=== PATIENT | female | born 1945 | race Asian ===

== ENCOUNTER 2016-10-24 18:07 | Inpatient (IN) | payer MEDICARE, MEDICAID ==
[2016-10-24] VITALS (10 sets, daily range): BP systolic 59–186; BP diastolic 41–106; PULSE 106–134; RESP 14–35; TEMP 97.6; O2SAT 95–100
[~2016-10-24] VITALS: Ht 167.6 cm; Wt 64.2 kg
[~2016-10-24 18:07] MED LIST: ASPI81TA82 PO; BACT800T5 PO; DOPamine INJ PREMIX 500 ML IV ONE; EPINEPHrine HCL (1:10,000) 1 MG/10 ML SYRINGE IV ONE; EPINEPHrine HCL (1:1000) 30 MG/30 ML VIAL IV ONE; IOHEXOL 350 MG/ML 50 ML BTL (for Cath Lab) OTHER ONE; IPRAAER IN; METHI10 PO; METO25 PO; RANI150T PO
[2016-10-24] MEDS ORDERED: PROPOFOL 1000 MG/100 ML INJ 100 ML ONE (18:17)
[2016-10-24] MEDS ORDERED: ASPIRIN 81 MG CHEW TAB PO STA (18:19)
[2016-10-24] MEDS ORDERED: HEPARIN SODIUM - IV 10,000 UNITS/10 ML VIAL IV STA (18:19)
[2016-10-24] MEDS ORDERED: NITROGLYCERIN 0.4 MG SL 25 TABS/BTL SL STA (18:19)
[2016-10-24] MEDS ORDERED: SODIUM CHLOR 0.9% 1000 ML INJ 1,000 ML IV ONE (18:19)
[2016-10-24] MEDS ORDERED: SODIUM CHLORIDE 0.9% FLUSH 10 ML FLUSH IVF PRN (18:30)
[2016-10-24] MEDS ORDERED: NITROGLYCERIN-DEXTROSE INJ 250 ML IV SCH (18:30)
[2016-10-24] MEDS ORDERED: HEPARIN-NS/PF INJ 500 ML ONE (18:42)
[2016-10-24] MEDS ORDERED: TIROFIBAN INFUSION INJ 250 ML IV ONE (18:43)
[2016-10-24] MEDS ORDERED: SODIUM NITROPRUSSIDE 50 MG/2 ML VIAL ONE (18:43)
[2016-10-24] MEDS ORDERED: HEPARIN SODIUM - IV 10,000 UNITS/10 ML VIAL ONE ×2 (18:43→18:58)
[2016-10-24] MEDS ORDERED: NITROGLYCERIN INJ 5 ML ONE (18:43)
--- NOTE | 2016-10-24 18:49 | RADRPT ---
EXAM DATE/TIME: 10/24/2016 18:27 [facility] COMPARISON: No previous studies available for comparison. INDICATIONS : STEMI Alert. MEDICAL HISTORY : None. SURGICAL HISTORY : None. ENCOUNTER: Initial ACUITY: 1 day PAIN SCORE: Non-responsive. LOCATION: Bilateral chest FINDINGS: Single AP view of the chest. Endotracheal tube tip is 2.4 cm above the valencia. Nasogastric tube is in place its tip below the [id number] of the radiograph. Volume loss and opacity is seen in the left upper lung zone. Comparison images are not immediately available for review a report of prior radiog raph describes chronic left apical opacity. Cardiac silhouette within normal limits. No evidence of p leural effusion or pneumothorax. CONCLUSION: 1. Left upper lung opacity and volume loss, likely chronic. 2. Endotracheal tube and nasogastric tube in place. Yovany Dawn MD on October 24, 2016 at 18:45 Board Certified Radiologist. This report was verified electronically.
[2016-10-24 18:52] LABS: AUTOMATED NEUTROPHIL # 6.6 TH/MM3 (1.8-7.7); BASOPHIL # 0.1 TH/MM3 (0-0.2); BASOPHIL % 0.7 % (0.0-2.0); EOSINOPHIL # 0.7 TH/MM3 (0-0.4); EOSINOPHIL % 6.3 % (0.0-4.0); HEMATOCRIT 43.4 % (35.0-46.0); HEMO FLAGS DIFF FINAL; LYMPH % 27.6 % (9.0-44.0); MEAN CELL VOLUME 87.5 FL (80.0-100.0); MEAN CORPUSCULAR HEMOGLOBIN 27.3 PG (27.0-34.0); MEAN CORPUSCULAR HGB CONC 31.2 % (32.0-36.0); MONO % 3.8 % (0.0-8.0); NEUT % 61.6 % (16.0-70.0); PLATELET COUNT 294 TH/MM3 (150-450); RED BLOOD COUNT 4.96 MIL/MM3 (4.00-5.30); WHITE BLOOD COUNT 10.7 TH/MM3 (4.0-11.0)
[2016-10-24 19:04] LABS: I-STAT POTASSIUM 4.8 MMOL/L (3.5-4.9)
[2016-10-24 19:06] LABS: APTT (PATIENT) 24.9 SEC (24.3-30.1); INTERNATIONAL NORMALIZED RATIO 0.9 RATIO; PROTHROMBIN TIME - PATIENT 10.2 SEC (9.8-11.6)
[2016-10-24] MEDS ORDERED: DOPamine INJ PREMIX 500 ML ONE (19:13)
[2016-10-24] MEDS ORDERED: IOHEXOL 350 MG/ML 10 ML VIAL (for RAD DIAG) IV ONE ×2 (19:47→19:52)
[2016-10-24] MEDS ORDERED: LORazepam 2 MG/ML VIAL IV PRN (20:00)
[2016-10-24] MEDS ORDERED: PROCHLORPERAZINE 25 MG SUPP RECTAL PRN (20:00)
[2016-10-24] MEDS ORDERED: PROPOFOL 1000 MG/100 ML INJ 100 ML IV SCH (20:00)
[2016-10-24] MEDS ORDERED: ONDANSETRON HCL 4 MG/2 ML VIAL IV PRN (20:00)
[2016-10-24] MEDS ORDERED: METOCLOPRAMIDE HCL 10 MG/2 ML VIAL IV PRN (20:00)
[2016-10-24] MEDS ORDERED: RESP: ALBUTEROL 2.5 MG/IPRATROPIUM 0.5 MG NEB (PRN) INH (20:00)
[2016-10-24] MEDS ORDERED: ACETAMINOPHEN 325 MG TAB PO PRN (20:00)
[2016-10-24] MEDS ORDERED: BISACODYL 10 MG SUPP RECTAL PRN (20:00)
[2016-10-24] MEDS ORDERED: CHLORHEXIDINE GLUCONATE 2 % 1 PACK (2 CLOTHS) TOP PRN (20:00)
[2016-10-24] MEDS ORDERED: SENNOSIDES 8.6 MG TAB PO PRN (20:00)
[2016-10-24] MEDS ORDERED: MISCELLANEOUS NURSING INFORMATION XX SCH (20:00)
[2016-10-24] MEDS ORDERED: MAGNESIUM HYDROXIDE SUSP 30 ML CUP PO PRN (20:00)
--- NOTE | 2016-10-24 20:07 | RADRPT ---
EXAM DATE/TIME: 10/24/2016 19:20 [facility] COMPARISON: CHEST SINGLE AP, October 24, 2016, 18:27. INDICATIONS : STEMI Alert. MEDICAL HISTORY : None. SURGICAL HISTORY : None. ENCOUNTER: Initial ACUITY: 1 day PAIN SCORE: Non-responsive. LOCATION: Bilateral chest FINDINGS: Single AP view of the chest. Endotracheal tube and nasogastric tube remain in place. Left subclavian central venous catheter is now seen with the tip in the region of the distal SVC. Increased bilateral pulmonary opacity, most prominent increase is seen in the right upper lung zone and right lower lung zone. Chronic opacity and volume loss again seen in the left upper lung. No evidence of pleural effu meghan or pneumothorax. Cardiomediastinal silhouette unchanged. CONCLUSION: Increased bilateral pulmonary parenchymal opacity. Differential diagnosis includes pulmonary edema an d infection. Yovany Dawn MD on October 24, 2016 at 20:03 Board Certified Radiologist. This report was verified electronically.
[2016-10-24] MEDS ORDERED: NOREPINEPHRINE 4 MG/4 ML AMP ONE (20:10)
--- NOTE | 2016-10-24 20:17 | PD ---
HPI Chief Complaint: Respiratory Distress Time Seen by Provider: 19:33 Travel History International Travel<30 days: No Contact w/Intl Traveler<30days: No Traveled to known affect area: No History of Present Illness HPI 70 years old female was brought in from home with h/o shortness of breath. Upon their arrival, patient was severely short of breath and her lungs sounded "wet" . She was given IV Lasix by EMS and was started on CPAP. Patient arrived in extremis, unable to speak due to the distress. There was no family member present to give additional history. EMS had done a 12 lead EKG en route which looked to them as STEMI. They called a STEMI alert. Patient however shook her head meaning "no" when I asked if she had any chest pain. Her BP was 135 systolic and heart rate of 125. Sats were 95% on the CPAP. PFSH Past Medical History Narrative Medical List of her past medical, surgical, social and family history was reviewed from the nursing note and medical chart. It was limited. Arthritis: Yes ("GOUT" SEE DR BUCKNER) Asthma: Yes Blood Disorders: No Cancer: No Cardiovascular Problems: Yes High Cholesterol: No Chemotherapy: No Chest Pain: Yes Congestive Heart Failure: No Cerebrovascular Accident: No Diabetes: No Diminished Hearing: No Diverticulitis: Yes Endocrine: No GERD: No Glaucoma: No Genitourinary: No Headaches: No Hepatitis: No Hiatal Hernia: No Hypertension: No Immune Disorder: Yes ("GOUT") Kidney Stones: No Musculoskeletal: Yes Neurologic: No Psychiatric: No Reproductive: No Respiratory: Yes Migraines: No Myocardial Infarction: No Pneumonia: Yes Radiation Therapy: No Renal Failure: No Seizures: No Sickle Cell Disease: No Sleep Apnea: No Thyroid Disease: Yes (STARTED ON TAPAZOLE) Ulcer: No Influenza Vaccination: No ?: Not Menopausal: Yes Past Surgical History Surgical History: Unable to Obtain Abdominal Surgery: No AICD: No Appendectomy: No Arteriovenous Shunt: No Cardiac Surgery: Yes (ANGIOPLASTY) Cholecystectomy: No Ear Surgery: No Endocrine Surgery: No Eye Surgery: No Genitourinary Surgery: No Gynecologic Surgery: No Insulin Pump: No Joint Replacement: No Oral Surgery: No Pacemaker: No Thoracic Surgery: No Other Surgery: Yes (ANGIOPLASTY NOVEMBER 2009) Social History Alcohol Use: No Tobacco Use: No Substance Use: No Allergies-Medications (Allergen,Severity, Reaction): Coded Allergies: Propofol (Verified Adverse Reaction, Severe, bradycardia, 10/25/16) Comments NKDA Reported Meds & Prescriptions Reported Meds & Active Scripts Active Reported Combivent Respimat (Albuterol/Ipratropium) Respimat Aer 1 Inhalation IN DIRECTED Aspir-81 (Aspirin) 81 Mg Tab 81 Mg PO DAILY Ranitidine 150 mg (Ranitidine HCl) 150 Mg Tab 1 Tab PO BID Bactrim DS (Sulfamethoxazole-Trimethoprim DS) 1 Tab Tab 1 Tab PO BID Tapazole 10 mg (Methimazole) 10 Mg Tab 0.5 Tab PO BID Metoprolol Tartrate 25 mg (Metoprolol Tartrate) 25 Mg Tab 25 Mg PO BID Narrative Medication List of her home medications were reviewed from the nursing note. Review of Systems Except as stated in HPI: all other systems reviewed are Neg Physical Exam Narrative GENERAL: Lethargic, significant distress, and extremities SKIN: Focused skin assessment warm/dry. HEAD: Atraumatic. Normocephalic. EYES: Pupils equal and round. No scleral icterus. No injection or drainage. ENT: No nasal bleeding or discharge. Mucous membranes pink and moist. NECK: Trachea midline. No JVD. CARDIOVASCULAR: Regular rate and rhythm. No murmur appreciated. RESPIRATORY: Respiratory distress with poor respiratory effort, diminished breath sounds GASTROINTESTINAL: Abdomen soft, non-tender, nondistended. Hepatic and splenic margins not palpable. MUSCULOSKELETAL: No obvious deformities. No clubbing. No cyanosis. No edema. NEUROLOGICAL: GCS of 12 PSYCHIATRIC: Anxious Data Data Last Documented VS Vital Signs Date Time Temp Pulse Resp B/P Pulse Ox O2 Delivery O2 Flow Rate FiO2 10/24/16 18:50 132 22 165/78 100 Room Air 10/24/16 18:15 100 Orders Propofol 1000 Mg/100 Ml Inj (Diprivan 10 (10/24/16 18:17) Troponin I (10/24/16 18:19) Ckmb (Isoenzyme) Profile (10/24/16 18:19) Complete Blood Count With Diff (10/24/16 18:19) I-Stat Profile (10/24/16 18:19) I-Stat Creatinine (10/24/16 18:19) Calcium (10/24/16 18:19) Magnesium (Mg) (10/24/16 18:19) Prothrombin Time / Inr (Pt) (10/24/16 18:19) Act Partial Throm Time (Ptt) (10/24/16 18:19) B-Type Natriuretic Peptide (10/24/16 18:19) Chest, Single Ap (10/24/16 18:19) Electrocardiogram (10/24/16 18:19) Oxygen Administration (10/24/16 18:19) Iv Access Insert/Monitor (10/24/16 18:19) Oximetry (10/24/16 18:19) Sodium Chlor 0.9% 1000 Ml Inj (Ns 1000 M (10/24/16 18:19) Sodium Chloride 0.9% Flush (Ns Flush) (10/24/16 18:30) Aspirin Chew (Aspirin Chew) (10/24/16 18:19) Nitroglycerin Sl (Nitrostat Sl) (10/24/16 18:19) Nitroglycerin-Dextrose Inj (Nitroglyceri (10/24/16 18:30) Heparin Inj (Heparin Inj) (10/24/16 18:19) Cardiac Catheterization (10/24/16 ) Heparin-Ns/Pf Inj (Heparin-Ns/Pf Inj) (10/24/16 18:42) Nitroprusside Inj (Nipride Inj) (10/24/16 18:43) Tirofiban Infusion Inj (Aggrastat Infusi (10/24/16 18:43) Heparin Inj (Heparin Inj) (10/24/16 18:43) Nitroglycerin Inj (Nitroglycerin Inj) (10/24/16 18:43) Admit Order (Ed Use Only) (10/24/16 ) Labs Laboratory Tests Test 10/24/16 18:26 White Blood Count 10.7 TH/MM3 Red Blood Count 4.96 MIL/MM3 Hemoglobin 13.5 GM/DL Bedside Hemoglobin 16.3 G/DL Hematocrit 43.4 % Bedside Hematocrit 48.0 % Mean Corpuscular Volume 87.5 FL Mean Corpuscular Hemoglobin 27.3 PG Mean Corpuscular Hemoglobin 31.2 % Concent Red Cell Distribution Width 14.0 % Platelet Count 294 TH/MM3 Mean Platelet Volume 9.5 FL Neutrophils (%) (Auto) 61.6 % Lymphocytes (%) (Auto) 27.6 % Monocytes (%) (Auto) 3.8 % Eosinophils (%) (Auto) 6.3 % Basophils (%) (Auto) 0.7 % Neutrophils # (Auto) 6.6 TH/MM3 Lymphocytes # (Auto) 3.0 TH/MM3 Monocytes # (Auto) 0.4 TH/MM3 Eosinophils # (Auto) 0.7 TH/MM3 Basophils # (Auto) 0.1 TH/MM3 CBC Comment DIFF FINAL Differential Comment Prothrombin Time 10.2 SEC Prothromb Time International 0.9 RATIO Ratio Activated Partial 24.9 SEC Thromboplast Time Bedside Sodium 140 MMOL/L Bedside Potassium 4.8 MMOL/L Bedside Chloride 105 MMOL/L Bedside Blood Urea Nitrogen 24 MG/DL Bedside Creatinine 1.0 MG/DL Bedside Glucose 265 MG/DL Calcium Level 8.0 MG/DL Magnesium Level 2.0 MG/DL Total Creatine Kinase 60 U/L Troponin I 0.47 NG/ML B-Type Natriuretic Peptide 43 PG/ML Thyroid Stimulating Hormone 0.080 uIU/ML 3rd Gen Theophylline Level LESS THAN 2.0 MCG/ML MDM Medical Decision Making Medical Screen Exam Complete: Yes Emergency Medical Condition: Yes Medical Record Reviewed: Yes Interpretation(s) 12 lead EKG was reviewed by me. NSR, LAD, diffuse ST elevations with no reciprocal changes. HR of 123 BPM Differential Diagnosis STEMI, Pericarditis, Aortic dissection, pulmonary edema Narrative Course 8PM Initially, soon after the patient arrived, I decided to intubate her since she appeared to be in impending respiratory failure. Patient tolerated the procedure well initially. A 12-lead EKG was obtained soon after the intubation which again showed a diffuse ST elevation with no depression. I however called a STEMI alert and discussed the case with Dr. Armstrong. He wanted to see the picture of the 12-lead EKG which was texted to his phone. He wanted to call the STEMI alert off and get a repeat 12-lead EKG in a few minutes and wait for the blood test result. Soon after that patient lost her pulse and CPR was begun. Patient was given 2-3 rounds of epinephrine. Please refer to the nurse' s code sheet. There was ROSC. A repeat 12-lead EKG was obtained which showed remarkable ST elevations. At this point I called Dr. Armstrong again and once again sent a second picture of the 12-lead EKG. STEMI alert was recalled. He wanted the patient to be taken up to the catheter lab. At this point her family showed up including her and I spoke briefly with the . He told me that patient has history of COPD but also has a coloring room man Dr. Alvares who follows her up. Based on this information I tried to cancel Dr. Armstrong's consult and tried to reach out to him. At the same time Dr. Romero who was on-call for Dr. Alvares's group was called. I discussed the case with her and she came to see the patient immediately. She spoke with the at length and during her discussion with the family patient coded one more time. Once again CPR was initiated by me. Please refer to the nurse' s code sheet regarding the meds in the time delivered during the second CPR. Once again ROSC was achieved and patient was started on dopamine at this point. I inserted a central line. Please refer to my procedure note. A portable chest x-ray was obtained for central line placement. The chest x-ray appeared to have questionable widened mediastinum. At this point I decided to take the patient to the CT to rule out any dissection and Dr. Romero agreed. I and Dr. Romero went with the patient to the CT scanner and wants a CT was obtained the etiologies immediately read the CT. There was no dissection. Patient was taken to the Liner Checker. Dr. Romero wanted me to be on standby in the medical lab specialist in case the patient coded again. Please refer to 's catheter report dictation. I was told that patient does not have any coronary artery occlusion. She did have significant hypokinesis however. She did not code anymore at this point. Patient was taken to the ICU from there. At this point she remained relatively hemodynamically stable. Patient was admitted by Dr. Hernandez in the ICU. Critical Care Narrative Aggregate critical care time was 120 minutes. Time to perform other separately billable procedures was not included in the critical care time. My time did not include minutes spent treating any other patients simultaneously or on activities that did not directly contribute to the patient's treatment. The services I provided to this patient were to treat and/or prevent clinically significant deterioration that could result in: Respiratory failure, CPR, cardiac arrest, hemodynamic instability, ventilator management I provided critical care services requiring my management, as noted below: Chart data review, documentation time, medication orders and management, vital sign assessments/reviewing monitor data, ordering and reviewing lab tests, ordering and interpreting/reviewing x-rays and diagnostic studies, care of the patient and discussion of the patient with the admitting physicians. Procedures Procedure Narrative After the risks and benefits were discussed the following procedure was performed: INTUBATION: The patient was put in optimal position for the procedure. Rapid sequence intubation was initiated by me using 20 milligrams of etomidate IV and 100 milligrams of succinylcholine IV. The patient was intubated with a 7.5 Cuffed endotracheal tube. Tube placement was confirmed by visualization of the tube and balloon passing through the cords, capnometry and subsequent chest x-ray. Breath sounds were equal and well aerated bilaterally postintubation. No breath sounds over stomach. Patient tolerated procedure well. CENTRAL VENOUS LINE: The site was prepped with Betadine and sterilely draped. It was infiltrated with 1% lidocaine plain. The deep vein was cannulated using normal Seldinger technique. A triple lumen central line was placed in the left subclavian site and secured with simple interrupted suture. The site was sterilely dressed. The patient tolerated the procedure well. EKG Prior to Arrival: Yes Physician Communication Physician Communication Dr. Armstrong, Dr. Romero, Dr. Hernandez Diagnosis Primary Impression: Respiratory failure Qualified Code: J96.00 - Acute respiratory failure, unspecified whether with hypoxia or hypercapnia Additional Impressions: Cardiac arrest Pulmonary edema Qualified Code: J81.0 - Acute pulmonary edema Elevated troponin I level Admitting Information Admitting Physician Requests: it David Womack MD Oct 24, 2016 20:17
[2016-10-24] MEDS ORDERED: MISC INFORMATION XX ONE (20:30)
[2016-10-24] MEDS ORDERED: LIDOCAINE HCL 1% 50 ML VIAL INFIL PRN (20:30)
--- NOTE | 2016-10-24 20:33 | CATHPROC ---
[employer] HIS Report Study Information Study Number Admission Scheduled Start Study Start [id number] Oct 24 2016 6:07PM 10/24/2016 Oct 24 2016 6:36PM [place] [facility] Cardiac Catheterization Admit Source Facility Department Emergency department [facility] - [facility] Physician and Clinical Staff Initial MD Armstrong, Kris Strap Making Machine OperatorMegha Gates RN Additional Cami Rojo Strap Making Machine OperatorSanna Nye RN Recorder Vani Márquez,RT(R) Jennifer Price RCIS TECH2 Procedures Performed Procedure Location (Site) Vessel Name Coronary Angiograms LCA Left Coronary Coronary Angiograms RCA Right Coronary L Heart Cath LV Gram-hand inj. LV LV Ventricle Wire insertion Fem Art (right) Femoral Art Equipment Time Ice Cream Van Vendor Description Size Mfg Part Number Used/Scra ped TRANSDUCER, TRUWAVE [id number] 19:33 RAY PATEL * Used W/STOCKCOCK *[id number] [id number] *[id number] [id number] *[id number] [id number] *[id number] [id number] *[id number] *[id number] 19:33 [employer] PACK, CCL CUSTOM * Used *[id number] 19:33 [employer] PACER PEN, SKIN DUAL W/ RULER * Used *[id number] 19:34 [employer] MEDICAL SHEATH, FR4.5 PRELUDE 11CM FR 4.5 Used [id number] 19:33 [employer] MEDICAL SHEATH, FR6.5 PRELUDE 11CM FR 6.5 038ACT Used *[id number] 19:33 [employer] MEDICAL WIRE, 3MMJ .035 180CM 180CM Used *[id number] 19:33 [employer] CONTRAST CONTROLLER, SPIKE * Used *[id number] 19:33 [employer] MANIFOLD, 4 PORT * Used *[id number] 19:33 [employer] OMNIPAQUE, 350 MG, 150ML 150ML [id number] Used [id number] 19:33 [employer] MEDICAL BLANKET,WARM AIR CCL * Used *[id number] Medication Medication Total Dose (Bolus/Oral) Medication Total Dosage/Unit 1% XYLOCAINE 20 mL Medications (Bolus/Oral) Medication Time Given Dosage/Unit Administered By Reason 1% XYLOCAINE 10/24/2016 8:07:00 PM 20 mL Nick, Cami 20 mL 1% XYLOCAINE given in lab by Cami Romero in Right Groin via Subcutaneous. Medication (Drip) Medication Time Given Dosage/Unit Concentration/Unit Diluent (ml) Solution DOPAMINE HCL 10/24/2016 8:02:28 PM 15 mcg Patient arrived on 15 mcg DOPAMINE HCL in Left Hand via Peripheral IV. IV Solutions 10/24/2016 8:02:27 PM 0 mL (IV) 1000 NaCl .9 Patient arrived on IV Solutions in Right Hand via Peripheral IV. Pump/Drip Flow = 20 ml/hr using NaCl .9. Initial Case Assessment Cardiovascular HR Rhythm NIBP 108 reg 67/40 Edema Present Skin color Skin None Pale Cool Clammy Circulatory - Right Pulses Dorsalis Pedis Femoral d d Scale (0,1,2,3,4,d) Circulatory - Left Pulses Dorsalis Pedis Femoral d d Scale (0,1,2,3,4,d) Neurological State Unresponsive Respiration - General Respiration Rate SpO2 (%) (B/min) 15 100 Comment: rate 16 Respiration - Ventilator Type Intubation Type ET(oral) Respiration - Ventilator Settings TV (ml) FIO2 (%) PEEP (cm/H2O) 500 100 8 Final Case Assessment Respiration - General Respiration Rate SpO2 (%) (B/min) 15 100 Respiration - Ventilator Type Intubation Type ET(oral) Respiration - Ventilator Settings TV (ml) FIO2 (%) PEEP (cm/H2O) 500 100 8 Chronological Log Time Study Chronological Log 18:46:59 Emergency Room notified that Leather Production Worker is ready. pt now on the way to cathlab 19:32:[address] now -coming to cathode washer 19:52:59 19:56:18 Patient arrived via Bed. 19:59:25 Patient Name, D.O.B, / Armband Verified By R.N. 19:59:41 Consent signed by the physician and the patient and verified by the [facility] Worker staff. 20:01:41 Bilateral groins prepped with 2% chlorhexidine, and with a 3 min. waiting time. Vitals capture started with the following parameters, Patient=Adult, Interval=5 min, Initial Pr fxbunv=236 mmHg, 20:02:10 Deflation Rate=5 mmHg 20:02:18 Immediate Presedation assesment performed by physician. 20:02:22 Disposable Defibrillator Pads Placed On Patient. 20:02:25 A # 20 IV was noted in the Hand (right). Grade = 0 20:02:26 A # 20 IV was noted in the Hand (left). Grade = 0 20:02:27 Patient arrived on IV Solutions in Right Hand via Peripheral IV. Pump/Drip Flow = 20 ml/hr using NaCl .9. 20:02:28 Patient arrived on 15 mcg DOPAMINE HCL in Left Hand via Peripheral IV. 20:02:50 ZP=461 bpm, NIBP=67/40 mmhg, IfN5=775.0 %, Resp=16 B/min, Ivana=2, Teresa=6 20:05:06 Reference ECG taken Assessment: Initial Case, EX=599 BPM, Rhythm=reg, NIBP=67/40 mmhg, Edema=None, Color=Pale, Skin = Cool, Clammy Right Pulses: Uv Ped=d, Femoral=d 20:05:10 Left Pulses: Vu Ped=d, Femoral=d Neurological: State=Unresponsive Respiration: Resp=15 B/min, HhZ9=131 %, Type=ET(Oral), WJ=319 mL, STE0=612 %, PEEP=8 cm/H2O, Comment=rate 16 20:06:30 NIBP STAT measurement started. 20:06:37 Pressure channel 1 zeroed. 20:06:47 Bilateral groins prepped with 2% chlorhexidine, and with a 3 min. waiting time. 20:06:54 CX=533 bpm, NIBP=78/49 mmhg, MxH2=507.0 %, Resp=15 B/min, Ivana=2 20:07:00 20 mL 1% XYLOCAINE given in lab by Cami Romero in Right Groin via Subcutaneous. 20:07:49 DY=537 bpm, NIBP=87/54 mmhg, FbN2=934.0 %, Resp=15 B/min, Ivana=3 20:08:24 Case Start 20:09:44 Access site was Right Femoral Artery. 20:09:53 A wire was inserted via Fem Art (right). 20:09:57 A SHEATH, FR4.5 PRELUDE 11CM FR 4.5 was advanced into the Fem Art (right) using the Percuta neous technique. 20:10:12 An injection in the Fem Art (right) was made through the SHEATH, FR4.5 PRELUDE 11CM FR 4.5. A JL 4.0 INFINITI CATHETER FR 4 was advanced over a wire. OMNIPAQUE, 350 MG, 150ML 150ML was us ed for 20:10:39 injections. 20:11:09 The LCA was injected and visualized at various angles. OMNIPAQUE, 350 MG, 150ML 150ML used . After removing the current catheter a 3DRC INFINITI CATHETER FR 4 was advanced over a WIRE, 3MM J .035 180CM 20:12:42 180CM. 20:13:13 YF=790 bpm, USCD=216/72 mmhg, CtT9=114.0 %, Resp=15 B/min, Ivana=4 Recorded Pressure: Ao, CU=699, Condition=Condition 1 20:13:29 (Aorta) Ao 107/73/88 20:13:52 Activated Clotting Time Drawn 20:14:38 The RCA was injected and visualized at various angles. OMNIPAQUE, 350 MG, 150ML 150ML use d. 20:14:49 Catheter was removed After removing the current catheter a PIGTAIL ANG. INFINITI CATHETER FR 4 was advanced over a WIRE, 3MMJ .035 20:14:55 180CM 180CM. Recorded Pressure: LV, AH=914, Condition=Condition 1 20:15:27 (Left Ventricle) LV 116/12/17 20:15:40 The LV was manually injected with 10 cc's and visualized. OMNIPAQUE, 350 MG, 150ML 150ML u sed. Recorded Pressure: LV, Ao, GY=465, Condition=Condition 1 20:16:12 (Left Ventricle) LV 117/14/19, (Aorta) Ao 115/71/91 20:16:34 Catheter was removed 20:17:06 Case End Assessment: Final Case 20:17:09 Respiration: Resp=15 B/min, UzA1=757 %, Type=ET(Oral), NE=663 mL, MON2=753 %, PEEP=8 cm/H2O 20:17:33 Catheter(s) removed without difficulty 20:17:43 XT=829 bpm, STQW=792/79 mmhg, EuC4=674.0 %, Resp=15 B/min, Ivana=4 20:17:45 No case complications noted. 20:17:56 Cine recording checked. 20:18:01 Bedside Report will be given. 20:18:04 Contrast Scanned 20:18:07 A Left Heart Cath was performed. 20:18:12 Clinical correlaton risk stratification. 20:19:03 ACT (Normal Range 90-180) = 204 20:19:50 pt received 5000 heparin in ER 20:20:13 In the Fem Art (right) the SHEATH, FR4.5 PRELUDE 11CM FR 4.[address] by Cami Allred. 20:22:44 QL=762 bpm, EJYT=126/73 mmhg, QxK8=930.0 %, Resp=14 B/min, Ivana=4 20:28:10 Vitals capture stopped. End Study - Contrast Media Used In Study Contrast Total Opened (mL) Total Used (mL) Total Wasted (mL) Omnipaque 40 40 0 End Study - Radiation Exposure Fluoro Time (minutes) 0.7 End Study - Patient Disposition Complications Transferred To No Critical Care Bed
--- NOTE | 2016-10-24 20:43 | RADRPT ---
EXAM DATE/TIME: 10/24/2016 19:44 [facility] COMPARISON: CT THORAX W CONTRAST, November 07, 2009, 15:30. INDICATIONS : Code stemi, possible dissection. IV CONTRAST: 50 cc Omnipaque 350 (iohexol) IV RADIATION DOSE: 4.51 CTDIvol (mGy) MEDICAL HISTORY : Cardiovascular disease. Diverticulitis. SURGICAL HISTORY : Angioplasty. ENCOUNTER: Initial ACUITY: 1 day PAIN SCALE: Non-responsive LOCATION: Bilateral chest TECHNIQUE: Volumetric scanning of the chest was performed. Using automated exposure control and adjustment of t he mA and/or kV according to patient size, radiation dose was kept as low as reasonably achievable to obtain optimal diagnostic quality images. FINDINGS: LUNGS: Severe cystic bronchiectasis of the left lung, most prominent in the upper lobe. Prominent volume los s and consolidation of the medial left lower lung. This appearance may be chronic. Severe mixed groun dglass opacity and consolidation of the right upper lung and midlung. Moderate severity groundglass o pacity the central to lateral right lower lung. Extensive varicose bronchiectasis is noted on the rig ht most prominent in the upper lobe. PLEURA: There is a small right sided pneumothorax. MEDIASTINUM: Small pneumomediastinum is seen adjacent to the right side of the esophagus. Massive enlargement and heterogeneity of the thyroid. The endotracheal tube is in place with the tip in the thoracic trachea. Nasogastric tube is in place with the tip below the [id number] of the study. Enlargement of the p ulmonary arteries suggesting pulmonary arterial hypertension. Aorta is normal diameter. No evidence o f dissection. AXILLAE: Within normal limits. No lymphadenopathy. SKELETAL: Within normal limits. MISCELLANEOUS: Multiple round hepatic lesions are again seen. Again likely worsening cysts. The largest is in the ce ntral right lobe measuring 3.1 cm. This has increased in size but clearly represented a cyst on the p rior study. CONCLUSION: 1. Small right pneumothorax. Pneumomediastinum adjacent to the right side of the esophagus. 2. Chronic severe bronchiectasis left greater than right. 3. New severe mixed groundglass and consolidative ulnar parenchymal opacity at the right lung. Differ ential diagnosis includes infection versus asymmetric pulmonary edema. 4. Multiple hepatic cysts. 5. Thyroid goiter. Yovany Dawn MD on October 24, 2016 at 20:31 Board Certified Radiologist. This report was verified electronically.
[2016-10-24] MEDS: DOCUSATE SODIUM 50 MG/SENNA 8.6 MG TAB PO SCH (21:00)
[2016-10-24] MEDS: RESP: ALBUTEROL 2.5 MG/IPRATROPIUM 0.5 MG NEB (SCH) INH (21:24)
[2016-10-24] MEDS ORDERED: MIDAZOLAM 100 MG/ML INJ 100 ML IV SCH (21:30)
[2016-10-24] MEDS: fentaNYL DRIP 250 ML IV SCH (22:04)
--- NOTE | 2016-10-24 22:13 | MB ---
cc: RHONA GARRETT MD DATE OF CONSULTATION 10/24/16 REASON FOR CONSULTATION Possible STEMI alert. HISTORY OF PRESENT ILLNESS The patient is a 70-year-old female who does have a history of previous [place] and mildly reduced EF by catheterization of 45-50%. The patient at the time of catheterization in November of 2009 was not found to have any significant disease. She had normal coronaries at that time. She presented to the emergency room today with an acute onset of shortness of breath. She subsequently coded twice in the emergency room and was intubated. The patient has diffuse ST elevation and cardiology was subsequently consulted. The patient is intubated and unable to give any history at this point. The history is per the records. PAST SURGICAL HISTORY 1. Diverticular disease 2. Bronchiectasis, 3. Asthma, 4. Multinodular goiter. SOCIAL HISTORY The patient is . REVIEW OF SYSTEMS/FAMILY HISTORY Unobtainable. PHYSICAL EXAMINATION VITAL SIGNS: 114, 16, 174/99 GENERAL: She is intubated. LUNGS: Lungs have bilateral rhonchi. CARDIOVASCULAR: Cardiac tones are difficult to appreciate, do sound to have regular rhythm. I am unable to appreciate any rubs or gallops. ABDOMEN: Soft. EXTREMITIES: Free from edema. CARDIOLOGY STUDIES EKG shows sinus tachycardia with diffuse ST elevation. IMAGING STUDIES Chest x-ray - Preliminary shows a mediastinal mass. IMPRESSION AND PLAN ST elevation [place] - The patient does have a diffuse ST elevation. I cannot completely exclude a STEMI, although it is of low likelihood based on her history of normal coronaries a few years ago. At this point, I do agree with the ER doctor of pursuing a CT scan and then reevaluating prior to proceeding to the kiln labourer. Rhona Garrett M.D. AMINAH/ /7:37 PM /10:07 PM
--- NOTE | 2016-10-24 22:13 | HHI.HP ---
HPI Service Critical Care Medicine Primary Care Physician Unknown Admission Diagnosis STEMI Diagnosis: Travel History International Travel<30 Days: No Contact w/Intl Traveler <30 Da: No Traveled to Known Affected Are: No History of Present Illness 70 years old female was brought in from home with h/o shortness of breath. Upon their arrival, patient was severely short of breath and her lungs sounded "wet" . She was given IV Lasix by EMS and was started on CPAP. Patient arrived in extremis, unable to speak due to the distress. There was no family member present to give additional history. EMS had done a 12 lead EKG en route which looked to them as STEMI. They called a STEMI alert. Patient however shook her head meaning "no" when I asked if she had any chest pain. Her BP was 135 systolic and heart rate of 125. Sats were 95% on the CPAP. Patient has suffered from cardiac arrest months in the emergency department and one or 2 times in the cardiac catheterization lab. Review of Systems ROS Unable to obtain patient is sedated and intubated Past Family Social History Allergies: Coded Allergies: No Known Allergies (Verified , 11/19/15) Past Medical History Coronary artery disease, status post [place] and angioplasty intervention Dyslipidemia Hypertension Diverticular disease Past Surgical History None Reported Medications Reported Meds & Active Scripts Active Reported Combivent Respimat (Albuterol/Ipratropium) Respimat Aer 1 Inhalation IN DIRECTED Aspir-81 (Aspirin) 81 Mg Tab 81 Mg PO DAILY Ranitidine 150 mg (Ranitidine HCl) 150 Mg Tab 1 Tab PO BID Bactrim DS (Sulfamethoxazole-Trimethoprim DS) 1 Tab Tab 1 Tab PO BID Tapazole 10 mg (Methimazole) 10 Mg Tab 0.5 Tab PO BID Metoprolol Tartrate 25 mg (Metoprolol Tartrate) 25 Mg Tab 25 Mg PO BID Active Ordered Medications Current Medications Medications (Trade) Dose Ordered Sig/Najma Route PRN Reason Start Time Stop Time Status Last Admin Dose Admin Nitroglycerin/ Dextrose (Nitroglycerin-Dextrose Inj) 250 ml @ 0 mls/hr TITRATE IV 10/24/16 18:30 Aspirin (Aspirin Chew) 81 mg DAILY PO 10/25/16 09:00 Methimazole 5 mg 5 mg BID PO 10/24/16 21:00 10/25/16 01:28 Sodium Chloride (NS 1000 ml Inj) 1,000 ml @ 84 mls/hr [id number] IV 10/24/16 19:48 10/24/16 22:18 Sodium Chloride (NS Flush) 2 ml UNSCH PRN .XX FLUSH AFTER USING IV ACCESS 10/24/16 20:00 Sodium Chloride (NS Flush) 2 ml BID .XX 10/24/16 21:00 10/25/16 01:28 Acetaminophen (Tylenol) 650 mg Q6H PRN PO PAIN 1-2 AND/OR FEVER >101F 10/24/16 20:00 Morphine Sulfate (Morphine Inj) 2 mg Q2H PRN IV PAIN SCALE 6 TO 10 10/24/16 20:00 Famotidine (Pepcid Inj) 20 mg Q12HR IV PUSH 10/24/16 21:00 10/25/16 01:27 Lorazepam (Ativan Inj) 1 mg Q1H PRN IV Agitation/Sedation 10/24/16 20:00 Artificial Tears (Tears Naturale Opth Soln) 1 drop TID EACH EYE 10/25/16 09:00 Ondansetron HCl (Zofran Inj) 4 mg Q6H PRN IV NAUSEA OR VOMITING 10/24/16 20:00 Metoclopramide HCl (Reglan Inj) 10 mg Q6H PRN IV NAUSEA OR VOMITING 10/24/16 20:00 Prochlorperazine (Compazine Supp) 25 mg Q12H PRN RECTAL NAUSEA OR VOMITING 10/24/16 20:00 Miscellaneous Information 1 [id number] XX 10/24/16 20:00 Chlorhexidine Gluconate (Chlorhexidine 2% Cloth) 3 pack Taper DAILY@04 TOP 10/25/16 04:00 10/21/17 03:59 10/25/16 03:06 Chlorhexidine Gluconate (Chlorhexidine 2% Cloth) 3 pack UNSCH PRN TOP HYGIENIC CARE 10/24/16 20:00 Senna/Docusate Sodium (Olivia-Colace) 1 tab BID PO 10/24/16 21:00 Magnesium Hydroxide (Milk Of Magnesia Liq) 30 ml Q12H PRN PO MILD - MODERATE CONSTIPATION 10/24/16 20:00 Sennosides (Senokot) 17.2 mg Q12H PRN PO MODERATE - SEVERE CONSTIPATION 10/24/16 20:00 Bisacodyl (Dulcolax Supp) 10 mg DAILY PRN RECTAL SEVERE CONSITIPATION 10/24/16 20:00 Lactulose 30 ml 30 ml DAILY PRN PO SEVERE CONSITIPATION 10/24/16 20:00 Propofol (Diprivan 1000 Mg/100ml Inj) 100 ml @ 0 mls/hr TITRATE IV 10/24/16 20:00 Lidocaine HCl 10 ml 10 ml UNSCH PRN INFIL SHEATH REMOVAL 10/24/16 20:30 10/25/16 20:29 Fentanyl Citrate 250 ml @ 0 mls/hr TITRATE IV 10/24/16 21:30 10/24/16 22:04 Midazolam HCl (Versed Inj) 100 ml @ 0 mls/hr TITRATE IV 10/24/16 21:30 10/24/16 22:05 Family History Noncontributory Social History Negative for alcohol or illicit drug or tobacco abuse Physical Exam Vital Signs Vital Signs Date Time Temp Pulse Resp B/P Pulse Ox O2 Delivery O2 Flow Rate FiO2 10/24/16 20:58 100 100 10/24/16 20:00 100 100 10/24/16 19:30 114 16 174/99 100 10/24/16 19:20 106 18 186/102 100 10/24/16 18:50 132 22 165/78 100 Room Air 10/24/16 18:15 100 10/24/16 18:15 123 18 141/73 100 100 10/24/16 18:11 123 35 136/84 95 Physical Exam GENERAL: Well-nourished, well-developed patient. SKIN: Warm and dry. HEAD: Normocephalic. EYES: No scleral icterus. No injection or drainage. NECK: Supple, trachea midline. No JVD or lymphadenopathy. CARDIOVASCULAR: Regular rate and rhythm without murmurs, gallops, or rubs. RESPIRATORY: Breath sounds equal bilaterally. No accessory muscle use. GASTROINTESTINAL: Abdomen soft, non-tender, nondistended. MUSCULOSKELETAL: No cyanosis, or edema. BACK: Nontender without obvious deformity. No CVA tenderness. EXTREMITIES: No clubbing cyanosis or edema Laboratory Laboratory Tests Test 10/24/16 18:26 White Blood Count 10.7 Red Blood Count 4.96 Hemoglobin 13.5 Bedside Hemoglobin 16.3 Hematocrit 43.4 Bedside Hematocrit 48.0 Mean Corpuscular Volume 87.5 Mean Corpuscular Hemoglobin 27.3 Mean Corpuscular Hemoglobin 31.2 Concent Red Cell Distribution Width 14.0 Platelet Count 294 Mean Platelet Volume 9.5 Neutrophils (%) (Auto) 61.6 Lymphocytes (%) (Auto) 27.6 Monocytes (%) (Auto) 3.8 Eosinophils (%) (Auto) 6.3 Basophils (%) (Auto) 0.7 Neutrophils # (Auto) 6.6 Lymphocytes # (Auto) 3.0 Monocytes # (Auto) 0.4 Eosinophils # (Auto) 0.7 Basophils # (Auto) 0.1 CBC Comment DIFF FINAL Differential Comment Prothrombin Time 10.2 Prothromb Time International 0.9 Ratio Activated Partial 24.9 Thromboplast Time Bedside Sodium 140 Bedside Potassium 4.8 Bedside Chloride 105 Bedside Blood Urea Nitrogen 24 Bedside Creatinine 1.0 Bedside Glucose 265 Calcium Level 8.0 Magnesium Level 2.0 Total Creatine Kinase 60 Troponin I 0.47 B-Type Natriuretic Peptide 43 Result Diagram: 10/24/16 182 Imaging Last 24 hours Impressions Chest X-Ray 10/24/169 Signed Impressions: Service Date/Time: Monday, October 24, 2016 18:27 - CONCLUSION: 1. Left upper lung opacity and volume loss, likely chronic. 2. Endotracheal tube and nasogastric tube in place. Yovany Dawn MD Assessment and Plan Assessment and Plan Respiratory failure - Intubated for an airway protection - Continue mechanical ventilation - DuoNeb scheduled and when necessary - No weaning until neurologically and hemodynamically stable Coronary artery disease - ST elevation [place] - Status post emergent cardiac catheterization - Management per cardiology Hyperlipidemia - Atorvastatin Cardiogenic shock - Dopamine, the affect - Echo a.m. - Keep map above 65 DVT GI prophylaxis - Heparin and Pepcid - Teds SCDs Critical Care: The total critical care time was 35 minutes. Time to perform other separately billable procedures was not included in the critical care time. Tommy Hernandez MD Oct 24, 2016 22:13
[2016-10-24] MEDS: SODIUM CHLOR 0.9% 1000 ML INJ 1,000 ML IV SCH (22:18)
[2016-10-25] VITALS (18 sets, daily range): BP systolic 75–138; BP diastolic 42–72; PULSE 90–138; RESP 14; TEMP 97.8–100.2; O2SAT 97–100
[2016-10-25] MEDS ORDERED: NOREPINEPHRINE-DEXTROSE DRIP 250 ML IV ONE (00:15)
[2016-10-25] MEDS: FAMOTIDINE 20 MG/2 ML VIAL IV PUSH SCH ×2 (01:27→08:45)
[2016-10-25] MEDS: METHIMAZOLE 10 MG TAB PO SCH ×3 (01:28→21:24)
[2016-10-25] MEDS: SODIUM CHLORIDE 0.9% FLUSH 10 ML FLUSH SCH ×3 (01:28→21:24)
[2016-10-25] MEDS: CHLORHEXIDINE GLUCONATE 2 % 1 PACK (2 CLOTHS) TOP SCH (03:06)
[2016-10-25 03:45] LABS: AUTOMATED NEUTROPHIL # 16.9 TH/MM3 (1.8-7.7); BASOPHIL # 0.1 TH/MM3 (0-0.2); BASOPHIL % 0.5 % (0.0-2.0); EOSINOPHIL % 0.2 % (0.0-4.0); HEMATOCRIT 34.3 % (35.0-46.0); HEMO FLAGS DIFF FINAL; LYMPH % 6.2 % (9.0-44.0); LYMPHOCYTE # 1.2 TH/MM3 (1.0-4.8); MEAN CELL VOLUME 84.5 FL (80.0-100.0); MEAN CORPUSCULAR HEMOGLOBIN 27.7 PG (27.0-34.0); MEAN CORPUSCULAR HGB CONC 32.7 % (32.0-36.0); MONO % 3.9 % (0.0-8.0); NEUT % 89.2 % (16.0-70.0); PLATELET COUNT 288 TH/MM3 (150-450); RED BLOOD COUNT 4.06 MIL/MM3 (4.00-5.30); RED CELL DISTRIBUTION WIDTH 13.6 % (11.6-17.2); WHITE BLOOD COUNT 18.9 TH/MM3 (4.0-11.0)
[2016-10-25] MEDS: RESP: ALBUTEROL 2.5 MG/IPRATROPIUM 0.5 MG NEB (SCH) INH ×4 (03:51→19:52)
[2016-10-25 04:21] LABS: BICARBONATE 26.3 MEQ/L (21.0-32.0); CALCIUM-PROTEIN CORRECTED 7.6 MG/DL (8.5-10.1); MAGNESIUM 1.4 MG/DL (1.5-2.5); POTASSIUM 3.3 MEQ/L (3.5-5.1); TOTAL BILIRUBIN ADULT 0.5 MG/DL (0.2-1.0)
[2016-10-25 04:36] LABS: BLOOD GAS HCO3 19 mmol/L (22-26); BLOOD GAS METHEMOGLOBIN 1.2 % (0-2); BLOOD GAS O2 HGB SATURATION 93 % (90-100); BLOOD GAS OXYGEN CONTENT 14.5 Vol % (12.0-20.0); BLOOD GAS PCO2 41 mmHg (38-42); BLOOD GAS PO2 85 mmHg (61-120); CRITICAL VALUE YES; OXYGEN DEVICE VENTILATOR; TEMP CORR TO 98.6
[2016-10-25 04:37] LABS: DRAW SITE ALINE; FIO2 50 %; STAT YES; ULNAR PULSE PRESENT; VENT SETTINGS PRVC14/500/1.0/+8
--- NOTE | 2016-10-25 05:29 | RADRPT ---
EXAM DATE/TIME: 10/25/2016 03:57 [facility] COMPARISON: CHEST SINGLE AP, October 24, 2016, 19:20. INDICATIONS : Shortness of breath, possible pulmonary disease. MEDICAL HISTORY : None. SURGICAL HISTORY : None. ENCOUNTER: Subsequent ACUITY: 2 days PAIN SCORE: Non-responsive. LOCATION: Bilateral chest FINDINGS: A single view of the chest demonstrates endotracheal tube in satisfactory position. NG enters stomach . Left central line in superior vena cava. Bilateral upper lobe airspace disease relatively stable fr om October 24. Increasing left basilar consolidation. CONCLUSION: 1. Increase in left basilar consolidation over the last day. Support apparatus unchanged. Stable uppe r lobe disease. Bronchiectasis. Catalino Torres MD on October 25, 2016 at 5:26 Board Certified Radiologist. This report was verified electronically.
--- NOTE | 2016-10-25 06:19 | MA ---
cc: RHONA GARRETT MD DATE: 10/24/2016 INDICATIONS FOR PROCEDURE: STEMI. PROCEDURE: Left heart catheterization, selective coronary angiography, left ventriculography. DETAILS OF PROCEDURE: The patients gave informed consent. She is prepped in usual sterile fashion. Subcutaneous injection lidocaine was made in the right inguinal area. Access was achieved in the right femoral artery and a 4-Palestinian sheath was inserted. A JL-4 and 3DRC were utilized to engage left and right coronary arteries, angiograms were obtained, multiple views, projections an angled 4-Palestinian pigtail catheter was utilized for left ventriculogram. The patient tolerated the procedure well. FINDINGS: LEFT VENTRICULOGRAM; This revealed ejection fraction of 20%. There is distal global hypokinesis and potentially consistent with a takotsubo cardiomyopathy. LEFT VENTRICULAR PRESSURE: 117/19 mmHg. CORONARY ANATOMY: Left main - this vessel is short and widely patent. It gives rise to a an left anterior descending and circumflex. Left anterior descending - this vessel does have mild luminal irregularities. It does give rise to a first diagonal that is also patent. Circumflex - this is a codominant vessel that is widely patent. Right coronary artery - this is a codominant vessel is widely patent. IMPRESSION Severe left ventricle impairment with an ejection fraction of 20% - possible takotsubo versus secondary to hypoxemia versus other. Essentially normal coronary arteries. Mallory Ba/carole /8:26 PM /6:05 AM
[2016-10-25] MEDS: DOCUSATE SODIUM 50 MG/SENNA 8.6 MG TAB PO SCH ×2 (08:43→21:24)
[2016-10-25] MEDS ORDERED: RESP: ALBUTEROL 2.5 MG/3 ML NEB (PRN) NEB (08:45)
[2016-10-25] MEDS: ASPIRIN 81 MG CHEW TAB PO SCH (08:46)
[2016-10-25] MEDS: ARTIFICIAL TEARS OPTH SOLN 15 ML BTL EACH EYE SCH ×2 (08:47→13:00)
[2016-10-25] MEDS: SODIUM CHLOR 0.9% 1000 ML INJ 1,000 ML IV SCH ×2 (08:47→21:31)
[2016-10-25] MEDS ORDERED: POTASSIUM CHLORIDE 25 MEQ EFFERVESCENT TAB PO PRN (09:00)
[2016-10-25] MEDS ORDERED: POTASSIUM PHOSPHATE MONOBASIC 500 MG TAB PO/TUBE PRN (09:00)
[2016-10-25] MEDS ORDERED: POTASSIUM PHOSPHATE MONOBASIC 500 MG TAB PO PRN (09:00)
[2016-10-25] MEDS ORDERED: POTASSIUM CHLOR 20 MEQ PREMIX 100 ML IV PRN (09:00)
[2016-10-25] MEDS ORDERED: MAGNESIUM SULFATE INJ 4 GM in SODIUM CHLORIDE 0.9% INJ 92 ML IV PRN (09:00)
[2016-10-25] MEDS ORDERED: MAGNESIUM OXIDE 400 MG TAB PO PRN (09:00)
[2016-10-25] MEDS ORDERED: MAGNESIUM SULFATE INJ 2 GM in SODIUM CHLORIDE 0.9% INJ 96 ML IV PRN (09:00)
[2016-10-25] MEDS ORDERED: POTASSIUM PHOSPHATE INJ 30 MMOL in SODIUM CHLOR 0.9% 250 ML INJ 250 ML IV PRN (09:00)
[2016-10-25] MEDS ORDERED: POTASSIUM CHLOR 40 MEQ PREMIX 100 ML IV PRN (09:00)
--- NOTE | 2016-10-25 09:23 | HHI.CCPN ---
Subjective Remarks/Hospital Course 70 years old female was brought in from home with h/o shortness of breath. Upon their arrival, patient was severely short of breath and her lungs sounded "wet" . She was given IV Lasix by EMS and was started on CPAP. Patient arrived in extremis, unable to speak due to the distress. There was no family member present to give additional history. EMS had done a 12 lead EKG en route which looked to them as STEMI. They called a STEMI alert. Patient however shook her head meaning "no" when I asked if she had any chest pain. Her BP was 135 systolic and heart rate of 125. Sats were 95% on the CPAP. Patient has suffered from cardiac arrest months in the emergency department and one or 2 times in the cardiac catheterization lab. Subjective 10/25: Currently on 13 mcg/m of norepinephrine and 5 mics management of dopamine. Arousable mentation vivar on the ventilator and follows commands. Afebrile. No pneumothorax on a.m. chest x-ray. PEEP 8. We will attempt to wean today Objective Vital Signs Date Time Temp Pulse Resp B/P Pulse Ox O2 Delivery O2 Flow Rate FiO2 10/25/16 07:28 100 50 10/25/16 06:00 109 10/25/16 04:00 99.5 14 90/59 10/24/16 18:50 Room Air Intake and Output 10/24/16 10/24/16 10/25/16 08:00 16:00 00:00 Intake Total 311 ml Output Total 1400 ml Balance -1089 ml Result Diagram: 10/25/16 0330 10/25/16 0330 Imaging Last Impressions Chest X-Ray 10/25/16 0000 Signed Impressions: Service Date/Time: Tuesday, October 25, 2016 03:57 - CONCLUSION: 1. Increase in left basilar consolidation over the last day. Support apparatus unchanged. Stable upper lobe disease. Bronchiectasis. Catalino Torres MD Chest CT 10/24/16 0000 Signed Impressions: Service Date/Time: Monday, October 24, 2016 19:44 - CONCLUSION: 1. Small right pneumothorax. Pneumomediastinum adjacent to the right side of the esophagus. 2. Chronic severe bronchiectasis left greater than right. 3. New severe mixed groundglass and consolidative ulnar parenchymal opacity at the right lung. Differential diagnosis includes infection versus asymmetric pulmonary edema. 4. Multiple hepatic cysts. 5. Thyroid goiter. Yovany Dawn MD Objective Remarks GENERAL: 70-year-old male, critically ill currently resting in bed orotracheally intubated SKIN: Warm and dry. No rash HEAD: Normocephalic. Atraumatic EYES: Pupils about 2 mm bilaterally reactive to 1 mm. No scleral icterus.. NECK: Supple, trachea midline. No JVD or lymphadenopathy. CARDIOVASCULAR: Regular rate and rhythm. S1, S2. Currently without murmurs, gallops, or rubs. Left subclavian clean dry and intact RESPIRATORY: Coarse line crackles appreciated throughout lung murphy. Positive end expiratory wheeze.. GASTROINTESTINAL: Abdomen soft, non-tender, nondistended. I Wallace bowel sounds are appreciated MUSCULOSKELETAL: No redness in peripheral edema. Patient has #4 Korean sheath in her right inguinal region is clean dry and intact BACK: Nontender without obvious deformity. No CVA tenderness. EXTREMITIES: No clubbing cyanosis or edema NEURO: Cranial nerves II through XII grossly intact. Moves all 4 extremities spontaneously to command. Normal sensation. Urinary Catheter: Yes Assessment to: Continue Meier insert reason: Prolonged Immobilization Vascular Central Line Catheter: Yes Assessment to: Continue Date of Insertion: Oct 24, 2016 Line: Central Venous Catheter Side: Left Location: Subclavian A/P Assessment and Plan Neuro/Psych: Currently on fentanyl drip at 50 mg/hour for analgesia while intubated As needed Versed Noted patient became bradycardic 2 on propofol drip in ED. This will be added as adverse reaction Neurologically intact. Acetaminophen for fever CV: History of myocardial infarction status post angioplasty in the remote past Hypertension Dyslipidemia Acute systolic heart failure ejection fraction 20% Currently on norepinephrine at 13 mcg/m and dopamine at 5 mics grams per kilo gram per minute to maintain a MAP greater than 65 Status post cardiac catheterization by Dr. Romero. Ejection fraction 20%. Left main is straight and patent. Left circumflex, LAD and RCA with minimal coronary artery disease. Currently on aspirin 81 mg daily/home medication Follow-up on lipid profile. Previously on Lipitor 40 mg daily. Holding home medication metoprolol 25 mg by mouth twice a day in light of hypotension/vasopressor usage Currently normal saline at 84 cc an hour. Resp: Acute hypoxemic respiratory failure Bronchiectasis Tiny right pneumothorax Right pneumomediastinum Chest x-ray 10/25 reveals no acute cardio pony findings to be no obvious pneumothoraces Currently on PRVC 14/500//50 Ventilator bundle Duo nebs every 4 hours with albuterol every 2 hours when necessary dyspnea on Combivent 4 times a day at home. Added Pulmicort 0.5/2 one inhalation twice a day and Solu-Medrol 40 mg's IV every 8 hours and bronchiectasis See below infectious disease for antibiotic coverage Did consult pulmonology. Unclear who in home nanny's. She has significant bronchiectasis will be difficult wean from the ventilator with underlying pulmonology pathology GI: Elevated transaminases - likely secondary to shock liver Hypoalbuminemia History of diverticulitis Gastroesophageal reflux disease Initiate tube feeding with Jevity 1.5 goal 55 cc an hour Pepcid for GI prophylaxis. On Zantac 150 twice a day at home Olivia-Colace for bowel regimen Liver ultrasound/hepatitis panel and CPK pending : Meier catheter has been placed for accurate I's and O's in a critically ill patient Endo: History of MNG Hyperthyroidism Currently at 5 mg by mouth twice a day/home medication Check TSH Sliding-scale insulin with Accu-Cheks to maintain euglycemia Renal: Monitor urine output Accurate I's and O's Heme: Leukocytosis Normocytic anemia Monitor CBC daily. Follow trends No indications for transfusion of blood products at this time ID: Day 1 vancomycin, cefepime and Zithromax Blood cultures 2, sputum, urine Legionella pneumococcal antigens and influenza ordered today 10/25 MSK: PT evaluate and treat FEN: Hypokalemia Hypophosphatemia Hypo-magnesium 40 mEq KCl, 30 mmol potassium phosphorus and 3 g mag sulfate IV 1. Recheck at 1700 hrs. ICU electrolyte protocol initiated Access - Left subclavian CVL day 2 placed in ED Prophylaxis - GI - Pepcid - DVT - SCD/Lovenox subcutaneous Critical Care time - 30 minutes August Rogers MD Oct 25, 2016 09:23
[2016-10-25] MEDS ORDERED: Vancomycin Consult Pharmacy 1 EA OTHER SCH (09:30)
--- NOTE | 2016-10-25 09:44 | PD.CARD.PN ---
Subjective Subjective Remarks intubated and sedated Objective Medications Current Medications Medications (Trade) Dose Ordered Sig/Najma Route Start Time Stop Time Status Last Admin (Nitroglycerin-Dextrose Inj) 250 ml @ 0 mls/hr TITRATE IV 10/24/16 18:30 (Aspirin Chew) 81 mg DAILY PO 10/25/16 09:00 10/25/16 08:46 Methimazole 5 mg 5 mg BID PO 10/24/16 21:00 10/25/16 08:43 (NS 1000 ml Inj) 1,000 ml @ 84 mls/hr [id number] IV 10/24/16 19:48 10/25/16 08:47 (NS Flush) 2 ml UNSCH PRN .XX 10/24/16 20:00 (NS Flush) 2 ml BID .XX 10/24/16 21:00 10/25/16 08:46 (Tylenol) 650 mg Q6H PRN PO 10/24/16 20:00 (Morphine Inj) 2 mg Q2H PRN IV 10/24/16 20:00 (Pepcid Inj) 20 mg Q12HR IV PUSH 10/24/16 21:00 10/25/16 08:45 (Ativan Inj) 1 mg Q1H PRN IV 10/24/16 20:00 (Tears Naturale Opth Soln) 1 drop TID EACH EYE 10/25/16 09:00 (Zofran Inj) 4 mg Q6H PRN IV 10/24/16 20:00 (Reglan Inj) 10 mg Q6H PRN IV 10/24/16 20:00 (Compazine Supp) 25 mg Q12H PRN RECTAL 10/24/16 20:00 Miscellaneous Information 1 [id number] XX 10/24/16 20:00 (Chlorhexidine 2% Cloth) 3 pack Taper DAILY@04 TOP 10/25/16 04:00 10/21/17 03:59 10/25/16 03:06 (Chlorhexidine 2% Cloth) 3 pack UNSCH PRN TOP 10/24/16 20:00 (Olivia-Colace) 1 tab BID PO 10/24/16 21:00 10/25/16 08:43 (Milk Of Magnesia Liq) 30 ml Q12H PRN PO 10/24/16 20:00 (Senokot) 17.2 mg Q12H PRN PO 10/24/16 20:00 (Dulcolax Supp) 10 mg DAILY PRN RECTAL 10/24/16 20:00 (Lactulose Liq) 30 ml DAILY PRN PO 10/24/16 20:00 Lidocaine HCl 10 ml 10 ml UNSCH PRN INFIL 10/24/16 20:30 10/25/16 20:29 Fentanyl Citrate 250 ml @ 0 mls/hr TITRATE IV 10/24/16 21:30 10/24/16 22:04 Midazolam HCl 100 ml @ 0 mls/hr TITRATE IV 10/24/16 21:30 10/24/16 22:05 Norepinephrine Bitartrate 250 ml @ 0 mls/hr TITRATE IV 10/25/16 04:45 Potassium Chloride 100 ml @ 25 mls/hr BOLUS ONCE IV 10/25/16 08:45 10/25/16 12:44 UNV Magnesium Sulfate/ Dextrose 100 ml @ 100 mls/hr Q1H IV 10/25/16 08:45 10/25/16 11:44 UNV Potassium Phosphate 30 mmol/ Sodium Chloride 260 ml @ 43.333 mls/ hr ONCE ONCE IV 10/25/16 08:45 10/25/16 14:44 UNV Potassium Chloride 100 ml @ 50 mls/hr Q2H PRN IV 10/25/16 09:00 UNV (KCl 20 Meq Premix Inj) 100 ml @ 50 mls/hr Q2H PRN IV 10/25/16 09:00 UNV Potassium Bicarb/ Potassium Chloride 50 meq 50 meq UNSCH PRN PO 10/25/16 09:00 UNV Potassium Chloride 100 ml @ 25 mls/hr UNSCH PRN IV 10/25/16 09:00 UNV Potassium Chloride 100 ml @ 50 mls/hr Q2H PRN IV 10/25/16 09:00 UNV (Magnesium Sulfate Inj/NS Inj) 100 ml @ 50 mls/hr UNSCH PRN IV 10/25/16 09:00 UNV Magnesium Oxide 800 mg 800 mg UNSCH PRN PO 10/25/16 09:00 UNV (Magnesium Sulfate Inj/NS Inj) 100 ml @ 50 mls/hr UNSCH PRN IV 10/25/16 09:00 UNV Potassium Phosphate 2000 mg 2,000 mg Q4H PRN PO 10/25/16 09:00 UNV (Sodium Phosphate Inj/NS 250 ml Inj) 250 ml @ 42 mls/hr UNSCH PRN IV 10/25/16 09:00 UNV Potassium Phosphate 2000 mg 2,000 mg UNSCH PRN PO/TUBE 10/25/16 09:00 UNV (Potassium Phosphate Inj/NS 250 ml Inj) 260 ml @ 42 mls/hr UNSCH PRN IV 10/25/16 09:00 UNV Methylprednisolone Sodium Succinate 40 mg 40 mg Q8HR IV PUSH 10/25/16 14:00 UNV Cefepime HCl 2000 mg/Sodium Chloride 100 ml @ 200 mls/hr Q8H IV 10/25/16 09:30 UNV Azithromycin 500 mg/Sodium Chloride 250 ml @ 250 mls/hr Q24H IV 10/25/16 09:30 UNV (Vancomycin Consult Pharmacy) 0 ml @ 0 mls/hr UNSCH XX 10/25/16 09:30 UNV (Lovenox Inj) 40 mg Q24H SQ 10/25/16 09:30 UNV Vital Signs / I&O Vital Signs Date Time Temp Pulse Resp B/P Pulse Ox O2 Delivery O2 Flow Rate FiO2 10/25/16 07:28 100 50 10/25/16 06:00 109 10/25/16 04:00 50 10/25/16 04:00 99.5 110 14 90/59 99 10/25/16 04:00 109 10/25/16 03:51 100 50 10/25/16 02:00 115 10/25/16 00:00 50 10/25/16 00:00 138 10/25/16 00:00 97.8 138 14 78/53 100 10/24/16 23:38 100 50 10/24/16 22:00 134 10/24/16 22:00 97.6 134 14 59/41 99 98/69 10/24/16 21:00 70 10/24/16 21:00 124 10/24/16 21:00 97.6 124 14 161/106 97 10/24/16 20:58 100 100 10/24/16 20:00 100 100 10/24/16 19:30 114 16 174/99 100 10/24/16 19:20 106 18 186/102 100 10/24/16 18:50 132 22 165/78 100 Room Air 10/24/16 18:15 100 10/24/16 18:15 123 18 141/73 100 100 10/24/16 18:11 123 35 136/84 95 I/O 10/24/16 10/24/16 10/24/16 10/25/16 10/25/16 10/25/16 06:59 14:59 22:59 06:59 14:59 22:59 Intake Total 311 ml 775 ml Output Total 1400 ml 300 ml Balance -1089 ml 475 ml Intake IV Total 311 ml 775 ml Output Urine Total 1400 ml 300 ml # Bowel Movements 0 0 Physical Exam GENERAL: Well developed, well nourished. No acute distress, on vent HEENT: NA CHEST: Lungs rhonchi to auscultation bilaterally. Unlabored respiratory effort. CARDIAC: Regular rate and rhythm without S3, S4, or murmur. ABDOMEN: Soft, nontender, no hepatosplenomegaly. Bowel sounds present. EXTREMITIES: No clubbing, cyanosis, or edema. right groin- 4 F sheath remains in - site looks great, no e/h, 2+ DP Laboratory Laboratory Tests Test 10/24/16 10/24/16 10/25/16 10/25/16 18:26 21:40 00:28 00:46 White Blood Count 10.7 TH/MM3 Red Blood Count 4.96 MIL/MM3 Hemoglobin 13.5 GM/DL Bedside Hemoglobin 16.3 G/DL Hematocrit 43.4 % Bedside Hematocrit 48.0 % Mean Corpuscular Volume 87.5 FL Mean Corpuscular Hemoglobin 27.3 PG Mean Corpuscular Hemoglobin 31.2 % Concent Red Cell Distribution Width 14.0 % Platelet Count 294 TH/MM3 Mean Platelet Volume 9.5 FL Neutrophils (%) (Auto) 61.6 % Lymphocytes (%) (Auto) 27.6 % Monocytes (%) (Auto) 3.8 % Eosinophils (%) (Auto) 6.3 % Basophils (%) (Auto) 0.7 % Neutrophils # (Auto) 6.6 TH/MM3 Lymphocytes # (Auto) 3.0 TH/MM3 Monocytes # (Auto) 0.4 TH/MM3 Eosinophils # (Auto) 0.7 TH/MM3 Basophils # (Auto) 0.1 TH/MM3 CBC Comment DIFF FINAL Differential Comment Prothrombin Time 10.2 SEC Prothromb Time International 0.9 RATIO Ratio Activated Partial 24.9 SEC Thromboplast Time Bedside Sodium 140 MMOL/L Bedside Potassium 4.8 MMOL/L Bedside Chloride 105 MMOL/L Bedside Blood Urea Nitrogen 24 MG/DL Bedside Creatinine 1.0 MG/DL Bedside Glucose 265 MG/DL Calcium Level 8.0 MG/DL Magnesium Level 2.0 MG/DL Total Creatine Kinase 60 U/L Troponin I 0.47 NG/ML 13.50 NG/ML B-Type Natriuretic Peptide 43 PG/ML Nasal Screen MRSA (PCR) MRSA NOT DETECTED Blood Gas Puncture Site [id number] Blood Gas Patient Temperature 98.6 Blood Gas HCO3 19 mmol/L Blood Gas Base Excess -6.0 mmol/L Blood Gas Oxygen Saturation 93 % Arterial Blood pH 7.29 Arterial Blood Partial 41 mmHg Pressure CO2 Arterial Blood Partial 85 mmHg Pressure O2 Arterial Blood Oxygen Content 14.5 Vol % Arterial Blood 1.0 % Carboxyhemoglobin Arterial Blood Methemoglobin 1.2 % Blood Gas Hemoglobin 11.0 G/DL Oxygen Delivery Device VENTILATOR Blood Gas Ventilator Setting PRVC14/500/1.0/+8 Blood Gas Inspired Oxygen 50 % Test 10/25/16 03:30 White Blood Count 18.9 TH/MM3 Red Blood Count 4.06 MIL/MM3 Hemoglobin 11.2 GM/DL Hematocrit 34.3 % Mean Corpuscular Volume 84.5 FL Mean Corpuscular Hemoglobin 27.7 PG Mean Corpuscular Hemoglobin 32.7 % Concent Red Cell Distribution Width 13.6 % Platelet Count 288 TH/MM3 Mean Platelet Volume 8.7 FL Neutrophils (%) (Auto) 89.2 % Lymphocytes (%) (Auto) 6.2 % Monocytes (%) (Auto) 3.9 % Eosinophils (%) (Auto) 0.2 % Basophils (%) (Auto) 0.5 % Neutrophils # (Auto) 16.9 TH/MM3 Lymphocytes # (Auto) 1.2 TH/MM3 Monocytes # (Auto) 0.7 TH/MM3 Eosinophils # (Auto) 0.0 TH/MM3 Basophils # (Auto) 0.1 TH/MM3 CBC Comment DIFF FINAL Differential Comment Sodium Level 143 MEQ/L Potassium Level 3.3 MEQ/L Chloride Level 110 MEQ/L Carbon Dioxide Level 26.3 MEQ/L Anion Gap 7 MEQ/L Blood Urea Nitrogen 20 MG/DL Creatinine 0.78 MG/DL Estimat Glomerular Filtration 73 ML/MIN Rate Random Glucose 120 MG/DL Calcium Level 7.0 MG/DL Protein Corrected Calcium 7.6 MG/DL Phosphorus Level 2.0 MG/DL Magnesium Level 1.4 MG/DL Total Bilirubin 0.5 MG/DL Aspartate Amino Transf 199 U/L (AST/SGOT) Alanine Aminotransferase 179 U/L (ALT/SGPT) Alkaline Phosphatase 82 U/L Troponin I 11.50 NG/ML Total Protein 6.0 GM/DL Albumin 2.5 GM/DL Imaging Last 72 hours Impressions Chest X-Ray 10/25/16 0000 Signed Impressions: Service Date/Time: Tuesday, October 25, 2016 03:57 - CONCLUSION: 1. Increase in left basilar consolidation over the last day. Support apparatus unchanged. Stable upper lobe disease. Bronchiectasis. Catalino Torres MD Chest X-Ray [id number]/24/[id number] Signed Impressions: Service Date/Time: Monday, October 24, 2016 18:27 - CONCLUSION: 1. Left upper lung opacity and volume loss, likely chronic. 2. Endotracheal tube and nasogastric tube in place. Yovany Dawn MD Chest X-Ray 10/24/16 0000 Signed Impressions: Service Date/Time: Monday, October 24, 2016 19:20 - CONCLUSION: Increased bilateral pulmonary parenchymal opacity. Differential diagnosis includes pulmonary edema and infection. Yovany Dawn MD Chest CT 10/24/16 0000 Signed Impressions: Service Date/Time: Monday, October 24, 2016 19:44 - CONCLUSION: 1. Small right pneumothorax. Pneumomediastinum adjacent to the right side of the esophagus. 2. Chronic severe bronchiectasis left greater than right. 3. New severe mixed groundglass and consolidative ulnar parenchymal opacity at the right lung. Differential diagnosis includes infection versus asymmetric pulmonary edema. 4. Multiple hepatic cysts. 5. Thyroid goiter. Yovany Dawn MD Assessment and Plan Assessment and Plan STEMI- diffuse ST elevation likely represented global ischemia from hypoxia -cath with normal coronaries, EF 20% Cardiomyopathy- likely secondary to hypoxia, though Stress induced vs viral vs other, can not be completely excluded -BP too low for BB or MARSHA Resp Failure- per CCM/pulmonary Hypotension- on multiple pressors -I spoke with nursing to get a radial A line and d/c femoral Cami Romero MD Oct 25, 2016 09:44
[2016-10-25] MEDS: NOREPINEPHRINE 4 MG/D5W 250 ML IV SCH ×3 (10:42→21:30)
[2016-10-25] MEDS: AZITHROMYCIN INJ 500 MG in SODIUM CHLOR 0.9% 250 ML INJ 250 ML IV SCH (10:42)
[2016-10-25] MEDS: CEFEPIME INJ 2,000 MG in SODIUM CHLORIDE 0.9% INJ 100 ML IV SCH ×2 (10:43→18:14)
[2016-10-25] MEDS: MAGNESIUM SULFATE 1 GM PREMIX 100 ML IV SCH ×3 (10:43→12:56)
[2016-10-25] MEDS ORDERED: POTASSIUM CHLOR 40 MEQ PREMIX 100 ML IV ONE (11:00)
[2016-10-25 11:21] LABS: THEOPHYLLINE LESS THAN 2.0 MCG/ML (10.0-20.0)
[2016-10-25 12:17] LABS: BACTERIA, URINE MOD /hpf; BLOOD, URINE MOD (NEG); COMMENT (UR) CATH-CULTURE IND; CULTURE IF INDICATED CATH CULTURE IND; GLUCOSE,URINE NEG (NEG); GRANULAR CAST, URINE 1 /lpf; HYALINE CAST, URINE 4 /lpf (RARE); KETONE, URINE NEG (NEG); MUCUS URINE FEW /lpf (OCC); NITRITE,URINE NEG (NEG); RENAL EPITHELIAL CELLS <1 /hpf; SQUAMOUS EPITHELIAL CELL URINE 2 /hpf (0-5); TRANSITIONAL EPI CELLS, URINE <1 /hpf; URINE COLOR YELLOW (YELLW/STRAW)
[2016-10-25] MEDS ORDERED: POTASSIUM PHOSPHATE INJ 30 MMOL in SODIUM CHLOR 0.9% 250 ML INJ 250 ML IV ONE (13:00)
--- NOTE | 2016-10-25 13:02 | EKG ---
Date Performed: 10/25/2016 Time Performed: 08:33:34 PTAGE: 70 years EKG: SINUS TACHYCARDIA WITH SHORT DE INTERVAL LOW QRS VOLTAGE IN EXTREMITY LEADS POSSIBLE RIGHT VENTRICULAR CONDUCTION DELAY INFERIOR MYOCARDIAL INFARCTION , OF INDETERMINATE AGE ANTEROLATERAL MYOC ARDIAL INFARCTION , PROBABLY RECENT ACUTE [place] PREVIOUS TRACING : 10/24/2016 18.35 compared to the previous EKG ST abnormalities are le ss prominent DOCTOR: Chon Salinas Interpretating Date/Time 10/25/2016 13:00:36
--- NOTE | 2016-10-25 13:24 | EKG ---
Date Performed: 10/24/2016 Time Performed: 18:43:54 PTAGE: 70 years EKG: SUPRAVENTRICULAR TACHYCARDIA POSSIBLE RIGHT VENTRICULAR CONDUCTION DELAY INFERIOR MYOCARDIA L INFARCTION ANTEROLATERAL MYOCARDIAL INFARCTION ACUTE [place] INTERPRETATION BASED ON A DEFAULT AGE OF 40 YEARS NO PREVIOUS TRACING DOCTOR: Chon Salinas Interpretating Date/Time 10/25/2016 13:23:25
--- NOTE | 2016-10-25 13:24 | EKG ---
Date Performed: 10/24/2016 Time Performed: 18:56:31 PTAGE: 70 years EKG: SINUS TACHYCARDIA POSSIBLE RIGHT VENTRICULAR CONDUCTION DELAY INFERIOR MYOCARDIAL INFARCTIO N ST ELEVATION, CONSIDER ANTERIOR INJURY ACUTE [place] INTERPRETATION BASED ON A DEFAULT AGE OF 38 Y EARS NO PREVIOUS TRACING DOCTOR: Chon Salinas Interpretating Date/Time 10/25/2016 13:23:08
--- NOTE | 2016-10-25 13:24 | EKG ---
Date Performed: 10/24/2016 Time Performed: 18:43:20 PTAGE: 70 years EKG: WHITE COMPLEX TACHYCARDIA MARKED RIGHT AXIS DEVIATION RIGHT BUNDLE BRANCH BLOCK ANTERIOR M YOCARDIAL INFARCTION INFERIOR MYOCARDIAL INFARCTION ACUTE [place] INTERPRETATION BASED ON A DEFAULT AGE OF 40 YEARS NO PREVIOUS TRACING DOCTOR: Chon Salinas Interpretating Date/Time 10/25/2016 13:24:06
--- NOTE | 2016-10-25 13:25 | EKG ---
Date Performed: 10/24/2016 Time Performed: 18:35:54 PTAGE: 70 years EKG: SINUS TACHYCARDIA INFERIOR MYOCARDIAL INFARCTION ST ELEVATION, CONSIDER ANTERIOR INJURY ACUTE [place] PREVIOUS TRACING : 01/14/2010 03.17 Compared to prior tracing no significant change DOCTOR: Chon Salinas Interpretating Date/Time 10/25/2016 13:25:01
--- NOTE | 2016-10-25 13:27 | EKG ---
Date Performed: 10/24/2016 Time Performed: 18:10:09 PTAGE: 70 years EKG: SINUS TACHYCARDIA WITH PREMATURE ATRIAL COMPLEXES INFERIOR MYOCARDIAL INFARCTION ANTEROLAT ERAL MYOCARDIAL INFARCTION ACUTE NE INTERPRETATION BASED ON A DEFAULT AGE OF 40 YEARS NO PREVIOUS TRACING DOCTOR: Chon Salinas Interpretating Date/Time 10/25/2016 13:25:54
--- NOTE | 2016-10-25 13:46 | RADRPT ---
EXAM DATE/TIME: 10/25/2016 11:32 [facility] COMPARISON: No previous studies available for comparison. INDICATIONS : Elevated liver function tests. MEDICAL HISTORY : Diverticulitis. Inflammatory bowel disease. Arthritis. Thyroid disease. Chest pain. COPD. Asthma. Pne umonia. Dyspnea. Gout. SURGICAL HISTORY : Angioplasty. ENCOUNTER: Initial ACUITY: 1 day PAIN SCORE: Nonresponsive. LOCATION: Bilateral upper quadrant MEASUREMENTS: LIVER: 17.7 cm length COMMON DUCT: 2 mm RIGHT KIDNEY: 10.4 x 4.3 x 3.8 cm SPLEEN: 7.0 cm length FINDINGS: LIVER: Liver is in the upper limits of normal for size but otherwise demonstrates normal echogenicity withou t evidence for volume loss. There is a 1.2 x 0.9 x 0.8 cm isoechoic mass in the left lobe of the live r without evidence for increased vascularity. The there are multiple anechoic cystic lesions in the r ight lower liver with increased through-transmission likely reflecting hepatic cysts. They measure 1. 6 x 1.2 x 1.9 cm, 3.3 x 1.7 x 3.2 cm, and 4.1 x 1.6 x 4.1 cm. COMMON DUCT: No intraluminal mass or stone visualized. GALLBLADDER: There is an 8 x 4 x 6 mm hyperechoic lesion seen dependently in the gallbladder. This likely reflects a small gallstone although this cannot be confirmed due to inability to evaluate for mobility in thi s intubated patient. Gallbladder wall is prominent measuring up to 5 mm with trace pericholecystic fl uid. Vela's sign cannot be assessed for. PANCREAS: The visualized portions are within normal limits. RIGHT KIDNEY: No hydronephrosis, stone or mass. SPLEEN: No focal lesion. CONCLUSION: 1. Probable single subcentimeter gallstone in the gallbladder. There is gallbladder wall thickening a nd trace pericholecystic fluid although the gallbladder is not significantly distended. Overall, the findings may reflect developing acute cholecystitis. Recommend HIDA scan to evaluate patency of the c ystic duct if there is continued concern regarding cholecystitis. 2. Small 1.2 x 0.9 x 0.8 cm isoechoic mass in the left lobe of liver. Overall, the findings are nonsp ecific and further characterization is difficult due to small size. Differential considerations inclu de both malignant and benign etiologies. This may be further evaluated with multiphase MRI exam on an outpatient basis. 3. Multiple bilateral right hepatic cysts measuring up to 4.1 cm, as above. Matthieu Apodaca MD on October 25, 2016 at 13:35 Board Certified Radiologist. This report was verified electronically.
[2016-10-25] MEDS ORDERED: methylPREDNISolone SOD SUCC 40 MG/1 ML VIAL IV PUSH SCH (14:00)
--- NOTE | 2016-10-25 14:11 | PD.PROCEDR ---
Procedure Note Procedure DATE: 10/25/2016 PROCEDURE: Left femoral arterial catheter placement INDICATION: Anicteric access DETAILS OF PROCEDURE The patient was placed in supine position. The skin was cleansed with Chloraprep. Additional barrier precautions included large sterile drape, sterile gloves, sterile gown, face mask, and hat. 1% lidocaine was used for local anesthesia. Under direct ultrasound guidance and on the initial attempt, the artery was accessed with an introducer needle. The guide wire was advanced. Using Seldinger technique 20-gauge gauge arterial catheter was placed. The guide wire was removed. The catheter was connected to a transducer line and flushed with saline. The video monitor displayed normal arterial wave forms. The catheter was secured with 2-0 silk. A sterile dressing with antibiotic disc was applied. ESTIMATED BLOOD LOSS: minimal COMPLICATIONS: None August Rogers MD Oct 25, 2016 14:11
[2016-10-25] MEDS: VANCOMYCIN INJ 1,250 MG in SODIUM CHLOR 0.9% 250 ML INJ 250 ML IV SCH (14:30)
[2016-10-25] MEDS ORDERED: DOPamine INJ 1,600 MG in DEXTROSE 5% IN WATER INJ 240 ML IV SCH ×2 (16:15)
[2016-10-25] MEDS ORDERED: TERBUTALINE INJ 1 MG/ML AMP SQ PRN (16:15)
[2016-10-25] MEDS: PANTOPRAZOLE SODIUM 40 MG VIAL IV PUSH SCH (16:57)
[2016-10-25] MEDS: ENOXAPARIN SODIUM 40 MG/0.4 ML SYRINGE SQ SCH (17:58)
[2016-10-25] MEDS: metroNIDAZOLE 500 MG INJ 100 ML IV SCH (18:14)
[2016-10-25] MEDS: RESP: BUDESONIDE 0.5 MG/2 ML NEB NEB SCH (19:51)
[2016-10-25 20:10] LABS: BICARBONATE 19.6 MEQ/L (21.0-32.0); FREE T3 1.46 PG/ML (2.18-3.98); FREE T4 1.52 NG/DL (0.76-1.46); MAGNESIUM 2.5 MG/DL (1.5-2.5); POTASSIUM 4.3 MEQ/L (3.5-5.1)
[2016-10-25 20:57] LABS: CALCIUM-PROTEIN CORRECTED 7.5 MG/DL (8.5-10.1)
[2016-10-25] MEDS: HYDROCORTISONE SOD SUCCINATE 100 MG VIAL IV PUSH SCH (21:24)
[2016-10-25] MEDS: CHLORHEXIDINE 0.12% (ORAL KIT) 15 ML CUP MT SCH (21:25)
[2016-10-25] MEDS: fentaNYL DRIP 250 ML IV SCH (21:30)
[2016-10-25] MEDS: CHOLESTYRAMINE 4 GM PACKET PO SCH (21:33)
[2016-10-26] VITALS (17 sets, daily range): BP systolic 80–138; BP diastolic 50–74; PULSE 76–128; RESP 6–47; TEMP 97.2–98.7; O2SAT 92–100
[2016-10-26] MEDS: CEFEPIME INJ 2,000 MG in SODIUM CHLORIDE 0.9% INJ 100 ML IV SCH ×3 (01:47→16:59)
[2016-10-26] MEDS: metroNIDAZOLE 500 MG INJ 100 ML IV SCH ×3 (01:47→16:59)
[2016-10-26] MEDS: CHLORHEXIDINE GLUCONATE 2 % 1 PACK (2 CLOTHS) TOP SCH (01:47)
[2016-10-26] MEDS: RESP: ALBUTEROL 2.5 MG/IPRATROPIUM 0.5 MG NEB (SCH) INH ×5 (03:13→21:29)
[2016-10-26] MEDS ORDERED: FUROSEMIDE 40 MG/4 ML VIAL ONE (03:25)
[2016-10-26] MEDS ORDERED: FUROSEMIDE 20 MG/2 ML VIAL IV PUSH ONE (03:25)
[2016-10-26] MEDS: HYDROCORTISONE SOD SUCCINATE 100 MG VIAL IV PUSH SCH ×3 (04:38→23:18)
[2016-10-26] MEDS: METHIMAZOLE 10 MG TAB PO SCH ×3 (04:38→23:18)
[2016-10-26 05:50] LABS: AUTOMATED NEUTROPHIL # 17.9 TH/MM3 (1.8-7.7); BASOPHIL % 0.1 % (0.0-2.0); HEMATOCRIT 34.5 % (35.0-46.0); HEMO FLAGS DIFF FINAL; LYMPH % 1.7 % (9.0-44.0); LYMPHOCYTE # 0.3 TH/MM3 (1.0-4.8); MEAN CELL VOLUME 86.3 FL (80.0-100.0); MEAN CORPUSCULAR HEMOGLOBIN 26.8 PG (27.0-34.0); MEAN CORPUSCULAR HGB CONC 31.1 % (32.0-36.0); MONO % 3.1 % (0.0-8.0); NEUT % 95.1 % (16.0-70.0); PLATELET COUNT 232 TH/MM3 (150-450); RED BLOOD COUNT 3.99 MIL/MM3 (4.00-5.30); WHITE BLOOD COUNT 18.8 TH/MM3 (4.0-11.0)
[2016-10-26] MEDS: ASPIRIN 81 MG CHEW TAB PO SCH (06:21)
[2016-10-26] MEDS ORDERED: METOPROLOL TARTRATE 5 MG/5 ML VIAL ONE (06:28)
[2016-10-26] MEDS ORDERED: METOPROLOL TARTRATE 5 MG/5 ML VIAL IV PUSH ONE (06:30)
[2016-10-26 06:34] LABS: ALKALINE PHOSPHATASE 139 U/L (45-117); ALT (GPT) 122 U/L (10-53); ANION GAP 9 MEQ/L (5-15); AST (GOT) 85 U/L (15-37); BLOOD UREA NITROGEN 12 MG/DL (7-18); CHLORIDE 106 MEQ/L (98-107); CREATINE KINASE 828 U/L (26-192); GLOMERULAR FILTRATION RATE 84 ML/MIN (>89); MAGNESIUM 2.2 MG/DL (1.5-2.5); POTASSIUM 3.6 MEQ/L (3.5-5.1); SODIUM (NA) 138 MEQ/L (136-145); TOTAL BILIRUBIN ADULT 0.7 MG/DL (0.2-1.0)
[2016-10-26 07:05] LABS: CKMB 13.9 NG/ML (0.5-3.6)
[2016-10-26 07:26] LABS: BLOOD GAS BASE EXCESS -6.8 mmol/L (-2-2); BLOOD GAS HCO3 19 mmol/L (22-26); BLOOD GAS METHEMOGLOBIN 1.2 % (0-2); BLOOD GAS O2 HGB SATURATION 97 % (90-100); BLOOD GAS OXYGEN CONTENT 14.3 Vol % (12.0-20.0); BLOOD GAS PCO2 46 mmHg (38-42); BLOOD GAS PO2 202 mmHg (61-120); BLOOD GAS TOTAL HGB 10.2 G/DL (12.0-16.0); CRITICAL VALUE YES; DRAW SITE ALINE; LITER FLOW 12 L/M; OXYGEN DEVICE PARTIAL; STAT NO; TEMP CORR TO 98.6
[2016-10-26] MEDS: CHLORHEXIDINE 0.12% (ORAL KIT) 15 ML CUP MT SCH ×3 (07:27→23:19)
[2016-10-26] MEDS: ARTIFICIAL TEARS OPTH SOLN 15 ML BTL EACH EYE SCH ×3 (07:27→16:48)
[2016-10-26] MEDS: DOCUSATE SODIUM 50 MG/SENNA 8.6 MG TAB PO SCH ×2 (07:27→23:18)
[2016-10-26] MEDS: CHOLESTYRAMINE 4 GM PACKET PO SCH ×2 (07:28→23:18)
[2016-10-26] MEDS: SODIUM CHLORIDE 0.9% FLUSH 10 ML FLUSH SCH ×2 (07:28→23:19)
[2016-10-26] MEDS ORDERED: POTASSIUM CHLOR 40 MEQ PREMIX 100 ML IV ONE (07:30)
[2016-10-26] MEDS: SODIUM CHLOR 0.9% 1000 ML INJ 1,000 ML IV SCH (07:33)
--- NOTE | 2016-10-26 07:33 | HHI.CCPN ---
Subjective Remarks/Hospital Course 70 years old female was brought in from home with h/o shortness of breath. Upon their arrival, patient was severely short of breath and her lungs sounded "wet" . She was given IV Lasix by EMS and was started on CPAP. Patient arrived in extremis, unable to speak due to the distress. There was no family member present to give additional history. EMS had done a 12 lead EKG en route which looked to them as STEMI. They called a STEMI alert. Patient however shook her head meaning "no" when I asked if she had any chest pain. Her BP was 135 systolic and heart rate of 125. Sats were 95% on the CPAP. Patient has suffered from cardiac arrest months in the emergency department and one or 2 times in the cardiac catheterization lab. 10/25: Currently on 13 mcg/m of norepinephrine and 5 mics management of dopamine. Arousable mentation vivar on the ventilator and follows commands. Afebrile. No pneumothorax on a.m. chest x-ray. PEEP 8. We will attempt to wean today Subjective 10/26: Self extubated last night at 3 AM. Currently on nonrebreather mask with saturations around 99%. ABG revealed uncompensated acute respiratory acidosis with metabolic acidosis/non-anion gap. Off all vasopressors. Objective Vital Signs Date Time Temp Pulse Resp B/P Pulse Ox O2 Delivery O2 Flow Rate FiO2 10/26/16 06:00 91 10/26/16 04:24 96 40 10/26/16 04:00 98.7 47 116/61 131/70 10/24/16 18:50 Room Air Intake and Output 10/25/16 10/25/16 10/26/16 08:00 16:00 00:00 Intake Total 775 ml 2082 ml Output Total 300 ml 500 ml Balance 475 ml 1582 ml Result Diagram: 10/26/16 0445 10/26/16 0445 Other Results Microbiology Date/Time Procedure Status Source Growth 10/25/16 12:25 Aerobic Blood Culture Received Blood Peripheral Pending 10/25/16 12:25 Anaerobic Blood Culture Received Blood Peripheral Pending 10/25/16 10:45 Gram Stain Received Sputum Endotracheal Pending 10/25/16 10:45 Sputum Culture Received Sputum Endotracheal Pending 10/25/16 10:40 Urine Culture Received Urine Catheterized Urine Pending 10/25/16 10:40 Legionella Antigen Received Urine Catheterized Urine Pending 10/25/16 10:40 Streptococcus pneumoniae Antigen (M Received Urine Catheterized Urine Pending 10/25/16 10:40 Influenza Types A,B Antigen (IRASEMA) - Final Complete Nasal Aspirate Imaging Last Impressions Liver Ultrasound 10/25/16 0000 Signed Impressions: Service Date/Time: Tuesday, October 25, 2016 11:32 - CONCLUSION: 1. Probable single subcentimeter gallstone in the gallbladder. There is gallbladder wall thickening and trace pericholecystic fluid although the gallbladder is not significantly distended. Overall, the findings may reflect developing acute cholecystitis. Recommend HIDA scan to evaluate patency of the cystic duct if there is continued concern regarding cholecystitis. 2. Small 1.2 x 0.9 x 0.8 cm isoechoic mass in the left lobe of liver. Overall, the findings are nonspecific and further characterization is difficult due to small size. Differential considerations include both malignant and benign etiologies. This may be further evaluated with multiphase MRI exam on an outpatient basis. 3. Multiple bilateral right hepatic cysts measuring up to 4.1 cm, as above. Matthieu Apodaca MD Chest X-Ray 10/25/16 0000 Signed Impressions: Service Date/Time: Tuesday, October 25, 2016 03:57 - CONCLUSION: 1. Increase in left basilar consolidation over the last day. Support apparatus unchanged. Stable upper lobe disease. Bronchiectasis. Catalino Torres MD Chest CT 10/24/16 0000 Signed Impressions: Service Date/Time: Monday, October 24, 2016 19:44 - CONCLUSION: 1. Small right pneumothorax. Pneumomediastinum adjacent to the right side of the esophagus. 2. Chronic severe bronchiectasis left greater than right. 3. New severe mixed groundglass and consolidative ulnar parenchymal opacity at the right lung. Differential diagnosis includes infection versus asymmetric pulmonary edema. 4. Multiple hepatic cysts. 5. Thyroid goiter. Yovany Dawn MD Objective Remarks GENERAL: 70-year-old male, critically ill currently resting in bed on nonrebreather mask SKIN: Warm and dry. No rash HEAD: Normocephalic. Atraumatic EYES: Pupils about 3 mm bilaterally reactive to 2 mm. No scleral icterus.. NECK: Supple, trachea midline. No JVD or lymphadenopathy. CARDIOVASCULAR: Regular rate and rhythm. S1, S2. Currently without murmurs, gallops, or rubs. Left subclavian central line clean dry and intact RESPIRATORY: Coarse fine crackles appreciated throughout lung murphy. Positive end expiratory wheeze.. GASTROINTESTINAL: Abdomen soft, non-tender, nondistended. Hypoactive bowel sounds are appreciated MUSCULOSKELETAL: No redness in peripheral edema. Patient left femoral arterial line clean dry and intact currently cured BACK: Nontender without obvious deformity. No CVA tenderness. EXTREMITIES: No clubbing cyanosis or edema NEURO: Cranial nerves II through XII grossly intact. Moves all 4 extremities spontaneously to command. Normal sensation. Answers questions appropriately. Urinary Catheter: Yes Assessment to: Continue Meier insert reason: Prolonged Immobilization Vascular Central Line Catheter: Yes Assessment to: Continue Date of Insertion: Oct 24, 2016 Line: Central Venous Catheter Side: Left Location: Subclavian A/P Assessment and Plan Neuro/Psych: Acetaminophen for fever Morphine for pain management CV: History of myocardial infarction status post angioplasty in the remote past Hypertension Dyslipidemia Acute systolic heart failure ejection fraction 20% Currently off all vasopressors in order to maintain a MAP greater than 65 Status post cardiac catheterization by Dr. Romero. Ejection fraction 20%. Left main is straight and patent. Left circumflex, LAD and RCA with minimal coronary artery disease. Currently on aspirin 81 mg daily/home medication Follow-up on lipid profile. Previously on Lipitor 40 mg daily. Holding home medication metoprolol 25 mg by mouth twice a day in light of hypotension/vasopressor usage Currently normal saline at 40 cc an hour. Resp: Acute hypoxemic respiratory failure Bronchiectasis Tiny right pneumothorax Right pneumomediastinum Chest x-ray 10/25 revealed no pneumothorax. A.m. pending Currently on nonrebreather mask Duo nebs every 4 hours with albuterol every 2 hours when necessary dyspnea on Combivent 4 times a day at home. And tinea Pulmicort 0.5/2 one inhalation twice a day and Solu-Cortef 100 mg IV every 8 hours bronchiectasis See below infectious disease for antibiotic coverage Consulted pulmonology. She has significant bronchiectasis will be difficult wean from the ventilator with underlying pulmonology pathology GI: Elevated transaminases - likely secondary to shock liver versus acute cholecystitis Hypoalbuminemia History of diverticulitis Gastroesophageal reflux disease Left lower lobe liver mass recommended outpatient MRI follow-up Right lower lobe liver cyst HIDA scan plan for today Liver ultrasound 10/25 revealed tiny subcentimeter gallstone. Thickening of the gallbladder wall with pericholecystic fluid. Recurrent HIDA scan. Lesion in left lower lobe liver 1.2 x 0.8 x 0 point centimeters recommend outpatient MRI. Multiple right hepatic cysts largest 4.1 cm. Pepcid for GI prophylaxis. On Zantac 150 twice a day at home Olivia-Colace for bowel regimen Hepatitis panel pending. : Meier catheter has been placed for accurate I's and O's in a critically ill patient Endo: History of MNG Hyperthyroidism Medication is Tapazole at 5 mg by mouth twice a day/home medication. Increased to 10 mg 3 times a day in light of low TSH. Does not meet criteria for thyroid storm. TSH 0.08. Free T4 1 0.52. Free T3 1 0.46. Sliding-scale insulin with Accu-Cheks to maintain euglycemia Renal: Monitor urine output Accurate I's and O's Heme: Leukocytosis Normocytic anemia Monitor CBC daily. Follow trends No indications for transfusion of blood products at this time ID: Day 2 vancomycin, cefepime , Flagyl and Zithromax Blood cultures 2, sputum, urine Legionella pneumococcal antigens and influenza ordered today 10/25. Results all pending MSK: PT evaluate and treat FEN: Electrolyte abnormalities corrected yesterday. We'll give extra potassium today in light of Lasix usage overnight. ICU electrolyte protocol initiated Access - Left subclavian CVL day 3 placed in ED Prophylaxis - GI - Pepcid - DVT - SCD/Lovenox subcutaneous Critical Care time - 30 minutes August Rogers MD Oct 26, 2016 07:33
[2016-10-26] MEDS: RESP: BUDESONIDE 0.5 MG/2 ML NEB NEB SCH ×2 (08:29→21:29)
[2016-10-26] MEDS ORDERED: ROCURONIUM INJ 50 MG/5 ML VIAL ONE (08:44)
[2016-10-26] MEDS ORDERED: ROCURONIUM INJ 100 MG/10 ML VIAL IV ONE (08:45)
[2016-10-26] MEDS ORDERED: fentaNYL DRIP 250 ML IV SCH (08:45)
[2016-10-26] MEDS ORDERED: ETOMIDATE 20 MG/10 ML VIAL IV PUSH ONE (08:45)
[2016-10-26] MEDS ORDERED: TERBUTALINE INJ 1 MG/ML AMP SQ PRN (08:45)
[2016-10-26] MEDS ORDERED: NOREPINEPHRINE INJ 4 MG in SODIUM CHLOR 0.9% 250 ML INJ 246 ML IV SCH (08:45)
--- NOTE | 2016-10-26 08:55 | PD.PROCEDR ---
Procedure Note Procedure DATE: 10/26/2016 PROCEDURE: Orotracheal intubation INDICATION: Acute hypoxemic respiratory failure DETAILS OF PROCEDURE The patient was placed in optimal position and preoxygenated with 100% FiO2 via bag valve mask. At the start oxygen saturation was 100 %. The patient was administered 20 milligrams etomidate IV and 50 mg rocuronium IV. I entered the oropharynx with a size 4 GVL glidescope blade and obtained a grade 2 view of the airway. On single attempt a size 8.0 cuffed endotracheal tube was passed through the vocal cords. Correct tube location was confirmed with end tidal CO2 detector and by auscultating over bilateral lung murphy. The endotracheal tube was secured with adhesive tape at a depth of 23 cm at the lips. The patient was connected to the ventilator. The patient tolerated the procedure well without any apparent complications. Oxygen saturations were maintained greater than 95% all times. STAT chest x-ray pending at time of dictation. August Rogers MD Oct 26, 2016 08:55
[2016-10-26] MEDS: AZITHROMYCIN INJ 500 MG in SODIUM CHLOR 0.9% 250 ML INJ 250 ML IV SCH (10:03)
--- NOTE | 2016-10-26 10:13 | RADRPT ---
EXAM DATE/TIME: 10/26/2016 09:33 [facility] COMPARISON: CHEST SINGLE AP, October 25, 2016, 3:57. INDICATIONS : Reintubation. MEDICAL HISTORY : None. SURGICAL HISTORY : None. ENCOUNTER: Initial ACUITY: 1 day PAIN SCORE: Non-responsive. LOCATION: Bilateral chest FINDINGS: A single view of the chest demonstrates endotracheal tube tip in proximal right mainstem bronchus. Th is should be withdrawn about 3 cm. Left central line in superior vena cava. Bilateral airspace diseas e stable since October 25. Small effusions. CONCLUSION: 1. Endotracheal tube tip just beyond valencia in proximal right mainstem bronchus. This should be withd rawn about 3 cm. Bilateral airspace disease is stable. Catalino Torres MD on October 26, 2016 at 10:05 Board Certified Radiologist. This report was verified electronically.
[2016-10-26] MEDS: VANCOMYCIN INJ 1,250 MG in SODIUM CHLOR 0.9% 250 ML INJ 250 ML IV SCH (10:48)
[2016-10-26] MEDS: ENOXAPARIN SODIUM 40 MG/0.4 ML SYRINGE SQ SCH (10:48)
--- NOTE | 2016-10-26 11:55 | PD.CARD.PN ---
Subjective Subjective Remarks Pt intubated Objective Medications Current Medications Medications (Trade) Dose Ordered Sig/Najma Route Start Time Stop Time Status Last Admin Aspirin 81 mg 81 mg DAILY PO 10/25/16 09:00 10/26/16 06:21 (NS 1000 ml Inj) 1,000 ml @ 40 mls/hr Q24H IV 10/24/16 19:48 10/26/16 07:33 (NS Flush) 2 ml UNSCH PRN .XX 10/24/16 20:00 (NS Flush) 2 ml BID .XX 10/24/16 21:00 10/26/16 07:28 (Tylenol) 650 mg Q6H PRN PO 10/24/16 20:00 (Morphine Inj) 2 mg Q2H PRN IV 10/24/16 20:00 (Tears Naturale Opth Soln) 1 drop TID EACH EYE 10/25/16 09:00 (Zofran Inj) 4 mg Q6H PRN IV 10/24/16 20:00 (Reglan Inj) 10 mg Q6H PRN IV 10/24/16 20:00 (Compazine Supp) 25 mg Q12H PRN RECTAL 10/24/16 20:00 Miscellaneous Information 1 Q361D XX 10/24/16 20:00 (Chlorhexidine 2% Cloth) 3 pack Taper DAILY@04 TOP 10/25/16 04:00 10/21/17 03:59 10/26/16 01:47 (Chlorhexidine 2% Cloth) 3 pack UNSCH PRN TOP 10/24/16 20:00 (Olivia-Colace) 1 tab BID PO 10/24/16 21:00 10/25/16 21:24 (Milk Of Magnesia Liq) 30 ml Q12H PRN PO 10/24/16 20:00 (Senokot) 17.2 mg Q12H PRN PO 10/24/16 20:00 (Dulcolax Supp) 10 mg DAILY PRN RECTAL 10/24/16 20:00 Lactulose 30 ml 30 ml DAILY PRN PO 10/24/16 20:00 Potassium Chloride 100 ml @ 50 mls/hr Q2H PRN IV 10/25/16 09:00 (KCl 20 Meq Premix Inj) 100 ml @ 50 mls/hr Q2H PRN IV 10/25/16 09:00 Potassium Bicarb/ Potassium Chloride 50 meq 50 meq UNSCH PRN PO 10/25/16 09:00 Potassium Chloride 100 ml @ 25 mls/hr UNSCH PRN IV 10/25/16 09:00 Potassium Chloride 100 ml @ 50 mls/hr Q2H PRN IV 10/25/16 09:00 (Magnesium Sulfate Inj/NS Inj) 100 ml @ 50 mls/hr UNSCH PRN IV 10/25/16 09:00 Magnesium Oxide 800 mg 800 mg UNSCH PRN PO 10/25/16 09:00 (Magnesium Sulfate Inj/NS Inj) 100 ml @ 50 mls/hr UNSCH PRN IV 10/25/16 09:00 Potassium Phosphate 2000 mg 2,000 mg Q4H PRN PO 10/25/16 09:00 (Sodium Phosphate Inj/NS 250 ml Inj) 250 ml @ 42 mls/hr UNSCH PRN IV 10/25/16 09:00 Potassium Phosphate 2000 mg 2,000 mg UNSCH PRN PO/TUBE 10/25/16 09:00 Potassium Phosphate 30 mmol/ Sodium Chloride 260 ml @ 42 mls/hr UNSCH PRN IV 10/25/16 09:00 Cefepime HCl 2000 mg/Sodium Chloride 100 ml @ 200 mls/hr Q8H IV 10/25/16 10:00 10/26/16 10:04 Azithromycin 500 mg/Sodium Chloride 250 ml @ 250 mls/hr Q24H IV 10/25/16 11:00 10/26/16 10:03 (Vancomycin Consult Pharmacy) 0 ml @ 0 mls/hr UNSCH OTHER 10/25/16 09:30 (Lovenox Inj) 40 mg Q24H SQ 10/25/16 11:00 10/26/16 10:48 Chlorhexidine Gluconate 15 ml 15 ml BID@08,20 MT 10/25/16 20:00 10/25/16 21:25 (Vancomycin Inj/ NS 250 ml Inj) 262.5 ml @ 250 mls/hr Q24H IV 10/25/16 13:00 10/26/16 10:48 Miscellaneous Information SPECIFIC LAB TO BE DRAWN:VANCO TROUGH DATE TO... ONCE ONCE .XX 10/28/16 12:45 10/28/16 12:46 (Tapazole) 10 mg Q8HR PO 10/25/16 22:00 10/25/16 21:24 (Questran 4 Gm Pkt) 4 gm Q12HR PO 10/25/16 21:00 10/25/16 21:33 (SoluCORTEF INJ) 100 mg Q8HR IV PUSH 10/25/16 22:00 10/26/16 04:38 Pantoprazole Sodium 40 mg 40 mg Q24H IV PUSH 10/25/16 16:00 10/25/16 16:57 (Flagyl 500 Mg Inj) 100 ml @ 100 mls/hr Q8H IV 10/25/16 18:00 10/26/16 10:06 Chlorhexidine Gluconate 15 ml 15 ml BID@08,20 MT 10/26/16 20:00 Fentanyl Citrate 250 ml @ 0 mls/hr TITRATE IV 10/26/16 08:45 Midazolam HCl 100 ml @ 0 mls/hr TITRATE IV 10/26/16 08:45 (Levophed Inj/NS 250 ml Inj) 250 ml @ 0 mls/hr TITRATE IV 10/26/16 08:45 (Brethine Inj) 1 mg UNSCH PRN SQ 10/26/16 08:45 Vital Signs / I&O Vital Signs Date Time Temp Pulse Resp B/P Pulse Ox O2 Delivery O2 Flow Rate FiO2 10/26/16 11:33 100 70 10/26/16 10:29 100 10/26/16 10:00 83 10/26/16 09:00 100 10/26/16 08:29 100 Partial Rebreather 12.00 10/26/16 08:00 90 10/26/16 08:00 97.2 90 28 108/66 100 116/63 10/26/16 06:00 91 10/26/16 04:24 96 40 10/26/16 04:00 128 10/26/16 04:00 98.7 128 47 116/61 92 131/70 10/26/16 02:00 93 10/26/16 00:05 100 40 10/26/16 00:00 50 10/26/16 00:00 92 10/26/16 00:00 98.5 92 6 131/74 99 138/66 10/25/16 22:00 90 10/25/16 21:47 98.3 92 14 138/72 99 137/66 10/25/16 20:00 50 10/25/16 20:00 91 10/25/16 19:52 99 40 10/25/16 18:00 91 10/25/16 16:00 50 10/25/16 16:00 104 10/25/16 16:00 99.5 104 14 75/50 97 76/42 10/25/16 15:04 97 40 10/25/16 14:00 102 10/25/16 12:41 100 40 10/25/16 12:00 99 10/25/16 12:00 100.2 99 14 82/53 100 92/56 10/25/16 12:00 50 I/O 10/25/16 10/25/16 10/25/16 10/26/16 10/26/16 10/26/16 07:00 15:00 23:00 07:00 15:00 23:00 Intake Total 775 ml 2082 ml 2345 ml Output Total 300 ml 500 ml 1300 ml Balance 475 ml 1582 ml 1045 ml Intake IV Total 775 ml 2082 ml 2345 ml Output Urine Total 300 ml 500 ml 1300 ml # Bowel Movements 0 0 Physical Exam GENERAL: Well developed, well nourished. No acute distress, on vent HEENT: NA CHEST: Lungs rhonchi to auscultation bilaterally. Unlabored respiratory effort. CARDIAC: Regular rate and rhythm without S3, S4, or murmur. ABDOMEN: Soft, nontender, no hepatosplenomegaly. Bowel sounds present. EXTREMITIES: No clubbing, cyanosis, or edema. right groin- 4 F sheath remains in - site looks great, no e/h, 2+ DP Laboratory Laboratory Tests Test 10/25/16 10/25/16 10/26/16 10/26/16 12:21 17:55 04:45 07:08 Random Cortisol 33.4 MCG/DL Sodium Level 139 MEQ/L 138 MEQ/L Potassium Level 4.3 MEQ/L 3.6 MEQ/L Chloride Level 109 MEQ/L 106 MEQ/L Carbon Dioxide Level 19.6 MEQ/L 23.0 MEQ/L Anion Gap 10 MEQ/L 9 MEQ/L Blood Urea Nitrogen 13 MG/DL 12 MG/DL Creatinine 0.65 MG/DL 0.69 MG/DL Estimat Glomerular Filtration 90 ML/MIN 84 ML/MIN Rate Random Glucose 182 MG/DL 205 MG/DL Calcium Level 7.1 MG/DL 7.7 MG/DL Protein Corrected Calcium 7.5 MG/DL Phosphorus Level 3.0 MG/DL 2.7 MG/DL Magnesium Level 2.5 MG/DL 2.2 MG/DL Total Protein 6.3 GM/DL 6.6 GM/DL Free Thyroxine 1.52 NG/DL Free Triiodothyronine (T3) 1.46 PG/ML pg/dL White Blood Count 18.8 TH/MM3 Red Blood Count 3.99 MIL/MM3 Hemoglobin 10.7 GM/DL Hematocrit 34.5 % Mean Corpuscular Volume 86.3 FL Mean Corpuscular Hemoglobin 26.8 PG Mean Corpuscular Hemoglobin 31.1 % Concent Red Cell Distribution Width 14.0 % Platelet Count 232 TH/MM3 Mean Platelet Volume 9.4 FL Neutrophils (%) (Auto) 95.1 % Lymphocytes (%) (Auto) 1.7 % Monocytes (%) (Auto) 3.1 % Eosinophils (%) (Auto) 0.0 % Basophils (%) (Auto) 0.1 % Neutrophils # (Auto) 17.9 TH/MM3 Lymphocytes # (Auto) 0.3 TH/MM3 Monocytes # (Auto) 0.6 TH/MM3 Eosinophils # (Auto) 0.0 TH/MM3 Basophils # (Auto) 0.0 TH/MM3 CBC Comment DIFF FINAL Differential Comment Total Bilirubin 0.7 MG/DL Aspartate Amino Transf 85 U/L (AST/SGOT) Alanine Aminotransferase 122 U/L (ALT/SGPT) Alkaline Phosphatase 139 U/L Total Creatine Kinase 828 U/L Creatine Kinase MB 13.9 NG/ML Creatine Kinase MB % 1.7 % Albumin 2.4 GM/DL Blood Gas Puncture Site TRUPTI Blood Gas Patient Temperature 98.6 Blood Gas HCO3 19 mmol/L Blood Gas Base Excess -6.8 mmol/L Blood Gas Oxygen Saturation 97 % Arterial Blood pH 7.24 Arterial Blood Partial 46 mmHg Pressure CO2 Arterial Blood Partial 202 mmHg Pressure O2 Arterial Blood Oxygen Content 14.3 Vol % Arterial Blood 1.0 % Carboxyhemoglobin Arterial Blood Methemoglobin 1.2 % Blood Gas Hemoglobin 10.2 G/DL Oxygen Delivery Device PARTIAL Blood Gas Liter Flow 12 L/M Assessment and Plan Assessment and Plan STEMI- diffuse ST elevation likely represented global ischemia from hypoxia -cath with normal coronaries, EF 20% Cardiomyopathy- likely secondary to hypoxia, -BP too low for BB or MARSHA Resp Failure- per CCM/pulmonary Hypotension- Cami Romero MD Oct 26, 2016 11:55 Cami Romero MD Oct 26, 2016 11:55
--- NOTE | 2016-10-26 12:19 | EKG ---
Date Performed: 10/25/2016 Time Performed: 20:00:44 PTAGE: 70 years EKG: Sinus rhythm WITH SINUS ARRHYTHMIA POSSIBLE LEFT ATRIAL ENLARGEMENT BORDERLINE ECG PREVIOUS TRACING : 10/25/2016 13.24 COMPARED TO THE PREVIOUS EKG ST-T ABNORMALITIES ARE NO R[place] DENYS PRESENT DOCTOR: Chon Salinas Interpretating Date/Time 10/26/2016 12:16:56
--- NOTE | 2016-10-26 12:29 | EKG ---
Date Performed: 10/25/2016 Time Performed: 13:24:56 PTAGE: 70 years EKG: SINUS TACHYCARDIA LOW QRS VOLTAGE POSSIBLE RIGHT VENTRICULAR CONDUCTION DELAY INFERIOR MYOC ARDIAL INFARCTION , OF INDETERMINATE AGE MODERATE T-WAVE ABNORMALITY, CONSIDER ANTEROLATERAL ISCHEMIA ABNORMAL ECG PREVIOUS TRACING : 10/25/2016 08.33 Compared to prior tracing no significant change DOCTOR: Chon Salinas Interpretating Date/Time 10/26/2016 12:26:05
--- NOTE | 2016-10-26 14:20 | HHI.PR ---
Subjective Remarks ass on the vent for hyda scan today Objective Vital Signs Date Time Temp Pulse Resp B/P Pulse Ox O2 Delivery O2 Flow Rate FiO2 10/26/16 12:00 70 10/26/16 11:33 100 70 10/26/16 10:29 100 10/26/16 10:00 83 10/26/16 09:00 100 10/26/16 08:29 100 Partial Rebreather 12.00 10/26/16 08:00 90 10/26/16 08:00 97.2 90 28 108/66 100 116/63 10/26/16 06:00 91 10/26/16 04:24 96 40 10/26/16 04:00 128 10/26/16 04:00 98.7 128 47 116/61 92 131/70 10/26/16 02:00 93 10/26/16 00:05 100 40 10/26/16 00:00 50 10/26/16 00:00 92 10/26/16 00:00 98.5 92 6 131/74 99 138/66 10/25/16 22:00 90 10/25/16 21:47 98.3 92 14 138/72 99 137/66 10/25/16 20:00 50 10/25/16 20:00 91 10/25/16 19:52 99 40 10/25/16 18:00 91 10/25/16 16:00 50 10/25/16 16:00 104 10/25/16 16:00 99.5 104 14 75/50 97 76/42 10/25/16 15:04 97 40 I/O 10/25/16 10/25/16 10/25/16 10/26/16 10/26/16 10/26/16 07:00 15:00 23:00 07:00 15:00 23:00 Intake Total 775 ml 2082 ml 2345 ml Output Total 300 ml 500 ml 1300 ml Balance 475 ml 1582 ml 1045 ml Intake IV Total 775 ml 2082 ml 2345 ml Output Urine Total 300 ml 500 ml 1300 ml # Bowel Movements 0 0 Result Diagram: 10/26/1644410/26/16444 Objective Remarks GENERAL: SKIN: Warm and dry. HEAD: Atraumatic. Normocephalic. EYES: Pupils equal and round. No scleral icterus. No injection or drainage. ENT: No nasal bleeding or discharge. Mucous membranes pink and moist. NECK: Trachea midline. No JVD. CARDIOVASCULAR: Regular rate and rhythm. RESPIRATORY: No accessory muscle use.scattered rhonchi bilaterally GASTROINTESTINAL: Abdomen soft, non-tender, nondistended. Hepatic and splenic margins not palpable. MUSCULOSKELETAL: Extremities without clubbing, cyanosis, or edema. No obvious deformities. NEUROLOGICAL: Awake and alert. No obvious cranial nerve deficits. Motor grossly within normal limits. Five out of 5 muscle strength in the arms and legs. Normal speech. PSYCHIATRIC: Appropriate mood and affect; insight and judgment normal. 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
--- NOTE | 2016-10-26 14:29 | RADRPT ---
EXAM DATE/TIME: 10/26/2016 11:51 [facility] COMPARISON: No previous studies available for comparison. INDICATIONS : Abnormal ultrasound. DOSE: 4.2 mCi Tc99m Mebrofenin IV MEDICAL HISTORY : Chronic obstructive pulmonary disease. Diverticulitis. SURGICAL HISTORY : None. ENCOUNTER: Initial ACUITY: 2 days PAIN SCALE: 0/10 LOCATION: Bilateral lower quadrant TECHNIQUE: Following the intravenous administration of radiotracer, dynamic sequential images were performed wit h continuous acquisition. FINDINGS: HEPATIC KINETICS: There is prompt uptake of radiotracer in the liver. No focal defects are seen. There is normal rate of washout from the hepatic parenchyma. BILIARY CLEARANCE: Activity is first seen in the extrahepatic biliary system at 5 minutes. There is normal excretion in to the small bowel. GALLBLADDER: Activity is first seen in the gallbladder at 30 minutes. Common bile duct kinetics are normal and th ere is no evidence of biliary obstruction. BILIARY ENTRIC REFLUX: None observed. CONCLUSION: 1. Activity is demonstrated in the gallbladder confirming patency of the cystic duct and making possi bility of acute cholecystitis highly unlikely. 2. Patent common bile duct. Matthieu Apodaca MD on October 26, 2016 at 14:24 Board Certified Radiologist. This report was verified electronically.
[2016-10-26] MEDS: PANTOPRAZOLE SODIUM 40 MG VIAL IV PUSH SCH (15:14)
[2016-10-26 16:07] LABS: BICARBONATE 22.4 MEQ/L (21.0-32.0); POTASSIUM 4.4 MEQ/L (3.5-5.1)
[2016-10-26 16:36] LABS: CALCIUM-PROTEIN CORRECTED 7.9 MG/DL (8.5-10.1)
[2016-10-26 17:29] LABS: BLOOD GAS BASE EXCESS -7.3 mmol/L (-2-2); BLOOD GAS CARBOXYHEMOGLOBIN 1.2 % (0-4); BLOOD GAS HCO3 17 mmol/L (22-26); BLOOD GAS METHEMOGLOBIN 1.7 % (0-2); BLOOD GAS O2 HGB SATURATION 96 % (90-100); BLOOD GAS OXYGEN CONTENT 11.6 Vol % (12.0-20.0); BLOOD GAS PCO2 29 mmHg (38-42); BLOOD GAS PO2 117 mmHg (61-120); BLOOD GAS TOTAL HGB 8.5 G/DL (12.0-16.0); CRITICAL VALUE NO; TEMP CORR TO 98.6
[2016-10-26 17:30] LABS: OXYGEN DEVICE VENT
[2016-10-26 17:31] LABS: DRAW SITE ALINE; FIO2 100 %; STAT NO; VENT SETTINGS PRVC/14/500/5PEEP
[2016-10-26] MEDS ORDERED: LACTATED RINGER'S 1000 ML INJ 1,000 ML IV ONE (18:00)
[2016-10-26] MEDS ORDERED: CALCIUM GLUCONATE INJ 1 GM in SODIUM CHLORIDE 0.9% INJ 100 ML IV ONE (18:00)
[2016-10-26] MEDS: MIDAZOLAM 100 MG/ML INJ 100 ML IV SCH (23:18)
[2016-10-27] VITALS (23 sets, daily range): BP systolic 86–141; BP diastolic 48–72; PULSE 77–117; RESP 14–21; TEMP 97.9–99.3; O2SAT 96–100
[2016-10-27] MEDS: CEFEPIME INJ 2,000 MG in SODIUM CHLORIDE 0.9% INJ 100 ML IV SCH ×3 (02:00→16:25)
[2016-10-27] MEDS: metroNIDAZOLE 500 MG INJ 100 ML IV SCH ×3 (02:00→16:25)
[2016-10-27] MEDS: RESP: ALBUTEROL 2.5 MG/IPRATROPIUM 0.5 MG NEB (SCH) INH ×6 (02:10→20:20)
[2016-10-27] MEDS: CHLORHEXIDINE GLUCONATE 2 % 1 PACK (2 CLOTHS) TOP SCH (04:00)
[2016-10-27] MEDS: METHIMAZOLE 10 MG TAB PO SCH ×3 (05:44→20:54)
[2016-10-27] MEDS: HYDROCORTISONE SOD SUCCINATE 100 MG VIAL IV PUSH SCH ×3 (05:44→20:53)
[2016-10-27 06:23] LABS: AUTOMATED NEUTROPHIL # 17.7 TH/MM3 (1.8-7.7); BASOPHIL % 0.2 % (0.0-2.0); EOSINOPHIL # 0.1 TH/MM3 (0-0.4); EOSINOPHIL % 0.3 % (0.0-4.0); HEMATOCRIT 30.6 % (35.0-46.0); HEMO FLAGS DIFF FINAL; LYMPHOCYTE # 0.2 TH/MM3 (1.0-4.8); MEAN CELL VOLUME 85.9 FL (80.0-100.0); MEAN CORPUSCULAR HEMOGLOBIN 26.6 PG (27.0-34.0); MONO % 3.9 % (0.0-8.0); NEUT % 94.6 % (16.0-70.0); PLATELET COUNT 228 TH/MM3 (150-450); RED BLOOD COUNT 3.57 MIL/MM3 (4.00-5.30); RED CELL DISTRIBUTION WIDTH 14.2 % (11.6-17.2); WHITE BLOOD COUNT 18.7 TH/MM3 (4.0-11.0)
--- NOTE | 2016-10-27 06:28 | RADRPT ---
EXAM DATE/TIME: 10/27/2016 03:49 [facility] COMPARISON: No previous studies available for comparison. INDICATIONS : Shortness of breath, possible pulmonary disease. MEDICAL HISTORY : None. SURGICAL HISTORY : None. ENCOUNTER: Subsequent ACUITY: 4 - 6 days PAIN SCORE: Non-responsive. LOCATION: Bilateral chest FINDINGS: Left greater than right parenchymal consolidation again noted, not significantly changed. There is le ss volume loss again noted. A small left pleural effusion is likely. Heart size stable, within normal limits. Endotracheal tube tip is about 3 cm above the valencia. Nasogastric tube courses into the stomach. Ther e is a left subclavian central venous catheter with tip in the superior vena cava. CONCLUSION: No significant change. Joao Hawkins MD on October 27, 2016 at 6:26 Board Certified Radiologist. This report was verified electronically.
[2016-10-27 06:57] LABS: ALKALINE PHOSPHATASE 70 U/L (45-117); ALT (GPT) 76 U/L (10-53); ANION GAP 9 MEQ/L (5-15); AST (GOT) 33 U/L (15-37); BICARBONATE 20.8 MEQ/L (21.0-32.0); BLOOD UREA NITROGEN 17 MG/DL (7-18); CHLORIDE 109 MEQ/L (98-107); GLOMERULAR FILTRATION RATE 96 ML/MIN (>89); MAGNESIUM 2.3 MG/DL (1.5-2.5); POTASSIUM 3.9 MEQ/L (3.5-5.1); SODIUM (NA) 139 MEQ/L (136-145); TOTAL BILIRUBIN ADULT 0.4 MG/DL (0.2-1.0)
[2016-10-27] MEDS: CHLORHEXIDINE 0.12% (ORAL KIT) 15 ML CUP MT SCH ×4 (07:26→19:50)
[2016-10-27] MEDS: SODIUM CHLOR 0.9% 1000 ML INJ 1,000 ML IV SCH (07:33)
--- NOTE | 2016-10-27 07:36 | HHI.CCPN ---
Subjective Remarks/Hospital Course 70 years old female was brought in from home with h/o shortness of breath. Upon their arrival, patient was severely short of breath and her lungs sounded "wet" . She was given IV Lasix by EMS and was started on CPAP. Patient arrived in extremis, unable to speak due to the distress. There was no family member present to give additional history. EMS had done a 12 lead EKG en route which looked to them as STEMI. They called a STEMI alert. Patient however shook her head meaning "no" when I asked if she had any chest pain. Her BP was 135 systolic and heart rate of 125. Sats were 95% on the CPAP. Patient has suffered from cardiac arrest months in the emergency department and one or 2 times in the cardiac catheterization lab. 10/25: Currently on 13 mcg/m of norepinephrine and 5 mics management of dopamine. Arousable mentation vivar on the ventilator and follows commands. Afebrile. No pneumothorax on a.m. chest x-ray. PEEP 8. We will attempt to wean today Subjective 10/26: Self extubated last night at 3 AM. Currently on nonrebreather mask with saturations around 99%. ABG revealed uncompensated acute respiratory acidosis with metabolic acidosis/non-anion gap. Off all vasopressors. 10/27 Patient was reintubated yesterday for resp failure. Sedated with Versed and is on Levophed 2 mics. Afebrile. Objective Vital Signs Date Time Temp Pulse Resp B/P Pulse Ox O2 Delivery O2 Flow Rate FiO2 10/27/16 04:43 100 40 10/27/16 04:00 92 10/27/16 04:00 98.2 21 137/66 141/72 10/26/16 08:29 Partial Rebreather 12.00 Intake and Output 10/26/16 10/26/16 10/27/16 08:00 16:00 00:00 Intake Total 2345 ml 1327 ml Output Total 1300 ml 725 ml Balance 1045 ml 602 ml Result Diagram: 10/27/16 0515 10/27/16 0515 Other Results Laboratory Tests Test 10/26/16 10/26/16 10/27/16 15:29 17:15 05:15 Sodium Level 142 MEQ/L 139 MEQ/L Potassium Level 4.4 MEQ/L 3.9 MEQ/L Chloride Level 113 MEQ/L 109 MEQ/L Carbon Dioxide Level 22.4 MEQ/L 20.8 MEQ/L Anion Gap 7 MEQ/L 9 MEQ/L Blood Urea Nitrogen 13 MG/DL 17 MG/DL Creatinine 0.55 MG/DL 0.61 MG/DL Estimat Glomerular Filtration 109 ML/MIN 96 ML/MIN Rate Random Glucose 130 MG/DL 218 MG/DL Calcium Level 7.2 MG/DL 7.7 MG/DL Protein Corrected Calcium 7.9 MG/DL Total Protein 5.7 GM/DL 5.8 GM/DL Blood Gas Puncture Site TRUPTI Blood Gas Patient Temperature 98.6 Blood Gas HCO3 17 mmol/L Blood Gas Base Excess -7.3 mmol/L Blood Gas Oxygen Saturation 96 % Arterial Blood pH 7.38 Arterial Blood Partial 29 mmHg Pressure CO2 Arterial Blood Partial 117 mmHg Pressure O2 Arterial Blood Oxygen Content 11.6 Vol % Arterial Blood 1.2 % Carboxyhemoglobin Arterial Blood Methemoglobin 1.7 % Blood Gas Hemoglobin 8.5 G/DL Oxygen Delivery Device VENT Blood Gas Ventilator Setting PRVC/14/500/5PEEP Blood Gas Inspired Oxygen 100 % White Blood Count 18.7 TH/MM3 Red Blood Count 3.57 MIL/MM3 Hemoglobin 9.5 GM/DL Hematocrit 30.6 % Mean Corpuscular Volume 85.9 FL Mean Corpuscular Hemoglobin 26.6 PG Mean Corpuscular Hemoglobin 31.0 % Concent Red Cell Distribution Width 14.2 % Platelet Count 228 TH/MM3 Mean Platelet Volume 9.7 FL Neutrophils (%) (Auto) 94.6 % Lymphocytes (%) (Auto) 1.0 % Monocytes (%) (Auto) 3.9 % Eosinophils (%) (Auto) 0.3 % Basophils (%) (Auto) 0.2 % Neutrophils # (Auto) 17.7 TH/MM3 Lymphocytes # (Auto) 0.2 TH/MM3 Monocytes # (Auto) 0.7 TH/MM3 Eosinophils # (Auto) 0.1 TH/MM3 Basophils # (Auto) 0.0 TH/MM3 CBC Comment DIFF FINAL Differential Comment Phosphorus Level 1.0 MG/DL Magnesium Level 2.3 MG/DL Total Bilirubin 0.4 MG/DL Aspartate Amino Transf 33 U/L (AST/SGOT) Alanine Aminotransferase 76 U/L (ALT/SGPT) Alkaline Phosphatase 70 U/L Albumin 2.1 GM/DL Imaging Last Impressions Chest X-Ray 10/27/16 0600 Signed Impressions: Service Date/Time: Thursday, October 27, 2016 03:49 - CONCLUSION: No significant change. Joao Hawkins MD Hepatobiliary Scan Nuclear Medicine 10/26/16 0000 Signed Impressions: Service Date/Time: Wednesday, October 26, 2016 11:51 - CONCLUSION: 1. Activity is demonstrated in the gallbladder confirming patency of the cystic duct and making possibility of acute cholecystitis highly unlikely. 2. Patent common bile duct. Matthieu Apodaca MD Liver Ultrasound 10/25/16 0000 Signed Impressions: Service Date/Time: Tuesday, October 25, 2016 11:32 - CONCLUSION: 1. Probable single subcentimeter gallstone in the gallbladder. There is gallbladder wall thickening and trace pericholecystic fluid although the gallbladder is not significantly distended. Overall, the findings may reflect developing acute cholecystitis. Recommend HIDA scan to evaluate patency of the cystic duct if there is continued concern regarding cholecystitis. 2. Small 1.2 x 0.9 x 0.8 cm isoechoic mass in the left lobe of liver. Overall, the findings are nonspecific and further characterization is difficult due to small size. Differential considerations include both malignant and benign etiologies. This may be further evaluated with multiphase MRI exam on an outpatient basis. 3. Multiple bilateral right hepatic cysts measuring up to 4.1 cm, as above. Matthieu Apodaca MD Chest CT 10/24/16 0000 Signed Impressions: Service Date/Time: Monday, October 24, 2016 19:44 - CONCLUSION: 1. Small right pneumothorax. Pneumomediastinum adjacent to the right side of the esophagus. 2. Chronic severe bronchiectasis left greater than right. 3. New severe mixed groundglass and consolidative ulnar parenchymal opacity at the right lung. Differential diagnosis includes infection versus asymmetric pulmonary edema. 4. Multiple hepatic cysts. 5. Thyroid goiter. Yovany Dawn MD Objective Remarks GENERAL: Patient is 70yo intubated and sedated SKIN: Warm and dry. HEAD: Normocephalic. EYES: No scleral icterus. No injection or drainage. NECK: Supple, trachea midline. No JVD or lymphadenopathy. CARDIOVASCULAR: Regular rate and rhythm without murmurs, gallops, or rubs. RESPIRATORY: Breath sounds equal bilaterally.Coarse BS GASTROINTESTINAL: Abdomen soft, non-tender, nondistended. MUSCULOSKELETAL: No cyanosis, or edema. Neuro: Sedated Date of Insertion: Oct 24, 2016 Line: Central Venous Catheter Side: Left Location: Subclavian A/P Assessment and Plan Neuro/Psych: Monitor neuro status. On Versed infusion for sedation. Daily sedation vacation. Patient is allergic to Propofol. Acetaminophen for fever Morphine for pain management CV: History of myocardial infarction status post angioplasty in the remote past Hypertension Dyslipidemia Acute systolic heart failure ejection fraction 20% On Levophed 2 mics monitor HR and BP keep MAP>65mmHg Status post cardiac catheterization by Dr. Romero. Ejection fraction 20%. Left main is straight and patent. Left circumflex, LAD and RCA with minimal coronary artery disease. Currently on aspirin 81 mg daily/home medication Previously on Lipitor 40 mg daily. On Hold for elevated LFT Holding home medication metoprolol 25 mg by mouth twice a day in light of hypotension/vasopressor usage Resp: Acute hypoxemic respiratory failure Bronchiectasis Tiny right pneumothorax per CT chest Right pneumomediastinum Continue with vent support keep sat >92% Duo nebs every 4 hours with albuterol every 2 hours when necessary dyspnea on Combivent 4 times a day at home. And tinea Pulmicort 0.5/2 one inhalation twice a day and Solu-Cortef 100 mg IV every 8 hours bronchiectasis She has significant bronchiectasis will be difficult to wean off the ventilator given underlying pulmonology pathology GI: Elevated transaminases - likely secondary to shock liver versus acute cholecystitis Hypoalbuminemia History of diverticulitis Gastroesophageal reflux disease Left lower lobe liver mass recommended outpatient MRI follow-up Right lower lobe liver cyst HIDA scan: Activity is demonstrated in the gallbladder confirming patency of the cystic duct and making possibility of acute cholecystitis highly unlikely. Patent common bile duct. Liver ultrasound 10/25 revealed tiny subcentimeter gallstone. Thickening of the gallbladder wall with pericholecystic fluid. Lesion in left lower lobe liver 1.2 x 0.8 x 0 point centimeters recommend outpatient MRI. Multiple right hepatic cysts largest 4.1 cm. Pepcid for GI prophylaxis. On Zantac 150 twice a day at home Olivia-Colace for bowel regimen Hepatitis panel pending. On Jevity 1.5@40ml/hr : Monitor renal function, I/O's, electrolytes replacement per protocol. Diurese with Bumex 1mg x1 Endo: History of MNG Hyperthyroidism On Tapazole 10 mg 3 times a day in light of low TSH. TSH 0.08. Free T4 1 0.52. Free T3 1 0.46. Sliding-scale insulin (medium scale) with Accu-Cheks to maintain euglycemia Heme: Leukocytosis Normocytic anemia Monitor CBC daily. Follow trends ID: Continue abx( vancomycin, cefepime , Flagyl and Zithromax) 10/25 Sputum cx: GNR urine Legionella, pneumococcal antigens and influenza ordered negative on . MSK: PT evaluate and treat Access - Left subclavian CVL day 3 placed in ED Prophylaxis - GI - Pepcid - DVT - SCD/Lovenox subcutaneous Critical Care time - 30 minutes Eber Early MD Oct 27, 2016 07:36
[2016-10-27] MEDS ORDERED: GLUCAGON 1 MG/ML VIAL OTHER PRN (07:45)
[2016-10-27] MEDS ORDERED: BUMETANIDE INJ 1 MG/4 ML VIAL IV PUSH ONE (07:45)
[2016-10-27] MEDS ORDERED: DEXTROSE 50% IN WATER 50 ML VIAL(D50) IV PRN (07:45)
[2016-10-27] MEDS: INSULIN NovoLIN REGULAR SUPPLEMENTAL SCALE SQ SCH ×5 (08:00→23:28)
[2016-10-27] MEDS: DOCUSATE SODIUM 50 MG/SENNA 8.6 MG TAB PO SCH ×2 (08:18→20:54)
[2016-10-27] MEDS: CHOLESTYRAMINE 4 GM PACKET PO SCH ×2 (08:19→20:54)
[2016-10-27] MEDS: ASPIRIN 81 MG CHEW TAB PO SCH (08:19)
[2016-10-27] MEDS: SODIUM CHLORIDE 0.9% FLUSH 10 ML FLUSH PRN (08:20)
[2016-10-27] MEDS: MIDAZOLAM 100 MG/ML INJ 100 ML IV SCH ×2 (08:20→23:27)
[2016-10-27] MEDS: SODIUM CHLORIDE 0.9% FLUSH 10 ML FLUSH SCH ×2 (08:20→20:54)
[2016-10-27] MEDS: ARTIFICIAL TEARS OPTH SOLN 15 ML BTL EACH EYE SCH ×3 (08:26→16:26)
--- NOTE | 2016-10-27 08:38 | PD.CARD.PN ---
Subjective Subjective Remarks sedated on vent Objective Medications Current Medications Medications (Trade) Dose Ordered Sig/Najma Route Start Time Stop Time Status Last Admin Aspirin 81 mg 81 mg DAILY PO 10/25/16 09:00 10/27/16 08:19 (NS 1000 ml Inj) 1,000 ml @ 40 mls/hr Q24H IV 10/24/16 19:48 10/27/16 07:33 (NS Flush) 2 ml UNSCH PRN .XX 10/24/16 20:00 10/27/16 08:20 (NS Flush) 2 ml BID .XX 10/24/16 21:00 10/27/16 08:20 (Tylenol) 650 mg Q6H PRN PO 10/24/16 20:00 (Morphine Inj) 2 mg Q2H PRN IV 10/24/16 20:00 (Tears Naturale Opth Soln) 1 drop TID EACH EYE 10/25/16 09:00 (Zofran Inj) 4 mg Q6H PRN IV 10/24/16 20:00 (Reglan Inj) 10 mg Q6H PRN IV 10/24/16 20:00 (Compazine Supp) 25 mg Q12H PRN RECTAL 10/24/16 20:00 Miscellaneous Information 1 Q361D XX 10/24/16 20:00 (Chlorhexidine 2% Cloth) 3 pack Taper DAILY@04 TOP 10/25/16 04:00 10/21/17 03:59 10/26/16 01:47 (Chlorhexidine 2% Cloth) 3 pack UNSCH PRN TOP 10/24/16 20:00 (Olivia-Colace) 1 tab BID PO 10/24/16 21:00 10/27/16 08:18 (Milk Of Magnesia Liq) 30 ml Q12H PRN PO 10/24/16 20:00 (Senokot) 17.2 mg Q12H PRN PO 10/24/16 20:00 (Dulcolax Supp) 10 mg DAILY PRN RECTAL 10/24/16 20:00 Lactulose 30 ml 30 ml DAILY PRN PO 10/24/16 20:00 Potassium Chloride 100 ml @ 50 mls/hr Q2H PRN IV 10/25/16 09:00 (KCl 20 Meq Premix Inj) 100 ml @ 50 mls/hr Q2H PRN IV 10/25/16 09:00 Potassium Bicarb/ Potassium Chloride 50 meq 50 meq UNSCH PRN PO 10/25/16 09:00 Potassium Chloride 100 ml @ 25 mls/hr UNSCH PRN IV 10/25/16 09:00 Potassium Chloride 100 ml @ 50 mls/hr Q2H PRN IV 10/25/16 09:00 (Magnesium Sulfate Inj/NS Inj) 100 ml @ 50 mls/hr UNSCH PRN IV 10/25/16 09:00 Magnesium Oxide 800 mg 800 mg UNSCH PRN PO 10/25/16 09:00 (Magnesium Sulfate Inj/NS Inj) 100 ml @ 50 mls/hr UNSCH PRN IV 10/25/16 09:00 Potassium Phosphate 2000 mg 2,000 mg Q4H PRN PO 10/25/16 09:00 (Sodium Phosphate Inj/NS 250 ml Inj) 250 ml @ 42 mls/hr UNSCH PRN IV 10/25/16 09:00 Potassium Phosphate 2000 mg 2,000 mg UNSCH PRN PO/TUBE 10/25/16 09:00 Potassium Phosphate 30 mmol/ Sodium Chloride 260 ml @ 42 mls/hr UNSCH PRN IV 10/25/16 09:00 Cefepime HCl 2000 mg/Sodium Chloride 100 ml @ 200 mls/hr Q8H IV 10/25/16 10:00 10/27/16 02:00 Azithromycin 500 mg/Sodium Chloride 250 ml @ 250 mls/hr Q24H IV 10/25/16 11:00 10/26/16 10:03 (Vancomycin Consult Pharmacy) 0 ml @ 0 mls/hr UNSCH OTHER 10/25/16 09:30 (Lovenox Inj) 40 mg Q24H SQ 10/25/16 11:00 10/26/16 10:48 Chlorhexidine Gluconate 15 ml 15 ml BID@08,20 MT 10/25/16 20:00 10/27/16 08:26 (Vancomycin Inj/ NS 250 ml Inj) 262.5 ml @ 250 mls/hr Q24H IV 10/25/16 13:00 10/26/16 10:48 Miscellaneous Information SPECIFIC LAB TO BE DRAWN:VANCO TROUGH DATE TO... ONCE ONCE .XX 10/28/16 12:45 10/28/16 12:46 (Tapazole) 10 mg Q8HR PO 10/25/16 22:00 10/27/16 05:44 (Questran 4 Gm Pkt) 4 gm Q12HR PO 10/25/16 21:00 10/27/16 08:19 (SoluCORTEF INJ) 100 mg Q8HR IV PUSH 10/25/16 22:00 10/27/16 05:44 Pantoprazole Sodium 40 mg 40 mg Q24H IV PUSH 10/25/16 16:00 10/26/16 15:14 (Flagyl 500 Mg Inj) 100 ml @ 100 mls/hr Q8H IV 10/25/16 18:00 10/27/16 02:00 Chlorhexidine Gluconate 15 ml 15 ml BID@08,20 MT 10/26/16 20:00 Fentanyl Citrate 250 ml @ 0 mls/hr TITRATE IV 10/26/16 08:45 Midazolam HCl 100 ml @ 0 mls/hr TITRATE IV 10/26/16 08:45 10/27/16 08:20 (Levophed Inj/NS 250 ml Inj) 250 ml @ 0 mls/hr TITRATE IV 10/26/16 08:45 (Brethine Inj) 1 mg UNSCH PRN SQ 10/26/16 08:45 (D50w (Vial) Inj) 50 ml UNSCH PRN IV 10/27/16 07:45 (Glucagon Inj) 1 mg UNSCH PRN OTHER 10/27/16 07:45 (NovoLIN R SUPPLEMENTAL SCALE) 1 Q4H SQ 10/27/16 08:00 10/27/16 08:00 Vital Signs / I&O Vital Signs Date Time Temp Pulse Resp B/P Pulse Ox O2 Delivery O2 Flow Rate FiO2 10/27/16 06:00 94 10/27/16 04:43 100 40 10/27/16 04:00 92 10/27/16 04:00 98.2 92 21 137/66 100 141/72 10/27/16 04:00 70 10/27/16 02:00 77 10/27/16 01:20 100 35 10/27/16 00:00 70 10/27/16 00:00 97.9 79 18 119/65 100 139/71 10/27/16 00:00 79 10/26/16 22:00 81 10/26/16 21:29 100 50 6/18/17 20:00 70 10/26/16 20:00 97.8 76 15 107/61 100 125/65 10/26/16 20:00 76 10/26/16 18:00 84 10/26/16 16:00 98.7 79 14 80/51 100 99/55 10/26/16 16:00 79 10/26/16 16:00 70 10/26/16 14:00 78 10/26/16 12:00 82 10/26/16 12:00 70 10/26/16 12:00 98.0 82 22 81/50 100 100/58 10/26/16 11:33 100 70 10/26/16 10:29 100 10/26/16 10:00 83 10/26/16 09:00 100 I/O 10/26/16 10/26/16 10/26/16 10/27/16 10/27/16 10/27/16 07:00 15:00 23:00 07:00 15:00 23:00 Intake Total 2345 ml 1327 ml 1308 ml Output Total 1300 ml 725 ml 500 ml Balance 1045 ml 602 ml 808 ml Intake IV Total 2345 ml 1207 ml 781 ml Tube Feeding 407 ml Tube Irrigant 120 ml Other 120 ml Output Urine Total 1300 ml 725 ml 500 ml # Bowel Movements 0 Physical Exam GENERAL: Well developed, well nourished. No acute distress, on vent HEENT: NA CHEST: Lungs rhonchi to auscultation bilaterally. Unlabored respiratory effort. CARDIAC: Regular rate and rhythm without S3, S4, or murmur. ABDOMEN: Soft, nontender, no hepatosplenomegaly. Bowel sounds present. EXTREMITIES: No clubbing, cyanosis, or edema. right groin- 4 F sheath remains in - site looks great, no e/h, 2+ DP Laboratory Laboratory Tests Test 10/26/16 10/26/16 10/27/16 15:29 17:15 05:15 Sodium Level 142 MEQ/L 139 MEQ/L Potassium Level 4.4 MEQ/L 3.9 MEQ/L Chloride Level 113 MEQ/L 109 MEQ/L Carbon Dioxide Level 22.4 MEQ/L 20.8 MEQ/L Anion Gap 7 MEQ/L 9 MEQ/L Blood Urea Nitrogen 13 MG/DL 17 MG/DL Creatinine 0.55 MG/DL 0.61 MG/DL Estimat Glomerular Filtration 109 ML/MIN 96 ML/MIN Rate Random Glucose 130 MG/DL 218 MG/DL Calcium Level 7.2 MG/DL 7.7 MG/DL Protein Corrected Calcium 7.9 MG/DL Total Protein 5.7 GM/DL 5.8 GM/DL Blood Gas Puncture Site [id number] Blood Gas Patient Temperature 98.6 Blood Gas HCO3 17 mmol/L Blood Gas Base Excess -7.3 mmol/L Blood Gas Oxygen Saturation 96 % Arterial Blood pH 7.38 Arterial Blood Partial 29 mmHg Pressure CO2 Arterial Blood Partial 117 mmHg Pressure O2 Arterial Blood Oxygen Content 11.6 Vol % Arterial Blood 1.2 % Carboxyhemoglobin Arterial Blood Methemoglobin 1.7 % Blood Gas Hemoglobin 8.5 G/DL Oxygen Delivery Device VENT Blood Gas Ventilator Setting PRVC/14/500/5PEEP Blood Gas Inspired Oxygen 100 % White Blood Count 18.7 TH/MM3 Red Blood Count 3.57 MIL/MM3 Hemoglobin 9.5 GM/DL Hematocrit 30.6 % Mean Corpuscular Volume 85.9 FL Mean Corpuscular Hemoglobin 26.6 PG Mean Corpuscular Hemoglobin 31.0 % Concent Red Cell Distribution Width 14.2 % Platelet Count 228 TH/MM3 Mean Platelet Volume 9.7 FL Neutrophils (%) (Auto) 94.6 % Lymphocytes (%) (Auto) 1.0 % Monocytes (%) (Auto) 3.9 % Eosinophils (%) (Auto) 0.3 % Basophils (%) (Auto) 0.2 % Neutrophils # (Auto) 17.7 TH/MM3 Lymphocytes # (Auto) 0.2 TH/MM3 Monocytes # (Auto) 0.7 TH/MM3 Eosinophils # (Auto) 0.1 TH/MM3 Basophils # (Auto) 0.0 TH/MM3 CBC Comment DIFF FINAL Differential Comment Phosphorus Level 1.0 MG/DL Magnesium Level 2.3 MG/DL Total Bilirubin 0.4 MG/DL Aspartate Amino Transf 33 U/L (AST/SGOT) Alanine Aminotransferase 76 U/L (ALT/SGPT) Alkaline Phosphatase 70 U/L Albumin 2.1 GM/DL Imaging Last 72 hours Impressions Chest X-Ray 10/27/16 0600 Signed Impressions: Service Date/Time: Thursday, October 27, 2016 03:49 - CONCLUSION: No significant change. Joao Hawkins MD Chest X-Ray 10/26/16 0932 Signed Impressions: Service Date/Time: Wednesday, October 26, 2016 09:33 - CONCLUSION: 1. Endotracheal tube tip just beyond valencia in proximal right mainstem bronchus. This should be withdrawn about 3 cm. Bilateral airspace disease is stable. Catalino Torres MD Hepatobiliary Scan Nuclear Medicine 10/26/16 0000 Signed Impressions: Service Date/Time: Wednesday, October 26, 2016 11:51 - CONCLUSION: 1. Activity is demonstrated in the gallbladder confirming patency of the cystic duct and making possibility of acute cholecystitis highly unlikely. 2. Patent common bile duct. Matthieu Apodaca MD Liver Ultrasound 10/25/16 0000 Signed Impressions: Service Date/Time: Tuesday, October 25, 2016 11:32 - CONCLUSION: 1. Probable single subcentimeter gallstone in the gallbladder. There is gallbladder wall thickening and trace pericholecystic fluid although the gallbladder is not significantly distended. Overall, the findings may reflect developing acute cholecystitis. Recommend HIDA scan to evaluate patency of the cystic duct if there is continued concern regarding cholecystitis. 2. Small 1.2 x 0.9 x 0.8 cm isoechoic mass in the left lobe of liver. Overall, the findings are nonspecific and further characterization is difficult due to small size. Differential considerations include both malignant and benign etiologies. This may be further evaluated with multiphase MRI exam on an outpatient basis. 3. Multiple bilateral right hepatic cysts measuring up to 4.1 cm, as above. Matthieu Apodaca MD Chest X-Ray 10/25/16 0000 Signed Impressions: Service Date/Time: Tuesday, October 25, 2016 03:57 - CONCLUSION: 1. Increase in left basilar consolidation over the last day. Support apparatus unchanged. Stable upper lobe disease. Bronchiectasis. Catalino Torres MD Chest X-Ray 10/24/16 1819 Signed Impressions: Service Date/Time: Monday, October 24, 2016 18:27 - CONCLUSION: 1. Left upper lung opacity and volume loss, likely chronic. 2. Endotracheal tube and nasogastric tube in place. Yovany Dawn MD Assessment and Plan Assessment and Plan STEMI- diffuse ST elevation likely represented global ischemia from hypoxia -cath with normal coronaries, EF 20% - BP remains too low for BB or MARSHA, on pressors Cardiomyopathy- likely secondary to hypoxia, Resp Failure- per CCM/pulmonary Hypotension- Cami Romero MD Oct 27, 2016 08:38
[2016-10-27] MEDS: RESP: BUDESONIDE 0.5 MG/2 ML NEB NEB SCH ×2 (08:39→20:20)
[2016-10-27] MEDS: SODIUM PHOSPHATE INJ 30 MMOL in SODIUM CHLOR 0.9% 250 ML INJ 240 ML IV PRN (09:50)
[2016-10-27] MEDS: AZITHROMYCIN INJ 500 MG in SODIUM CHLOR 0.9% 250 ML INJ 250 ML IV SCH (10:01)
[2016-10-27] MEDS: ENOXAPARIN SODIUM 40 MG/0.4 ML SYRINGE SQ SCH (10:01)
[2016-10-27] MEDS: VANCOMYCIN INJ 1,250 MG in SODIUM CHLOR 0.9% 250 ML INJ 250 ML IV SCH (12:20)
[2016-10-27] MEDS: PANTOPRAZOLE SODIUM 40 MG VIAL IV PUSH SCH (16:25)
[2016-10-27] MEDS: LACTULOSE SYRUP 20 GM/30 ML CUP PO PRN (16:25)
--- NOTE | 2016-10-27 16:28 | HHI.PR ---
Subjective Remarks ass on the vent REITUBATED LAST NIGHT(self extubated) PLAN vent support wean when possible bronchodilator therapy outloog poor Objective Vital Signs Date Time Temp Pulse Resp B/P Pulse Ox O2 Delivery O2 Flow Rate FiO2 10/27/16 16:00 98.4 104 107/54 100 117/56 10/27/16 16:00 40 10/27/16 16:00 104 10/27/16 15:34 100 40 10/27/16 15:00 104 16 105/51 100 111/52 10/27/16 14:00 115 10/27/16 14:00 104 14 114/58 100 119/59 10/27/16 13:00 109 15 122/58 100 126/62 10/27/16 12:00 117 10/27/16 12:00 40 10/27/16 12:00 98.1 117 19 86/53 100 89/48 10/27/16 11:02 100 40 10/27/16 11:00 114 16 95/51 100 101/52 10/27/16 11:00 114 16 95/51 100 101/52 10/27/16 10:00 110 16 113/57 100 117/58 10/27/16 10:00 110 10/27/16 09:00 104 18 122/55 100 118/58 10/27/16 08:39 96 40 10/27/16 08:00 97.9 95 21 93/53 100 109/61 10/27/16 08:00 40 10/27/16 08:00 95 10/27/16 07:00 95 16 98/56 100 112/61 10/27/16 06:00 94 10/27/16 04:43 100 40 10/27/16 04:00 92 10/27/16 04:00 98.2 92 21 137/66 100 141/72 10/27/16 04:00 70 10/27/16 02:00 77 10/27/16 01:20 100 35 10/27/16 00:00 70 10/27/16 00:00 97.9 79 18 119/65 100 139/71 10/27/16 00:00 79 10/26/16 22:00 81 10/26/16 21:29 100 50 10/26/16 20:00 70 10/26/16 20:00 97.8 76 15 107/61 100 125/65 10/26/16 20:00 76 10/26/16 18:00 84 I/O 10/26/16 10/26/16 10/26/16 10/27/16 10/27/16 10/27/16 07:00 15:00 23:00 07:00 15:00 23:00 Intake Total 2345 ml 1327 ml 1308 ml 1444 ml Output Total 1300 ml 725 ml 500 ml 1450 ml Balance 1045 ml 602 ml 808 ml -6 ml Intake IV Total 2345 ml 1207 ml 781 ml 1007 ml Tube Feeding 407 ml 317 ml Tube Irrigant 120 ml Other 120 ml 120 ml Output Urine Total 1300 ml 725 ml 500 ml 1450 ml Tube Feeding Residual Discard 0 ml # Bowel Movements 0 0 Result Diagram: 10/27/1651410/27/16514 Objective Remarks GENERAL: SKIN: Warm and dry. HEAD: Atraumatic. Normocephalic. EYES: Pupils equal and round. No scleral icterus. No injection or drainage. ENT: No nasal bleeding or discharge. Mucous membranes pink and moist. NECK: Trachea midline. No JVD. CARDIOVASCULAR: Regular rate and rhythm. RESPIRATORY: No accessory muscle use.scattered rhonchi bilaterally GASTROINTESTINAL: Abdomen soft, non-tender, nondistended. Hepatic and splenic margins not palpable. MUSCULOSKELETAL: Extremities without clubbing, cyanosis, or edema. No obvious deformities. NEUROLOGICAL: Awake and alert. No obvious cranial nerve deficits. Motor grossly within normal limits. Five out of 5 muscle strength in the arms and legs. Normal speech. PSYCHIATRIC: Appropriate mood and affect; insight and judgment normal. 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
[2016-10-28] VITALS (28 sets, daily range): BP systolic 81–155; BP diastolic 43–92; PULSE 86–104; RESP 14–29; TEMP 97.9–98.8; O2SAT 96–100
[2016-10-28] MEDS: SODIUM PHOSPHATE INJ 30 MMOL in SODIUM CHLOR 0.9% 250 ML INJ 240 ML IV PRN (00:20)
[2016-10-28] MEDS: RESP: ALBUTEROL 2.5 MG/IPRATROPIUM 0.5 MG NEB (SCH) INH ×7 (00:49→23:23)
[2016-10-28] MEDS: metroNIDAZOLE 500 MG INJ 100 ML IV SCH ×3 (01:00→17:25)
[2016-10-28] MEDS: CEFEPIME INJ 2,000 MG in SODIUM CHLORIDE 0.9% INJ 100 ML IV SCH ×3 (02:09→17:25)
[2016-10-28] MEDS: INSULIN NovoLIN REGULAR SUPPLEMENTAL SCALE SQ SCH ×5 (03:26→20:00)
[2016-10-28] MEDS: CHLORHEXIDINE GLUCONATE 2 % 1 PACK (2 CLOTHS) TOP SCH (03:27)
[2016-10-28] MEDS: HYDROCORTISONE SOD SUCCINATE 100 MG VIAL IV PUSH SCH ×3 (05:47→20:14)
[2016-10-28] MEDS: METHIMAZOLE 10 MG TAB PO SCH ×3 (05:47→20:14)
[2016-10-28] MEDS: CHLORHEXIDINE 0.12% (ORAL KIT) 15 ML CUP MT SCH ×4 (07:03→20:00)
[2016-10-28 07:04] LABS: AUTOMATED NEUTROPHIL # 14.4 TH/MM3 (1.8-7.7); HEMO FLAGS DIFF FINAL; LYMPH % 2.2 % (9.0-44.0); LYMPHOCYTE # 0.3 TH/MM3 (1.0-4.8); MEAN CELL VOLUME 84.5 FL (80.0-100.0); MEAN CORPUSCULAR HEMOGLOBIN 27.5 PG (27.0-34.0); MEAN CORPUSCULAR HGB CONC 32.5 % (32.0-36.0); MONO % 4.7 % (0.0-8.0); NEUT % 93.1 % (16.0-70.0); PLATELET COUNT 241 TH/MM3 (150-450); RED BLOOD COUNT 3.08 MIL/MM3 (4.00-5.30); WHITE BLOOD COUNT 15.5 TH/MM3 (4.0-11.0)
[2016-10-28 07:13] LABS: BICARBONATE 23.7 MEQ/L (21.0-32.0); CALCIUM-PROTEIN CORRECTED 8.4 MG/DL (8.5-10.1); MAGNESIUM 2.2 MG/DL (1.5-2.5); POTASSIUM 3.2 MEQ/L (3.5-5.1); TOTAL BILIRUBIN ADULT 0.3 MG/DL (0.2-1.0)
[2016-10-28] MEDS: SODIUM CHLOR 0.9% 1000 ML INJ 1,000 ML IV SCH (07:33)
--- NOTE | 2016-10-28 07:43 | PD.CARD.PN ---
Subjective Subjective Remarks sedated on vent Objective Medications Current Medications Medications (Trade) Dose Ordered Sig/Najma Route Start Time Stop Time Status Last Admin Aspirin 81 mg 81 mg DAILY PO 10/25/16 09:00 10/27/16 08:19 (NS 1000 ml Inj) 1,000 ml @ 40 mls/hr Q24H IV 10/24/16 19:48 10/27/16 07:33 (NS Flush) 2 ml UNSCH PRN .XX 10/24/16 20:00 10/27/16 08:20 (NS Flush) 2 ml BID .XX 10/24/16 21:00 10/27/16 20:54 (Tylenol) 650 mg Q6H PRN PO 10/24/16 20:00 (Morphine Inj) 2 mg Q2H PRN IV 10/24/16 20:00 (Tears Naturale Opth Soln) 1 drop TID EACH EYE 10/25/16 09:00 10/27/16 12:21 (Zofran Inj) 4 mg Q6H PRN IV 10/24/16 20:00 (Reglan Inj) 10 mg Q6H PRN IV 10/24/16 20:00 (Compazine Supp) 25 mg Q12H PRN RECTAL 10/24/16 20:00 Miscellaneous Information 1 Q361D XX 10/24/16 20:00 (Chlorhexidine 2% Cloth) 3 pack Taper DAILY@04 TOP 10/25/16 04:00 10/21/17 03:59 10/28/16 03:27 (Chlorhexidine 2% Cloth) 3 pack UNSCH PRN TOP 10/24/16 20:00 (Olivia-Colace) 1 tab BID PO 10/24/16 21:00 10/27/16 20:54 (Milk Of Magnesia Liq) 30 ml Q12H PRN PO 10/24/16 20:00 (Senokot) 17.2 mg Q12H PRN PO 10/24/16 20:00 (Dulcolax Supp) 10 mg DAILY PRN RECTAL 10/24/16 20:00 Lactulose 30 ml 30 ml DAILY PRN PO 10/24/16 20:00 10/27/16 16:25 Potassium Chloride 100 ml @ 50 mls/hr Q2H PRN IV 10/25/16 09:00 (KCl 20 Meq Premix Inj) 100 ml @ 50 mls/hr Q2H PRN IV 10/25/16 09:00 Potassium Bicarb/ Potassium Chloride 50 meq 50 meq UNSCH PRN PO 10/25/16 09:00 Potassium Chloride 100 ml @ 25 mls/hr UNSCH PRN IV 10/25/16 09:00 Potassium Chloride 100 ml @ 50 mls/hr Q2H PRN IV 10/25/16 09:00 (Magnesium Sulfate Inj/NS Inj) 100 ml @ 50 mls/hr UNSCH PRN IV 10/25/16 09:00 Magnesium Oxide 800 mg 800 mg UNSCH PRN PO 10/25/16 09:00 (Magnesium Sulfate Inj/NS Inj) 100 ml @ 50 mls/hr UNSCH PRN IV 10/25/16 09:00 Potassium Phosphate 2000 mg 2,000 mg Q4H PRN PO 10/25/16 09:00 (Sodium Phosphate Inj/NS 250 ml Inj) 250 ml @ 42 mls/hr UNSCH PRN IV 10/25/16 09:00 10/28/16 00:20 Potassium Phosphate 2000 mg 2,000 mg UNSCH PRN PO/TUBE 10/25/16 09:00 Potassium Phosphate 30 mmol/ Sodium Chloride 260 ml @ 42 mls/hr UNSCH PRN IV 10/25/16 09:00 Cefepime HCl 2000 mg/Sodium Chloride 100 ml @ 200 mls/hr Q8H IV 10/25/16 10:00 10/28/16 02:09 Azithromycin 500 mg/Sodium Chloride 250 ml @ 250 mls/hr Q24H IV 10/25/16 11:00 10/27/16 10:01 (Vancomycin Consult Pharmacy) 0 ml @ 0 mls/hr UNSCH OTHER 10/25/16 09:30 (Lovenox Inj) 40 mg Q24H SQ 10/25/16 11:00 10/27/16 10:01 Chlorhexidine Gluconate 15 ml 15 ml BID@08,20 MT 10/25/16 20:00 10/27/16 19:50 (Vancomycin Inj/ NS 250 ml Inj) 262.5 ml @ 250 mls/hr Q24H IV 10/25/16 13:00 10/27/16 12:20 Miscellaneous Information SPECIFIC LAB TO BE DRAWN:VANCO TROUGH DATE TO... ONCE ONCE .XX 10/28/16 12:45 10/28/16 12:46 (Tapazole) 10 mg Q8HR PO 10/25/16 22:00 10/28/16 05:47 (Questran 4 Gm Pkt) 4 gm Q12HR PO 10/25/16 21:00 10/27/16 20:54 (SoluCORTEF INJ) 100 mg Q8HR IV PUSH 10/25/16 22:00 10/28/16 05:47 Pantoprazole Sodium 40 mg 40 mg Q24H IV PUSH 10/25/16 16:00 10/27/16 16:25 (Flagyl 500 Mg Inj) 100 ml @ 100 mls/hr Q8H IV 10/25/16 18:00 10/28/16 01:00 Chlorhexidine Gluconate 15 ml 15 ml BID@08,20 MT 10/26/16 20:00 Fentanyl Citrate 250 ml @ 0 mls/hr TITRATE IV 10/26/16 08:45 Midazolam HCl 100 ml @ 0 mls/hr TITRATE IV 10/26/16 08:45 10/27/16 23:27 (Levophed Inj/NS 250 ml Inj) 250 ml @ 0 mls/hr TITRATE IV 10/26/16 08:45 10/28/16 04:52 (Brethine Inj) 1 mg UNSCH PRN SQ 10/26/16 08:45 (D50w (Vial) Inj) 50 ml UNSCH PRN IV 10/27/16 07:45 (Glucagon Inj) 1 mg UNSCH PRN OTHER 10/27/16 07:45 (NovoLIN R SUPPLEMENTAL SCALE) 1 Q4H SQ 10/27/16 08:00 10/27/16 08:00 Vital Signs / I&O Vital Signs Date Time Temp Pulse Resp B/P Pulse Ox O2 Delivery O2 Flow Rate FiO2 10/28/16 06:00 90 10/28/16 04:00 98.8 94 24 136/80 100 147/66 10/28/16 04:00 95 10/28/16 04:00 40 10/28/16 03:53 100 40 10/28/16 02:00 86 10/28/16 00:50 100 40 10/28/16 00:00 40 10/28/16 00:00 98.6 93 14 127/62 100 138/66 10/28/16 00:00 93 6/19/17 22:00 93 10/27/16 20:20 100 40 10/27/16 20:00 99.3 97 14 110/53 100 123/57 10/27/16 20:00 40 10/27/16 20:00 97 10/27/16 18:00 100 10/27/16 16:00 98.4 104 107/54 100 117/56 10/27/16 16:00 40 10/27/16 16:00 104 10/27/16 15:34 100 40 10/27/16 15:00 104 16 105/51 100 111/52 10/27/16 14:00 115 10/27/16 14:00 104 14 114/58 100 119/59 10/27/16 13:00 109 15 122/58 100 126/62 10/27/16 12:00 117 10/27/16 12:00 40 10/27/16 12:00 98.1 117 19 86/53 100 89/48 10/27/16 11:02 100 40 10/27/16 11:00 114 16 95/51 100 101/52 10/27/16 11:00 114 16 95/51 100 101/52 10/27/16 10:00 110 16 113/57 100 117/58 10/27/16 10:00 110 10/27/16 09:00 104 18 122/55 100 118/58 10/27/16 08:39 96 40 10/27/16 08:00 97.9 95 21 93/53 100 109/61 10/27/16 08:00 40 10/27/16 08:00 95 I/O 10/27/16 10/27/16 10/27/16 10/28/16 10/28/16 10/28/16 07:00 15:00 23:00 07:00 15:00 23:00 Intake Total 1308 ml 1444 ml 1571 ml 1095 ml Output Total 500 ml 1450 ml 450 ml 250 ml Balance 808 ml -6 ml 1121 ml 845 ml Intake IV Total 781 ml 1007 ml 1051 ml 773 ml Tube Feeding 407 ml 317 ml 520 ml 322 ml Other 120 ml 120 ml Output Urine Total 500 ml 1450 ml 450 ml 250 ml Tube Feeding Residual Discard 0 ml # Bowel Movements 0 0 0 Physical Exam GENERAL: Well developed, well nourished. No acute distress, on vent HEENT: NA CHEST: Lungs rhonchi to auscultation bilaterally. Unlabored respiratory effort. CARDIAC: Regular rate and rhythm without S3, S4, or murmur. ABDOMEN: Soft, nontender, no hepatosplenomegaly. Bowel sounds present. EXTREMITIES: No clubbing, cyanosis, or edema. Laboratory Laboratory Tests Test 10/27/16 10/28/16 20:00 06:00 Phosphorus Level 1.4 MG/DL 3.1 MG/DL White Blood Count 15.5 TH/MM3 Red Blood Count 3.08 MIL/MM3 Hemoglobin 8.5 GM/DL Hematocrit 26.0 % Mean Corpuscular Volume 84.5 FL Mean Corpuscular Hemoglobin 27.5 PG Mean Corpuscular Hemoglobin 32.5 % Concent Red Cell Distribution Width 14.0 % Platelet Count 241 TH/MM3 Mean Platelet Volume 9.6 FL Neutrophils (%) (Auto) 93.1 % Lymphocytes (%) (Auto) 2.2 % Monocytes (%) (Auto) 4.7 % Eosinophils (%) (Auto) 0.0 % Basophils (%) (Auto) 0.0 % Neutrophils # (Auto) 14.4 TH/MM3 Lymphocytes # (Auto) 0.3 TH/MM3 Monocytes # (Auto) 0.7 TH/MM3 Eosinophils # (Auto) 0.0 TH/MM3 Basophils # (Auto) 0.0 TH/MM3 CBC Comment DIFF FINAL Differential Comment Sodium Level 147 MEQ/L Potassium Level 3.2 MEQ/L Chloride Level 114 MEQ/L Carbon Dioxide Level 23.7 MEQ/L Anion Gap 9 MEQ/L Blood Urea Nitrogen 16 MG/DL Creatinine 0.54 MG/DL Estimat Glomerular Filtration 111 ML/MIN Rate Random Glucose 174 MG/DL Calcium Level 7.4 MG/DL Protein Corrected Calcium 8.4 MG/DL Magnesium Level 2.2 MG/DL Total Bilirubin 0.3 MG/DL Aspartate Amino Transf 15 U/L (AST/SGOT) Alanine Aminotransferase 51 U/L (ALT/SGPT) Alkaline Phosphatase 52 U/L Total Protein 5.3 GM/DL Albumin 1.8 GM/DL Assessment and Plan Assessment and Plan STEMI- diffuse ST elevation likely represented global ischemia from hypoxia -cath with normal coronaries, EF 20% - BP remains too low for BB or MARSHA, on pressors- no change Cardiomyopathy- likely secondary to hypoxia, Resp Failure- per CCM/pulmonary Hypotension- Cami Romero MD Oct 28, 2016 07:43
--- NOTE | 2016-10-28 07:57 | HHI.CCPN ---
Subjective Remarks/Hospital Course 70 years old female was brought in from home with h/o shortness of breath. Upon their arrival, patient was severely short of breath and her lungs sounded "wet" . She was given IV Lasix by EMS and was started on CPAP. Patient arrived in extremis, unable to speak due to the distress. There was no family member present to give additional history. EMS had done a 12 lead EKG en route which looked to them as STEMI. They called a STEMI alert. Patient however shook her head meaning "no" when I asked if she had any chest pain. Her BP was 135 systolic and heart rate of 125. Sats were 95% on the CPAP. Patient has suffered from cardiac arrest months in the emergency department and one or 2 times in the cardiac catheterization lab. 10/25: Currently on 13 mcg/m of norepinephrine and 5 mics management of dopamine. Arousable mentation vivar on the ventilator and follows commands. Afebrile. No pneumothorax on a.m. chest x-ray. PEEP 8. We will attempt to wean today Subjective 10/26: Self extubated last night at 3 AM. Currently on nonrebreather mask with saturations around 99%. ABG revealed uncompensated acute respiratory acidosis with metabolic acidosis/non-anion gap. Off all vasopressors. 10/27 Patient was reintubated yesterday for resp failure. Sedated with Versed and is on Levophed 2 mics. Afebrile. 10/28 Patient remaisn sedated with Versed and intubated. On Levophed 2 mics. Afebrile. WBC trending down. Tolerating tube feeds. Objective Vital Signs Date Time Temp Pulse Resp B/P Pulse Ox O2 Delivery O2 Flow Rate FiO2 10/28/16 06:00 90 10/28/16 04:00 98.8 24 136/80 100 147/66 10/28/16 04:00 40 10/26/16 08:29 Partial Rebreather 12.00 Intake and Output 10/27/16 10/27/16 10/28/16 08:00 16:00 00:00 Intake Total 1308 ml 1444 ml 1571 ml Output Total 500.0 ml 1450 ml 450 ml Balance 808.0 ml -6 ml 1121 ml Result Diagram: 10/28/16 0600 10/28/16 0600 Other Results Laboratory Tests Test 10/27/16 10/28/16 20:00 06:00 Phosphorus Level 1.4 MG/DL 3.1 MG/DL White Blood Count 15.5 TH/MM3 Red Blood Count 3.08 MIL/MM3 Hemoglobin 8.5 GM/DL Hematocrit 26.0 % Mean Corpuscular Volume 84.5 FL Mean Corpuscular Hemoglobin 27.5 PG Mean Corpuscular Hemoglobin 32.5 % Concent Red Cell Distribution Width 14.0 % Platelet Count 241 TH/MM3 Mean Platelet Volume 9.6 FL Neutrophils (%) (Auto) 93.1 % Lymphocytes (%) (Auto) 2.2 % Monocytes (%) (Auto) 4.7 % Eosinophils (%) (Auto) 0.0 % Basophils (%) (Auto) 0.0 % Neutrophils # (Auto) 14.4 TH/MM3 Lymphocytes # (Auto) 0.3 TH/MM3 Monocytes # (Auto) 0.7 TH/MM3 Eosinophils # (Auto) 0.0 TH/MM3 Basophils # (Auto) 0.0 TH/MM3 CBC Comment DIFF FINAL Differential Comment Sodium Level 147 MEQ/L Potassium Level 3.2 MEQ/L Chloride Level 114 MEQ/L Carbon Dioxide Level 23.7 MEQ/L Anion Gap 9 MEQ/L Blood Urea Nitrogen 16 MG/DL Creatinine 0.54 MG/DL Estimat Glomerular Filtration 111 ML/MIN Rate Random Glucose 174 MG/DL Calcium Level 7.4 MG/DL Protein Corrected Calcium 8.4 MG/DL Magnesium Level 2.2 MG/DL Total Bilirubin 0.3 MG/DL Aspartate Amino Transf 15 U/L (AST/SGOT) Alanine Aminotransferase 51 U/L (ALT/SGPT) Alkaline Phosphatase 52 U/L Total Protein 5.3 GM/DL Albumin 1.8 GM/DL Imaging Last Impressions Chest X-Ray 10/27/16 0600 Signed Impressions: Service Date/Time: Thursday, October 27, 2016 03:49 - CONCLUSION: No significant change. Joao Hawkins MD Hepatobiliary Scan Nuclear Medicine 10/26/16 0000 Signed Impressions: Service Date/Time: Wednesday, October 26, 2016 11:51 - CONCLUSION: 1. Activity is demonstrated in the gallbladder confirming patency of the cystic duct and making possibility of acute cholecystitis highly unlikely. 2. Patent common bile duct. Matthieu Apodaca MD Liver Ultrasound 10/25/16 0000 Signed Impressions: Service Date/Time: Tuesday, October 25, 2016 11:32 - CONCLUSION: 1. Probable single subcentimeter gallstone in the gallbladder. There is gallbladder wall thickening and trace pericholecystic fluid although the gallbladder is not significantly distended. Overall, the findings may reflect developing acute cholecystitis. Recommend HIDA scan to evaluate patency of the cystic duct if there is continued concern regarding cholecystitis. 2. Small 1.2 x 0.9 x 0.8 cm isoechoic mass in the left lobe of liver. Overall, the findings are nonspecific and further characterization is difficult due to small size. Differential considerations include both malignant and benign etiologies. This may be further evaluated with multiphase MRI exam on an outpatient basis. 3. Multiple bilateral right hepatic cysts measuring up to 4.1 cm, as above. Matthieu Apodaca MD Chest CT 10/24/16 0000 Signed Impressions: Service Date/Time: Monday, October 24, 2016 19:44 - CONCLUSION: 1. Small right pneumothorax. Pneumomediastinum adjacent to the right side of the esophagus. 2. Chronic severe bronchiectasis left greater than right. 3. New severe mixed groundglass and consolidative ulnar parenchymal opacity at the right lung. Differential diagnosis includes infection versus asymmetric pulmonary edema. 4. Multiple hepatic cysts. 5. Thyroid goiter. Yovany Dawn MD Objective Remarks GENERAL: Patient is 70yo intubated and sedated SKIN: Warm and dry. HEAD: Normocephalic. EYES: No scleral icterus. No injection or drainage. NECK: Supple, trachea midline. No JVD or lymphadenopathy. CARDIOVASCULAR: Regular rate and rhythm without murmurs, gallops, or rubs. RESPIRATORY: Breath sounds equal bilaterally.Coarse BS GASTROINTESTINAL: Abdomen soft, non-tender, nondistended. MUSCULOSKELETAL: No cyanosis, or edema. Neuro: Sedated Date of Insertion: Oct 24, 2016 Line: Central Venous Catheter Side: Left Location: Subclavian A/P Assessment and Plan Neuro/Psych: Monitor neuro status. On Versed infusion for sedation. Daily sedation vacation. Patient is allergic to Propofol. Acetaminophen for fever Morphine for pain management CV: History of myocardial infarction status post angioplasty in the remote past Hypertension Dyslipidemia Acute systolic heart failure ejection fraction 20% On Levophed 2 mics monitor HR and BP keep MAP>65mmHg Status post cardiac catheterization by Dr. Romero. Ejection fraction 20%. Left main is straight and patent. Left circumflex, LAD and RCA with minimal coronary artery disease. Currently on aspirin 81 mg daily/home medication Previously on Lipitor 40 mg daily. On Hold for elevated LFT Holding home medication metoprolol 25 mg by mouth twice a day in light of hypotension/vasopressor usage Resp: Acute hypoxemic respiratory failure Bronchiectasis Tiny right pneumothorax per CT chest Right pneumomediastinum Continue with vent support keep sat >92% Duo nebs every 4 hours with albuterol every 2 hours when necessary dyspnea on Combivent 4 times a day at home. Pulmicort 0.5/2 one inhalation twice a day and Solu-Cortef 100 mg IV every 8 hours bronchiectasis She has significant bronchiectasis will be difficult to wean off the ventilator given underlying pulmonology pathology GI: Elevated transaminases - likely secondary to shock liver versus acute cholecystitis Hypoalbuminemia History of diverticulitis Gastroesophageal reflux disease Left lower lobe liver mass recommended outpatient MRI follow-up Right lower lobe liver cyst HIDA scan: Activity is demonstrated in the gallbladder confirming patency of the cystic duct and making possibility of acute cholecystitis highly unlikely. Patent common bile duct. Liver ultrasound 10/25 revealed tiny subcentimeter gallstone. Thickening of the gallbladder wall with pericholecystic fluid. Lesion in left lower lobe liver 1.2 x 0.8 x 0 point centimeters recommend outpatient MRI. Multiple right hepatic cysts largest 4.1 cm. Pepcid for GI prophylaxis. On Zantac 150 twice a day at home Olivia-Colace for bowel regimen Hepatitis panel pending. On Jevity 1.5@45ml/hr : Monitor renal function, I/O's, electrolytes replacement per protocol. Will need K replacement today Place on Free water 250ml Q12 monitor Sodium level. Diurese with Bumex 1mg x1 Endo: History of MNG Hyperthyroidism On Tapazole 10 mg 3 times a day in light of low TSH. TSH 0.08. Free T4 1 0.52. Free T3 1 0.46. Sliding-scale insulin (medium scale) with Accu-Cheks to maintain euglycemia Heme: Leukocytosis..trending down Normocytic anemia Monitor CBC daily. Follow trends ID: Continue abx( vancomycin, cefepime , Flagyl and Zithromax) 10/25 Sputum cx: GNR 10/26 Sputum: Beta strep not Group A urine Legionella, pneumococcal antigens and influenza ordered negative on . MSK: PT evaluate and treat Access - Left subclavian CVL placed in ED 10/24 Prophylaxis - GI - Pepcid - DVT - SCD/Lovenox subcutaneous Critical Care time - 30 minutes Eber Early MD Oct 28, 2016 07:57
[2016-10-28] MEDS ORDERED: CALCIUM GLUCONATE INJ 1 GM in SODIUM CHLORIDE 0.9% INJ 100 ML IV ONE (08:00)
[2016-10-28] MEDS: DOCUSATE SODIUM 50 MG/SENNA 8.6 MG TAB PO SCH ×2 (08:07→20:14)
[2016-10-28] MEDS: POTASSIUM CHLOR 40 MEQ PREMIX 100 ML IV PRN ×2 (08:07→11:22)
[2016-10-28] MEDS: LACTULOSE SYRUP 20 GM/30 ML CUP PO PRN (08:07)
[2016-10-28] MEDS: MIDAZOLAM 100 MG/ML INJ 100 ML IV SCH (08:07)
[2016-10-28] MEDS: CHOLESTYRAMINE 4 GM PACKET PO SCH ×2 (08:07→20:14)
[2016-10-28] MEDS: SODIUM CHLORIDE 0.9% FLUSH 10 ML FLUSH PRN (08:09)
[2016-10-28] MEDS: FREE WATER G-TUBE SCH ×2 (08:10→20:20)
[2016-10-28] MEDS: ARTIFICIAL TEARS OPTH SOLN 15 ML BTL EACH EYE SCH ×3 (08:10→15:29)
[2016-10-28] MEDS: SODIUM CHLORIDE 0.9% FLUSH 10 ML FLUSH SCH ×2 (08:10→20:20)
[2016-10-28] MEDS: ASPIRIN 81 MG CHEW TAB PO SCH (08:10)
[2016-10-28] MEDS: RESP: BUDESONIDE 0.5 MG/2 ML NEB NEB SCH ×2 (08:27→19:34)
[2016-10-28] MEDS ORDERED: BUMETANIDE INJ 1 MG/4 ML VIAL IV PUSH ONE (08:45)
[2016-10-28] MEDS: ENOXAPARIN SODIUM 40 MG/0.4 ML SYRINGE SQ SCH (09:24)
[2016-10-28] MEDS: AZITHROMYCIN INJ 500 MG in SODIUM CHLOR 0.9% 250 ML INJ 250 ML IV SCH (09:24)
--- NOTE | 2016-10-28 10:27 | RADRPT ---
EXAM DATE/TIME: 10/28/2016 08:37 [facility] COMPARISON: CHEST SINGLE AP, October 27, 2016, 3:49. INDICATIONS : Evaluate lung status. Ventilator dependant. MEDICAL HISTORY : Chronic obstructive pulmonary disease. Diverticulitis. SURGICAL HISTORY : None. ENCOUNTER: Subsequent ACUITY: 1 week PAIN SCORE: Non-responsive. LOCATION: Bilateral chest FINDINGS: The patient is intubated with tip of the ET tube 5 cm from the valencia. NG tube is in place with the tip directed into the stomach. There is a left subclavian line in place with tip overlying the SVC. The heart size is normal. There is increased density seen throughout much of the left lung being mo st prominent in the left perihilar region and left base. There is mild increased density at the righ t upper lung and right lower lung. There is some suspected left pleural fluid. There is increased d ensity seen over the left apex likely related to pleural fluid or thickening. These findings are sta ble. CONCLUSION: 1. Bilateral areas of consolidation being worse on the left. 2. Tubes and lines in good position. Joao Dunn MD on October 28, 2016 at 9:49 Board Certified Radiologist. This report was verified electronically.
[2016-10-28] MEDS ORDERED: PHARMACY ORDERED LAB ONE (12:45)
[2016-10-28 13:25] LABS: BLOOD GAS BASE EXCESS -2.9 mmol/L (-2-2); BLOOD GAS CARBOXYHEMOGLOBIN 1.2 % (0-4); BLOOD GAS HCO3 21 mmol/L (22-26); BLOOD GAS METHEMOGLOBIN 1.3 % (0-2); BLOOD GAS O2 HGB SATURATION 96 % (90-100); BLOOD GAS OXYGEN CONTENT 17.8 Vol % (12.0-20.0); BLOOD GAS PCO2 36 mmHg (38-42); BLOOD GAS PO2 106 mmHg (61-120); BLOOD GAS TOTAL HGB 13.2 G/DL (12.0-16.0); TEMP CORR TO 98.6
[2016-10-28 13:26] LABS: CRITICAL VALUE NO; DRAW SITE ART LINE; FIO2 40 %; OXYGEN DEVICE VENTILATOR; STAT NO; VENT SETTINGS 500/14/PEEP5
[2016-10-28] MEDS: VANCOMYCIN INJ 1,250 MG in SODIUM CHLOR 0.9% 250 ML INJ 250 ML IV SCH (14:04)
[2016-10-28] MEDS: PANTOPRAZOLE SODIUM 40 MG VIAL IV PUSH SCH (15:29)
--- NOTE | 2016-10-28 16:39 | HHI.PR ---
Subjective Remarks ass on the vent , SEDATED REITUBATED LAST NIGHT(self extubated) Objective Vital Signs Date Time Temp Pulse Resp B/P Pulse Ox O2 Delivery O2 Flow Rate FiO2 10/28/16 15:36 99 40 10/28/16 15:36 40 10/28/16 14:00 104 10/28/16 14:00 104 20 99/56 100 103/50 10/28/16 13:22 100 40 10/28/16 13:00 96 17 99/54 100 108/54 10/28/16 12:00 100 10/28/16 12:00 40 10/28/16 12:00 98.3 100 15 95/52 100 138/89 10/28/16 11:00 92 17 106/57 100 155/92 10/28/16 10:43 100 40 10/28/16 10:00 95 16 106/56 100 123/59 10/28/16 10:00 95 10/28/16 09:40 100 40 10/28/16 09:00 95 25 120/70 100 137/64 10/28/16 08:15 100 40 10/28/16 08:00 97.9 91 14 116/62 100 139/66 10/28/16 08:00 40 10/28/16 08:00 91 10/28/16 07:52 100 40 10/28/16 07:52 40 10/28/16 07:00 90 14 119/63 100 129/59 10/28/16 06:00 90 10/28/16 04:00 98.8 94 24 136/80 100 147/66 10/28/16 04:00 95 10/28/16 04:00 40 10/28/16 03:53 100 40 10/28/16 02:00 86 10/28/16 00:50 100 40 10/28/16 00:00 40 10/28/16 00:00 98.6 93 14 127/62 100 138/66 10/28/16 00:00 93 10/27/16 22:00 93 10/27/16 20:20 100 40 10/27/16 20:00 99.3 97 14 110/53 100 123/57 10/27/16 20:00 40 10/27/16 20:00 97 10/27/16 18:00 100 I/O 6/10/27/16 10/27/16 10/28/16 10/28/16 10/28/16 07:00 15:00 23:00 07:00 15:00 23:00 Intake Total 1308 ml 1444 ml 1571 ml 1095 ml 1796 ml Output Total 500 ml 1450 ml 450 ml 250 ml 1475 ml Balance 808 ml -6 ml 1121 ml 845 ml 321 ml Intake IV Total 781 ml 1007 ml 1051 ml 773 ml 986 ml Tube Feeding 407 ml 317 ml 520 ml 322 ml 310 ml Other 120 ml 120 ml 500 ml Output Urine Total 500 ml 1450 ml 450 ml 250 ml 1475 ml Tube Feeding Residual Discard 0 ml 0 ml # Bowel Movements 0 0 0 0 Result Diagram: 10/28/1659910/28/16599 Objective Remarks GENERAL: SKIN: Warm and dry. HEAD: Atraumatic. Normocephalic. EYES: Pupils equal and round. No scleral icterus. No injection or drainage. ENT: No nasal bleeding or discharge. Mucous membranes pink and moist. NECK: Trachea midline. No JVD. CARDIOVASCULAR: Regular rate and rhythm. RESPIRATORY: No accessory muscle use.scattered rhonchi bilaterally GASTROINTESTINAL: Abdomen soft, non-tender, nondistended. Hepatic and splenic margins not palpable. MUSCULOSKELETAL: Extremities without clubbing, cyanosis, or edema. No obvious deformities. NEUROLOGICAL: Awake and alert. No obvious cranial nerve deficits. Motor grossly within normal limits. Five out of 5 muscle strength in the arms and legs. Normal speech. PSYCHIATRIC: Appropriate mood and affect; insight and judgment normal. 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
[2016-10-29] VITALS (21 sets, daily range): BP systolic 121–162; BP diastolic 59–133; PULSE 63–124; RESP 12–31; TEMP 97.1–98.7; O2SAT 92–100
[2016-10-29] MEDS: metroNIDAZOLE 500 MG INJ 100 ML IV SCH (00:22)
[2016-10-29] MEDS: CEFEPIME INJ 2,000 MG in SODIUM CHLORIDE 0.9% INJ 100 ML IV SCH ×3 (00:22→17:51)
[2016-10-29] MEDS: RESP: ALBUTEROL 2.5 MG/IPRATROPIUM 0.5 MG NEB (SCH) INH ×3 (03:40→11:37)
[2016-10-29] MEDS: INSULIN NovoLIN REGULAR SUPPLEMENTAL SCALE SQ SCH ×6 (04:00→20:00)
[2016-10-29] MEDS: CHLORHEXIDINE GLUCONATE 2 % 1 PACK (2 CLOTHS) TOP SCH (04:00)
[2016-10-29] MEDS: METHIMAZOLE 10 MG TAB PO SCH ×3 (04:30→20:54)
[2016-10-29] MEDS: HYDROCORTISONE SOD SUCCINATE 100 MG VIAL IV PUSH SCH ×3 (04:30→17:50)
[2016-10-29] MEDS: VANCOMYCIN INJ 1,250 MG in SODIUM CHLOR 0.9% 250 ML INJ 250 ML IV SCH (04:31)
--- NOTE | 2016-10-29 06:56 | HHI.CCPN ---
Subjective Remarks/Hospital Course 70 years old female was brought in from home with h/o shortness of breath. Upon their arrival, patient was severely short of breath and her lungs sounded "wet" . She was given IV Lasix by EMS and was started on CPAP. Patient arrived in extremis, unable to speak due to the distress. There was no family member present to give additional history. EMS had done a 12 lead EKG en route which looked to them as STEMI. They called a STEMI alert. Patient however shook her head meaning "no" when I asked if she had any chest pain. Her BP was 135 systolic and heart rate of 125. Sats were 95% on the CPAP. Patient has suffered from cardiac arrest months in the emergency department and one or 2 times in the cardiac catheterization lab. 10/25: Currently on 13 mcg/m of norepinephrine and 5 mics management of dopamine. Arousable mentation vivar on the ventilator and follows commands. Afebrile. No pneumothorax on a.m. chest x-ray. PEEP 8. We will attempt to wean today Subjective 10/26: Self extubated last night at 3 AM. Currently on nonrebreather mask with saturations around 99%. ABG revealed uncompensated acute respiratory acidosis with metabolic acidosis/non-anion gap. Off all vasopressors. 10/27 Patient was reintubated yesterday for resp failure. Sedated with Versed and is on Levophed 2 mics. Afebrile. 10/28 Patient remains sedated with Versed and intubated. On Levophed 2 mics. Afebrile. WBC trending down. Tolerating tube feeds. 10/29 Patient remains intubated and sedated with Fentanyl. Off Versed and off Levophed. Afebrile. Did not tolerate CPAP trials yesterday as she became tachypneic. Objective Vital Signs Date Time Temp Pulse Resp B/P Pulse Ox O2 Delivery O2 Flow Rate FiO2 10/29/16 06:00 118 10/29/16 04:04 100 40 10/29/16 04:00 97.8 26 150/75 162/77 10/26/16 08:29 Partial Rebreather 12.00 Intake and Output 10/28/16 10/28/16 10/29/16 08:00 16:00 00:00 Intake Total 1095 ml 1796 ml 710 ml Output Total 250.0 ml 1475 ml 650 ml Balance 845.0 ml 321 ml 60 ml Result Diagram: 10/28/16 0600 10/28/16 1740 Other Results Laboratory Tests Test 10/28/16 10/28/16 10/28/16 10/28/16 09:15 13:15 14:00 17:40 Phosphorus Level 2.7 MG/DL Blood Gas Puncture Site ART LINE Blood Gas Patient Temperature 98.6 Blood Gas HCO3 21 mmol/L Blood Gas Base Excess -2.9 mmol/L Blood Gas Oxygen Saturation 96 % Arterial Blood pH 7.39 Arterial Blood Partial 36 mmHg Pressure CO2 Arterial Blood Partial 106 mmHg Pressure O2 Arterial Blood Oxygen Content 17.8 Vol % Arterial Blood 1.2 % Carboxyhemoglobin Arterial Blood Methemoglobin 1.3 % Blood Gas Hemoglobin 13.2 G/DL Oxygen Delivery Device VENTILATOR Blood Gas Ventilator Setting 500/14/PEEP5 Blood Gas Inspired Oxygen 40 % Vancomycin Level Trough 8.5 MCG/ML Potassium Level 4.0 MEQ/L Imaging Last Impressions Chest X-Ray 10/28/16 0000 Signed Impressions: Service Date/Time: Friday, October 28, 2016 08:37 - CONCLUSION: 1. Bilateral areas of consolidation being worse on the left. 2. Tubes and lines in good position. Joao Dunn MD Hepatobiliary Scan Nuclear Medicine 10/26/16 0000 Signed Impressions: Service Date/Time: Wednesday, October 26, 2016 11:51 - CONCLUSION: 1. Activity is demonstrated in the gallbladder confirming patency of the cystic duct and making possibility of acute cholecystitis highly unlikely. 2. Patent common bile duct. Matthieu Apodaca MD Liver Ultrasound 10/25/16 0000 Signed Impressions: Service Date/Time: Tuesday, October 25, 2016 11:32 - CONCLUSION: 1. Probable single subcentimeter gallstone in the gallbladder. There is gallbladder wall thickening and trace pericholecystic fluid although the gallbladder is not significantly distended. Overall, the findings may reflect developing acute cholecystitis. Recommend HIDA scan to evaluate patency of the cystic duct if there is continued concern regarding cholecystitis. 2. Small 1.2 x 0.9 x 0.8 cm isoechoic mass in the left lobe of liver. Overall, the findings are nonspecific and further characterization is difficult due to small size. Differential considerations include both malignant and benign etiologies. This may be further evaluated with multiphase MRI exam on an outpatient basis. 3. Multiple bilateral right hepatic cysts measuring up to 4.1 cm, as above. Matthieu Apodaca MD Chest CT 10/24/16 0000 Signed Impressions: Service Date/Time: Thursday, October 24, 2016 19:44 - CONCLUSION: 1. Small right pneumothorax. Pneumomediastinum adjacent to the right side of the esophagus. 2. Chronic severe bronchiectasis left greater than right. 3. New severe mixed groundglass and consolidative ulnar parenchymal opacity at the right lung. Differential diagnosis includes infection versus asymmetric pulmonary edema. 4. Multiple hepatic cysts. 5. Thyroid goiter. Yovany Dawn MD Objective Remarks GENERAL: Patient is 70yo intubated and sedated SKIN: Warm and dry. HEAD: Normocephalic. EYES: No scleral icterus. No injection or drainage. NECK: Supple, trachea midline. No JVD or lymphadenopathy. CARDIOVASCULAR: Regular rate and rhythm without murmurs, gallops, or rubs. RESPIRATORY: Breath sounds equal bilaterally.Coarse BS GASTROINTESTINAL: Abdomen soft, non-tender, nondistended. MUSCULOSKELETAL: No cyanosis, or edema. Neuro: Sedated Date of Insertion: Oct 24, 2016 Line: Central Venous Catheter Side: Left Location: Subclavian A/P Assessment and Plan Neuro/Psych: Monitor neuro status. On Fentanyl infusion for sedation. Daily sedation vacation. Patient is allergic to Propofol. Acetaminophen for fever Morphine for pain management CV: History of myocardial infarction status post angioplasty in the remote past Hypertension Dyslipidemia Acute systolic heart failure ejection fraction 20% Place on Lopressor 25mg [id number] HR and BP keep MAP>65mmHg Status post cardiac catheterization by Dr. Romero. Ejection fraction 20%. Left main is straight and patent. Left circumflex, LAD and RCA with minimal coronary artery disease. Currently on aspirin 81 mg daily/home medication Resume Lipitor 20 mg daily. LFT's now within normal. Resp: Acute hypoxemic respiratory failure Bronchiectasis Tiny right pneumothorax per CT chest Right pneumomediastinum Continue with vent support keep sat >92% Duo nebs every 4 hours with albuterol every 2 hours when necessary dyspnea on Combivent 4 times a day at home. Pulmicort 0.5/2 one inhalation twice a day Decrease Solu-Cortef 50mg IV Q6 She has significant bronchiectasis will be difficult to wean off the ventilator given underlying pulmonology pathology SBT daily as robert. GI: Elevated transaminases - likely secondary to shock liver versus acute cholecystitis Hypoalbuminemia History of diverticulitis Gastroesophageal reflux disease Left lower lobe liver mass recommended outpatient MRI follow-up Right lower lobe liver cyst HIDA scan: Activity is demonstrated in the gallbladder confirming patency of the cystic duct and making possibility of acute cholecystitis highly unlikely. Patent common bile duct. Liver ultrasound 10/25 revealed tiny subcentimeter gallstone. Thickening of the gallbladder wall with pericholecystic fluid. Lesion in left lower lobe liver 1.2 x 0.8 x 0 point centimeters recommend outpatient MRI. Multiple right hepatic cysts largest 4.1 cm. Pepcid for GI prophylaxis. On Zantac 150 twice a day at home Olivia-Colace for bowel regimen Hepatitis panel pending. On Jevity 1.5@45ml/hr : Monitor renal function, I/O's, electrolytes replacement per protocol. On Free water 250ml Q12 monitor Sodium level. Follow up on CMP, place on Bumex 1mg daily Endo: History of MNG Hyperthyroidism On Tapazole 10 mg 3 times a day in light of low TSH. TSH 0.08. Free T4 1 0.52. Free T3 1 0.46. Sliding-scale insulin (medium scale) with Accu-Cheks to maintain euglycemia Heme: Leukocytosis..trending down Normocytic anemia Monitor CBC daily. Follow trends ID: Continue abx( vancomycin, cefepime , Flagyl and Zithromax) d/c Zithromax and flagyl 10/26 Sputum cx: Pseudomonas species, Stap aureus, beta strep. 10/25 Sputum: Beta strep not Group A, pseudomonas species urine Legionella, pneumococcal antigens and influenza ordered negative on . MSK: PT evaluate and treat Access - Left subclavian CVL placed in ED 10/24 Prophylaxis - GI - Pepcid - DVT - SCD/Lovenox subcutaneous Level 3 Eber Early MD Oct 29, 2016 06:56
[2016-10-29 07:18] LABS: AUTOMATED NEUTROPHIL # 12.6 TH/MM3 (1.8-7.7); BASOPHIL % 0.1 % (0.0-2.0); HEMATOCRIT 27.3 % (35.0-46.0); HEMO FLAGS DIFF FINAL; LYMPH % 2.1 % (9.0-44.0); LYMPHOCYTE # 0.3 TH/MM3 (1.0-4.8); MEAN CELL VOLUME 85.3 FL (80.0-100.0); MEAN CORPUSCULAR HEMOGLOBIN 27.5 PG (27.0-34.0); MEAN CORPUSCULAR HGB CONC 32.3 % (32.0-36.0); MONO % 7.1 % (0.0-8.0); NEUT % 90.7 % (16.0-70.0); PLATELET COUNT 263 TH/MM3 (150-450); RED BLOOD COUNT 3.21 MIL/MM3 (4.00-5.30); RED CELL DISTRIBUTION WIDTH 13.9 % (11.6-17.2); WHITE BLOOD COUNT 13.9 TH/MM3 (4.0-11.0)
[2016-10-29] MEDS: RESP: BUDESONIDE 0.5 MG/2 ML NEB NEB SCH ×2 (07:22→19:37)
[2016-10-29 07:25] LABS: BICARBONATE 26.8 MEQ/L (21.0-32.0); POTASSIUM 4.1 MEQ/L (3.5-5.1)
[2016-10-29 07:40] LABS: CALCIUM-PROTEIN CORRECTED 8.1 MG/DL (8.5-10.1)
[2016-10-29] MEDS: DOCUSATE SODIUM 50 MG/SENNA 8.6 MG TAB PO SCH ×2 (08:00→20:55)
[2016-10-29] MEDS: METOPROLOL TARTRATE 25 MG TAB PO SCH ×2 (08:00→20:54)
[2016-10-29] MEDS: CHLORHEXIDINE 0.12% (ORAL KIT) 15 ML CUP MT SCH ×4 (08:00→20:00)
[2016-10-29] MEDS: FREE WATER G-TUBE SCH ×2 (08:00→21:00)
[2016-10-29] MEDS: ASPIRIN 81 MG CHEW TAB PO SCH (08:00)
[2016-10-29] MEDS: CHOLESTYRAMINE 4 GM PACKET PO SCH ×2 (08:00→21:00)
[2016-10-29] MEDS: ARTIFICIAL TEARS OPTH SOLN 15 ML BTL EACH EYE SCH ×3 (08:01→17:51)
[2016-10-29] MEDS: SODIUM CHLORIDE 0.9% FLUSH 10 ML FLUSH SCH ×2 (08:01→20:55)
[2016-10-29 08:07] LABS: INDIRECT BILIRUBIN 0.2 MG/DL (0.0-0.8); TOTAL BILIRUBIN ADULT 0.3 MG/DL (0.2-1.0)
--- NOTE | 2016-10-29 08:42 | MB ---
cc: DEQUAN BAIRES DATE OF CONSULTATION 10/25/16 REASON FOR CONSULTATION Respiratory failure. HISTORY OF PRESENT ILLNESS Mrs. Mota is a 70-year-old female brought to the emergency room with respiratory distress and subsequent cardiac arrest. The patient intubated and mechanically ventilated and does not relate any history at this time. The patient's history is obtained from her record. PAST MEDICAL HISTORY 1. Coronary artery disease post myocardial infarction. She did have an angioplasty in the past 2. History of hypertension, 3. Hyperlipidemia, 4. Questionable history of asthma in the past as well as bronchiectasis MEDICATIONS At home 1. Combivent 2. Aspirin 3. Ranitidine 4. Bactrim. 5. Tapazole. 6. Metoprolol. ALLERGIES None known to medication FAMILY HISTORY Noncontributory. REVIEW OF SYSTEMS 12-point review of systems as per HPI and past history otherwise negative. PHYSICAL EXAMINATION GENERAL: On exam, the patient alert on ventilatory support responds yes and no. VITAL SIGNS: Temperature 98, pulse 80, respirations 18, blood pressure 140/70, oxygen saturation 100%. HEENT: Exam unremarkable. Eyes without icterus. NECK: Without adenopathy, Thyroid enlargement. Central trachea. CHEST: Without dullness to percussion, clear to auscultation. CARDIAC: PMI not appreciated. __/6 ejection systolic murmur left sternal border. ABDOMEN: Lax, bowel sounds audible. EXTREMITIES: No clubbing, cyanosis or edema. SKIN: Normal. No lymphadenopathy. LABORATORY DATA White count 10,000, hemoglobin 13, hematocrit 16, platelets 294,000. Sodium 143, potassium 3.3, BUN 20, creatinine 0.7, INR 0.9. IMAGING STUDIES Chest x-ray left upper lung opacity significance unclear endotracheal tube in place. CT scan of the chest upon presentation - Changes left upper lung appear chronic. CT scan of the chest with a small apical right pneumothorax increased opacity right lung, underlying infection or ___ pulmonary edema suspect. Thyroid goiter is noted as well. IMPRESSION 1. Respiratory failure status post cardiac arrest 2. Coronary artery disease post angioplasty 3. Question bronchial asthma by history PLAN The patient is intubated, mechanically ventilated at present. She is receiving bronchodilator therapy, antibiotic therapy and appropriately so. We will wean off ventilatory support as tolerated. The patient's clinical presentation is quite complex. Coronary artery disease is suspect and she is followed by cardiology. Underlying lung disease should be further evaluated once extubated and degree of permanent obstruction is present. We will follow up her care along with you and depending on progress proceed further. I do thank you for asking me to partake in Mrs. Nakul brown. Dequan Baires MD WWW/ /8:20 PM /8:43 AM
[2016-10-29] MEDS: ENOXAPARIN SODIUM 40 MG/0.4 ML SYRINGE SQ SCH (09:31)
[2016-10-29] MEDS: BUMETANIDE INJ 1 MG/4 ML VIAL IV PUSH SCH (09:32)
[2016-10-29] MEDS ORDERED: CALCIUM GLUCONATE INJ 1 GM in SODIUM CHLORIDE 0.9% INJ 100 ML IV ONE (10:00)
--- NOTE | 2016-10-29 14:33 | PD.CARD.PN ---
Subjective Subjective Remarks on vent Objective Medications Current Medications Medications (Trade) Dose Ordered Sig/Najma Route Start Time Stop Time Status Last Admin (Aspirin Chew) 81 mg DAILY PO 10/25/16 09:00 10/29/16 08:00 (NS Flush) 2 ml UNSCH PRN .XX 10/24/16 20:00 10/28/16 08:09 (NS Flush) 2 ml BID .XX 10/24/16 21:00 10/29/16 08:01 (Tylenol) 650 mg Q6H PRN PO 10/24/16 20:00 (Morphine Inj) 2 mg Q2H PRN IV 10/24/16 20:00 (Tears Naturale Opth Soln) 1 drop TID EACH EYE 10/25/16 09:00 10/29/16 12:52 (Zofran Inj) 4 mg Q6H PRN IV 10/24/16 20:00 (Reglan Inj) 10 mg Q6H PRN IV 10/24/16 20:00 (Compazine Supp) 25 mg Q12H PRN RECTAL 10/24/16 20:00 Miscellaneous Information 1 Q361D XX 10/24/16 20:00 (Chlorhexidine 2% Cloth) 3 pack Taper DAILY@04 TOP 10/25/16 04:00 10/21/17 03:59 10/29/16 04:00 (Chlorhexidine 2% Cloth) 3 pack UNSCH PRN TOP 10/24/16 20:00 (Olivia-Colace) 1 tab BID PO 10/24/16 21:00 10/29/16 08:00 (Milk Of Magnesia Liq) 30 ml Q12H PRN PO 10/24/16 20:00 10/28/16 08:07 (Senokot) 17.2 mg Q12H PRN PO 10/24/16 20:00 (Dulcolax Supp) 10 mg DAILY PRN RECTAL 10/24/16 20:00 Lactulose 30 ml 30 ml DAILY PRN PO 10/24/16 20:00 10/28/16 08:07 Potassium Chloride 100 ml @ 50 mls/hr Q2H PRN IV 10/25/16 09:00 10/28/16 11:22 (KCl 20 Meq Premix Inj) 100 ml @ 50 mls/hr Q2H PRN IV 10/25/16 09:00 Potassium Bicarb/ Potassium Chloride 50 meq 50 meq UNSCH PRN PO 10/25/16 09:00 Potassium Chloride 100 ml @ 25 mls/hr UNSCH PRN IV 10/25/16 09:00 Potassium Chloride 100 ml @ 50 mls/hr Q2H PRN IV 10/25/16 09:00 (Magnesium Sulfate Inj/NS Inj) 100 ml @ 50 mls/hr UNSCH PRN IV 10/25/16 09:00 Magnesium Oxide 800 mg 800 mg UNSCH PRN PO 10/25/16 09:00 (Magnesium Sulfate Inj/NS Inj) 100 ml @ 50 mls/hr UNSCH PRN IV 10/25/16 09:00 Potassium Phosphate 2000 mg 2,000 mg Q4H PRN PO 10/25/16 09:00 (Sodium Phosphate Inj/NS 250 ml Inj) 250 ml @ 42 mls/hr UNSCH PRN IV 10/25/16 09:00 10/28/16 00:20 Potassium Phosphate 2000 mg 2,000 mg UNSCH PRN PO/TUBE 10/25/16 09:00 Potassium Phosphate 30 mmol/ Sodium Chloride 260 ml @ 42 mls/hr UNSCH PRN IV 10/25/16 09:00 Cefepime HCl 2000 mg/Sodium Chloride 100 ml @ 200 mls/hr Q8H IV 10/25/16 10:00 10/29/16 09:32 (Vancomycin Consult Pharmacy) 0 ml @ 0 mls/hr UNSCH OTHER 10/25/16 09:30 (Lovenox Inj) 40 mg Q24H SQ 10/25/16 11:00 10/29/16 09:31 (Peridex 0.12% Liq) 15 ml BID@08,20 MT 10/25/16 20:00 10/29/16 08:02 (Tapazole) 10 mg Q8HR PO 10/25/16 22:00 10/29/16 12:51 (Questran 4 Gm Pkt) 4 gm Q12HR PO 10/25/16 21:00 10/29/16 08:00 (Protonix Inj) 40 mg Q24H IV PUSH 10/25/16 16:00 10/28/16 15:29 Chlorhexidine Gluconate 15 ml 15 ml BID@08,20 MT 10/26/16 20:00 (fentaNYL DRIP) 250 ml @ 0 mls/hr TITRATE IV 10/26/16 08:45 10/28/16 13:47 (Brethine Inj) 1 mg UNSCH PRN SQ 10/26/16 08:45 (D50w (Vial) Inj) 50 ml UNSCH PRN IV 10/27/16 07:45 (Glucagon Inj) 1 mg UNSCH PRN OTHER 10/27/16 07:45 (NovoLIN R SUPPLEMENTAL SCALE) 1 Q4H SQ 10/27/16 08:00 10/29/16 12:51 Water 250 ml 250 ml Q12HR G-TUBE 10/28/16 09:00 10/29/16 08:00 (Vancomycin Inj/ NS 250 ml Inj) 262.5 ml @ 250 mls/hr Q18H IV 10/29/16 06:00 10/29/16 04:31 Miscellaneous Information SPECIFIC LAB TO BE DRAWN:VANCOMYCIN TROUGH DATE TO... ONCE ONCE .XX 10/31/16 11:45 10/31/16 11:46 (Lopressor) 25 mg Q12HR PO 10/29/16 09:00 10/29/16 08:00 (Lipitor) 20 mg HS PO 10/29/16 21:00 (SoluCORTEF INJ) 50 mg Q6HR IV PUSH 10/29/16 12:00 10/29/16 12:48 (Bumex Inj) 1 mg DAILY IV PUSH 10/29/16 09:30 10/29/16 09:32 Vital Signs / I&O Vital Signs Date Time Temp Pulse Resp B/P Pulse Ox O2 Delivery O2 Flow Rate FiO2 10/29/16 11:28 35 10/29/16 11:28 97 35 10/29/16 10:00 80 10/29/16 08:00 110 10/29/16 08:00 98.1 110 13 155/72 99 161/74 10/29/16 08:00 40 10/29/16 07:26 100 35 10/29/16 06:00 118 10/29/16 04:04 100 40 10/29/16 04:00 40 10/29/16 04:00 88 10/29/16 04:00 97.8 124 26 150/75 98 162/77 10/29/16 02:00 63 10/29/16 00:00 98.4 10/29/16 00:00 90 10/29/16 00:00 98.4 90 17 121/59 96 132/61 10/29/16 00:00 40 10/28/16 23:22 96 40 10/28/16 22:00 89 10/28/16 20:00 97 10/28/16 20:00 40 10/28/16 20:00 98.7 97 21 84/45 96 81/43 10/28/16 19:34 97 40 10/28/16 18:00 102 10/28/16 17:00 96 24 101/51 100 99/46 10/28/16 16:00 98.1 98 29 103/53 100 107/51 10/28/16 16:00 98 10/28/16 16:00 40 10/28/16 15:36 99 40 10/28/16 15:36 40 10/28/16 15:00 101 19 106/51 100 109/52 I/O 10/28/16 10/28/16 10/28/16 10/29/16 10/29/16 10/29/16 07:00 15:00 23:00 07:00 15:00 23:00 Intake Total 1095 ml 1796 ml 710 ml 1246 ml Output Total 250 ml 1475 ml 650 ml 250 ml 0 ml Balance 845 ml 321 ml 60 ml 996 ml 0 ml Intake IV Total 773 ml 986 ml 94 ml 815 ml Tube Feeding 322 ml 310 ml 496 ml 311 ml Other 500 ml 120 ml 120 ml Output Urine Total 250 ml 1475 ml 650 ml 250 ml Tube Feeding Residual Discard 0 ml 0 ml 0 ml # Bowel Movements 0 0 0 1 Physical Exam GENERAL: Well developed, well nourished. No acute distress, on vent HEENT: NA CHEST: Lungs rhonchi to auscultation bilaterally. Unlabored respiratory effort. CARDIAC: Regular rate and rhythm without S3, S4, or murmur. ABDOMEN: Soft, nontender, no hepatosplenomegaly. Bowel sounds present. EXTREMITIES: No clubbing, cyanosis, or edema. Laboratory Laboratory Tests Test 10/28/16 10/29/16 17:40 05:40 Potassium Level 4.0 MEQ/L 4.1 MEQ/L White Blood Count 13.9 TH/MM3 Red Blood Count 3.21 MIL/MM3 Hemoglobin 8.8 GM/DL Hematocrit 27.3 % Mean Corpuscular Volume 85.3 FL Mean Corpuscular Hemoglobin 27.5 PG Mean Corpuscular Hemoglobin 32.3 % Concent Red Cell Distribution Width 13.9 % Platelet Count 263 TH/MM3 Mean Platelet Volume 9.6 FL Neutrophils (%) (Auto) 90.7 % Lymphocytes (%) (Auto) 2.1 % Monocytes (%) (Auto) 7.1 % Eosinophils (%) (Auto) 0.0 % Basophils (%) (Auto) 0.1 % Neutrophils # (Auto) 12.6 TH/MM3 Lymphocytes # (Auto) 0.3 TH/MM3 Monocytes # (Auto) 1.0 TH/MM3 Eosinophils # (Auto) 0.0 TH/MM3 Basophils # (Auto) 0.0 TH/MM3 CBC Comment DIFF FINAL Differential Comment Sodium Level 147 MEQ/L Chloride Level 114 MEQ/L Carbon Dioxide Level 26.8 MEQ/L Anion Gap 6 MEQ/L Blood Urea Nitrogen 26 MG/DL Creatinine 0.63 MG/DL Estimat Glomerular Filtration 93 ML/MIN Rate Random Glucose 146 MG/DL Calcium Level 7.2 MG/DL Protein Corrected Calcium 8.1 MG/DL Total Bilirubin 0.3 MG/DL Direct Bilirubin 0.1 MG/DL Indirect Bilirubin 0.2 MG/DL Aspartate Amino Transf 18 U/L (AST/SGOT) Alanine Aminotransferase 45 U/L (ALT/SGPT) Alkaline Phosphatase 49 U/L Total Protein 5.6 GM/DL Albumin 1.9 GM/DL Assessment and Plan Assessment and Plan STEMI- diffuse ST elevation likely represented global ischemia from hypoxia -cath with normal coronaries, EF 20% - BP high, off pressors, add marcia now and BB added earlier Cardiomyopathy- likely secondary to hypoxia, Resp Failure- per CCM/pulmonary Hypotension- Cami Romero MD Oct 29, 2016 14:33 Cami Romero MD Oct 29, 2016 14:33
[2016-10-29 15:36] LABS: BLOOD GAS BASE EXCESS -0.3 mmol/L (-2-2); BLOOD GAS CARBOXYHEMOGLOBIN 1.6 % (0-4); BLOOD GAS HCO3 24 mmol/L (22-26); BLOOD GAS METHEMOGLOBIN 1.1 % (0-2); BLOOD GAS O2 HGB SATURATION 91 % (90-100); BLOOD GAS OXYGEN CONTENT 12.4 Vol % (12.0-20.0); BLOOD GAS PCO2 42 mmHg (38-42); BLOOD GAS PO2 66 mmHg (61-120); BLOOD GAS TOTAL HGB 9.6 G/DL (12.0-16.0); CRITICAL VALUE NO; DRAW SITE ART LINE; FIO2 35 %; NUMBER OF ARTERIAL PUNCTURES 0; OXYGEN DEVICE VENTILATOR; STAT NO; TEMP CORR TO 98.6; ULNAR PULSE PRESENT; VENT SETTINGS CPAP PEEP5/PS10
--- NOTE | 2016-10-29 15:36 | HHI.PR ---
Subjective Remarks ass on the vent , ALERT NO DISTRESS Objective Vital Signs Date Time Temp Pulse Resp B/P Pulse Ox O2 Delivery O2 Flow Rate FiO2 10/29/16 14:00 93 10/29/16 13:00 94 10/29/16 12:00 40 10/29/16 12:00 97.9 85 12 140/63 95 150/66 10/29/16 12:00 85 10/29/16 11:28 35 10/29/16 11:28 97 35 10/29/16 10:00 80 10/29/16 08:00 110 10/29/16 08:00 98.1 110 13 155/72 99 161/74 10/29/16 08:00 40 10/29/16 07:26 100 35 10/29/16 06:00 118 10/29/16 04:04 100 40 10/29/16 04:00 40 10/29/16 04:00 88 10/29/16 04:00 97.8 124 26 150/75 98 162/77 10/29/16 02:00 63 10/29/16 00:00 98.4 10/29/16 00:00 90 10/29/16 00:00 98.4 90 17 121/59 96 132/61 10/29/16 00:00 40 10/28/16 23:22 96 40 10/28/16 22:00 89 10/28/16 20:00 97 10/28/16 20:00 40 10/28/16 20:00 98.7 97 21 84/45 96 81/43 10/28/16 19:34 97 40 10/28/16 18:00 102 10/28/16 17:00 96 24 101/51 100 99/46 10/28/16 16:00 98.1 98 29 103/53 100 107/51 10/28/16 16:00 98 10/28/16 16:00 40 10/28/16 15:36 99 40 10/28/16 15:36 40 I/O 10/28/16 10/28/16 10/28/16 10/29/16 10/29/16 10/29/16 07:00 15:00 23:00 07:00 15:00 23:00 Intake Total 1095 ml 1796 ml 710 ml 1246 ml 1180 ml Output Total 250 ml 1475 ml 650 ml 250 ml 1600 ml Balance 845 ml 321 ml 60 ml 996 ml -420 ml Intake IV Total 773 ml 986 ml 94 ml 815 ml 520 ml Tube Feeding 322 ml 310 ml 496 ml 311 ml 410 ml Other 500 ml 120 ml 120 ml 250 ml Output Urine Total 250 ml 1475 ml 650 ml 250 ml 1600 ml Tube Feeding Residual Discard 0 ml 0 ml 0 ml # Bowel Movements 0 0 0 1 0 Result Diagram: 10/29/1653910/29/16539 Objective Remarks GENERAL: SKIN: Warm and dry. HEAD: Atraumatic. Normocephalic. EYES: Pupils equal and round. No scleral icterus. No injection or drainage. ENT: No nasal bleeding or discharge. Mucous membranes pink and moist. NECK: Trachea midline. No JVD. CARDIOVASCULAR: Regular rate and rhythm. RESPIRATORY: No accessory muscle use.scattered rhonchi bilaterally GASTROINTESTINAL: Abdomen soft, non-tender, nondistended. Hepatic and splenic margins not palpable. MUSCULOSKELETAL: Extremities without clubbing, cyanosis, or edema. No obvious deformities. NEUROLOGICAL: Awake and alert. No obvious cranial nerve deficits. Motor grossly within normal limits. Five out of 5 muscle strength in the arms and legs. Normal speech. PSYCHIATRIC: Appropriate mood and affect; insight and judgment normal. Medications and IVs Laboratory Tests Test 10/26/16 10/27/16 10/27/16 10/28/16 17:15 05:15 20:00 06:00 Blood Gas HCO3 17 mmol/L (22-26) Blood Gas Base Excess -7.3 mmol/L (-2-2) Arterial Blood Partial 29 mmHg (38-42) Pressure CO2 Arterial Blood Oxygen Content 11.6 Vol % (12.0-20.0) Blood Gas Hemoglobin 8.5 G/DL (12.0-16.0) White Blood Count 18.7 TH/MM3 15.5 TH/MM3 (4.0-11.0) (4.0-11.0) Red Blood Count 3.57 MIL/MM3 3.08 MIL/MM3 (4.00-5.30) (4.00-5.30) Hemoglobin 9.5 GM/DL 8.5 GM/DL (11.6-15.3) (11.6-15.3) Hematocrit 30.6 % 26.0 % (35.0-46.0) (35.0-46.0) Mean Corpuscular Hemoglobin 26.6 PG (27.0-34.0) Mean Corpuscular Hemoglobin 31.0 % Concent (32.0-36.0) Neutrophils (%) (Auto) 94.6 % 93.1 % (16.0-70.0) (16.0-70.0) Lymphocytes (%) (Auto) 1.0 % 2.2 % (9.0-44.0) (9.0-44.0) Neutrophils # (Auto) 17.7 TH/MM3 14.4 TH/MM3 (1.8-7.7) (1.8-7.7) Lymphocytes # (Auto) 0.2 TH/MM3 0.3 TH/MM3 (1.0-4.8) (1.0-4.8) Chloride Level 109 MEQ/L 114 MEQ/L (98-107) (98-107) Carbon Dioxide Level 20.8 MEQ/L (21.0-32.0) Random Glucose 218 MG/DL 174 MG/DL (74-106) (74-106) Calcium Level 7.7 MG/DL 7.4 MG/DL (8.5-10.1) (8.5-10.1) Phosphorus Level 1.0 MG/DL 1.4 MG/DL (2.5-4.9) (2.5-4.9) Alanine Aminotransferase 76 U/L (10-53) (ALT/SGPT) Total Protein 5.8 GM/DL 5.3 GM/DL (6.4-8.2) (6.4-8.2) Albumin 2.1 GM/DL 1.8 GM/DL (3.4-5.0) (3.4-5.0) Sodium Level 147 MEQ/L (136-145) Potassium Level 3.2 MEQ/L (3.5-5.1) Protein Corrected Calcium 8.4 MG/DL (8.5-10.1) Test 10/28/16 10/29/16 13:15 05:40 Blood Gas HCO3 21 mmol/L (22-26) Blood Gas Base Excess -2.9 mmol/L (-2-2) Arterial Blood Partial 36 mmHg (38-42) Pressure CO2 White Blood Count 13.9 TH/MM3 (4.0-11.0) Red Blood Count 3.21 MIL/MM3 (4.00-5.30) Hemoglobin 8.8 GM/DL (11.6-15.3) Hematocrit 27.3 % (35.0-46.0) Neutrophils (%) (Auto) 90.7 % (16.0-70.0) Lymphocytes (%) (Auto) 2.1 % (9.0-44.0) Neutrophils # (Auto) 12.6 TH/MM3 (1.8-7.7) Lymphocytes # (Auto) 0.3 TH/MM3 (1.0-4.8) Monocytes # (Auto) 1.0 TH/MM3 (0-0.9) Sodium Level 147 MEQ/L (136-145) Chloride Level 114 MEQ/L (98-107) Blood Urea Nitrogen 26 MG/DL (7-18) Random Glucose 146 MG/DL (74-106) Calcium Level 7.2 MG/DL (8.5-10.1) Protein Corrected Calcium 8.1 MG/DL (8.5-10.1) Total Protein 5.6 GM/DL (6.4-8.2) Albumin 1.9 GM/DL (3.4-5.0) Assessment and Plan Assessment and Plan ass respiraory failue pna 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
[2016-10-29] MEDS: LISINOPRIL 10 MG TAB PO SCH ×2 (15:57→20:54)
[2016-10-29] MEDS: PANTOPRAZOLE SODIUM 40 MG VIAL IV PUSH SCH (15:57)
[2016-10-29] MEDS: RESP: ALBUTEROL 2.5 MG/IPRATROPIUM 0.5 MG NEB (SCH) NEB ×3 (16:04→23:26)
[2016-10-29] MEDS: ATORVASTATIN 20 MG TAB PO SCH (20:54)
[2016-10-30] VITALS (18 sets, daily range): BP systolic 118–141; BP diastolic 60–69; PULSE 79–98; RESP 17–22; TEMP 96.8–99; O2SAT 66–98
[2016-10-30] MEDS: CEFEPIME INJ 2,000 MG in SODIUM CHLORIDE 0.9% INJ 100 ML IV SCH ×3 (00:40→16:53)
[2016-10-30] MEDS: SODIUM CHLORIDE 0.9% FLUSH 10 ML FLUSH SCH ×2 (00:41→21:00)
[2016-10-30] MEDS: HYDROCORTISONE SOD SUCCINATE 100 MG VIAL IV PUSH SCH ×4 (00:41→16:52)
[2016-10-30] MEDS: VANCOMYCIN INJ 1,250 MG in SODIUM CHLOR 0.9% 250 ML INJ 250 ML IV SCH ×2 (00:41→16:53)
[2016-10-30] MEDS: MORPHINE SULFATE 4 MG/ML INJ IV PRN ×2 (01:37→21:26)
[2016-10-30] MEDS: RESP: ALBUTEROL 2.5 MG/IPRATROPIUM 0.5 MG NEB (SCH) NEB ×6 (03:53→23:41)
[2016-10-30] MEDS: INSULIN NovoLIN REGULAR SUPPLEMENTAL SCALE SQ SCH ×6 (04:00→20:00)
[2016-10-30] MEDS: CHLORHEXIDINE GLUCONATE 2 % 1 PACK (2 CLOTHS) TOP SCH (04:00)
[2016-10-30] MEDS: METHIMAZOLE 10 MG TAB PO SCH ×3 (05:08→21:04)
[2016-10-30 07:06] LABS: AUTOMATED NEUTROPHIL # 14.6 TH/MM3 (1.8-7.7); BASOPHIL % 0.2 % (0.0-2.0); EOSINOPHIL % 0.1 % (0.0-4.0); HEMO FLAGS DIFF FINAL; LYMPH % 3.3 % (9.0-44.0); LYMPHOCYTE # 0.5 TH/MM3 (1.0-4.8); MEAN CELL VOLUME 85.6 FL (80.0-100.0); MEAN CORPUSCULAR HEMOGLOBIN 27.6 PG (27.0-34.0); MEAN CORPUSCULAR HGB CONC 32.3 % (32.0-36.0); MONO % 5.5 % (0.0-8.0); NEUT % 90.9 % (16.0-70.0); PLATELET COUNT 302 TH/MM3 (150-450); RED BLOOD COUNT 3.04 MIL/MM3 (4.00-5.30); RED CELL DISTRIBUTION WIDTH 14.2 % (11.6-17.2)
--- NOTE | 2016-10-30 07:21 | PD.CARD.PN ---
Objective Vital Signs / I&O Vital Signs Date Time Temp Pulse Resp B/P Pulse Ox O2 Delivery O2 Flow Rate FiO2 10/30/16 06:00 91 10/30/16 04:14 95 45 10/30/16 04:00 86 10/30/16 04:00 96.8 86 17 141/67 92 10/30/16 02:33 95 Nasal Cannula 6.00 10/30/16 02:00 81 10/30/16 01:42 20 10/30/16 01:39 66 45 10/30/16 00:00 97.8 79 20 118/61 96 10/30/16 00:00 79 10/29/16 23:27 97 45 10/29/16 22:00 79 10/29/16 21:55 96 50 10/29/16 20:00 105 10/29/16 20:00 97.1 105 31 143/71 92 Arterial Line 10/29/16 19:39 95 Nasal Cannula 6.00 10/29/16 18:00 96 10/29/16 17:00 99 10/29/16 16:14 96 Nasal Cannula 4 10/29/16 16:00 40 10/29/16 16:00 98.7 85 16 137/60 95 135/133 10/29/16 16:00 85 10/29/16 14:00 93 10/29/16 13:00 94 10/29/16 12:00 40 10/29/16 12:00 97.9 85 12 140/63 95 150/66 10/29/16 12:00 85 10/29/16 11:28 35 10/29/16 11:28 97 35 10/29/16 10:00 80 10/29/16 08:00 110 10/29/16 08:00 98.1 110 13 155/72 99 161/74 10/29/16 08:00 40 10/29/16 07:26 100 35 I/O 10/29/16 10/29/16 10/29/16 10/30/16 10/30/16 10/30/16 07:00 15:00 23:00 07:00 15:00 23:00 Intake Total 1246 ml 1180 ml 104 ml 78 ml Output Total 250 ml 1600 ml 900 ml 650 ml Balance 996 ml -420 ml -796 ml -572 ml Intake IV Total 815 ml 520 ml 104 ml 78 ml Tube Feeding 311 ml 410 ml 0 ml 0 ml Other 120 ml 250 ml 0 ml Output Urine Total 250 ml 1600 ml 900 ml 650 ml Tube Feeding Residual Discard 0 ml # Bowel Movements 1 0 1 2 Physical Exam GENERAL: Well developed, well nourished. No acute distress, on vent HEENT: NA CHEST: Lungs rhonchi to auscultation bilaterally. Unlabored respiratory effort. CARDIAC: Regular rate and rhythm without S3, S4, or murmur. ABDOMEN: Soft, nontender, no hepatosplenomegaly. Bowel sounds present. EXTREMITIES: No clubbing, cyanosis, or edema. Laboratory Laboratory Tests Test 10/29/16 10/30/16 15:10 06:00 Blood Gas Puncture Site ART LINE Blood Gas Patient Temperature 98.6 Blood Gas HCO3 24 mmol/L Blood Gas Base Excess -0.3 mmol/L Blood Gas Oxygen Saturation 91 % Arterial Blood pH 7.38 Arterial Blood Partial 42 mmHg Pressure CO2 Arterial Blood Partial 66 mmHg Pressure O2 Arterial Blood Oxygen Content 12.4 Vol % Arterial Blood 1.6 % Carboxyhemoglobin Arterial Blood Methemoglobin 1.1 % Blood Gas Hemoglobin 9.6 G/DL Oxygen Delivery Device VENTILATOR Blood Gas Ventilator Setting CPAP PEEP5/PS10 Blood Gas Inspired Oxygen 35 % White Blood Count 16.0 TH/MM3 Red Blood Count 3.04 MIL/MM3 Hemoglobin 8.4 GM/DL Hematocrit 26.0 % Mean Corpuscular Volume 85.6 FL Mean Corpuscular Hemoglobin 27.6 PG Mean Corpuscular Hemoglobin 32.3 % Concent Red Cell Distribution Width 14.2 % Platelet Count 302 TH/MM3 Mean Platelet Volume 9.3 FL Neutrophils (%) (Auto) 90.9 % Lymphocytes (%) (Auto) 3.3 % Monocytes (%) (Auto) 5.5 % Eosinophils (%) (Auto) 0.1 % Basophils (%) (Auto) 0.2 % Neutrophils # (Auto) 14.6 TH/MM3 Lymphocytes # (Auto) 0.5 TH/MM3 Monocytes # (Auto) 0.9 TH/MM3 Eosinophils # (Auto) 0.0 TH/MM3 Basophils # (Auto) 0.0 TH/MM3 CBC Comment DIFF FINAL Differential Comment Assessment and Plan Assessment and Plan STEMI- diffuse ST elevation likely represented global ischemia from hypoxia -cath with normal coronaries, EF 20% - BP high, off pressors, add marcia now and BB added earlier Cardiomyopathy- likely secondary to hypoxia, Resp Failure- per CCM/pulmonary Hypotension- Cami Romero MD Oct 30, 2016 07:21
[2016-10-30 07:34] LABS: BICARBONATE 29.4 MEQ/L (21.0-32.0)
--- NOTE | 2016-10-30 07:40 | HHI.CCPN ---
Subjective Remarks/Hospital Course 70 years old female was brought in from home with h/o shortness of breath. Upon their arrival, patient was severely short of breath and her lungs sounded "wet" . She was given IV Lasix by EMS and was started on CPAP. Patient arrived in extremis, unable to speak due to the distress. There was no family member present to give additional history. EMS had done a 12 lead EKG en route which looked to them as STEMI. They called a STEMI alert. Patient however shook her head meaning "no" when I asked if she had any chest pain. Her BP was 135 systolic and heart rate of 125. Sats were 95% on the CPAP. Patient has suffered from cardiac arrest months in the emergency department and one or 2 times in the cardiac catheterization lab. 10/25: Currently on 13 mcg/m of norepinephrine and 5 mics management of dopamine. Arousable mentation vivar on the ventilator and follows commands. Afebrile. No pneumothorax on a.m. chest x-ray. PEEP 8. We will attempt to wean today Subjective 10/26: Self extubated last night at 3 AM. Currently on nonrebreather mask with saturations around 99%. ABG revealed uncompensated acute respiratory acidosis with metabolic acidosis/non-anion gap. Off all vasopressors. 10/27 Patient was reintubated yesterday for resp failure. Sedated with Versed and is on Levophed 2 mics. Afebrile. 10/28 Patient remains sedated with Versed and intubated. On Levophed 2 mics. Afebrile. WBC trending down. Tolerating tube feeds. 10/29 Patient remains intubated and sedated with Fentanyl. Off Versed and off Levophed. Afebrile. Did not tolerate CPAP trials yesterday as she became tachypneic. 10/30 Patient was extubated yesterday placed on BIPAP overnight 02/12 with 45% FIO2. Awake and alert. Objective Vital Signs Date Time Temp Pulse Resp B/P Pulse Ox O2 Delivery O2 Flow Rate FiO2 10/30/16 06:00 91 10/30/16 04:14 95 45 10/30/16 04:00 96.8 17 141/67 10/30/16 02:33 Nasal Cannula 6.00 Intake and Output 10/29/16 10/29/16 10/30/16 08:00 16:00 00:00 Intake Total 1246 ml 1180 ml 104 ml Output Total 250.0 ml 1600 ml 900 ml Balance 996.0 ml -420 ml -796 ml Result Diagram: 10/30/16 0600 10/29/16 0540 Other Results Laboratory Tests Test 10/29/16 10/30/16 15:10 06:00 Blood Gas Puncture Site ART LINE Blood Gas Patient Temperature 98.6 Blood Gas HCO3 24 mmol/L Blood Gas Base Excess -0.3 mmol/L Blood Gas Oxygen Saturation 91 % Arterial Blood pH 7.38 Arterial Blood Partial 42 mmHg Pressure CO2 Arterial Blood Partial 66 mmHg Pressure O2 Arterial Blood Oxygen Content 12.4 Vol % Arterial Blood 1.6 % Carboxyhemoglobin Arterial Blood Methemoglobin 1.1 % Blood Gas Hemoglobin 9.6 G/DL Oxygen Delivery Device VENTILATOR Blood Gas Ventilator Setting CPAP PEEP5/PS10 Blood Gas Inspired Oxygen 35 % White Blood Count 16.0 TH/MM3 Red Blood Count 3.04 MIL/MM3 Hemoglobin 8.4 GM/DL Hematocrit 26.0 % Mean Corpuscular Volume 85.6 FL Mean Corpuscular Hemoglobin 27.6 PG Mean Corpuscular Hemoglobin 32.3 % Concent Red Cell Distribution Width 14.2 % Platelet Count 302 TH/MM3 Mean Platelet Volume 9.3 FL Neutrophils (%) (Auto) 90.9 % Lymphocytes (%) (Auto) 3.3 % Monocytes (%) (Auto) 5.5 % Eosinophils (%) (Auto) 0.1 % Basophils (%) (Auto) 0.2 % Neutrophils # (Auto) 14.6 TH/MM3 Lymphocytes # (Auto) 0.5 TH/MM3 Monocytes # (Auto) 0.9 TH/MM3 Eosinophils # (Auto) 0.0 TH/MM3 Basophils # (Auto) 0.0 TH/MM3 CBC Comment DIFF FINAL Differential Comment Imaging Last Impressions Chest X-Ray 10/28/16 0000 Signed Impressions: Service Date/Time: Friday, October 28, 2016 08:37 - CONCLUSION: 1. Bilateral areas of consolidation being worse on the left. 2. Tubes and lines in good position. Joao Dunn MD Hepatobiliary Scan Nuclear Medicine 10/26/16 0000 Signed Impressions: Service Date/Time: Wednesday, October 26, 2016 11:51 - CONCLUSION: 1. Activity is demonstrated in the gallbladder confirming patency of the cystic duct and making possibility of acute cholecystitis highly unlikely. 2. Patent common bile duct. Matthieu Apodaca MD Liver Ultrasound 10/25/16 0000 Signed Impressions: Service Date/Time: Tuesday, October 25, 2016 11:32 - CONCLUSION: 1. Probable single subcentimeter gallstone in the gallbladder. There is gallbladder wall thickening and trace pericholecystic fluid although the gallbladder is not significantly distended. Overall, the findings may reflect developing acute cholecystitis. Recommend HIDA scan to evaluate patency of the cystic duct if there is continued concern regarding cholecystitis. 2. Small 1.2 x 0.9 x 0.8 cm isoechoic mass in the left lobe of liver. Overall, the findings are nonspecific and further characterization is difficult due to small size. Differential considerations include both malignant and benign etiologies. This may be further evaluated with multiphase MRI exam on an outpatient basis. 3. Multiple bilateral right hepatic cysts measuring up to 4.1 cm, as above. Matthieu Apodaca MD Chest CT 10/24/16 0000 Signed Impressions: Service Date/Time: Monday, October 24, 2016 19:44 - CONCLUSION: 1. Small right pneumothorax. Pneumomediastinum adjacent to the right side of the esophagus. 2. Chronic severe bronchiectasis left greater than right. 3. New severe mixed groundglass and consolidative ulnar parenchymal opacity at the right lung. Differential diagnosis includes infection versus asymmetric pulmonary edema. 4. Multiple hepatic cysts. 5. Thyroid goiter. Yovany Dawn MD Objective Remarks GENERAL: Patient is 70 yo lying in bed in no acute resp distress on BIPAP SKIN: Warm and dry. HEAD: Normocephalic. EYES: No scleral icterus. No injection or drainage. NECK: Supple, trachea midline. No JVD or lymphadenopathy. CARDIOVASCULAR: Regular rate and rhythm without murmurs, gallops, or rubs. RESPIRATORY: Breath sounds equal bilaterally. Few coarse BS GASTROINTESTINAL: Abdomen soft, non-tender, nondistended. MUSCULOSKELETAL: No cyanosis, or edema. Neuro: Awake and alert Date of Insertion: Oct 24, 2016 Line: Central Venous Catheter Side: Left Location: Subclavian A/P Assessment and Plan Neuro/Psych: Awake and alert, avoid sedatives Acetaminophen for fever Morphine for pain management CV: History of myocardial infarction status post angioplasty in the remote past Hypertension Dyslipidemia Acute systolic heart failure ejection fraction 20% On Lopressor 25mg Q12, Lisinopril 10mg [id number] HR and BP keep MAP>65mmHg Status post cardiac catheterization by Dr. Romero. Ejection fraction 20%. Left main is straight and patent. Left circumflex, LAD and RCA with minimal coronary artery disease. Currently on aspirin 81 mg daily/home medication On Lipitor 20 mg daily. LFT's now within normal. Resp: Acute hypoxemic respiratory failure Bronchiectasis Tiny right pneumothorax per CT chest Right pneumomediastinum Continue with oxygen keep sat >92% Duo nebs every 4 hours with albuterol every 2 hours when necessary dyspnea on Combivent 4 times a day at home. Pulmicort 0.5/2 one inhalation twice a day Solu-Cortef 50mg IV Q6 GI: Elevated transaminases - likely secondary to shock liver versus acute cholecystitis Hypoalbuminemia History of diverticulitis Gastroesophageal reflux disease Left lower lobe liver mass recommended outpatient MRI follow-up Right lower lobe liver cyst HIDA scan: Activity is demonstrated in the gallbladder confirming patency of the cystic duct and making possibility of acute cholecystitis highly unlikely. Patent common bile duct. Liver ultrasound 10/25 revealed tiny subcentimeter gallstone. Thickening of the gallbladder wall with pericholecystic fluid. Lesion in left lower lobe liver 1.2 x 0.8 x 0 point centimeters recommend outpatient MRI. Multiple right hepatic cysts largest 4.1 cm. Pepcid for GI prophylaxis. Olivia-Colace for bowel regimen Hepatitis panel is negative Speech eval, diet per speech : Monitor renal function, I/O's, electrolytes replacement per protocol. On Bumex 1mg daily Endo: History of MNG Hyperthyroidism On Tapazole 10 mg 3 times a day in light of low TSH. TSH 0.08. Free T4 1 0.52. Free T3 1 0.46. Sliding-scale insulin (medium scale) with Accu-Cheks to maintain euglycemia Heme: Leukocytosis. Normocytic anemia Monitor CBC daily. Follow trends ID: Continue abx( vancomycin, cefepime) 10/29: Sputum cx: pending 10/26 Sputum cx: Pseudomonas species, Stap aureus, beta strep. 10/25 Sputum: Beta strep not Group A, pseudomonas species urine Legionella, pneumococcal antigens and influenza ordered negative on 6/17. MSK: PT evaluate and treat Access - Left subclavian CVL placed in ED 10/24 Prophylaxis - GI - Pepcid - DVT - SCD/Lovenox subcutaneous Will sign off and transfer care to [facility] Level 3 Eber Early MD Oct 30, 2016 07:40
[2016-10-30] MEDS: RESP: BUDESONIDE 0.5 MG/2 ML NEB NEB SCH ×2 (07:47→20:07)
[2016-10-30] MEDS: CHLORHEXIDINE 0.12% (ORAL KIT) 15 ML CUP MT SCH ×4 (08:00→20:00)
[2016-10-30] MEDS: BUMETANIDE INJ 1 MG/4 ML VIAL IV PUSH SCH (08:17)
[2016-10-30] MEDS: DOCUSATE SODIUM 50 MG/SENNA 8.6 MG TAB PO SCH ×2 (08:17→21:04)
[2016-10-30] MEDS: FREE WATER G-TUBE SCH ×2 (08:17→21:00)
[2016-10-30] MEDS: ARTIFICIAL TEARS OPTH SOLN 15 ML BTL EACH EYE SCH ×3 (08:17→16:51)
[2016-10-30] MEDS: LISINOPRIL 10 MG TAB PO SCH ×2 (08:18→21:09)
[2016-10-30] MEDS: ASPIRIN 81 MG CHEW TAB PO SCH (08:18)
[2016-10-30] MEDS: METOPROLOL TARTRATE 25 MG TAB PO SCH ×2 (08:18→21:05)
[2016-10-30] MEDS: CHOLESTYRAMINE 4 GM PACKET PO SCH ×2 (08:18→21:08)
[2016-10-30] MEDS: ENOXAPARIN SODIUM 40 MG/0.4 ML SYRINGE SQ SCH (10:08)
[2016-10-30] MEDS: PANTOPRAZOLE SODIUM 40 MG VIAL IV PUSH SCH (15:28)
[2016-10-30] MEDS: ATORVASTATIN 20 MG TAB PO SCH (21:05)
[2016-10-31] VITALS (39 sets, daily range): BP systolic 100–209; BP diastolic 51–91; PULSE 77–109; RESP 17–36; TEMP 98.1–98.8; O2SAT 90–98
[2016-10-31] MEDS: MORPHINE SULFATE 4 MG/ML INJ IV PRN (00:28)
[2016-10-31] MEDS: HYDROCORTISONE SOD SUCCINATE 100 MG VIAL IV PUSH SCH ×4 (00:31→21:53)
[2016-10-31] MEDS: CEFEPIME INJ 2,000 MG in SODIUM CHLORIDE 0.9% INJ 100 ML IV SCH ×3 (03:23→18:00)
[2016-10-31] MEDS: INSULIN NovoLIN REGULAR SUPPLEMENTAL SCALE SQ SCH ×6 (04:00→20:00)
[2016-10-31] MEDS: CHLORHEXIDINE GLUCONATE 2 % 1 PACK (2 CLOTHS) TOP SCH (04:00)
[2016-10-31] MEDS: RESP: ALBUTEROL 2.5 MG/IPRATROPIUM 0.5 MG NEB (SCH) NEB ×5 (04:09→20:43)
[2016-10-31 05:29] LABS: AUTOMATED NEUTROPHIL # 14.3 TH/MM3 (1.8-7.7); BASOPHIL % 0.2 % (0.0-2.0); EOSINOPHIL % 0.3 % (0.0-4.0); HEMATOCRIT 22.4 % (35.0-46.0); LYMPHOCYTE # 0.8 TH/MM3 (1.0-4.8); MEAN CELL VOLUME 85.4 FL (80.0-100.0); MEAN CORPUSCULAR HEMOGLOBIN 27.8 PG (27.0-34.0); MEAN CORPUSCULAR HGB CONC 32.5 % (32.0-36.0); MONO % 6.6 % (0.0-8.0); NEUT % 87.9 % (16.0-70.0); PLATELET COUNT 229 TH/MM3 (150-450); RED BLOOD COUNT 2.62 MIL/MM3 (4.00-5.30); RED CELL DISTRIBUTION WIDTH 13.9 % (11.6-17.2); WHITE BLOOD COUNT 16.2 TH/MM3 (4.0-11.0)
[2016-10-31 05:34] LABS: HEMO FLAGS AUTO DIFF
[2016-10-31] MEDS: METHIMAZOLE 10 MG TAB PO SCH ×3 (05:35→21:58)
[2016-10-31 05:46] LABS: BICARBONATE 34.3 MEQ/L (21.0-32.0); POTASSIUM 3.2 MEQ/L (3.5-5.1)
[2016-10-31 06:46] LABS: BANDS 1 % (0-6); MYELOCYTES 1 % (0-0); NEUTROPHIL # MANUAL DIFF 14.6 TH/MM3 (1.8-7.7); POLYS (SEG NEUTROPHILS) 88 % (16-70); WBC DIFF SAMPLE 100
[2016-10-31 06:47] LABS: PLATELET ESTIMATE SMEAR NORMAL (NORMAL); PLATELET MORPHOLOGY NORMAL (NORMAL); SCAN/DIFF FINAL DIFF MANUAL
[2016-10-31] MEDS: RESP: BUDESONIDE 0.5 MG/2 ML NEB NEB SCH ×2 (08:00→20:43)
[2016-10-31] MEDS: CHLORHEXIDINE 0.12% (ORAL KIT) 15 ML CUP MT SCH ×3 (08:00→20:00)
--- NOTE | 2016-10-31 08:20 | PD.CARD.PN ---
Subjective Subjective Remarks Pt without complaints Objective Medications Current Medications Medications (Trade) Dose Ordered Sig/Najma Route Start Time Stop Time Status Last Admin (Aspirin Chew) 81 mg DAILY PO 10/25/16 09:00 10/30/16 08:18 (NS Flush) 2 ml UNSCH PRN .XX 10/24/16 20:00 10/28/16 08:09 (NS Flush) 2 ml BID .XX 10/24/16 21:00 10/30/16 21:00 (Tylenol) 650 mg Q6H PRN PO 10/24/16 20:00 (Morphine Inj) 2 mg Q2H PRN IV 10/24/16 20:00 10/31/16 00:28 (Tears Naturale Opth Soln) 1 drop TID EACH EYE 10/25/16 09:00 10/30/16 16:51 (Zofran Inj) 4 mg Q6H PRN IV 10/24/16 20:00 (Reglan Inj) 10 mg Q6H PRN IV 10/24/16 20:00 (Compazine Supp) 25 mg Q12H PRN RECTAL 10/24/16 20:00 Miscellaneous Information 1 Q361D XX 10/24/16 20:00 (Chlorhexidine 2% Cloth) Taper DAILY@04 TOP 10/25/16 04:00 10/21/17 03:59 10/31/16 04:00 (Chlorhexidine 2% Cloth) 3 pack UNSCH PRN TOP 10/24/16 20:00 (Olivia-Colace) 1 tab BID PO 10/24/16 21:00 10/30/16 21:04 (Milk Of Magnesia Liq) 30 ml Q12H PRN PO 10/24/16 20:00 10/28/16 08:07 (Senokot) 17.2 mg Q12H PRN PO 10/24/16 20:00 (Dulcolax Supp) 10 mg DAILY PRN RECTAL 10/24/16 20:00 Lactulose 30 ml 30 ml DAILY PRN PO 10/24/16 20:00 10/28/16 08:07 Potassium Chloride 100 ml @ 50 mls/hr Q2H PRN IV 10/25/16 09:00 10/28/16 11:22 (KCl 20 Meq Premix Inj) 100 ml @ 50 mls/hr Q2H PRN IV 10/25/16 09:00 Potassium Bicarb/ Potassium Chloride 50 meq 50 meq UNSCH PRN PO 10/25/16 09:00 Potassium Chloride 100 ml @ 25 mls/hr UNSCH PRN IV 10/25/16 09:00 Potassium Chloride 100 ml @ 50 mls/hr Q2H PRN IV 10/25/16 09:00 (Magnesium Sulfate Inj/NS Inj) 100 ml @ 50 mls/hr UNSCH PRN IV 10/25/16 09:00 Magnesium Oxide 800 mg 800 mg UNSCH PRN PO 10/25/16 09:00 (Magnesium Sulfate Inj/NS Inj) 100 ml @ 50 mls/hr UNSCH PRN IV 10/25/16 09:00 Potassium Phosphate 2000 mg 2,000 mg Q4H PRN PO 10/25/16 09:00 (Sodium Phosphate Inj/NS 250 ml Inj) 250 ml @ 42 mls/hr UNSCH PRN IV 10/25/16 09:00 10/28/16 00:20 Potassium Phosphate 2000 mg 2,000 mg UNSCH PRN PO/TUBE 10/25/16 09:00 Potassium Phosphate 30 mmol/ Sodium Chloride 260 ml @ 42 mls/hr UNSCH PRN IV 10/25/16 09:00 Cefepime HCl 2000 mg/Sodium Chloride 100 ml @ 200 mls/hr Q8H IV 10/25/16 10:00 10/31/16 03:23 (Vancomycin Consult Pharmacy) 0 ml @ 0 mls/hr UNSCH OTHER 10/25/16 09:30 (Lovenox Inj) 40 mg Q24H SQ 10/25/16 11:00 10/30/16 10:08 (Peridex 0.12% Liq) 15 ml BID@08,20 MT 10/25/16 20:00 10/29/16 20:00 (Tapazole) 10 mg Q8HR PO 10/25/16 22:00 10/31/16 05:35 (Questran 4 Gm Pkt) 4 gm Q12HR PO 10/25/16 21:00 10/30/16 21:08 (Protonix Inj) 40 mg Q24H IV PUSH 10/25/16 16:00 10/30/16 15:28 (Peridex 0.12% Liq) 15 ml BID@08,20 MT 10/26/16 20:00 10/29/16 20:00 (Brethine Inj) 1 mg UNSCH PRN SQ 10/26/16 08:45 (D50w (Vial) Inj) 50 ml UNSCH PRN IV 10/27/16 07:45 (Glucagon Inj) 1 mg UNSCH PRN OTHER 10/27/16 07:45 (NovoLIN R SUPPLEMENTAL SCALE) 1 Q4H SQ 10/27/16 08:00 10/29/16 12:51 Water 250 ml 250 ml Q12HR G-TUBE 10/28/16 09:00 10/29/16 08:00 (Vancomycin Inj/ NS 250 ml Inj) 262.5 ml @ 250 mls/hr Q18H IV 10/29/16 06:00 10/30/16 16:53 Miscellaneous Information SPECIFIC LAB TO BE DRAWN:VANCOMYCIN TROUGH DATE TO... ONCE ONCE .XX 10/31/16 11:45 10/31/16 11:46 (Lopressor) 25 mg Q12HR PO 10/29/16 09:00 10/30/16 21:05 (Lipitor) 20 mg HS PO 10/29/16 21:00 10/30/16 21:05 (SoluCORTEF INJ) 50 mg Q6HR IV PUSH 10/29/16 12:00 10/31/16 05:35 (Bumex Inj) 1 mg DAILY IV PUSH 10/29/16 09:30 10/30/16 08:17 (Prinivil) 10 mg Q12HR PO 10/29/16 14:45 10/30/16 21:09 Vital Signs / I&O Vital Signs Date Time Temp Pulse Resp B/P Pulse Ox O2 Delivery O2 Flow Rate FiO2 10/31/16 08:01 94 Nasal Cannula 4.00 10/31/16 06:00 97 10/31/16 05:05 94 Nasal Cannula 5.00 10/31/16 04:09 98 40 10/31/16 04:00 98.6 89 19 141/65 96 10/31/16 04:00 89 10/31/16 02:00 79 10/31/16 01:25 97 40 10/31/16 00:00 98.8 77 20 131/66 97 10/31/16 00:00 77 10/30/16 22:23 98 40 10/30/16 22:00 87 10/30/16 20:08 95 Nasal Cannula 5.00 10/30/16 20:00 99.0 93 18 127/60 95 10/30/16 20:00 93 10/30/16 18:00 98 10/30/16 16:00 97.5 91 18 125/64 98 10/30/16 16:00 91 10/30/16 14:00 88 10/30/16 12:00 98.1 86 20 124/63 97 10/30/16 12:00 86 10/30/16 10:00 84 I/O 10/30/16 10/30/16 10/30/16 10/31/16 10/31/16 10/31/16 07:00 15:00 23:00 07:00 15:00 23:00 Intake Total 78 ml 580 ml 406 ml 201 ml Output Total 650 ml 1650 ml 400 ml 750 ml Balance -572 ml -1070 ml 6 ml -549 ml Intake Oral 480 ml 100 ml 100 ml IV Total 78 ml 100 ml 306 ml 101 ml Tube Feeding 0 ml Output Urine Total 650 ml 1650 ml 400 ml 750 ml # Bowel Movements 2 2 0 1 Physical Exam GENERAL: Well developed, well nourished. No acute distress, on vent HEENT: NA CHEST: Lungs rhonchi to auscultation bilaterally. Unlabored respiratory effort. CARDIAC: Regular rate and rhythm without S3, S4, or murmur. ABDOMEN: Soft, nontender, no hepatosplenomegaly. Bowel sounds present. EXTREMITIES: No clubbing, cyanosis, or edema. Laboratory Laboratory Tests Test 10/31/16 05:00 White Blood Count 16.2 TH/MM3 Red Blood Count 2.62 MIL/MM3 Hemoglobin 7.3 GM/DL Hematocrit 22.4 % Mean Corpuscular Volume 85.4 FL Mean Corpuscular Hemoglobin 27.8 PG Mean Corpuscular Hemoglobin 32.5 % Concent Red Cell Distribution Width 13.9 % Platelet Count 229 TH/MM3 Mean Platelet Volume 9.1 FL Neutrophils (%) (Auto) 87.9 % Lymphocytes (%) (Auto) 5.0 % Monocytes (%) (Auto) 6.6 % Eosinophils (%) (Auto) 0.3 % Basophils (%) (Auto) 0.2 % Neutrophils # (Auto) 14.3 TH/MM3 Lymphocytes # (Auto) 0.8 TH/MM3 Monocytes # (Auto) 1.1 TH/MM3 Eosinophils # (Auto) 0.0 TH/MM3 Basophils # (Auto) 0.0 TH/MM3 CBC Comment AUTO DIFF Differential Total Cells 100 Counted Neutrophils % (Manual) 88 % Band Neutrophils % 1 % Lymphocytes % 6 % Monocytes % 4 % Neutrophils # (Manual) 14.6 TH/MM3 Myelocytes 1 % Differential Comment FINAL DIFF MANUAL Platelet Estimate NORMAL Platelet Morphology Comment NORMAL Sodium Level 149 MEQ/L Potassium Level 3.2 MEQ/L Chloride Level 110 MEQ/L Carbon Dioxide Level 34.3 MEQ/L Anion Gap 5 MEQ/L Blood Urea Nitrogen 29 MG/DL Creatinine 0.51 MG/DL Estimat Glomerular Filtration 119 ML/MIN Rate Random Glucose 113 MG/DL Calcium Level 7.8 MG/DL Assessment and Plan Assessment and Plan STEMI- diffuse ST elevation likely represented global ischemia from hypoxia -cath with normal coronaries, EF 20% - BP high, off pressors, add marcia now and BB added earlier Cardiomyopathy- likely secondary to hypoxia, Resp Failure- per CCM/pulmonary Hypotension- Cami Romero MD Oct 31, 2016 08:20
[2016-10-31] MEDS: BUMETANIDE INJ 1 MG/4 ML VIAL IV PUSH SCH (09:00)
[2016-10-31] MEDS: FREE WATER G-TUBE SCH ×2 (09:00→21:00)
[2016-10-31] MEDS: ARTIFICIAL TEARS OPTH SOLN 15 ML BTL EACH EYE SCH ×3 (09:00→16:59)
[2016-10-31] MEDS: SODIUM CHLORIDE 0.9% FLUSH 10 ML FLUSH SCH ×2 (09:00→21:51)
[2016-10-31] MEDS: CHOLESTYRAMINE 4 GM PACKET PO SCH ×2 (09:00→21:58)
[2016-10-31] MEDS: METOPROLOL TARTRATE 25 MG TAB PO SCH ×2 (09:00→21:51)
[2016-10-31] MEDS: ASPIRIN 81 MG CHEW TAB PO SCH (09:00)
[2016-10-31] MEDS: LISINOPRIL 10 MG TAB PO SCH ×2 (09:00→21:52)
[2016-10-31] MEDS: DOCUSATE SODIUM 50 MG/SENNA 8.6 MG TAB PO SCH ×2 (09:00→21:00)
[2016-10-31] MEDS: ENOXAPARIN SODIUM 40 MG/0.4 ML SYRINGE SQ SCH (11:00)
[2016-10-31] MEDS: POTASSIUM CHLOR 40 MEQ PREMIX 100 ML IV PRN ×2 (11:00→15:00)
[2016-10-31] MEDS ORDERED: PHARMACY ORDERED LAB ONE (11:45)
--- NOTE | 2016-10-31 12:08 | HHI.PR ---
Subjective Remarks Pt currently getting BiPAP. Family at bedside. states that pt ate a little bit this morning. pt states that her SOB is a little better, denies any current CP at this time, denies any nausea or vomiting discussed w RN, appetite is not very good. Objective Vitals Vital Signs Date Time Temp Pulse Resp B/P Pulse Ox O2 Delivery O2 Flow Rate FiO2 10/31/16 11:37 94 40 10/31/16 08:01 94 Nasal Cannula 4.00 10/31/16 06:00 97 10/31/16 05:05 94 Nasal Cannula 5.00 10/31/16 04:09 98 40 10/31/16 04:00 98.6 89 19 141/65 96 10/31/16 04:00 89 10/31/16 02:00 79 10/31/16 01:25 97 40 10/31/16 00:00 98.8 77 20 131/66 97 10/31/16 00:00 77 10/30/16 22:23 98 40 10/30/16 22:00 87 10/30/16 20:08 95 Nasal Cannula 5.00 10/30/16 20:00 99.0 93 18 127/60 95 10/30/16 20:00 93 10/30/16 18:00 98 10/30/16 16:00 97.5 91 18 125/64 98 10/30/16 16:00 91 10/30/16 14:00 88 I/O 10/30/16 10/30/16 10/30/16 10/31/16 10/31/16 10/31/16 07:00 15:00 23:00 07:00 15:00 23:00 Intake Total 78 ml 580 ml 406 ml 201 ml Output Total 650 ml 1650 ml 400 ml 750 ml Balance -572 ml -1070 ml 6 ml -549 ml Intake Oral 480 ml 100 ml 100 ml IV Total 78 ml 100 ml 306 ml 101 ml Tube Feeding 0 ml Output Urine Total 650 ml 1650 ml 400 ml 750 ml # Bowel Movements 2 2 0 1 Result Diagram: 10/31/16 0500 10/31/16 0500 Imaging Last Impressions Chest X-Ray 10/28/16 0000 Signed Impressions: Service Date/Time: Friday, October 28, 2016 08:37 - CONCLUSION: 1. Bilateral areas of consolidation being worse on the left. 2. Tubes and lines in good position. Joao Dunn MD Hepatobiliary Scan Nuclear Medicine 10/26/16 0000 Signed Impressions: Service Date/Time: Wednesday, October 26, 2016 11:51 - CONCLUSION: 1. Activity is demonstrated in the gallbladder confirming patency of the cystic duct and making possibility of acute cholecystitis highly unlikely. 2. Patent common bile duct. Matthieu Apodaca MD Liver Ultrasound 10/25/16 0000 Signed Impressions: Service Date/Time: Tuesday, October 25, 2016 11:32 - CONCLUSION: 1. Probable single subcentimeter gallstone in the gallbladder. There is gallbladder wall thickening and trace pericholecystic fluid although the gallbladder is not significantly distended. Overall, the findings may reflect developing acute cholecystitis. Recommend HIDA scan to evaluate patency of the cystic duct if there is continued concern regarding cholecystitis. 2. Small 1.2 x 0.9 x 0.8 cm isoechoic mass in the left lobe of liver. Overall, the findings are nonspecific and further characterization is difficult due to small size. Differential considerations include both malignant and benign etiologies. This may be further evaluated with multiphase MRI exam on an outpatient basis. 3. Multiple bilateral right hepatic cysts measuring up to 4.1 cm, as above. Matthieu Apodaca MD Chest CT 10/24/16 0000 Signed Impressions: Service Date/Time: Monday, October 24, 2016 19:44 - CONCLUSION: 1. Small right pneumothorax. Pneumomediastinum adjacent to the right side of the esophagus. 2. Chronic severe bronchiectasis left greater than right. 3. New severe mixed groundglass and consolidative ulnar parenchymal opacity at the right lung. Differential diagnosis includes infection versus asymmetric pulmonary edema. 4. Multiple hepatic cysts. 5. Thyroid goiter. Yovany Dawn MD Objective Remarks GENERAL: Patient is 70 yo lying in bed , on BIPAP SKIN: Warm and dry. swelling/pitting edema 1+ noted in her upper extremities, left greater than right, no erythema HEAD: Normocephalic. EYES: EOMI NECK: Supple, trachea midline. No JVD or lymphadenopathy. CARDIOVASCULAR: Regular rate and rhythm without murmurs RESPIRATORY: Breath sounds equal bilaterally. Few coarse BS, upper airway sounds /bipap in place. GASTROINTESTINAL: Abdomen soft, non-tender, nondistended. MUSCULOSKELETAL: trace edema lower extremities. Neuro: Awake and alert. answers questions. Psych:pleasant and calm Date of Insertion: Oct 24, 2016 Line: Central Venous Catheter Side: Left Location: Subclavian A/P Assessment and Plan Neuro/Psych: Awake and alert, avoid sedatives Acetaminophen for fever d/c morphine and switch to po norco prn. CV: History of myocardial infarction status post angioplasty in the remote past Hypertension Dyslipidemia Acute systolic heart failure ejection fraction 20% On Lopressor 25mg Q12, Lisinopril 10mg [id number] HR and BP keep MAP>65mmHg Status post cardiac catheterization by Dr. Romero. Ejection fraction 20%. Left main is straight and patent. Left circumflex, LAD and RCA with minimal coronary artery disease. Currently on aspirin 81 mg daily/home medication On Lipitor 20 mg daily. LFT's now within normal. Swelling of the upper extremities, L>R. Will order u/s to r/o DVT. Resp: Acute hypoxemic respiratory failure Bronchiectasis Tiny right pneumothorax per CT chest Right pneumomediastinum Continue with oxygen keep sat >92% Duo nebs every 4 hours with albuterol every 2 hours when necessary dyspnea on Combivent 4 times a day at home. Pulmicort 0.5/2 one inhalation twice a day change Solu-Cortef 50mg IV Q8, continue to wean oxygen, currently getting BiPAP Discussed w Dr. Beasley and pt gets BiPAP at bedtime and as needed during the day pulmonology following. GI: Elevated transaminases - likely secondary to shock liver versus acute cholecystitis Hypoalbuminemia History of diverticulitis Gastroesophageal reflux disease Left lower lobe liver mass recommended outpatient MRI follow-up Right lower lobe liver cyst HIDA scan: Activity is demonstrated in the gallbladder confirming patency of the cystic duct and making possibility of acute cholecystitis highly unlikely. Patent common bile duct. Liver ultrasound 10/25 revealed tiny subcentimeter gallstone. Thickening of the gallbladder wall with pericholecystic fluid. Lesion in left lower lobe liver 1.2 x 0.8 x 0 point centimeters recommend outpatient MRI. Multiple right hepatic cysts largest 4.1 cm. Pepcid for GI prophylaxis. Olivia-Colace for bowel regimen Hepatitis panel is negative Speech eval, diet per speech : Monitor renal function, I/O's, electrolytes replacement per protocol. On Bumex 1mg daily. urinating well Endo: History of MNG Hyperthyroidism On Tapazole 10 mg 3 times a day in light of low TSH. TSH 0.08. Free T4 1 0.52. Free T3 1 0.46. Sliding-scale insulin (medium scale) with Accu-Cheks to maintain euglycemia Heme: Leukocytosis. Normocytic anemia Monitor CBC daily. Follow trends ID: Continue abx( vancomycin, cefepime) 10/29: Sputum cx: normal anitha 10/26 Sputum cx: Pseudomonas species, Stap aureus, beta strep. 10/25 Sputum: Beta strep not Group A, pseudomonas species urine Legionella, pneumococcal antigens and influenza ordered negative on 10/25. ID consulted for assistance w length for abx for d/c planning. MSK: PT following. Pt will require PT at rehab - DVT - SCD/Lovenox subcutaneous Discharge Planning monitor in ICU overnight and if she remains stable, will transfer to regular floor. ID consult in place. Haley Encarnacion MD Oct 31, 2016 12:08 Prophylaxis - GI - Pepcid - DVT - SCD/Lovenox subcutaneous Haley Encarnacion MD Oct 31, 2016 12:08
[2016-10-31] MEDS ORDERED: ACETAMINOPHEN/HYDROcodone 325 MG/5 MG TAB PO PRN (13:00)
[2016-10-31] MEDS: VANCOMYCIN INJ 1,250 MG in SODIUM CHLOR 0.9% 250 ML INJ 250 ML IV SCH (13:00)
--- NOTE | 2016-10-31 15:35 | RADRPT ---
EXAM DATE/TIME: 10/31/2016 14:18 [facility] COMPARISON: CTA CHEST W 3D RECON, January 14, 2010, 5:14. CT THORAX W CONTRAST, October 24, 2016, 19:44. CHEST S VIRGIE AP, October 25, 2016, 3:57. CHEST SINGLE AP, October 28, 2016, 8:37. INDICATIONS : Bilateral arm edema. MEDICAL HISTORY : Chronic obstructive pulmonary disease. Diverticulitis. Inflammatory bowel disease. Arthritis. Thyro id disease. Chest pain. Asthma. Pneumonia. Dyspnea. Gout. SURGICAL HISTORY : Angioplasty. ENCOUNTER: Initial ACUITY: 1 day PAIN SCORE: 5/10 LOCATION: Bilateral arms. FINDINGS: RIGHT UPPER EXTREMITY: There is spontaneous flow documented in the brachial, basilic, cephalic, axillary, and subclavian vei ns. The vessels are compressible and augmentation response is documented. No filling defects are se en. The flow is phasic with respiration. Direction of flow in the jugular vein is caudal. LEFT UPPER EXTREMITY: There is deep venous thrombosis proximal axillary vein to the jugular vein. CONCLUSION: Deep venous thrombosis on the left as described above. Germain Calhoun MD FACR on October 31, 2016 at 15:31 Board Certified Radiologist. This report was verified electronically.
[2016-10-31] MEDS: PANTOPRAZOLE SODIUM 40 MG VIAL IV PUSH SCH (16:00)
--- NOTE | 2016-10-31 16:49 | HHI.PR ---
Subjective Remarks ass extubated , ALERT NO DISTRESS onO2 BY SIMPLE MASK Objective Vital Signs Date Time Temp Pulse Resp B/P Pulse Ox O2 Delivery O2 Flow Rate FiO2 10/31/16 16:25 88 10/31/16 16:00 98.7 102 36 192/91 98 10/31/16 15:40 98 29 209/88 96 10/31/16 15:00 89 21 97 10/31/16 14:00 86 19 130/65 96 10/31/16 14:00 95 10/31/16 13:00 98.5 80 20 121/73 97 10/31/16 12:00 90 25 121/60 96 10/31/16 11:37 94 40 10/31/16 11:00 93 17 133/59 97 10/31/16 10:42 103 24 128/61 90 10/31/16 10:00 106 29 126/60 94 10/31/16 09:00 108 28 127/59 92 10/31/16 08:01 94 Nasal Cannula 4.00 10/31/16 08:00 98.3 93 19 131/63 93 10/31/16 06:00 97 10/31/16 05:05 94 Nasal Cannula 5.00 10/31/16 04:09 98 40 10/31/16 04:00 98.6 89 19 141/65 96 10/31/16 04:00 89 10/31/16 02:00 79 10/31/16 01:25 97 40 10/31/16 00:00 98.8 77 20 131/66 97 10/31/16 00:00 77 10/30/16 22:23 98 40 10/30/16 22:00 87 10/30/16 20:08 95 Nasal Cannula 5.00 10/30/16 20:00 99.0 93 18 127/60 95 10/30/16 20:00 93 10/30/16 18:00 98 I/O 10/30/16 10/30/16 10/30/16 10/31/16 10/31/16 10/31/16 07:00 15:00 23:00 07:00 15:00 23:00 Intake Total 78 ml 580 ml 406 ml 201 ml 975 ml Output Total 650 ml 1650 ml 400 ml 750 ml 2000 ml Balance -572 ml -1070 ml 6 ml -549 ml -1025 ml Intake Oral 480 ml 100 ml 100 ml 550 ml IV Total 78 ml 100 ml 306 ml 101 ml 425 ml Tube Feeding 0 ml Output Urine Total 650 ml 1650 ml 400 ml 750 ml 2000 ml # Bowel Movements 2 2 0 1 2 Result Diagram: 10/31/16 0500 10/31/16 0500 Objective Remarks GENERAL: SKIN: Warm and dry. HEAD: Atraumatic. Normocephalic. EYES: Pupils equal and round. No scleral icterus. No injection or drainage. ENT: No nasal bleeding or discharge. Mucous membranes pink and moist. NECK: Trachea midline. No JVD. CARDIOVASCULAR: Regular rate and rhythm. RESPIRATORY: No accessory muscle use.scattered rhonchi bilaterally GASTROINTESTINAL: Abdomen soft, non-tender, nondistended. Hepatic and splenic margins not palpable. MUSCULOSKELETAL: Extremities without clubbing, cyanosis, or edema. No obvious deformities. NEUROLOGICAL: Awake and alert. No obvious cranial nerve deficits. Motor grossly within normal limits. Five out of 5 muscle strength in the arms and legs. Normal speech. PSYCHIATRIC: Appropriate mood and affect; insight and judgment normal. 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
--- NOTE | 2016-10-31 17:46 | PD.ID.CON ---
History of Present Illness Service ID Consult Requested By Dr Encarnacion Reason for Consult + sputum clx Primary Care Physician Unknown Diagnoses: History of Present Illness Pt is a poor historian Chart reviewed 70 years old female was brought in from home 1 week ago with h/o shortness of breath and diagnosed as as STEMI. Patient has suffered from cardiac arrest months in the emergency department and one or 2 times in the cardiac catheterization lab. 2 days later she self extubated and next day was reintubated yesterday for resp failure Yday pt was extubated initially placed on BIPAP and is on NC O2 now She co some SONB, but not appearing dyspneic Denies CP Co some cough Apparently has sputm clx done while intubated and it grew polimicrobial anitha on 10/26 including a beta strep (not group A) PSA amd MSSA, reeapt sputum clx 2 days ago with nl resp anitha Review of Systems ROS Limitations: Poor Historian Respiratory: COMPLAINS OF: Cough, Sputum production, Shortness of breath Except as stated in HPI: all other systems reviewed are Neg Past Family Social History Allergies: Coded Allergies: Propofol (Verified Adverse Reaction, Severe, bradycardia, 10/25/16) Past Medical History Coronary artery disease, status post RI and angioplasty intervention Dyslipidemia Hypertension Diverticular disease Past Surgical History None Active Ordered Medications Medications where reviewed in EMR Antibiotics Include: vancomycin cefepime Family History Non-Contributory. Social History No Tobacco. No ETOH. No Illicit Drugs. Physical Exam Vital Signs Vital Signs Date Time Temp Pulse Resp B/P Pulse Ox O2 Delivery O2 Flow Rate FiO2 10/31/16 16:25 88 10/31/16 16:00 98.7 102 36 192/91 98 10/31/16 15:40 98 29 209/88 96 10/31/16 15:00 89 21 97 10/31/16 14:00 86 19 130/65 96 10/31/16 14:00 95 10/31/16 13:00 98.5 80 20 121/73 97 10/31/16 12:00 90 25 121/60 96 10/31/16 11:37 94 40 10/31/16 11:00 93 17 133/59 97 10/31/16 10:42 103 24 128/61 90 10/31/16 10:00 106 29 126/60 94 10/31/16 09:00 108 28 127/59 92 10/31/16 08:01 94 Nasal Cannula 4.00 10/31/16 08:00 98.3 93 19 131/63 93 10/31/16 06:00 97 10/31/16 05:05 94 Nasal Cannula 5.00 10/31/16 04:09 98 40 10/31/16 04:00 98.6 89 19 141/65 96 10/31/16 04:00 89 10/31/16 02:00 79 10/31/16 01:25 97 40 10/31/16 00:00 98.8 77 20 131/66 97 10/31/16 00:00 77 10/30/16 22:23 98 40 10/30/16 22:00 87 10/30/16 20:08 95 Nasal Cannula 5.00 10/30/16 20:00 99.0 93 18 127/60 95 10/30/16 20:00 93 10/30/16 18:00 98 Physical Exam CONSTITUTIONAL/GENERAL: This is an adequately nourished patient, in no apparent distress. TUBES/LINES/DRAINS: SKIN: No jaundice, rashes, or lesions. Skin temperature appropriate. Not diaphoretic. HEAD: Atraumatic. Normocephalic. EYES: Pupils equal and round and reactive. Extraocular motions intact. No scleral icterus. No injection or drainage. Fundi not examined. ENT: Hearing grossly normal. Nose without bleeding or purulent drainage. Throat without visible erythema, exudates, masses, or lesions. NECK: Trachea midline. Supple, nontender. No palpable thyroid enlargement or nodularity. CARDIOVASCULAR: Regular rate and rhythm without murmurs, gallops, or rubs. No JVD. Peripheral pulses symmetric. RESPIRATORY/CHEST: Symmetric, unlabored respirations. Few rhonchi on L side to auscultation. Breath sounds equal bilaterally. No wheezes, rales, or rhonchi. GASTROINTESTINAL: Abdomen soft, non-tender, nondistended. No hepato-splenomegaly , or palpable masses. No guarding. Bowel sounds present. GENITOURINARY: Without palpable bladder distension. Meier catheter in place with clear yellow urine MUSCULOSKELETAL: Extremities without clubbing, cyanosis + mild 1+ edema. No joint tenderness or effusion noted. No calf tenderness. No mottling or clubbing. LYMPHATICS: No palpable cervical or supraclavicular adenopathy. NEUROLOGICAL: Awake and alert. Motor and sensory grossly within normal limits. Follows commands. Clear speech. Moves all extremities. PSYCHIATRIC: No obvious anxiety/depression. no apparent hallucinations or other psychotic thought process. Laboratory Laboratory Tests Test 10/31/16 10/31/16 05:00 12:59 White Blood Count 16.2 Red Blood Count 2.62 Hemoglobin 7.3 Hematocrit 22.4 Mean Corpuscular Volume 85.4 Mean Corpuscular Hemoglobin 27.8 Mean Corpuscular Hemoglobin 32.5 Concent Red Cell Distribution Width 13.9 Platelet Count 229 Mean Platelet Volume 9.1 Neutrophils (%) (Auto) 87.9 Lymphocytes (%) (Auto) 5.0 Monocytes (%) (Auto) 6.6 Eosinophils (%) (Auto) 0.3 Basophils (%) (Auto) 0.2 Neutrophils # (Auto) 14.3 Lymphocytes # (Auto) 0.8 Monocytes # (Auto) 1.1 Eosinophils # (Auto) 0.0 Basophils # (Auto) 0.0 CBC Comment AUTO DIFF Differential Total Cells 100 Counted Neutrophils % (Manual) 88 Band Neutrophils % 1 Lymphocytes % 6 Monocytes % 4 Neutrophils # (Manual) 14.6 Myelocytes 1 Differential Comment FINAL DIFF MANUAL Platelet Estimate NORMAL Platelet Morphology Comment NORMAL Sodium Level 149 Potassium Level 3.2 Chloride Level 110 Carbon Dioxide Level 34.3 Anion Gap 5 Blood Urea Nitrogen 29 Creatinine 0.51 Estimat Glomerular Filtration 119 Rate Random Glucose 113 Calcium Level 7.8 Vancomycin Level Trough 20.2 Date/Time Procedure Status Source Growth 10/29/16 16:30 Gram Stain - Final Complete Sputum Endotracheal 10/29/16 16:30 Sputum Culture - Final Complete Sputum Endotracheal RARE GROWTH NORMAL RESPIRATORY ANITHA Result Diagram: 10/31/16 0500 10/31/16 0500 Imaging Last Impressions Upper Extremity Ultrasound 10/31/16 0000 Signed Impressions: Service Date/Time: Monday, October 31, 2016 14:18 - CONCLUSION: Deep venous thrombosis on the left as described above. Germain Calhoun MD FACR Chest X-Ray 10/28/16 0000 Signed Impressions: Service Date/Time: Friday, October 28, 2016 08:37 - CONCLUSION: 1. Bilateral areas of consolidation being worse on the left. 2. Tubes and lines in good position. Joao Dunn MD Hepatobiliary Scan Nuclear Medicine 10/26/16 0000 Signed Impressions: Service Date/Time: Wednesday, October 26, 2016 11:51 - CONCLUSION: 1. Activity is demonstrated in the gallbladder confirming patency of the cystic duct and making possibility of acute cholecystitis highly unlikely. 2. Patent common bile duct. Matthieu Apoadca MD Liver Ultrasound 10/25/16 0000 Signed Impressions: Service Date/Time: Tuesday, October 25, 2016 11:32 - CONCLUSION: 1. Probable single subcentimeter gallstone in the gallbladder. There is gallbladder wall thickening and trace pericholecystic fluid although the gallbladder is not significantly distended. Overall, the findings may reflect developing acute cholecystitis. Recommend HIDA scan to evaluate patency of the cystic duct if there is continued concern regarding cholecystitis. 2. Small 1.2 x 0.9 x 0.8 cm isoechoic mass in the left lobe of liver. Overall, the findings are nonspecific and further characterization is difficult due to small size. Differential considerations include both malignant and benign etiologies. This may be further evaluated with multiphase MRI exam on an outpatient basis. 3. Multiple bilateral right hepatic cysts measuring up to 4.1 cm, as above. Matthieu Apodaca MD Chest CT 10/24/16 0000 Signed Impressions: Service Date/Time: Monday, October 24, 2016 19:44 - CONCLUSION: 1. Small right pneumothorax. Pneumomediastinum adjacent to the right side of the esophagus. 2. Chronic severe bronchiectasis left greater than right. 3. New severe mixed groundglass and consolidative ulnar parenchymal opacity at the right lung. Differential diagnosis includes infection versus asymmetric pulmonary edema. 4. Multiple hepatic cysts. 5. Thyroid goiter. Yovany Dawn MD Assessment and Plan Assessment and Plan STEMI Acute VDRF, resolved PNA, MSSA, PSAE LUE DVT - new issue cont cefepime x 3 more days if cont to improve, longer (up to 7 more day) if persistent smx - dc vancomycin Anamaria Armstrong MD Oct 31, 2016 17:46
--- NOTE | 2016-10-31 18:21 | MB ---
cc: LORI ENCARNACION,MARK Crockett M.D. DATE OF CONSULTATION: 10/31/2016. REASON FOR CONSULTATION / CHIEF COMPLAINT: Dr. Encarnacion requested consultation for Ms. Mota regarding newly diagnosed left upper extremity deep vein thromboses. REFERRING PHYSICIAN: Dr. Lori Encarnacion. HISTORY OF PRESENT ILLNESS: Mrs. Mota is a 70-year-old woman with history of coronary artery disease status post SD and angioplasty, dyslipidemia, hypertension, diverticular disease. She came in with shortness of breath. She appeared to have been in heart failure. She had an S-T elevated myocardial infarction. She had a previous SD with reduced ejection fraction by cardiac catheterization 45-50%. She was coded twice in the emergency room and intubated. She had diffuse S-T elevation subsequently. A CT scan of the chest was performed that shows right pneumothorax, pneumomediastinum, chronic severe bronchiectasis left greater than the right, ground glass consolidative opacity in the right lung, multiple lymphatic cysts, thyroid goiter. Ultimately a cardiac catheterization was performed by Dr. Romero that showed severe left ventricular impairment in ejection fraction at 20%, essentially normal coronary arteries. She had possible Takotsubo versus secondary hypoxemia resulting in decrease in ejection fraction. She was critically ill. She required pressors. She was weaned off. Her course was complicated by Pseudomonas species from her endotracheal secretions. Her course was complicated by respiratory failure. She remains on BiPAP. She is extubated now. She offers no complaints at present. Her voice is hoarse. She has known respiratory failure with congestive heart failure with an ejection fraction of 20%. She has pulmonary fibrosis and bronchiectasis, which are severe. During the course of her evaluation and treatment in the intensive care unit, she required a triple lumen subclavian. She is noted to have bilateral arm swelling with left greater than right. Ultrasound of the upper extremity was performed on 10/31 that showed the presence of deep venous thrombosis proximal axillary artery to the jugular vein. She is trying to elevate the arm. The right hand has also some swelling. She has no neck or facial swelling. She denies any acute shortness of breath. The rest of review of systems is negative. PAST MEDICAL HISTORY: 1. Coronary artery disease. 2. Dyslipidemia. 3. Previous myocardial infarction. 4. Hypertension and decreased ejection fraction. 5. Diverticular disease. 6. Left upper extremity deep vein thromboses. 7. Anemia. 8. Hypoalbuminemia. PAST SURGICAL HISTORY: 1. History cardiac catheterization. 2. Central line placement. 3. Angioplasty. SOCIAL HISTORY: Denies any tobacco, alcohol or illicit drug use. FAMILY HISTORY: Mother in her late 80s of old age. Father of cardiac disease in her 70s. ALLERGIES: NO KNOWN DRUG ALLERGIES. CURRENT MEDICATIONS: 1. Vancomycin. 2. Enoxaparin 60 mg subcu q.12 h. 3. [place] p.r.n. 4. Solu-Cortef. 5. Lipitor. 6. DuoNeb. 7. Prinivil. 8. Bumex. 9. Lopressor. 10. Tapazole. 11. Questran. 12. Pulmicort. 13. Protonix. 14. Cefepime. 15. Aspirin. 16. Artificial tears. 17. Olivia-Colace PRN 18. Milk of magnesia PRN. PHYSICAL EXAMINATION: VITAL SIGNS: Temperature 98.7 heart rate 88, respiratory rate 36, blood pressure 192/91, saturation 98%. GENERAL: Mrs. Mota is a well-developed, well-nourished woman who looks her stated age. HEAD, EYES, EARS, NOSE, THROAT: Her pupils are reactive to light and accommodation. Oropharynx is dry. Tongue is coated. NECK: Supple. LUNGS: Lungs are clear anteriorly. CARDIOVASCULAR: Exam reveals an irregular rhythm. ABDOMEN: Abdomen is benign. EXTREMITIES: Lower extremities with no edema. Bilateral upper extremity swelling, left more prominent than the right. Left subclavian triple-lumen is noted. No neck swelling. LABORATORY DATA: As described above. IMAGING STUDIES: Described above. ASSESSMENT AND PLAN: Ms. Mota is a 70-year-old woman with multiple medical problems. She presented with shortness of breath and was thought to have suffered S-T elevated myocardial infarction. Cardiac catheterization shows significant decrease in ejection fraction. She has been critically ill requiring intubation, extubation and pressors. She required central line placement for support. She has clinically improved. She has been extubated. She seems stable. She was found to have worsening left arm swelling consistent with the left upper extremity deep vein thromboses. We had a lengthy discussion about the left upper extremity deep vein thromboses. These are generally very low risk for thromboembolic events. She denies any symptoms of acute shortness of breath. She was started promptly on anticoagulant therapy. She was previously on DVT prophylaxis. I discussed with her team that the ideal situation would be to remove the triple lumen in the left subclavian. She has edematous arms and has difficult peripheral access. Prophylaxis would be ideal. If peripheral axis could be obtained, we will remove the triple lumen. She does not require significant IV medications now. The affected arm will be elevated. I concur with the plan to continue anticoagulant therapy with low-molecular weight heparin at present. When she is more stable, we can bridge her to oral anticoagulant therapy with Coumadin versus the new oral anticoagulants. Given that she is critically ill and the need for possible procedure is present, we will defer for using the new oral anticoagulants. We will monitor closely for any evidence of bleeding. Her hemoglobin has been trending down No transfusion is needed at present unless her hemoglobin falls below 7. We will coordinate transfusion of one unit of red cells in that case. Mark Hernandez MD RAD/JCC /5:51 PM /6:07 PM SWATHI
[2016-10-31] MEDS: ATORVASTATIN 20 MG TAB PO SCH (21:51)
[2016-10-31] MEDS: ENOXAPARIN SODIUM 60 MG/0.6 ML SYRINGE SQ SCH (21:52)
[2016-11-01] VITALS (25 sets, daily range): BP systolic 108–159; BP diastolic 53–82; PULSE 74–103; RESP 18–30; TEMP 97.6–98.8; O2SAT 91–100
[2016-11-01] MEDS: RESP: ALBUTEROL 2.5 MG/IPRATROPIUM 0.5 MG NEB (SCH) NEB ×7 (00:13→23:32)
[2016-11-01] MEDS: CEFEPIME INJ 2,000 MG in SODIUM CHLORIDE 0.9% INJ 100 ML IV SCH ×3 (02:35→18:29)
[2016-11-01] MEDS: CHLORHEXIDINE GLUCONATE 2 % 1 PACK (2 CLOTHS) TOP SCH (02:36)
[2016-11-01] MEDS: INSULIN NovoLIN REGULAR SUPPLEMENTAL SCALE SQ SCH ×7 (04:00→23:20)
[2016-11-01] MEDS: HYDROCORTISONE SOD SUCCINATE 100 MG VIAL IV PUSH SCH ×3 (05:09→21:01)
[2016-11-01] MEDS: METHIMAZOLE 10 MG TAB PO SCH ×3 (05:09→20:54)
[2016-11-01] MEDS ORDERED: diphenhydrAMINE HCL 25 MG CAP PO PRN (06:00)
[2016-11-01] MEDS ORDERED: ACETAMINOPHEN 325 MG TAB PO PRN (06:00)
--- NOTE | 2016-11-01 06:18 | RADRPT ---
EXAM DATE/TIME: 11/01/2016 04:41 [facility] COMPARISON: CHEST SINGLE AP, October 28, 2016, 8:37. INDICATIONS : Shortness of breath, possible pulmonary disease. MEDICAL HISTORY : Chronic obstructive pulmonary disease. Diverticulitis. SURGICAL HISTORY : None. ENCOUNTER: Subsequent ACUITY: 1 week PAIN SCORE: Non-responsive. LOCATION: Bilateral chest FINDINGS: A single view of the chest demonstrates pleural-parenchymal density throughout the left lung and righ t midlung. Probable small pleural effusions. There is some volume loss on the left. Support lines and tubes have been removed. Osseous structures are intact. CONCLUSION: 1. Pleural-parenchymal density throughout the left lung and right midlung. No significant change. 2. Probable small pleural effusions. Buck Aparicio MD on November 01, 2016 at 6:15 Board Certified Radiologist. This report was verified electronically.
[2016-11-01 06:27] LABS: AUTOMATED NEUTROPHIL # 17.8 TH/MM3 (1.8-7.7); BASOPHIL % 0.1 % (0.0-2.0); EOSINOPHIL % 0.2 % (0.0-4.0); HEMATOCRIT 25.8 % (35.0-46.0); HEMO FLAGS DIFF FINAL; LYMPH % 4.4 % (9.0-44.0); LYMPHOCYTE # 0.9 TH/MM3 (1.0-4.8); MEAN CELL VOLUME 85.8 FL (80.0-100.0); MEAN CORPUSCULAR HEMOGLOBIN 27.7 PG (27.0-34.0); MEAN CORPUSCULAR HGB CONC 32.2 % (32.0-36.0); MONO % 5.4 % (0.0-8.0); NEUT % 89.9 % (16.0-70.0); PLATELET COUNT 383 TH/MM3 (150-450); RED CELL DISTRIBUTION WIDTH 14.1 % (11.6-17.2); WHITE BLOOD COUNT 19.8 TH/MM3 (4.0-11.0)
[2016-11-01 07:09] LABS: POTASSIUM 3.2 MEQ/L (3.5-5.1)
[2016-11-01] MEDS: CHLORHEXIDINE 0.12% (ORAL KIT) 15 ML CUP MT SCH ×2 (08:00→20:00)
[2016-11-01] MEDS: RESP: BUDESONIDE 0.5 MG/2 ML NEB NEB SCH ×2 (08:03→19:46)
--- NOTE | 2016-11-01 08:55 | PD.CARD.PN ---
Subjective Subjective Remarks Doing quite a bit better, notes some pain when she coughs,but otherwise asymptomatic. Objective Medications Administered Medications Medications (Trade) Dose Ordered Sig/Najma Route PRN Reason Start Time Stop Time Status Last Admin Dose Admin Aspirin (Aspirin Chew) 81 mg DAILY PO 10/25/16 09:00 10/31/16 09:00 Sodium Chloride (NS Flush) 2 ml UNSCH PRN .XX FLUSH AFTER USING IV ACCESS 10/24/16 20:00 10/28/16 08:09 Sodium Chloride (NS Flush) 2 ml BID .XX 10/24/16 21:00 10/31/16 21:51 Artificial Tears (Tears Naturale Opth Soln) 1 drop TID EACH EYE 10/25/16 09:00 10/31/16 16:59 Chlorhexidine Gluconate (Chlorhexidine 2% Cloth) Taper DAILY@04 TOP 10/25/16 04:00 10/21/17 03:59 11/01/16 02:36 Senna/Docusate Sodium (Olivia-Colace) 1 tab BID PO 10/24/16 21:00 10/31/16 09:00 Magnesium Hydroxide (Milk Of Magnesia Liq) 30 ml Q12H PRN PO MILD - MODERATE CONSTIPATION 10/24/16 20:00 10/28/16 08:07 Lactulose 30 ml 30 ml DAILY PRN PO SEVERE CONSITIPATION 10/24/16 20:00 10/28/16 08:07 Potassium Chloride 100 ml @ 50 mls/hr Q2H PRN IV For Potassium 2.8 - 3.2 mEq/L 10/25/16 09:00 10/31/16 15:00 Sodium Phosphate 30 mmol/Sodium Chloride 250 ml @ 42 mls/hr UNSCH PRN IV For Phosphorus < 2.5 mg/dL 10/25/16 09:00 10/28/16 00:20 Cefepime HCl/ Sodium Chloride (Maxipime Inj/NS Inj) 100 ml @ 200 mls/hr Q8H IV 10/25/16 10:00 11/01/16 02:35 Methimazole (Tapazole) 10 mg Q8HR PO 10/25/16 22:00 11/01/16 05:09 Cholestyramine Resin (Questran 4 Gm Pkt) 4 gm Q12HR PO 10/25/16 21:00 10/31/16 21:58 Pantoprazole Sodium (Protonix Inj) 40 mg Q24H IV PUSH 10/25/16 16:00 10/31/16 16:00 Chlorhexidine Gluconate (Peridex 0.12% Liq) 15 ml BID@08,20 MT 10/26/16 20:00 10/31/16 08:00 Insulin Human Regular (NovoLIN R SUPPLEMENTAL SCALE) 1 Q4H SQ 10/27/16 08:00 10/31/16 20:00 Water (Free Water) 250 ml Q12HR G-TUBE 10/28/16 09:00 10/29/16 08:00 Metoprolol Tartrate (Lopressor) 25 mg Q12HR PO 10/29/16 09:00 10/31/16 21:51 Atorvastatin Calcium (Lipitor) 20 mg HS PO 10/29/16 21:00 10/31/16 21:51 Bumetanide (Bumex Inj) 1 mg DAILY IV PUSH 10/29/16 09:30 10/31/16 09:00 Lisinopril (Prinivil) 10 mg Q12HR PO 10/29/16 14:45 10/31/16 21:52 Hydrocortisone Sodium Succinate (SoluCORTEF INJ) 50 mg Q8HR IV PUSH 10/31/16 14:00 11/01/16 05:09 Enoxaparin Sodium (Lovenox Inj) 60 mg BID SQ 10/31/16 21:00 10/31/16 21:52 Vital Signs / I&O Vital Signs Date Time Temp Pulse Resp B/P Pulse Ox O2 Delivery O2 Flow Rate FiO2 11/01/16 08:03 92 Nasal Cannula 4.00 11/01/16 06:40 93 Nasal Cannula 3.00 11/01/16 06:00 91 11/01/16 05:25 92 40 11/01/16 05:00 90 11/01/16 04:00 98.2 84 20 127/58 100 11/01/16 04:00 84 11/01/16 03:00 79 11/01/16 03:00 79 18 112/53 100 11/01/16 02:30 75 11/01/16 02:30 98 Nasal Cannula 3.00 11/01/16 02:00 82 11/01/16 02:00 82 23 124/61 97 11/01/16 01:30 80 11/01/16 01:00 74 19 108/54 99 11/01/16 01:00 74 11/01/16 00:30 74 11/01/16 00:17 94 40 11/01/16 00:01 79 11/01/16 00:01 79 22 133/60 95 11/01/16 00:00 98.4 80 19 94 10/31/16 23:30 77 10/31/16 23:00 78 20 100/51 98 10/31/16 23:00 78 10/31/16 22:30 92 10/31/16 22:15 109 10/31/16 22:00 100 10/31/16 22:00 100 18 121/56 95 10/31/16 21:15 96 10/31/16 21:00 93 10/31/16 21:00 93 20 132/60 97 10/31/16 20:45 93 Nasal Cannula 3.00 10/31/16 20:15 97 10/31/16 20:00 98.1 104 27 119/57 95 10/31/16 20:00 104 10/31/16 19:15 98 10/31/16 19:01 105 24 117/54 95 10/31/16 19:01 105 10/31/16 19:00 104 23 95 10/31/16 18:15 96 10/31/16 18:14 96 10/31/16 18:00 101 32 162/70 92 10/31/16 17:26 94 24 145/64 95 10/31/16 17:00 91 25 98 10/31/16 16:25 88 10/31/16 16:00 98.7 102 36 192/91 98 10/31/16 15:40 98 29 209/88 96 10/31/16 15:00 89 21 97 10/31/16 14:00 86 19 130/65 96 10/31/16 14:00 95 10/31/16 13:00 98.5 80 20 121/73 97 10/31/16 12:00 90 25 121/60 96 10/31/16 11:37 94 40 10/31/16 11:00 93 17 133/59 97 10/31/16 10:42 103 24 128/61 90 10/31/16 10:00 106 29 126/60 94 10/31/16 09:00 108 28 127/59 92 I/O 10/31/16 10/31/16 10/31/16 11/01/16 11/01/16 11/01/16 06:59 14:59 22:59 06:59 14:59 22:59 Intake Total 201 ml 975 ml 624 ml 346 ml Output Total 750 ml 2000 ml 400 ml 260 ml Balance -549 ml -1025 ml 224 ml 86 ml Intake Oral 100 ml 550 ml 240 ml 240 ml IV Total 101 ml 425 ml 384 ml 106 ml Output Urine Total 750 ml 2000 ml 400 ml 260 ml # Bowel Movements 1 2 0 0 Physical Exam GENERAL: This is a well-nourished, well-developed patient, in no apparent distress. CARDIOVASCULAR: Regular rate and rhythm without murmurs, gallops, or rubs. RESPIRATORY: rales/rhonic all murphy GASTROINTESTINAL: Abdomen soft, non-tender, nondistended. Normal active bowel sounds MUSCULOSKELETAL: Extremities without clubbing, cyanosis, or edema. NEURO: Alert & Oriented x4 to person, place, time, situation. Moves all ext x4 Laboratory Laboratory Tests Test 10/31/16 11/01/16 12:59 06:04 Vancomycin Level Trough 20.2 MCG/ML White Blood Count 19.8 TH/MM3 Red Blood Count 3.00 MIL/MM3 Hemoglobin 8.3 GM/DL Hematocrit 25.8 % Mean Corpuscular Volume 85.8 FL Mean Corpuscular Hemoglobin 27.7 PG Mean Corpuscular Hemoglobin 32.2 % Concent Red Cell Distribution Width 14.1 % Platelet Count 383 TH/MM3 Mean Platelet Volume 8.7 FL Neutrophils (%) (Auto) 89.9 % Lymphocytes (%) (Auto) 4.4 % Monocytes (%) (Auto) 5.4 % Eosinophils (%) (Auto) 0.2 % Basophils (%) (Auto) 0.1 % Neutrophils # (Auto) 17.8 TH/MM3 Lymphocytes # (Auto) 0.9 TH/MM3 Monocytes # (Auto) 1.1 TH/MM3 Eosinophils # (Auto) 0.0 TH/MM3 Basophils # (Auto) 0.0 TH/MM3 CBC Comment DIFF FINAL Differential Comment Sodium Level 147 MEQ/L Potassium Level 3.2 MEQ/L Chloride Level 102 MEQ/L Carbon Dioxide Level 42.0 MEQ/L Anion Gap 3 MEQ/L Blood Urea Nitrogen 26 MG/DL Creatinine 0.65 MG/DL Estimat Glomerular Filtration 90 ML/MIN Rate Random Glucose 113 MG/DL Calcium Level 8.2 MG/DL Blood Type O POSITIVE Imaging Last Impressions Chest X-Ray 11/01/16 0000 Signed Impressions: Service Date/Time: Tuesday, November 01, 2016 04:41 - CONCLUSION: 1. Pleural-parenchymal density throughout the left lung and right midlung. No significant change. 2. Probable small pleural effusions. Buck Aparicio MD Upper Extremity Ultrasound 10/31/16 0000 Signed Impressions: Service Date/Time: Monday, October 31, 2016 14:18 - CONCLUSION: Deep venous thrombosis on the left as described above. Germain Calhoun MD FACR Hepatobiliary Scan Nuclear Medicine 10/26/16 0000 Signed Impressions: Service Date/Time: Wednesday, October 26, 2016 11:51 - CONCLUSION: 1. Activity is demonstrated in the gallbladder confirming patency of the cystic duct and making possibility of acute cholecystitis highly unlikely. 2. Patent common bile duct. Matthieu Apodaca MD Liver Ultrasound 10/25/16 0000 Signed Impressions: Service Date/Time: Tuesday, October 25, 2016 11:32 - CONCLUSION: 1. Probable single subcentimeter gallstone in the gallbladder. There is gallbladder wall thickening and trace pericholecystic fluid although the gallbladder is not significantly distended. Overall, the findings may reflect developing acute cholecystitis. Recommend HIDA scan to evaluate patency of the cystic duct if there is continued concern regarding cholecystitis. 2. Small 1.2 x 0.9 x 0.8 cm isoechoic mass in the left lobe of liver. Overall, the findings are nonspecific and further characterization is difficult due to small size. Differential considerations include both malignant and benign etiologies. This may be further evaluated with multiphase MRI exam on an outpatient basis. 3. Multiple bilateral right hepatic cysts measuring up to 4.1 cm, as above. Matthieu Apodaca MD Chest CT 10/24/16 0000 Signed Impressions: Service Date/Time: Monday, October 24, 2016 19:44 - CONCLUSION: 1. Small right pneumothorax. Pneumomediastinum adjacent to the right side of the esophagus. 2. Chronic severe bronchiectasis left greater than right. 3. New severe mixed groundglass and consolidative ulnar parenchymal opacity at the right lung. Differential diagnosis includes infection versus asymmetric pulmonary edema. 4. Multiple hepatic cysts. 5. Thyroid goiter. Yovany Dawn MD Assessment and Plan Problem List: (1) Respiratory failure Assessment and Plan: Improved, extubated, per [facility] team (2) DVT (deep venous thrombosis) Assessment and Plan: on lovenox, likely to change to NoAC at some point. (3) Cardiomyopathy Assessment and Plan: on marcia/BB; perhaps can change to entresto at some point. (4) Elevated troponin I level Assessment and Plan: no significant CAD by cath (5) Pulmonary edema Assessment and Plan: stable Assessment and Plan Doing better, continue med mgt. Problem Qualifiers (1) Respiratory failure: Qualified Code: J96.00 - Acute respiratory failure, unspecified whether with hypoxia or hypercapnia (2) DVT (deep venous thrombosis): (3) Pulmonary edema: Qualified Code: J81.0 - Acute pulmonary edema Raul Michelle MD Nov 01, 2016 08:55
[2016-11-01] MEDS: FREE WATER G-TUBE SCH ×2 (09:00→20:53)
[2016-11-01] MEDS: ARTIFICIAL TEARS OPTH SOLN 15 ML BTL EACH EYE SCH ×3 (09:01→18:30)
[2016-11-01] MEDS: BUMETANIDE INJ 1 MG/4 ML VIAL IV PUSH SCH (09:01)
[2016-11-01] MEDS: METOPROLOL TARTRATE 25 MG TAB PO SCH ×2 (09:02→20:53)
[2016-11-01] MEDS: ENOXAPARIN SODIUM 60 MG/0.6 ML SYRINGE SQ SCH ×2 (09:02→20:54)
[2016-11-01] MEDS: LISINOPRIL 10 MG TAB PO SCH ×2 (09:02→20:54)
[2016-11-01] MEDS: DOCUSATE SODIUM 50 MG/SENNA 8.6 MG TAB PO SCH ×2 (09:02→20:54)
[2016-11-01] MEDS: CHOLESTYRAMINE 4 GM PACKET PO SCH ×2 (09:02→20:54)
[2016-11-01] MEDS: ASPIRIN 81 MG CHEW TAB PO SCH (09:02)
[2016-11-01] MEDS: SODIUM CHLORIDE 0.9% FLUSH 10 ML FLUSH SCH ×2 (09:03→20:53)
--- NOTE | 2016-11-01 10:24 | HHI.PR ---
Subjective Remarks The patient was resting comfortably in bed. Family was at the bedside. No acute concerns at this time. Discussed with nurse. Objective Vitals Vital Signs Date Time Temp Pulse Resp B/P Pulse Ox O2 Delivery O2 Flow Rate FiO2 11/01/16 10:00 89 11/01/16 09:00 103 11/01/16 08:03 92 Nasal Cannula 4.00 11/01/16 08:00 98.3 103 27 136/63 91 11/01/16 08:00 102 11/01/16 06:40 93 Nasal Cannula 3.00 11/01/16 06:00 91 11/01/16 05:25 92 40 11/01/16 05:00 90 11/01/16 04:00 98.2 84 20 127/58 100 11/01/16 04:00 84 11/01/16 03:00 79 11/01/16 03:00 79 18 112/53 100 11/01/16 02:30 75 11/01/16 02:30 98 Nasal Cannula 3.00 11/01/16 02:00 82 11/01/16 02:00 82 23 124/61 97 11/01/16 01:30 80 11/01/16 01:00 74 19 108/54 99 11/01/16 01:00 74 11/01/16 00:30 74 11/01/16 00:17 94 40 11/01/16 00:01 79 11/01/16 00:01 79 22 133/60 95 11/01/16 00:00 98.4 80 19 94 10/31/16 23:30 77 10/31/16 23:00 78 20 100/51 98 10/31/16 23:00 78 10/31/16 22:30 92 10/31/16 22:15 109 10/31/16 22:00 100 10/31/16 22:00 100 18 121/56 95 10/31/16 21:15 96 10/31/16 21:00 93 10/31/16 21:00 93 20 132/60 97 10/31/16 20:45 93 Nasal Cannula 3.00 10/31/16 20:15 97 10/31/16 20:00 98.1 104 27 119/57 95 10/31/16 20:00 104 10/31/16 19:15 98 10/31/16 19:01 105 24 117/54 95 10/31/16 19:01 105 10/31/16 19:00 104 23 95 10/31/16 18:15 96 10/31/16 18:14 96 10/31/16 18:00 101 32 162/70 92 10/31/16 17:26 94 24 145/64 95 10/31/16 17:00 91 25 98 10/31/16 16:25 88 10/31/16 16:00 98.7 102 36 192/91 98 10/31/16 15:40 98 29 209/88 96 10/31/16 15:00 89 21 97 10/31/16 14:00 86 19 130/65 96 10/31/16 14:00 95 10/31/16 13:00 98.5 80 20 121/73 97 10/31/16 12:00 90 25 121/60 96 10/31/16 11:37 94 40 10/31/16 11:00 93 17 133/59 97 10/31/16 10:42 103 24 128/61 90 I/O 10/31/16 10/31/16 10/31/16 11/01/16 11/01/16 11/01/16 07:00 15:00 23:00 07:00 15:00 23:00 Intake Total 201 ml 975 ml 624 ml 346 ml Output Total 750 ml 2000 ml 400 ml 260 ml Balance -549 ml -1025 ml 224 ml 86 ml Intake Oral 100 ml 550 ml 240 ml 240 ml IV Total 101 ml 425 ml 384 ml 106 ml Output Urine Total 750 ml 2000 ml 400 ml 260 ml # Bowel Movements 1 2 0 0 Result Diagram: 11/01/16 0604 11/01/16 0604 Imaging Last Impressions Chest X-Ray 11/01/16 0000 Signed Impressions: Service Date/Time: Tuesday, November 01, 2016 04:41 - CONCLUSION: 1. Pleural-parenchymal density throughout the left lung and right midlung. No significant change. 2. Probable small pleural effusions. Buck Aparicio MD Upper Extremity Ultrasound 10/31/16 0000 Signed Impressions: Service Date/Time: Monday, October 31, 2016 14:18 - CONCLUSION: Deep venous thrombosis on the left as described above. Germain Calhoun MD FACR Hepatobiliary Scan Nuclear Medicine 10/26/16 0000 Signed Impressions: Service Date/Time: Wednesday, October 26, 2016 11:51 - CONCLUSION: 1. Activity is demonstrated in the gallbladder confirming patency of the cystic duct and making possibility of acute cholecystitis highly unlikely. 2. Patent common bile duct. Matthieu Apodaca MD Liver Ultrasound 10/25/16 0000 Signed Impressions: Service Date/Time: Tuesday, October 25, 2016 11:32 - CONCLUSION: 1. Probable single subcentimeter gallstone in the gallbladder. There is gallbladder wall thickening and trace pericholecystic fluid although the gallbladder is not significantly distended. Overall, the findings may reflect developing acute cholecystitis. Recommend HIDA scan to evaluate patency of the cystic duct if there is continued concern regarding cholecystitis. 2. Small 1.2 x 0.9 x 0.8 cm isoechoic mass in the left lobe of liver. Overall, the findings are nonspecific and further characterization is difficult due to small size. Differential considerations include both malignant and benign etiologies. This may be further evaluated with multiphase MRI exam on an outpatient basis. 3. Multiple bilateral right hepatic cysts measuring up to 4.1 cm, as above. Matthieu Apodaca MD Chest CT 10/24/16 0000 Signed Impressions: Service Date/Time: Monday, October 24, 2016 19:44 - CONCLUSION: 1. Small right pneumothorax. Pneumomediastinum adjacent to the right side of the esophagus. 2. Chronic severe bronchiectasis left greater than right. 3. New severe mixed groundglass and consolidative ulnar parenchymal opacity at the right lung. Differential diagnosis includes infection versus asymmetric pulmonary edema. 4. Multiple hepatic cysts. 5. Thyroid goiter. Yovany Dawn MD Objective Remarks GENERAL: Resting comfortably in bed SKIN: Warm and dry. Swelling/pitting edema 1+ noted in her upper extremities, left greater than right, no erythema HEAD: Normocephalic EYES: EOMI NECK: Supple, trachea midline. No JVD or lymphadenopathy CARDIOVASCULAR: Regular rate and rhythm without murmurs RESPIRATORY: Scattered rhonchi GASTROINTESTINAL: Abdomen soft, non-tender, nondistended MUSCULOSKELETAL: Trace edema lower extremities NEURO: Awake and alert PSYCH: Pleasant and calm Medications and IVs Current Medications Medications (Trade) Dose Ordered Sig/Najma Route Start Time Stop Time Status Last Admin (Aspirin Chew) 81 mg DAILY PO 10/25/16 09:00 11/01/16 09:02 (NS Flush) 2 ml UNSCH PRN .XX 10/24/16 20:00 10/28/16 08:09 (NS Flush) 2 ml BID .XX 10/24/16 21:00 11/01/16 09:03 (Tylenol) 650 mg Q6H PRN PO 10/24/16 20:00 (Tears Naturale Opth Soln) 1 drop TID EACH EYE 10/25/16 09:00 11/01/16 09:01 (Zofran Inj) 4 mg Q6H PRN IV 10/24/16 20:00 (Reglan Inj) 10 mg Q6H PRN IV 10/24/16 20:00 (Compazine Supp) 25 mg Q12H PRN RECTAL 10/24/16 20:00 Miscellaneous Information 1 Q361D XX 10/24/16 20:00 (Chlorhexidine 2% Cloth) Taper DAILY@04 TOP 10/25/16 04:00 10/21/17 03:59 11/01/16 02:36 (Chlorhexidine 2% Cloth) 3 pack UNSCH PRN TOP 10/24/16 20:00 (Olivia-Colace) 1 tab BID PO 10/24/16 21:00 11/01/16 09:02 (Milk Of Magnesia Liq) 30 ml Q12H PRN PO 10/24/16 20:00 10/28/16 08:07 (Senokot) 17.2 mg Q12H PRN PO 10/24/16 20:00 (Dulcolax Supp) 10 mg DAILY PRN RECTAL 10/24/16 20:00 Lactulose 30 ml 30 ml DAILY PRN PO 10/24/16 20:00 10/28/16 08:07 Potassium Chloride 100 ml @ 50 mls/hr Q2H PRN IV 10/25/16 09:00 10/31/16 15:00 (KCl 20 Meq Premix Inj) 100 ml @ 50 mls/hr Q2H PRN IV 10/25/16 09:00 11/01/16 10:29 Potassium Bicarb/ Potassium Chloride 50 meq 50 meq UNSCH PRN PO 10/25/16 09:00 Potassium Chloride 100 ml @ 25 mls/hr UNSCH PRN IV 10/25/16 09:00 Potassium Chloride 100 ml @ 50 mls/hr Q2H PRN IV 10/25/16 09:00 (Magnesium Sulfate Inj/NS Inj) 100 ml @ 50 mls/hr UNSCH PRN IV 10/25/16 09:00 Magnesium Oxide 800 mg 800 mg UNSCH PRN PO 10/25/16 09:00 (Magnesium Sulfate Inj/NS Inj) 100 ml @ 50 mls/hr UNSCH PRN IV 10/25/16 09:00 Potassium Phosphate 2000 mg 2,000 mg Q4H PRN PO 10/25/16 09:00 (Sodium Phosphate Inj/NS 250 ml Inj) 250 ml @ 42 mls/hr UNSCH PRN IV 10/25/16 09:00 10/28/16 00:20 Potassium Phosphate 2000 mg 2,000 mg UNSCH PRN PO/TUBE 10/25/16 09:00 Potassium Phosphate 30 mmol/ Sodium Chloride 260 ml @ 42 mls/hr UNSCH PRN IV 10/25/16 09:00 (Maxipime Inj/NS Inj) 100 ml @ 200 mls/hr Q8H IV 10/25/16 10:00 11/01/16 09:00 (Tapazole) 10 mg Q8HR PO 10/25/16 22:00 11/01/16 05:09 (Questran 4 Gm Pkt) 4 gm Q12HR PO 10/25/16 21:00 11/01/16 09:02 (Protonix Inj) 40 mg Q24H IV PUSH 10/25/16 16:00 10/31/16 16:00 (Peridex 0.12% Liq) 15 ml BID@08,20 MT 10/26/16 20:00 10/31/16 08:00 (Brethine Inj) 1 mg UNSCH PRN SQ 10/26/16 08:45 (D50w (Vial) Inj) 50 ml UNSCH PRN IV 10/27/16 07:45 (Glucagon Inj) 1 mg UNSCH PRN OTHER 10/27/16 07:45 (NovoLIN R SUPPLEMENTAL SCALE) 1 Q4H SQ 10/27/16 08:00 10/31/16 20:00 (Free Water) 250 ml Q12HR G-TUBE 10/28/16 09:00 10/29/16 08:00 (Lopressor) 25 mg Q12HR PO 10/29/16 09:00 11/01/16 09:02 (Lipitor) 20 mg HS PO 10/29/16 21:00 10/31/16 21:51 (Bumex Inj) 1 mg DAILY IV PUSH 10/29/16 09:30 11/01/16 09:01 (Prinivil) 10 mg Q12HR PO 10/29/16 14:45 11/01/16 09:02 ([place] 5-325 Mg) 1 tab Q4H PRN PO 10/31/16 13:00 ([place] 7.5-325 Mg) 1 tab Q6H PRN PO 10/31/16 13:00 (SoluCORTEF INJ) 50 mg Q8HR IV PUSH 10/31/16 14:00 11/01/16 05:09 (Lovenox Inj) 60 mg BID SQ 10/31/16 21:00 11/01/16 09:02 Date of Insertion: Oct 24, 2016 Line: Central Venous Catheter Side: Left Location: Subclavian A/P Assessment and Plan CAD History of myocardial infarction status post angioplasty in the remote past. Status post cardiac catheterization by Dr. Romero. Ejection fraction 20%. Left main is straight and patent. Left circumflex, LAD and RCA with minimal coronary artery disease. - On Lopressor 25mg Q12, Lisinopril 10mg [id number] HR and BP keep MAP>65mmHg. - Currently on aspirin 81 mg daily/home medication. - On Lipitor 20 mg daily. LUE DVT Swelling of the upper extremities. US revealed DVT. Hematology consult appreciated. - continue Lovenox and follow up with hematology. Likely transition to oral anticoagulant in the next few days. Acute hypoxemic respiratory failure S/p intubation. Bronchiectasis, tiny right pneumothorax, right pneumomediastinum. - Continue with oxygen keep sat >92%. - Duo nebs every 4 hours with albuterol every 2 hours when necessary. - Pulmicort 0.5/2 one inhalation twice a day. - change Solu-Cortef 50mg IV Q8, continue to wean oxygen, currently getting BiPAP. - pulmonology following. - continue antibiotics. - physical therapy. Elevated transaminases Likely secondary to shock liver versus acute cholecystitis. HIDA scan: Activity is demonstrated in the gallbladder confirming patency of the cystic duct and making possibility of acute cholecystitis highly unlikely. Patent common bile duct. Liver ultrasound 10/25 revealed tiny subcentimeter gallstone; Thickening of the gallbladder wall with pericholecystic fluid; Lesion in left lower lobe liver 1.2 x 0.8 x 0 point centimeters recommend outpatient MRI; Multiple right hepatic cysts largest 4.1 cm. Hepatitis panel negative. - Left lower lobe liver mass recommended outpatient MRI follow-up. - trend LFTs. Hyperthyroidism TSH 0.08. Free T4 1.52. Free T3 1.46. - On Tapazole 10 mg 3 times a day in light of low TSH. - outpt follow-up. Anemia Hematology consult appreciated. - transfuse for Hgb < 7. PNA 10/26 Sputum cx: Pseudomonas species, Stap aureus, beta strep. 10/25 Sputum: Beta strep not Group A, pseudomonas species. ID consult appreciated. - continue IV cefepime per ID. Hypokalemia Likely s/t decreased PO intake. - replete with IV KCl and monitor. DVT - SCD/Lovenox subcutaneous Discharge Planning Transfer to the floor Milo Godwin DO Nov 01, 2016 10:23
[2016-11-01] MEDS: POTASSIUM CHLOR 20 MEQ PREMIX 100 ML IV PRN ×4 (10:29→17:30)
--- NOTE | 2016-11-01 11:39 | PD.ONC.PN ---
Subjective Subjective Remarks Afebrile overnight. Patient with at bedside. tolerating Lovenox injections. triple lumen removed. Objective Data Date Time Temp Pulse Resp B/P Pulse Ox O2 Delivery O2 Flow Rate FiO2 11/01/16 10:00 89 11/01/16 09:00 103 11/01/16 08:03 92 Nasal Cannula 4.00 11/01/16 08:00 98.3 103 27 136/63 91 11/01/16 08:00 102 11/01/16 06:40 93 Nasal Cannula 3.00 11/01/16 06:00 91 11/01/16 05:25 92 40 11/01/16 05:00 90 11/01/16 04:00 98.2 84 20 127/58 100 11/01/16 04:00 84 11/01/16 03:00 79 11/01/16 03:00 79 18 112/53 100 11/01/16 02:30 75 11/01/16 02:30 98 Nasal Cannula 3.00 11/01/16 02:00 82 11/01/16 02:00 82 23 124/61 97 11/01/16 01:30 80 11/01/16 01:00 74 19 108/54 99 11/01/16 01:00 74 11/01/16 00:30 74 11/01/16 00:17 94 40 11/01/16 00:01 79 11/01/16 00:01 79 22 133/60 95 11/01/16 00:00 98.4 80 19 94 10/31/16 23:30 77 10/31/16 23:00 78 20 100/51 98 10/31/16 23:00 78 10/31/16 22:30 92 10/31/16 22:15 109 10/31/16 22:00 100 10/31/16 22:00 100 18 121/56 95 10/31/16 21:15 96 10/31/16 21:00 93 10/31/16 21:00 93 20 132/60 97 10/31/16 20:45 93 Nasal Cannula 3.00 10/31/16 20:15 97 10/31/16 20:00 98.1 104 27 119/57 95 10/31/16 20:00 104 10/31/16 19:15 98 10/31/16 19:01 105 24 117/54 95 10/31/16 19:01 105 10/31/16 19:00 104 23 95 10/31/16 18:15 96 10/31/16 18:14 96 10/31/16 18:00 101 32 162/70 92 10/31/16 17:26 94 24 145/64 95 10/31/16 17:00 91 25 98 10/31/16 16:25 88 10/31/16 16:00 98.7 102 36 192/91 98 10/31/16 15:40 98 29 209/88 96 10/31/16 15:00 89 21 97 10/31/16 14:00 86 19 130/65 96 10/31/16 14:00 95 10/31/16 13:00 98.5 80 20 121/73 97 10/31/16 12:00 90 25 121/60 96 10/31/16 11:37 94 40 11/01/16 11/01/16 11/01/16 07:00 15:00 23:00 Intake Total 346 ml Output Total 260 ml Balance 86 ml Result Diagram: 11/01/16 0604 11/01/16 0604 Laboratory Results Laboratory Tests Test 10/31/16 11/01/16 12:59 06:04 Vancomycin Level Trough 20.2 MCG/ML White Blood Count 19.8 TH/MM3 Red Blood Count 3.00 MIL/MM3 Hemoglobin 8.3 GM/DL Hematocrit 25.8 % Mean Corpuscular Volume 85.8 FL Mean Corpuscular Hemoglobin 27.7 PG Mean Corpuscular Hemoglobin 32.2 % Concent Red Cell Distribution Width 14.1 % Platelet Count 383 TH/MM3 Mean Platelet Volume 8.7 FL Neutrophils (%) (Auto) 89.9 % Lymphocytes (%) (Auto) 4.4 % Monocytes (%) (Auto) 5.4 % Eosinophils (%) (Auto) 0.2 % Basophils (%) (Auto) 0.1 % Neutrophils # (Auto) 17.8 TH/MM3 Lymphocytes # (Auto) 0.9 TH/MM3 Monocytes # (Auto) 1.1 TH/MM3 Eosinophils # (Auto) 0.0 TH/MM3 Basophils # (Auto) 0.0 TH/MM3 CBC Comment DIFF FINAL Differential Comment Sodium Level 147 MEQ/L Potassium Level 3.2 MEQ/L Chloride Level 102 MEQ/L Carbon Dioxide Level 42.0 MEQ/L Anion Gap 3 MEQ/L Blood Urea Nitrogen 26 MG/DL Creatinine 0.65 MG/DL Estimat Glomerular Filtration 90 ML/MIN Rate Random Glucose 113 MG/DL Calcium Level 8.2 MG/DL Blood Type O POSITIVE Culture Results Microbiology Date/Time Procedure Status Source Growth 10/29/16 16:30 Gram Stain - Final Complete Sputum Endotracheal 10/29/16 16:30 Sputum Culture - Final Complete Sputum Endotracheal RARE GROWTH NORMAL RESPIRATORY FATIMAH Imaging Studies Last 24 hours Impressions Chest X-Ray 11/01/16 0000 Signed Impressions: Service Date/Time: Tuesday, November 01, 2016 04:41 - CONCLUSION: 1. Pleural-parenchymal density throughout the left lung and right midlung. No significant change. 2. Probable small pleural effusions. Buck Aparicio MD Administered Medications Medications (Trade) Dose Ordered Sig/Najma Route PRN Reason Start Time Stop Time Status Last Admin Dose Admin Aspirin (Aspirin Chew) 81 mg DAILY PO 10/25/16 09:00 11/01/16 09:02 Sodium Chloride (NS Flush) 2 ml UNSCH PRN .XX FLUSH AFTER USING IV ACCESS 10/24/16 20:00 10/28/16 08:09 Sodium Chloride (NS Flush) 2 ml BID .XX 10/24/16 21:00 11/01/16 09:03 Artificial Tears (Tears Naturale Opth Soln) 1 drop TID EACH EYE 10/25/16 09:00 11/01/16 09:01 Chlorhexidine Gluconate (Chlorhexidine 2% Cloth) Taper DAILY@04 TOP 10/25/16 04:00 10/21/17 03:59 11/01/16 02:36 Senna/Docusate Sodium (Olivia-Colace) 1 tab BID PO 10/24/16 21:00 11/01/16 09:02 Magnesium Hydroxide (Milk Of Magnesia Liq) 30 ml Q12H PRN PO MILD - MODERATE CONSTIPATION 10/24/16 20:00 10/28/16 08:07 Lactulose 30 ml 30 ml DAILY PRN PO SEVERE CONSITIPATION 10/24/16 20:00 10/28/16 08:07 Potassium Chloride 100 ml @ 50 mls/hr Q2H PRN IV For Potassium 2.8 - 3.2 mEq/L 10/25/16 09:00 10/31/16 15:00 Potassium Chloride 100 ml @ 50 mls/hr Q2H PRN IV For Potassium 2.8 - 3.2 mEq/L 10/25/16 09:00 11/01/16 10:29 Sodium Phosphate 30 mmol/Sodium Chloride 250 ml @ 42 mls/hr UNSCH PRN IV For Phosphorus < 2.5 mg/dL 10/25/16 09:00 10/28/16 00:20 Cefepime HCl/ Sodium Chloride (Maxipime Inj/NS Inj) 100 ml @ 200 mls/hr Q8H IV 10/25/16 10:00 11/01/16 09:00 Methimazole (Tapazole) 10 mg Q8HR PO 10/25/16 22:00 11/01/16 05:09 Cholestyramine Resin (Questran 4 Gm Pkt) 4 gm Q12HR PO 10/25/16 21:00 11/01/16 09:02 Pantoprazole Sodium (Protonix Inj) 40 mg Q24H IV PUSH 10/25/16 16:00 10/31/16 16:00 Chlorhexidine Gluconate (Peridex 0.12% Liq) 15 ml BID@08,20 MT 10/26/16 20:00 10/31/16 08:00 Insulin Human Regular (NovoLIN R SUPPLEMENTAL SCALE) 1 Q4H SQ 10/27/16 08:00 10/31/16 20:00 Water (Free Water) 250 ml Q12HR G-TUBE 10/28/16 09:00 10/29/16 08:00 Metoprolol Tartrate (Lopressor) 25 mg Q12HR PO 10/29/16 09:00 11/01/16 09:02 Atorvastatin Calcium (Lipitor) 20 mg HS PO 10/29/16 21:00 10/31/16 21:51 Bumetanide (Bumex Inj) 1 mg DAILY IV PUSH 10/29/16 09:30 11/01/16 09:01 Lisinopril (Prinivil) 10 mg Q12HR PO 10/29/16 14:45 11/01/16 09:02 Hydrocortisone Sodium Succinate (SoluCORTEF INJ) 50 mg Q8HR IV PUSH 10/31/16 14:00 11/01/16 05:09 Enoxaparin Sodium (Lovenox Inj) 60 mg BID SQ 10/31/16 21:00 11/01/16 09:02 Objective Remarks GENERAL: Frail elderly female upright in bed. SKIN: Warm and dry. HEAD: Normocephalic. EYES: No injection or drainage. NECK: Supple, trachea midline. CARDIOVASCULAR: +S1/S2 RESPIRATORY: anterior murphy clear. GASTROINTESTINAL: Abdomen soft, non-tender, nondistended. EXTREMITIES: No cyanosis. +anasarca MUSCULOSKELETAL: Adequate muscle tone. NEUROLOGICAL: lethargic, awake and alert, normal speech. Assessment/Plan Problem List: (1) DVT (deep venous thrombosis) Status: Acute Plan: --U/S showed LUE DVT --now s/p removal of triple lumen --on Lovenox 60mg SQ q 12 Assessment 68y/o admitted with STEMI, CAD, CHF, hematology consulted for newly diagnosed left upper extremity deep vein thromboses. h/o Coronary artery disease. Dyslipidemia. Previous myocardial infarction. Hypertension and decreased ejection fraction.. Diverticular disease. Left upper extremity deep vein thromboses. Anemia. Hypoalbuminemia. Plan 1. continue Lovenox 60mg SQ q 12. 2. could be bridged to oral anticoagulation (coumadin) once more stable. 3. hematology will sign off. please call or reconsult if needed. Attending Statement The exam, history, and the medical decision-making described in the above note were completed with the assistance of the mid-level provider. I reviewed and agree with the findings presented. I attest that I had a [id number] encounter with the patient on the same day, and personally performed and documented my assessment and findings in the medical record. Complained for being tired. No chest pain. No bleeding. L arm elevated, swelling decrease, wrinkles over left hand show more prominently. L subclavian central line DC'd. Discussed goal to bridge to therapeutic oral anticoagulant. Problem Qualifiers (1) DVT (deep venous thrombosis): Delia Worrell Nov 01, 2016 11:39 Cindy Hernandez MD Nov 01, 2016 22:25
[2016-11-01] MEDS ORDERED: VANCOMYCIN INJ 1,250 MG in SODIUM CHLOR 0.9% 250 ML INJ 250 ML IV SCH (14:00)
[2016-11-01] MEDS: PANTOPRAZOLE SODIUM 40 MG VIAL IV PUSH SCH (15:55)
--- NOTE | 2016-11-01 16:31 | HHI.IDPN ---
Subjective Subjective Remarks WBC is up to 19 K Pt is afebrile on 4 L of NC O2 co productive cough with talam[place] coloured sputum + co chest pain with cough denies abdominal pain no diarrhea Antibiotics cefepime Allergies: Coded Allergies: Propofol (Verified Adverse Reaction, Severe, bradycardia, 10/25/16) Objective . Vital Signs Date Time Temp Pulse Resp B/P Pulse Ox O2 Delivery O2 Flow Rate FiO2 11/01/16 14:00 95 11/01/16 12:00 98.8 91 21 115/58 96 11/01/16 12:00 91 11/01/16 10:00 89 11/01/16 09:00 103 11/01/16 08:03 92 Nasal Cannula 4.00 11/01/16 08:00 98.3 103 27 136/63 91 11/01/16 08:00 102 11/01/16 06:40 93 Nasal Cannula 3.00 11/01/16 06:00 91 11/01/16 05:25 92 40 11/01/16 05:00 90 11/01/16 04:00 98.2 84 20 127/58 100 11/01/16 04:00 84 11/01/16 03:00 79 11/01/16 03:00 79 18 112/53 100 11/01/16 02:30 75 11/01/16 02:30 98 Nasal Cannula 3.00 11/01/16 02:00 82 11/01/16 02:00 82 23 124/61 97 11/01/16 01:30 80 11/01/16 01:00 74 19 108/54 99 11/01/16 01:00 74 11/01/16 00:30 74 11/01/16 00:17 94 40 11/01/16 00:01 79 11/01/16 00:01 79 22 133/60 95 11/01/16 00:00 98.4 80 19 94 10/31/16 23:30 77 10/31/16 23:00 78 20 100/51 98 10/31/16 23:00 78 10/31/16 22:30 92 10/31/16 22:15 109 10/31/16 22:00 100 10/31/16 22:00 100 18 121/56 95 10/31/16 21:15 96 10/31/16 21:00 93 10/31/16 21:00 93 20 132/60 97 10/31/16 20:45 93 Nasal Cannula 3.00 10/31/16 20:15 97 10/31/16 20:00 98.1 104 27 119/57 95 10/31/16 20:00 104 10/31/16 19:15 98 10/31/16 19:01 105 24 117/54 95 10/31/16 19:01 105 10/31/16 19:00 104 23 95 10/31/16 18:15 96 10/31/16 18:14 96 10/31/16 18:00 101 32 162/70 92 10/31/16 17:26 94 24 145/64 95 10/31/16 17:00 91 25 98 10/31/16 16:25 88 10/31/16 10/31/16 11/01/16 15:00 23:00 07:00 Intake Total 975 ml 624 ml 346 ml Output Total 2000 ml 400 ml 260 ml Balance -1025 ml 224 ml 86 ml Intake Oral 550 ml 240 ml 240 ml IV Total 425 ml 384 ml 106 ml Output Urine Total 2000 ml 400 ml 260 ml # Bowel Movements 2 0 0 . Laboratory Tests Test 10/31/16 11/01/16 05:00 06:04 White Blood Count 16.2 TH/MM3 19.8 TH/MM3 Red Blood Count 2.62 MIL/MM3 3.00 MIL/MM3 Hemoglobin 7.3 GM/DL 8.3 GM/DL Hematocrit 22.4 % 25.8 % Mean Corpuscular Volume 85.4 FL 85.8 FL Mean Corpuscular Hemoglobin 27.8 PG 27.7 PG Mean Corpuscular Hemoglobin 32.5 % 32.2 % Concent Red Cell Distribution Width 13.9 % 14.1 % Platelet Count 229 TH/MM3 383 TH/MM3 Mean Platelet Volume 9.1 FL 8.7 FL Neutrophils (%) (Auto) 87.9 % 89.9 % Lymphocytes (%) (Auto) 5.0 % 4.4 % Monocytes (%) (Auto) 6.6 % 5.4 % Eosinophils (%) (Auto) 0.3 % 0.2 % Basophils (%) (Auto) 0.2 % 0.1 % Neutrophils # (Auto) 14.3 TH/MM3 17.8 TH/MM3 Lymphocytes # (Auto) 0.8 TH/MM3 0.9 TH/MM3 Monocytes # (Auto) 1.1 TH/MM3 1.1 TH/MM3 Eosinophils # (Auto) 0.0 TH/MM3 0.0 TH/MM3 Basophils # (Auto) 0.0 TH/MM3 0.0 TH/MM3 CBC Comment AUTO DIFF DIFF FINAL Differential Total Cells 100 Counted Neutrophils % (Manual) 88 % Band Neutrophils % 1 % Lymphocytes % 6 % Monocytes % 4 % Neutrophils # (Manual) 14.6 TH/MM3 Myelocytes 1 % Differential Comment FINAL DIFF MANUAL Platelet Estimate NORMAL Platelet Morphology Comment NORMAL Laboratory Tests Test 10/31/16 11/01/16 05:00 06:04 Sodium Level 149 MEQ/L 147 MEQ/L Potassium Level 3.2 MEQ/L 3.2 MEQ/L Chloride Level 110 MEQ/L 102 MEQ/L Carbon Dioxide Level 34.3 MEQ/L 42.0 MEQ/L Anion Gap 5 MEQ/L 3 MEQ/L Blood Urea Nitrogen 29 MG/DL 26 MG/DL Creatinine 0.51 MG/DL 0.65 MG/DL Estimat Glomerular Filtration 119 ML/MIN 90 ML/MIN Rate Random Glucose 113 MG/DL 113 MG/DL Calcium Level 7.8 MG/DL 8.2 MG/DL Microbiology Date/Time Procedure Status Source Growth 10/29/16 16:30 Gram Stain - Final Complete Sputum Endotracheal 10/29/16 16:30 Sputum Culture - Final Complete Sputum Endotracheal RARE GROWTH NORMAL RESPIRATORY FATIMAH Imaging Last Impressions Chest X-Ray 11/01/16 0000 Signed Impressions: Service Date/Time: Tuesday, November 01, 2016 04:41 - CONCLUSION: 1. Pleural-parenchymal density throughout the left lung and right midlung. No significant change. 2. Probable small pleural effusions. Buck Aparicio MD Upper Extremity Ultrasound 10/31/16 0000 Signed Impressions: Service Date/Time: Monday, October 31, 2016 14:18 - CONCLUSION: Deep venous thrombosis on the left as described above. Germain Calhoun MD FACR Hepatobiliary Scan Nuclear Medicine 10/26/16 0000 Signed Impressions: Service Date/Time: Wednesday, October 26, 2016 11:51 - CONCLUSION: 1. Activity is demonstrated in the gallbladder confirming patency of the cystic duct and making possibility of acute cholecystitis highly unlikely. 2. Patent common bile duct. Matthieu Apodaca MD Liver Ultrasound 10/25/16 0000 Signed Impressions: Service Date/Time: Tuesday, October 25, 2016 11:32 - CONCLUSION: 1. Probable single subcentimeter gallstone in the gallbladder. There is gallbladder wall thickening and trace pericholecystic fluid although the gallbladder is not significantly distended. Overall, the findings may reflect developing acute cholecystitis. Recommend HIDA scan to evaluate patency of the cystic duct if there is continued concern regarding cholecystitis. 2. Small 1.2 x 0.9 x 0.8 cm isoechoic mass in the left lobe of liver. Overall, the findings are nonspecific and further characterization is difficult due to small size. Differential considerations include both malignant and benign etiologies. This may be further evaluated with multiphase MRI exam on an outpatient basis. 3. Multiple bilateral right hepatic cysts measuring up to 4.1 cm, as above. Matthieu Apodaca MD Chest CT 10/24/16 0000 Signed Impressions: Service Date/Time: Monday, October 24, 2016 19:44 - CONCLUSION: 1. Small right pneumothorax. Pneumomediastinum adjacent to the right side of the esophagus. 2. Chronic severe bronchiectasis left greater than right. 3. New severe mixed groundglass and consolidative ulnar parenchymal opacity at the right lung. Differential diagnosis includes infection versus asymmetric pulmonary edema. 4. Multiple hepatic cysts. 5. Thyroid goiter. Yovany Dawn MD Physical Exam CONSTITUTIONAL/GENERAL: This is an adequately nourished patient, in no apparent distress. TUBES/LINES/DRAINS: SKIN: No jaundice, rashes, or lesions. Skin temperature appropriate. Not diaphoretic. HEAD: Atraumatic. Normocephalic. EYES: No scleral icterus. No injection or drainage. Fundi not examined. ENT: Throat without visible erythema, exudates, masses, or lesions. NECK: Trachea midline. Supple, nontender. No palpable thyroid enlargement or nodularity. CARDIOVASCULAR: irregular rate and rhythm + 2/6 systolic murmur No JVD. Peripheral pulses symmetric. RESPIRATORY/CHEST: Symmetric, unlabored respirations. Diffuse b/l rhonchi on L side to auscultation. GASTROINTESTINAL: Abdomen soft, non-tender, mildly distended. No hepato- splenomegaly, or palpable masses. No guarding. Bowel sounds present. GENITOURINARY: Without palpable bladder distension. Meier catheter in place with clear yellow urine MUSCULOSKELETAL: Extremities without clubbing, cyanosis no edema. NEUROLOGICAL: Awake and alert. Follows commands. Clear speech. Moves all extremities. PSYCHIATRIC:: calm and coopertive Assessment & Plan Remarks sp STEMI Acute VDRF, resolved PNA, MSSA, PSAE LUE DVT - new issue, on Lovenox Worsening leukocytosis cont cefepime x 3 more days if cont to improve, longer (up to 7 more day) if persistent smx - fu WBC - fu clinically - repeat sputum clx Anamaria Armstrong MD Nov 01, 2016 16:31
[2016-11-01] MEDS: ATORVASTATIN 20 MG TAB PO SCH (20:54)
[2016-11-02] VITALS (13 sets, daily range): BP systolic 124–153; BP diastolic 60–70; PULSE 79–98; RESP 18–20; TEMP 97.9–98.6; O2SAT 94–99
[2016-11-02] MEDS: CEFEPIME INJ 2,000 MG in SODIUM CHLORIDE 0.9% INJ 100 ML IV SCH ×3 (02:13→16:54)
[2016-11-02] MEDS: RESP: ALBUTEROL 2.5 MG/IPRATROPIUM 0.5 MG NEB (SCH) NEB ×3 (03:33→12:09)
[2016-11-02] MEDS: INSULIN NovoLIN REGULAR SUPPLEMENTAL SCALE SQ SCH ×2 (04:00→08:00)
[2016-11-02] MEDS: CHLORHEXIDINE GLUCONATE 2 % 1 PACK (2 CLOTHS) TOP SCH (04:00)
[2016-11-02] MEDS: HYDROCORTISONE SOD SUCCINATE 100 MG VIAL IV PUSH SCH ×3 (06:27→22:15)
[2016-11-02] MEDS: METHIMAZOLE 10 MG TAB PO SCH ×3 (06:27→22:15)
[2016-11-02] MEDS: CHLORHEXIDINE 0.12% (ORAL KIT) 15 ML CUP MT SCH ×2 (08:00→20:00)
[2016-11-02] MEDS: RESP: BUDESONIDE 0.5 MG/2 ML NEB NEB SCH ×2 (08:39→20:01)
--- NOTE | 2016-11-02 08:59 | PD.CARD.PN ---
Subjective Subjective Remarks Doing better, out of ICU Objective Medications Administered Medications Medications (Trade) Dose Ordered Sig/Najma Route PRN Reason Start Time Stop Time Status Last Admin Dose Admin Aspirin (Aspirin Chew) 81 mg DAILY PO 10/25/16 09:00 11/01/16 09:02 Sodium Chloride (NS Flush) 2 ml UNSCH PRN .XX FLUSH AFTER USING IV ACCESS 10/24/16 20:00 10/28/16 08:09 Sodium Chloride (NS Flush) 2 ml BID .XX 10/24/16 21:00 11/01/16 20:53 Artificial Tears (Tears Naturale Opth Soln) 1 drop TID EACH EYE 10/25/16 09:00 11/01/16 18:30 Chlorhexidine Gluconate (Chlorhexidine 2% Cloth) Taper DAILY@04 TOP 10/25/16 04:00 10/21/17 03:59 11/02/16 04:00 Senna/Docusate Sodium (Olivia-Colace) 1 tab BID PO 10/24/16 21:00 11/01/16 09:02 Magnesium Hydroxide (Milk Of Magnesia Liq) 30 ml Q12H PRN PO MILD - MODERATE CONSTIPATION 10/24/16 20:00 10/28/16 08:07 Lactulose 30 ml 30 ml DAILY PRN PO SEVERE CONSITIPATION 10/24/16 20:00 10/28/16 08:07 Cefepime HCl/ Sodium Chloride (Maxipime Inj/NS Inj) 100 ml @ 200 mls/hr Q8H IV 10/25/16 10:00 11/02/16 02:13 Methimazole (Tapazole) 10 mg Q8HR PO 10/25/16 22:00 11/02/16 06:27 Cholestyramine Resin (Questran 4 Gm Pkt) 4 gm Q12HR PO 10/25/16 21:00 11/01/16 20:54 Pantoprazole Sodium (Protonix Inj) 40 mg Q24H IV PUSH 10/25/16 16:00 11/01/16 15:55 Chlorhexidine Gluconate (Peridex 0.12% Liq) 15 ml BID@08,20 MT 10/26/16 20:00 11/01/16 20:00 Insulin Human Regular (NovoLIN R SUPPLEMENTAL SCALE) 1 Q4H SQ 10/27/16 08:00 11/01/16 20:52 Water (Free Water) 250 ml Q12HR G-TUBE 10/28/16 09:00 10/29/16 08:00 Metoprolol Tartrate (Lopressor) 25 mg Q12HR PO 10/29/16 09:00 11/01/16 20:53 Atorvastatin Calcium (Lipitor) 20 mg HS PO 10/29/16 21:00 11/01/16 20:54 Bumetanide (Bumex Inj) 1 mg DAILY IV PUSH 10/29/16 09:30 11/01/16 09:01 Lisinopril (Prinivil) 10 mg Q12HR PO 10/29/16 14:45 11/01/16 20:54 Hydrocortisone Sodium Succinate (SoluCORTEF INJ) 50 mg Q8HR IV PUSH 10/31/16 14:00 11/02/16 06:27 Enoxaparin Sodium (Lovenox Inj) 60 mg BID SQ 10/31/16 21:00 11/01/16 20:54 Vital Signs / I&O Vital Signs Date Time Temp Pulse Resp B/P Pulse Ox O2 Delivery O2 Flow Rate FiO2 11/02/16 08:41 94 Nasal Cannula 3.00 11/02/16 04:00 98.0 88 20 149/69 96 11/02/16 03:34 98 Nasal Cannula 3.00 11/02/16 00:00 98.0 88 20 145/60 98 11/02/16 00:00 Nasal Cannula 4.00 Humidified 11/01/16 23:35 98 Nasal Cannula 3.00 11/01/16 20:00 95 11/01/16 20:00 97.6 100 20 122/58 96 11/01/16 20:00 Nasal Cannula 4.00 Humidified 11/01/16 19:46 98 Nasal Cannula 3.00 11/01/16 18:30 97.9 102 20 135/82 95 11/01/16 16:00 98.5 96 30 159/70 91 11/01/16 16:00 96 11/01/16 14:00 95 11/01/16 12:00 98.8 91 21 115/58 96 11/01/16 12:00 91 11/01/16 10:00 89 11/01/16 09:00 103 I/O 6/24/17 6/11/01/16 11/02/16 11/02/16 11/02/16 07:00 15:00 23:00 07:00 15:00 23:00 Intake Total 346 ml 1104 ml 240 ml Output Total 260 ml 1250 ml 250 ml 350 ml Balance 86 ml -146 ml -10 ml -350 ml Intake Oral 240 ml 720 ml 240 ml IV Total 106 ml 384 ml Output Urine Total 260 ml 1250 ml 250 ml 350 ml # Bowel Movements 0 0 1 Physical Exam GENERAL: This is a well-nourished, well-developed patient, in no apparent distress. CARDIOVASCULAR: Regular rate and rhythm without murmurs, gallops, or rubs. RESPIRATORY: rales/rhonic all murphy GASTROINTESTINAL: Abdomen soft, non-tender, nondistended. Normal active bowel sounds MUSCULOSKELETAL: Extremities without clubbing, cyanosis, or edema. NEURO: Alert & Oriented x4 to person, place, time, situation. Moves all ext x4 Laboratory Laboratory Tests Test 11/01/16 19:59 Potassium Level 3.8 MEQ/L Imaging Last Impressions Chest X-Ray 11/01/16 0000 Signed Impressions: Service Date/Time: Tuesday, November 01, 2016 04:41 - CONCLUSION: 1. Pleural-parenchymal density throughout the left lung and right midlung. No significant change. 2. Probable small pleural effusions. Buck Aparicio MD Upper Extremity Ultrasound 10/31/16 0000 Signed Impressions: Service Date/Time: Monday, October 31, 2016 14:18 - CONCLUSION: Deep venous thrombosis on the left as described above. Germain Calhoun MD FACR Hepatobiliary Scan Nuclear Medicine 10/26/16 0000 Signed Impressions: Service Date/Time: Wednesday, October 26, 2016 11:51 - CONCLUSION: 1. Activity is demonstrated in the gallbladder confirming patency of the cystic duct and making possibility of acute cholecystitis highly unlikely. 2. Patent common bile duct. Matthieu Apodaca MD Liver Ultrasound 10/25/16 0000 Signed Impressions: Service Date/Time: Tuesday, October 25, 2016 11:32 - CONCLUSION: 1. Probable single subcentimeter gallstone in the gallbladder. There is gallbladder wall thickening and trace pericholecystic fluid although the gallbladder is not significantly distended. Overall, the findings may reflect developing acute cholecystitis. Recommend HIDA scan to evaluate patency of the cystic duct if there is continued concern regarding cholecystitis. 2. Small 1.2 x 0.9 x 0.8 cm isoechoic mass in the left lobe of liver. Overall, the findings are nonspecific and further characterization is difficult due to small size. Differential considerations include both malignant and benign etiologies. This may be further evaluated with multiphase MRI exam on an outpatient basis. 3. Multiple bilateral right hepatic cysts measuring up to 4.1 cm, as above. Matthieu Apodaca MD Chest CT 10/24/16 0000 Signed Impressions: Service Date/Time: Monday, October 24, 2016 19:44 - CONCLUSION: 1. Small right pneumothorax. Pneumomediastinum adjacent to the right side of the esophagus. 2. Chronic severe bronchiectasis left greater than right. 3. New severe mixed groundglass and consolidative ulnar parenchymal opacity at the right lung. Differential diagnosis includes infection versus asymmetric pulmonary edema. 4. Multiple hepatic cysts. 5. Thyroid goiter. Yovany Dawn MD Assessment and Plan Problem List: (1) Respiratory failure Assessment and Plan: Improved, extubated, per pulmonary (2) DVT (deep venous thrombosis) Assessment and Plan: on lovenox, likely to change to NoAC at some point. (3) Cardiomyopathy Assessment and Plan: on marcia/BB; perhaps can change to entresto at some point; will get confirmatory echo (4) Elevated troponin I level Assessment and Plan: no significant CAD by cath (5) Pulmonary edema Assessment and Plan: stable Assessment and Plan Doing better, continue med mgt Problem Qualifiers (1) Respiratory failure: Qualified Code: J96.00 - Acute respiratory failure, unspecified whether with hypoxia or hypercapnia (2) DVT (deep venous thrombosis): (3) Pulmonary edema: Qualified Code: J81.0 - Acute pulmonary edema Raul Michelle MD Nov 02, 2016 08:59
[2016-11-02 09:00] LABS: AUTOMATED NEUTROPHIL # 17.4 TH/MM3 (1.8-7.7); BASOPHIL % 0.1 % (0.0-2.0); EOSINOPHIL # 0.1 TH/MM3 (0-0.4); EOSINOPHIL % 0.7 % (0.0-4.0); HEMATOCRIT 24.7 % (35.0-46.0); HEMO FLAGS DIFF FINAL; LYMPH % 4.3 % (9.0-44.0); LYMPHOCYTE # 0.8 TH/MM3 (1.0-4.8); MEAN CELL VOLUME 86.2 FL (80.0-100.0); MEAN CORPUSCULAR HEMOGLOBIN 27.2 PG (27.0-34.0); MEAN CORPUSCULAR HGB CONC 31.6 % (32.0-36.0); MONO % 5.2 % (0.0-8.0); NEUT % 89.7 % (16.0-70.0); PLATELET COUNT 401 TH/MM3 (150-450); RED BLOOD COUNT 2.86 MIL/MM3 (4.00-5.30); WHITE BLOOD COUNT 19.5 TH/MM3 (4.0-11.0)
[2016-11-02] MEDS: ARTIFICIAL TEARS OPTH SOLN 15 ML BTL EACH EYE SCH ×2 (09:00→13:16)
[2016-11-02] MEDS: FREE WATER G-TUBE SCH ×2 (09:00→21:00)
[2016-11-02] MEDS: SODIUM CHLORIDE 0.9% FLUSH 10 ML FLUSH SCH ×2 (09:00→20:21)
[2016-11-02 09:22] LABS: BICARBONATE 37.8 MEQ/L (21.0-32.0); MAGNESIUM 2.4 MG/DL (1.5-2.5); POTASSIUM 3.2 MEQ/L (3.5-5.1)
[2016-11-02] MEDS: BUMETANIDE INJ 1 MG/4 ML VIAL IV PUSH SCH (10:15)
[2016-11-02] MEDS: CHOLESTYRAMINE 4 GM PACKET PO SCH ×2 (10:16→20:21)
[2016-11-02] MEDS: METOPROLOL TARTRATE 25 MG TAB PO SCH ×2 (10:16→20:20)
[2016-11-02] MEDS: LISINOPRIL 10 MG TAB PO SCH ×2 (10:16→20:20)
[2016-11-02] MEDS: ASPIRIN 81 MG CHEW TAB PO SCH (10:16)
[2016-11-02] MEDS: DOCUSATE SODIUM 50 MG/SENNA 8.6 MG TAB PO SCH ×2 (10:16→20:20)
[2016-11-02] MEDS: ENOXAPARIN SODIUM 60 MG/0.6 ML SYRINGE SQ SCH ×2 (10:17→20:21)
--- NOTE | 2016-11-02 10:34 | HHI.PR ---
Subjective Remarks Follow-up for respiratory failure Patient stated that breathing is the same. She denies any worsening of shortness of breathing. Patient stated that she had difficulty swallowing liquids. She stated that with the solid food she does well. Patient is asking to get out of bed and do physical therapy. Her and son are at the bedside. Patient's nurse is also the bedside. Objective Vitals Vital Signs Date Time Temp Pulse Resp B/P Pulse Ox O2 Delivery O2 Flow Rate FiO2 11/02/16 08:41 94 Nasal Cannula 3.00 11/02/16 08:00 97.9 91 20 153/70 95 11/02/16 04:00 98.0 88 20 149/69 96 11/02/16 03:34 98 Nasal Cannula 3.00 11/02/16 00:00 98.0 88 20 145/60 98 11/02/16 00:00 Nasal Cannula 4.00 Humidified 11/01/16 23:35 98 Nasal Cannula 3.00 11/01/16 20:00 95 11/01/16 20:00 97.6 100 20 122/58 96 11/01/16 20:00 Nasal Cannula 4.00 Humidified 11/01/16 19:46 98 Nasal Cannula 3.00 11/01/16 18:30 97.9 102 20 135/82 95 11/01/16 16:00 98.5 96 30 159/70 91 11/01/16 16:00 96 11/01/16 14:00 95 11/01/16 12:00 98.8 91 21 115/58 96 11/01/16 12:00 91 I/O 11/01/16 11/01/16 11/01/16 11/02/16 11/02/16 11/02/16 07:00 15:00 23:00 07:00 15:00 23:00 Intake Total 346 ml 1104 ml 240 ml Output Total 260 ml 1250 ml 250 ml 350 ml Balance 86 ml -146 ml -10 ml -350 ml Intake Oral 240 ml 720 ml 240 ml IV Total 106 ml 384 ml Output Urine Total 260 ml 1250 ml 250 ml 350 ml # Bowel Movements 0 0 1 Result Diagram: 11/02/1630 11/02/1630 Objective Remarks GENERAL: in NAD CARDIOVASCULAR: Regular rate and rhythm without murmurs, gallops, or rubs. RESPIRATORY: Diffuse rhonchi. Bilateral basilar coarse crackles. No wheezing noted. GASTROINTESTINAL: Abdomen soft, non-tender, nondistended. MUSCULOSKELETAL: No cyanosis, or edema. BACK: Nontender without obvious deformity. No CVA tenderness. Medications and IVs Current Medications Propofol 100 ml @ As Directed STK-MED ONCE .ROUTE Last administered on 18:28; Start 10/24/16 at 18:17; Stop 10/24/16 at 18:18; Status DC Sodium Chloride (NS 1000 ml Inj) 1,000 ml @ 0 mls/hr Q0M ONCE IV Last administered on 10/24/16 18:44; Start 10/24/16 at 18:19; Stop 10/24/16 at 18:20 ; Status DC Sodium Chloride (NS Flush) 2 ml UNSCH PRN IVF FLUSH AFTER USING IV ACCESS; Start 10/24/16 at 18:30; Stop 10/24/16 at 20:16; Status DC Aspirin (Aspirin Chew) 324 mg NOW STAT PO ; Start 10/24/16 at 18:19; Stop 10/24 at 18:20; Status DC Nitroglycerin 0.4 mg 0.4 mg NOW STAT SL ; Start 10/24/16 at 18:19; Stop at 18:20; Status DC Nitroglycerin/ Dextrose (Nitroglycerin-Dextrose Inj) 250 ml @ 0 mls/hr TITRATE IV ; Start 10/24/16 at 18:30; Stop 10/26/16 at 07:16; Status DC Heparin Sodium (Porcine) 5000 units 5,000 units NOW STAT IV Last administered on 10/24/16 18:43; Start 10/24/16 at 18:19; Stop 10/24/16 at 18:20; Status DC Heparin Sodium/ Sodium Chloride (Heparin-NS/Pf Inj) 500 ml @ As Directed STK- MED ONCE .ROUTE ; Start 10/24/16 at 18:42; Stop 10/24/16 at 18:43; Status DC Sodium Nitroprusside 50 mg 50 mg STK-MED ONCE .ROUTE ; Start 10/24/16 at 18:43; Stop 10/24/16 at 18:44; Status DC Tirofiban/Sodium Chloride (Aggrastat Infusion Inj) 250 ml @ As Directed STK- MED ONCE IV ; Start 10/24/16 at 18:43; Stop 10/24/16 at 18:44; Status DC Heparin Sodium (Porcine) 03600 units 10,000 units STK-MED ONCE .ROUTE ; Start at 18:43; Stop 10/24/16 at 18:44; Status DC Nitroglycerin (Nitroglycerin Inj) 5 ml @ As Directed STK-MED ONCE .ROUTE ; Start 10/24/16 at 18:43; Stop 10/24/16 at 18:44; Status DC Heparin Sodium (Porcine) 75822 units 10,000 units STK-MED ONCE .ROUTE ; Start at 18:58; Stop 10/24/16 at 18:59; Status DC Dopamine HCl/ Dextrose (DOPamine INJ PREMIX) 500 ml @ As Directed STK-MED ONCE .ROUTE ; Start 10/24/16 at 19:13; Stop 10/24/16 at 19:14; Status DC Iohexol (Omnipaque 350 Inj) 50 ml STK-MED ONCE IV Last administered on 19:47; Start 10/24/16 at 19:47; Stop 10/24/16 at 19:48; Status DC Aspirin (Aspirin Chew) 81 mg DAILY PO Last administered on 11/02/16 10:16; Start 10/25/16 at 09:00 Methimazole (Tapazole) 5 mg BID PO Last administered on 10/25/16 08:43; Start 10/24/16 at 21:00; Stop 10/25/16 at 15:13; Status DC Iohexol 50 ml 50 ml STK-MED ONCE IV ; Start 10/24/16 at 19:52; Stop 10/24/16 at 19:53; Status Cancel Sodium Chloride (NS 1000 ml Inj) 1,000 ml @ 40 mls/hr Q24H IV Last administered on 10/28/16 07:33; Start 10/24/16 at 19:48; Stop 10/28/16 at 08:35 ; Status DC Sodium Chloride (NS Flush) 2 ml UNSCH PRN .XX FLUSH AFTER USING IV ACCESS Last administered on 10/28/16 08:09; Start 10/24/16 at 20:00 Sodium Chloride (NS Flush) 2 ml BID .XX Last administered on 11/01/16 20:53; Start 10/24/16 at 21:00 Acetaminophen (Tylenol) 650 mg Q6H PRN PO PAIN 1-2 AND/OR FEVER >101F; Start at 20:00 Morphine Sulfate (Morphine Inj) 2 mg Q2H PRN IV PAIN SCALE 6 TO 10 Last administered on 10/31/16 00:28; Start 10/24/16 at 20:00; Stop 10/31/16 at 12:11 ; Status DC Famotidine (Pepcid Inj) 20 mg Q12HR IV PUSH Last administered on 10/25/16 08: 45; Start 10/24/16 at 21:00; Stop 10/25/16 at 15:16; Status DC Lorazepam (Ativan Inj) 1 mg Q1H PRN IV Agitation/Sedation; Start 10/24/16 at 20 :00; Stop 10/26/16 at 07:16; Status DC Artificial Tears (Tears Naturale Opth Soln) 1 drop TID EACH EYE Last administered on 11/01/16 18:30; Start 10/25/16 at 09:00 Ondansetron HCl (Zofran Inj) 4 mg Q6H PRN IV NAUSEA OR VOMITING; Start at 20:00 Metoclopramide HCl (Reglan Inj) 10 mg Q6H PRN IV NAUSEA OR VOMITING; Start at 20:00 Prochlorperazine (Compazine Supp) 25 mg Q12H PRN RECTAL NAUSEA OR VOMITING; Start 10/24/16 at 20:00 Albuterol/ Ipratropium (Duoneb Neb) 1 ampule Q6HR NEB INH Last administered on 10/25/16 07:27; Start 10/24/16 at 22:00; Stop 10/25/16 at 09:40; Status DC Albuterol/ Ipratropium (Duoneb Neb) 1 ampule Q2HR NEB PRN INH WHEEZING; Start 10/24/16 at 20:00; Stop 10/25/16 at 08:45; Status DC Miscellaneous Information 1 Q361D XX ; Start 10/24/16 at 20:00 Chlorhexidine Gluconate (Chlorhexidine 2% Cloth) Taper DAILY@04 TOP Last administered on 11/02/16 04:00; Start 10/25/16 at 04:00; Stop 10/21/17 at 03:59 Chlorhexidine Gluconate (Chlorhexidine 2% Cloth) 3 pack UNSCH PRN TOP HYGIENIC CARE; Start 10/24/16 at 20:00 Senna/Docusate Sodium (Olivia-Colace) 1 tab BID PO Last administered on 10:16; Start 10/24/16 at 21:00 Magnesium Hydroxide (Milk Of Magnesia Liq) 30 ml Q12H PRN PO MILD - MODERATE CONSTIPATION Last administered on 10/28/16 08:07; Start 10/24/16 at 20:00 Sennosides (Senokot) 17.2 mg Q12H PRN PO MODERATE - SEVERE CONSTIPATION; Start 10/24/16 at 20:00 Bisacodyl (Dulcolax Supp) 10 mg DAILY PRN RECTAL SEVERE CONSITIPATION; Start at 20:00 Lactulose 30 ml 30 ml DAILY PRN PO SEVERE CONSITIPATION Last administered on 08:07; Start 10/24/16 at 20:00 Propofol (Diprivan 1000 Mg/100ml Inj) 100 ml @ 0 mls/hr TITRATE IV ; Start 10/24 at 20:00; Stop 10/25/16 at 08:51; Status DC Norepinephrine Bitartrate (Levophed Inj) 4 mg STK-MED ONCE .ROUTE ; Start at 20:10; Stop 10/24/16 at 20:11; Status DC Miscellaneous Information 1 ONCE ONCE XX ; Start 10/24/16 at 20:30; Stop at 20:31; Status DC Lidocaine HCl 10 ml 10 ml UNSCH PRN INFIL SHEATH REMOVAL; Start 10/24/16 at 20: 30; Stop 10/25/16 at 20:29; Status DC Fentanyl Citrate 250 ml @ 0 mls/hr TITRATE IV Last administered on 10/25/16 21 :30; Start 10/24/16 at 21:30; Stop 10/26/16 at 07:16; Status DC Midazolam HCl 100 ml @ 0 mls/hr TITRATE IV Last administered on 10/24/16 22:05 ; Start 10/24/16 at 21:30; Stop 10/26/16 at 07:17; Status DC Norepinephrine Bitartrate 250 ml @ As Directed STK-MED ONCE IV Last administered on 10/25/16 00:20; Start 10/25/16 at 00:15; Stop 10/25/16 at 00:16 ; Status DC Norepinephrine Bitartrate (Levophed-Dextrose Drip) 250 ml @ 0 mls/hr TITRATE IV Last administered on 10/25/16 21:30; Start 10/25/16 at 04:45; Stop 10/26/16 at 07:17; Status DC Albuterol Sulfate 2.5 mg 2.5 mg Q2HR NEB PRN NEB DYSPNEA; Start 10/25/16 at 08: 45; Stop 10/29/16 at 15:59; Status DC Potassium Chloride 100 ml @ 25 mls/hr BOLUS ONCE IV Last administered on 10/25 10:43; Start 10/25/16 at 11:00; Stop 10/25/16 at 14:59; Status DC Magnesium Sulfate/ Dextrose 100 ml @ 100 mls/hr Q1H IV Last administered on 12:56; Start 10/25/16 at 10:00; Stop 10/25/16 at 12:59; Status DC Potassium Phosphate 30 mmol/ Sodium Chloride 260 ml @ 43.333 mls/ hr ONCE ONCE IV Last administered on 10/25/16 14:29; Start 10/25/16 at 13:00; Stop at 18:59; Status DC Potassium Chloride 100 ml @ 50 mls/hr Q2H PRN IV For Potassium 2.8 - 3.2 mEq/ L Last administered on 10/31/16 15:00; Start 10/25/16 at 09:00; Stop 11/02/16 at 07:51; Status DC Potassium Chloride (KCl 20 Meq Premix Inj) 100 ml @ 50 mls/hr Q2H PRN IV For Potassium 2.8 - 3.2 mEq/L Last administered on 11/01/16 17:30; Start 10/25/16 at 09:00; Stop 11/02/16 at 07:51; Status DC Potassium Bicarb/ Potassium Chloride 50 meq 50 meq UNSCH PRN PO For Potassium 3.3 - 3.5 mEq/L; Start 10/25/16 at 09:00; Stop 11/02/16 at 07:51; Status DC Potassium Chloride 100 ml @ 25 mls/hr UNSCH PRN IV For Potassium 3.3 - 3.5 mEq /L; Start 10/25/16 at 09:00; Stop 11/02/16 at 07:51; Status DC Potassium Chloride 100 ml @ 50 mls/hr Q2H PRN IV For Potassium 3.3 - 3.5 mEq/L ; Start 10/25/16 at 09:00; Stop 11/02/16 at 07:51; Status DC Magnesium Sulfate/ Sodium Chloride (Magnesium Sulfate Inj/NS Inj) 100 ml @ 50 mls/hr UNSCH PRN IV For Magnesium 0.9 - 1.1 mg/dL; Start 10/25/16 at 09:00; Stop 11/02/16 at 07:51; Status DC Magnesium Oxide 800 mg 800 mg UNSCH PRN PO For Magnesium 1.2 - 1.6 mg/dL; Start 10/25/16 at 09:00; Stop 11/02/16 at 07:51; Status DC Magnesium Sulfate/ Sodium Chloride (Magnesium Sulfate Inj/NS Inj) 100 ml @ 50 mls/hr UNSCH PRN IV For Magnesium 1.2 - 1.6 mg/dL; Start 10/25/16 at 09:00; Stop 11/02/16 at 07:51; Status DC Potassium Phosphate 2000 mg 2,000 mg Q4H PRN PO For Phosphorus < 2.5 mg/dL; Start 10/25/16 at 09:00; Stop 11/02/16 at 07:51; Status DC Sodium Phosphate/ Sodium Chloride (Sodium Phosphate Inj/NS 250 ml Inj) 250 ml @ 42 mls/hr UNSCH PRN IV For Phosphorus < 2.5 mg/dL Last administered on t 00:20; Start 10/25/16 at 09:00; Stop 11/02/16 at 07:51; Status DC Potassium Phosphate 2000 mg 2,000 mg UNSCH PRN PO/TUBE SEE LABEL COMMENTS; Start 10/25/16 at 09:00; Stop 11/02/16 at 07:51; Status DC Potassium Phosphate/Sodium Chloride (Potassium Phosphate Inj/NS 250 ml Inj) 260 ml @ 42 mls/hr UNSCH PRN IV SEE LABEL COMMENTS; Start 10/25/16 at 09:00; Stop 11/02/16 at 07:51; Status DC Methylprednisolone Sodium Succinate (SoluMEDROL INJ) 40 mg Q8HR IV PUSH Last administered on 10/25/16 14:30; Start 10/25/16 at 14:00; Stop 10/25/16 at 15:16 ; Status DC Budesonide 0.5 mg 0.5 mg Q12HR NEB NEB Last administered on 11/02/16 08:39; Start 10/25/16 at 20:00 Cefepime HCl 2000 mg/Sodium Chloride 100 ml @ 200 mls/hr Q8H IV Last administered on 11/02/16 02:13; Start 10/25/16 at 10:00 Azithromycin 500 mg/Sodium Chloride 250 ml @ 250 mls/hr Q24H IV Last administered on 10/28/16 09:24; Start 10/25/16 at 11:00; Stop 10/29/16 at 06:57 ; Status DC Pharmacy Profile Note (Vancomycin Consult Pharmacy) 0 ml @ 0 mls/hr UNSCH OTHER ; Start 10/25/16 at 09:30; Stop 10/31/16 at 20:08; Status DC Enoxaparin Sodium (Lovenox Inj) 40 mg Q24H SQ Last administered on 10/31/16 11 :00; Start 10/25/16 at 11:00; Stop 10/31/16 at 16:18; Status DC Albuterol/ Ipratropium (Duoneb Neb) 1 ampule Q4HR NEB INH Last administered on 10/29/16 11:37; Start 10/25/16 at 12:00; Stop 10/29/16 at 12:00; Status DC Chlorhexidine Gluconate 15 ml 15 ml BID@08,20 MT Last administered on 08:00; Start 10/25/16 at 20:00; Stop 10/31/16 at 11:51; Status DC Vancomycin HCl/ Sodium Chloride (Vancomycin Inj/ NS 250 ml Inj) 262.5 ml @ 250 mls/hr Q24H IV Last administered on 10/28/16 14:04; Start 10/25/16 at 13:00; Stop 10/28/16 at 15:45; Status DC Miscellaneous Information SPECIFIC LAB TO BE DRAWN:VANCO TROUGH DATE TO... ONCE ONCE .XX Last administered on 10/28/16 14:00; Start 10/28/16 at 12:45; Stop 10/28/16 at 12:46; Status DC Methimazole (Tapazole) 10 mg Q8HR PO Last administered on 11/02/16 06:27; Start 10/25/16 at 22:00 Cholestyramine Resin (Questran 4 Gm Pkt) 4 gm Q12HR PO Last administered on 10:16; Start 10/25/16 at 21:00 Hydrocortisone Sodium Succinate (SoluCORTEF INJ) 100 mg Q8HR IV PUSH Last administered on 10/29/16 04:30; Start 10/25/16 at 22:00; Stop 10/29/16 at 06:58 ; Status DC Pantoprazole Sodium (Protonix Inj) 40 mg Q24H IV PUSH Last administered on 11/01 15:55; Start 10/25/16 at 16:00 Terbutaline Sulfate 1 mg 1 mg UNSCH PRN SQ For Extravasation; Start 10/25/16 at 16:15; Stop 10/26/16 at 07:17; Status DC Dopamine HCl 1600 mg/Dextrose 250 ml @ 1.56 mls/hr TITRATE IV ; Start 10/25/16 at 16:15; Stop 10/26/16 at 07:17; Status DC Metronidazole (Flagyl 500 Mg Inj) 100 ml @ 100 mls/hr Q8H IV Last administered on 10/29/16 00:22; Start 10/25/16 at 18:00; Stop 10/29/16 at 06:57 ; Status DC Furosemide (Lasix Inj) 40 mg STK-MED ONCE .ROUTE ; Start 10/26/16 at 03:25; Stop 10/26/16 at 03:26; Status DC Furosemide (Lasix Inj) 20 mg ONCE ONCE IV PUSH Last administered on 10/26/16 03:25; Start 10/26/16 at 03:25; Stop 10/26/16 at 03:35; Status DC Metoprolol Tartrate (Lopressor Inj) 5 mg STK-MED ONCE .ROUTE ; Start 10/26/16 at 06:28; Stop 10/26/16 at 06:29; Status DC Metoprolol Tartrate 5 mg 5 mg STAT ONCE IV PUSH Last administered on 06:30; Start 10/26/16 at 06:30; Stop 10/26/16 at 06:40; Status DC Potassium Chloride (KCl 40 Meq Premix Inj) 100 ml @ 25 mls/hr BOLUS ONCE IV Last administered on 10/26/16 07:56; Start 10/26/16 at 07:30; Stop 10/26/16 at 11:29; Status DC Chlorhexidine Gluconate 15 ml 15 ml BID@08,20 MT Last administered on 08:00; Start 10/26/16 at 20:00 Fentanyl Citrate 250 ml @ 0 mls/hr TITRATE IV Last administered on 10/28/16 13 :47; Start 10/26/16 at 08:45; Stop 10/29/16 at 15:56; Status DC Midazolam HCl (Versed Inj) 100 ml @ 0 mls/hr TITRATE IV Last administered on 08:07; Start 10/26/16 at 08:45; Stop 10/29/16 at 06:51; Status DC Etomidate (Amidate Inj) 20 mg ONCE ONCE IV PUSH Last administered on 09:19; Start 10/26/16 at 08:45; Stop 10/26/16 at 08:54; Status DC Rocuronium Ozone (Zemuron Inj) 100 mg BOLUS ONCE IV ; Start 10/26/16 at 08:45 ; Stop 10/26/16 at 09:04; Status DC Rocuronium Ozone 100 mg 100 mg STK-MED ONCE .ROUTE Last administered on 09:20; Start 10/26/16 at 08:44; Stop 10/26/16 at 08:45; Status DC Norepinephrine Bitartrate/Sodium Chloride (Levophed Inj/NS 250 ml Inj) 250 ml @ 0 mls/hr TITRATE IV Last administered on 10/28/16 04:52; Start 10/26/16 at 08: 45; Stop 10/29/16 at 06:52; Status DC Terbutaline Sulfate 1 mg 1 mg UNSCH PRN SQ For Extravasation; Start 10/26/16 at 08:45 Calcium Gluconate 1 gm/Sodium Chloride 110 ml @ 110 mls/hr ONCE ONCE IV Last administered on 10/26/16 17:41; Start 10/26/16 at 18:00; Stop 10/26/16 at 18:59 ; Status DC Lactated Ringer's (Lr 1000 ml Inj) 1,000 ml @ 999 mls/hr BOLUS ONCE IV Last administered on 10/26/16 18:00; Start 10/26/16 at 18:00; Stop 10/26/16 at 19:00 ; Status DC Bumetanide (Bumex Inj) 1 mg ONCE ONCE IV PUSH Last administered on 10/27/16 08:20; Start 10/27/16 at 07:45; Stop 10/27/16 at 07:46; Status DC Dextrose (D50w (Vial) Inj) 50 ml UNSCH PRN IV HYPOGLYCEMIA-SEE COMMENTS; Start 10/27/16 at 07:45 Glucagon (Glucagon Inj) 1 mg UNSCH PRN OTHER HYPOGLYCEMIA-SEE COMMENTS; Start 10/27/16 at 07:45 Insulin Human Regular (NovoLIN R SUPPLEMENTAL SCALE) 1 Q4H SQ Last administered on 11/01/16 20:52; Start 10/27/16 at 08:00 Iohexol 50 ml 50 ml STK-MED ONCE OTHER ; Start 10/24/16 at 15:00; Stop 10/27/16 at 15:30; Status DC Calcium Gluconate/ Sodium Chloride (Calcium Gluconate Inj/NS Inj) 110 ml @ 110 mls/hr ONCE ONCE IV Last administered on 10/28/16 09:23; Start 10/28/16 at 08 :00; Stop 10/28/16 at 08:59; Status DC Water (Free Water) 250 ml Q12HR G-TUBE Last administered on 10/29/16 08:00; Start 10/28/16 at 09:00 Bumetanide 1 mg 1 mg ONCE ONCE IV PUSH Last administered on 10/28/16 09:23; Start 10/28/16 at 08:45; Stop 10/28/16 at 08:52; Status DC Vancomycin HCl/ Sodium Chloride (Vancomycin Inj/ NS 250 ml Inj) 262.5 ml @ 250 mls/hr Q18H IV Last administered on 10/31/16 13:00; Start 10/29/16 at 06:00; Stop 10/31/16 at 14:17; Status DC Miscellaneous Information SPECIFIC LAB TO BE DRAWN:VANCOMYCIN TROUGH DATE TO... ONCE ONCE .XX Last administered on 10/31/16 12:45; Start 10/31/16 at 11:45; Stop 10/31/16 at 11:46; Status DC Epinephrine HCl (EPINEPHrine (1:10,000) INJ) 1 mg STK-MED ONCE IV ; Start at 05:00; Stop 10/28/16 at 16:06; Status DC Epinephrine HCl 30 mg 30 mg STK-MED ONCE IV ; Start 10/24/16 at 05:00; Stop at 16:06; Status DC Dopamine HCl/ Dextrose (DOPamine INJ PREMIX) 500 ml @ As Directed STK-MED ONCE IV ; Start 10/24/16 at 05:00; Stop 10/28/16 at 16:06; Status DC Epinephrine HCl (EPINEPHrine (1:10,000) INJ) 1 mg STK-MED ONCE IV ; Start at 05:00; Stop 10/28/16 at 16:13; Status DC Metoprolol Tartrate (Lopressor) 25 mg Q12HR PO Last administered on 11/02/16 10:16; Start 10/29/16 at 09:00 Atorvastatin Calcium (Lipitor) 20 mg HS PO Last administered on 11/01/16 20:54 ; Start 10/29/16 at 21:00 Hydrocortisone Sodium Succinate 50 mg 50 mg Q6HR IV PUSH Last administered on 05:35; Start 10/29/16 at 12:00; Stop 10/31/16 at 12:14; Status DC Calcium Gluconate/ Sodium Chloride (Calcium Gluconate Inj/NS Inj) 110 ml @ 110 mls/hr ONCE ONCE IV Last administered on 10/29/16 10:45; Start 10/29/16 at 10 :00; Stop 10/29/16 at 10:59; Status DC Bumetanide (Bumex Inj) 1 mg DAILY IV PUSH Last administered on 11/02/16 10:15 ; Start 10/29/16 at 09:30 Lisinopril (Prinivil) 10 mg Q12HR PO Last administered on 11/02/16 10:16; Start 10/29/16 at 14:45 Albuterol/ Ipratropium (Duoneb Neb) 1 ampule Q4HR NEB NEB Last administered on 11/02/16 08:39; Start 10/29/16 at 16:00 Albuterol/ Ipratropium (Duoneb Neb) 1 ampule Q2HR NEB PRN NEB SHORTNESS OF BREATH; Start 10/29/16 at 16:00 Acetaminophen/ Hydrocodone Bitart (Bryant 5-325 Mg) 1 tab Q4H PRN PO PAIN SCALE 3 TO 6; Start 10/31/16 at 13:00 Acetaminophen/ Hydrocodone Bitart (Bryant 7.5-325 Mg) 1 tab Q6H PRN PO PAIN SCALE 7 TO 10; Start 10/31/16 at 13:00 Hydrocortisone Sodium Succinate 50 mg 50 mg Q8HR IV PUSH Last administered on 06:27; Start 10/31/16 at 14:00 Vancomycin HCl/ Sodium Chloride (Vancomycin Inj/ NS 250 ml Inj) 262.5 ml @ 250 mls/hr Q24H IV ; Start 11/01/16 at 14:00; Stop 11/01/16 at 14:00; Status DC Miscellaneous Information SPECIFIC LAB TO BE ... ONCE ONCE .XX ; Start 11/02 at 13:45; Stop 11/02/16 at 13:45; Status DC Enoxaparin Sodium (Lovenox Inj) 60 mg BID SQ Last administered on 11/02/16 10: 17; Start 10/31/16 at 21:00 Acetaminophen (Tylenol) 650 mg Q4H PRN PO SEE LABEL COMMENTS; Start 11/01/16 at 06:00; Stop 11/01/16 at 10:01; Status DC Diphenhydramine HCl (Benadryl) 25 mg Q4H PRN PO SEE LABEL COMMENTS; Start 11/01 at 06:00; Stop 11/01/16 at 10:01; Status DC Patient Medication Teaching (Coumadin Booklet) 1 STK-MED ONCE .ROUTE ; Start at 10:37; Stop 11/01/16 at 10:38; Status DC Date of Insertion: Oct 24, 2016 Line: Central Venous Catheter Side: Left Location: Subclavian A/P Assessment and Plan CAD History of myocardial infarction status post angioplasty in the remote past. Status post cardiac catheterization by Dr. Romero. Ejection fraction 20%. Left main is straight and patent. Left circumflex, LAD and RCA with minimal coronary artery disease. - On Lopressor 25mg Q12, Lisinopril 10mg [id number] HR and BP keep MAP>65mmHg. - Currently on aspirin 81 mg daily/home medication. - On Lipitor 20 mg daily. -Per group home worker will repeat echo. LUE DVT Swelling of the upper extremities. US revealed DVT. Hematology consult appreciated. - continue Lovenox and follow up with hematology. Likely transition to oral anticoagulant in the next few days. Acute hypoxemic respiratory failure S/p intubation. Bronchiectasis, tiny right pneumothorax, right pneumomediastinum. - Continue with oxygen keep sat >92%. - Duo nebs every 4 hours with albuterol every 2 hours when necessary. - Pulmicort 0.5/2 one inhalation twice a day. - on Solu-Cortef 50mg IV Q8 will decrease dosage tomorrow, continue to wean oxygen, currently getting BiPAP. - pulmonology following. - continue antibiotics. - physical therapy. Elevated transaminases Likely secondary to shock liver versus acute cholecystitis. HIDA scan: Activity is demonstrated in the gallbladder confirming patency of the cystic duct and making possibility of acute cholecystitis highly unlikely. Patent common bile duct. Liver ultrasound 10/25 revealed tiny subcentimeter gallstone; Thickening of the gallbladder wall with pericholecystic fluid; Lesion in left lower lobe liver 1.2 x 0.8 x 0 point centimeters recommend outpatient MRI; Multiple right hepatic cysts largest 4.1 cm. Hepatitis panel negative. - Left lower lobe liver mass recommended outpatient MRI follow-up. - Resolved. Hyperthyroidism TSH 0.08. Free T4 1.52. Free T3 1.46. - On Tapazole 10 mg 3 times a day in light of low TSH. - outpt follow-up. Anemia Hematology consult appreciated. - transfuse for Hgb < 7. PNA 10/26 Sputum cx: Pseudomonas species, Stap aureus, beta strep. 10/25 Sputum: Beta strep not Group A, pseudomonas species. ID consult appreciated. - continue IV cefepime per ID. -Per infectious disease may need longer duration of IV antibiotics. Clinically patient seems to be improving but white count is still elevated and stable. Hypokalemia Likely s/t decreased PO intake. - replete with IV KCl and monitor. Deconditioned -Due to prolonged immobilization secondary to illness. -Consult physical therapist. DVT - SCD/Lovenox subcutaneous Discharge Planning Patient continues to require IV antibiotics. Disposition pending consult from physical therapist and hospital course. Bisi Quispe MD Nov 02, 2016 10:34
[2016-11-02] MEDS ORDERED: PHARMACY ORDERED LAB ONE (13:45)
[2016-11-02] MEDS: PANTOPRAZOLE SODIUM 40 MG VIAL IV PUSH SCH (16:53)
[2016-11-02] MEDS: ATORVASTATIN 20 MG TAB PO SCH (20:20)
[2016-11-02] MEDS: ACETAMINOPHEN/HYDROcodone 325 MG/7.5 MG TAB PO PRN (20:21)
[2016-11-03] VITALS (10 sets, daily range): BP systolic 113–159; BP diastolic 54–81; PULSE 68–100; RESP 18–22; TEMP 96–98; O2SAT 94–100
[2016-11-03] MEDS: CEFEPIME INJ 2,000 MG in SODIUM CHLORIDE 0.9% INJ 100 ML IV SCH ×3 (01:24→17:59)
[2016-11-03] MEDS: ACETAMINOPHEN/HYDROcodone 325 MG/7.5 MG TAB PO PRN ×5 (01:25→18:12)
[2016-11-03] MEDS: CHLORHEXIDINE GLUCONATE 2 % 1 PACK (2 CLOTHS) TOP SCH (04:00)
[2016-11-03] MEDS: HYDROCORTISONE SOD SUCCINATE 100 MG VIAL IV PUSH SCH ×2 (06:04→21:02)
[2016-11-03] MEDS: METHIMAZOLE 10 MG TAB PO SCH ×3 (06:04→21:00)
[2016-11-03] MEDS: CHLORHEXIDINE 0.12% (ORAL KIT) 15 ML CUP MT SCH ×2 (08:00→20:00)
--- NOTE | 2016-11-03 08:01 | PD.CARD.PN ---
Subjective Subjective Remarks PT without CV complaints Objective Medications Current Medications Medications (Trade) Dose Ordered Sig/Najma Route Start Time Stop Time Status Last Admin (Aspirin Chew) 81 mg DAILY PO 10/25/16 09:00 11/02/16 10:16 (NS Flush) 2 ml UNSCH PRN .XX 10/24/16 20:00 10/28/16 08:09 (NS Flush) 2 ml BID .XX 10/24/16 21:00 11/02/16 20:21 (Tylenol) 650 mg Q6H PRN PO 10/24/16 20:00 (Tears Naturale Opth Soln) 1 drop TID EACH EYE 10/25/16 09:00 11/02/16 13:16 (Zofran Inj) 4 mg Q6H PRN IV 10/24/16 20:00 (Reglan Inj) 10 mg Q6H PRN IV 10/24/16 20:00 (Compazine Supp) 25 mg Q12H PRN RECTAL 10/24/16 20:00 Miscellaneous Information 1 Q361D XX 10/24/16 20:00 (Chlorhexidine 2% Cloth) Taper DAILY@04 TOP 10/25/16 04:00 10/21/17 03:59 11/02/16 04:00 (Chlorhexidine 2% Cloth) 3 pack UNSCH PRN TOP 10/24/16 20:00 (Olivia-Colace) 1 tab BID PO 10/24/16 21:00 11/02/16 20:20 (Milk Of Magnesia Liq) 30 ml Q12H PRN PO 10/24/16 20:00 10/28/16 08:07 (Senokot) 17.2 mg Q12H PRN PO 10/24/16 20:00 (Dulcolax Supp) 10 mg DAILY PRN RECTAL 10/24/16 20:00 Lactulose 30 ml 30 ml DAILY PRN PO 10/24/16 20:00 10/28/16 08:07 (Maxipime Inj/NS Inj) 100 ml @ 200 mls/hr Q8H IV 10/25/16 10:00 11/03/16 01:24 (Tapazole) 10 mg Q8HR PO 10/25/16 22:00 11/03/16 06:04 (Questran 4 Gm Pkt) 4 gm Q12HR PO 10/25/16 21:00 11/02/16 20:21 (Protonix Inj) 40 mg Q24H IV PUSH 10/25/16 16:00 11/02/16 16:53 (Peridex 0.12% Liq) 15 ml BID@08,20 MT 10/26/16 20:00 11/02/16 08:00 (Brethine Inj) 1 mg UNSCH PRN SQ 10/26/16 08:45 (D50w (Vial) Inj) 50 ml UNSCH PRN IV 10/27/16 07:45 (Glucagon Inj) 1 mg UNSCH PRN OTHER 10/27/16 07:45 (Free Water) 250 ml Q12HR G-TUBE 10/28/16 09:00 10/29/16 08:00 (Lopressor) 25 mg Q12HR PO 10/29/16 09:00 11/02/16 20:20 (Lipitor) 20 mg HS PO 10/29/16 21:00 11/02/16 20:20 (Bumex Inj) 1 mg DAILY IV PUSH 10/29/16 09:30 11/02/16 10:15 (Prinivil) 10 mg Q12HR PO 10/29/16 14:45 11/02/16 20:20 (Windsor 5-325 Mg) 1 tab Q4H PRN PO 10/31/16 13:00 (Windsor 7.5-325 Mg) 1 tab Q6H PRN PO 10/31/16 13:00 11/03/16 06:04 (SoluCORTEF INJ) 50 mg Q8HR IV PUSH 10/31/16 14:00 11/03/16 06:04 (Lovenox Inj) 60 mg BID SQ 10/31/16 21:00 11/02/16 20:21 Vital Signs / I&O Vital Signs Date Time Temp Pulse Resp B/P Pulse Ox O2 Delivery O2 Flow Rate FiO2 11/03/16 04:00 Nasal Cannula 3.00 11/03/16 04:00 97.7 78 18 159/72 97 11/03/16 00:00 Nasal Cannula 3.00 11/03/16 00:00 97.5 90 18 138/68 95 11/02/16 20:21 93 11/02/16 20:00 Nasal Cannula 3.00 11/02/16 20:00 97.9 94 18 124/61 95 11/02/16 16:31 98 Nasal Cannula 3.00 11/02/16 16:00 98.6 79 20 136/64 98 11/02/16 15:20 98.3 83 20 143/63 97 11/02/16 14:50 98.2 83 20 150/63 96 11/02/16 12:09 99 Nasal Cannula 3.00 11/02/16 12:00 98.2 98 20 139/63 95 11/02/16 08:41 94 Nasal Cannula 3.00 11/02/16 08:00 97.9 91 20 153/70 95 11/02/16 08:00 Nasal Cannula 3.00 40 I/O 11/02/16 11/02/16 11/02/16 11/03/16 11/03/16 11/03/16 07:00 15:00 23:00 07:00 15:00 23:00 Output Total 350 ml 650 ml 700 ml 400 ml Balance -350 ml -650 ml -700 ml -400 ml Output Urine Total 350 ml 650 ml 700 ml 400 ml Physical Exam GENERAL: Well developed, well nourished. No acute distress, on vent HEENT: NA CHEST: Lungs wheeze to auscultation bilaterally. Unlabored respiratory effort. CARDIAC: Regular rate and rhythm without S3, S4, or murmur. ABDOMEN: Soft, nontender, no hepatosplenomegaly. Bowel sounds present. EXTREMITIES: No clubbing, cyanosis, or edema. Laboratory Laboratory Tests Test 11/02/16 08:30 White Blood Count 19.5 TH/MM3 Red Blood Count 2.86 MIL/MM3 Hemoglobin 7.8 GM/DL Hematocrit 24.7 % Mean Corpuscular Volume 86.2 FL Mean Corpuscular Hemoglobin 27.2 PG Mean Corpuscular Hemoglobin 31.6 % Concent Red Cell Distribution Width 14.0 % Platelet Count 401 TH/MM3 Mean Platelet Volume 9.0 FL Neutrophils (%) (Auto) 89.7 % Lymphocytes (%) (Auto) 4.3 % Monocytes (%) (Auto) 5.2 % Eosinophils (%) (Auto) 0.7 % Basophils (%) (Auto) 0.1 % Neutrophils # (Auto) 17.4 TH/MM3 Lymphocytes # (Auto) 0.8 TH/MM3 Monocytes # (Auto) 1.0 TH/MM3 Eosinophils # (Auto) 0.1 TH/MM3 Basophils # (Auto) 0.0 TH/MM3 CBC Comment DIFF FINAL Differential Comment Sodium Level 143 MEQ/L Potassium Level 3.2 MEQ/L Chloride Level 100 MEQ/L Carbon Dioxide Level 37.8 MEQ/L Anion Gap 5 MEQ/L Blood Urea Nitrogen 25 MG/DL Creatinine 0.55 MG/DL Estimat Glomerular Filtration 109 ML/MIN Rate Random Glucose 127 MG/DL Calcium Level 8.2 MG/DL Magnesium Level 2.4 MG/DL B-Type Natriuretic Peptide 395 PG/ML Imaging Last 72 hours Impressions Chest X-Ray 11/01/16 0000 Signed Impressions: Service Date/Time: Thursday, November 01, 2016 04:41 - CONCLUSION: 1. Pleural-parenchymal density throughout the left lung and right midlung. No significant change. 2. Probable small pleural effusions. Buck Aparicio MD Assessment and Plan Problem List: (1) Cardiomyopathy Assessment and Plan: etiology likely hypoxia/ on marcia/BB; - echo pending for re-eval of EF (2) Respiratory failure Assessment and Plan: Improved, extubated, per pulmonary (3) DVT (deep venous thrombosis) (4) Elevated troponin I level (5) Pulmonary edema Assessment and Plan STEMI- diffuse ST elevation likely represented global ischemia from hypoxia -cath with normal coronaries, EF 20% - BP high, off pressors, add marcia now and BB added earlier Cardiomyopathy- likely secondary to hypoxia, Resp Failure- per CCM/pulmonary Hypotension- Problem Qualifiers (1) Respiratory failure: Qualified Code: J96.00 - Acute respiratory failure, unspecified whether with hypoxia or hypercapnia (2) DVT (deep venous thrombosis): (3) Pulmonary edema: Qualified Code: J81.0 - Acute pulmonary edema Cami Romero MD Nov 03, 2016 08:01
[2016-11-03 08:23] LABS: HEMATOCRIT 22.2 % (35.0-46.0); MEAN CELL VOLUME 87.2 FL (80.0-100.0); MEAN CORPUSCULAR HEMOGLOBIN 27.5 PG (27.0-34.0); MEAN CORPUSCULAR HGB CONC 31.5 % (32.0-36.0); PLATELET COUNT 391 TH/MM3 (150-450); RED BLOOD COUNT 2.54 MIL/MM3 (4.00-5.30); REVIEW FLAG FINAL; WHITE BLOOD COUNT 20.7 TH/MM3 (4.0-11.0)
[2016-11-03] MEDS: FREE WATER G-TUBE SCH ×2 (08:26→21:00)
[2016-11-03] MEDS: METOPROLOL TARTRATE 25 MG TAB PO SCH ×2 (08:29→21:00)
[2016-11-03] MEDS: ASPIRIN 81 MG CHEW TAB PO SCH (08:29)
[2016-11-03] MEDS: LISINOPRIL 10 MG TAB PO SCH ×2 (08:29→21:00)
[2016-11-03] MEDS: ENOXAPARIN SODIUM 60 MG/0.6 ML SYRINGE SQ SCH ×2 (08:29→21:01)
[2016-11-03] MEDS: DOCUSATE SODIUM 50 MG/SENNA 8.6 MG TAB PO SCH ×2 (08:29→21:00)
[2016-11-03] MEDS: BUMETANIDE INJ 1 MG/4 ML VIAL IV PUSH SCH (08:30)
[2016-11-03] MEDS: ARTIFICIAL TEARS OPTH SOLN 15 ML BTL EACH EYE SCH ×3 (08:30→17:59)
[2016-11-03] MEDS: CHOLESTYRAMINE 4 GM PACKET PO SCH ×2 (08:30→21:01)
[2016-11-03] MEDS: SODIUM CHLORIDE 0.9% FLUSH 10 ML FLUSH SCH ×2 (08:31→21:02)
[2016-11-03 08:41] LABS: BICARBONATE 40.3 MEQ/L (21.0-32.0)
[2016-11-03] MEDS: RESP: BUDESONIDE 0.5 MG/2 ML NEB NEB SCH ×2 (09:44→19:47)
[2016-11-03] MEDS ORDERED: POTASSIUM CHLORIDE 20 MEQ CONTROLLED RELEASE TAB PO ONE (10:45)
[2016-11-03] MEDS ORDERED: FUROSEMIDE 20 MG/2 ML VIAL IV ONE (11:15)
[2016-11-03] MEDS ORDERED: SODIUM CHLOR 0.9% 250 ML INJ 250 ML IV ONE (11:15)
--- NOTE | 2016-11-03 11:33 | HHI.PR ---
Subjective Remarks f/u for PNA patient found in the chair she stated she has chest pain with exertion. Denied any CP now. also c/o dizziness. SOB has improved but still is SOB. remains afebrile. Objective Vitals Vital Signs Date Time Temp Pulse Resp B/P Pulse Ox O2 Delivery O2 Flow Rate FiO2 11/03/16 08:00 97.7 87 20 142/75 94 11/03/16 04:00 Nasal Cannula 3.00 11/03/16 04:00 97.7 78 18 159/72 97 11/03/16 00:00 Nasal Cannula 3.00 11/03/16 00:00 97.5 90 18 138/68 95 11/02/16 20:21 93 11/02/16 20:00 Nasal Cannula 3.00 11/02/16 20:00 97.9 94 18 124/61 95 11/02/16 16:31 98 Nasal Cannula 3.00 11/02/16 16:00 98.6 79 20 136/64 98 11/02/16 15:20 98.3 83 20 143/63 97 11/02/16 14:50 98.2 83 20 150/63 96 11/02/16 12:09 99 Nasal Cannula 3.00 11/02/16 12:00 98.2 98 20 139/63 95 I/O 11/02/16 11/02/16 11/02/16 11/03/16 11/03/16 11/03/16 07:00 15:00 23:00 07:00 15:00 23:00 Output Total 350 ml 650 ml 700 ml 400 ml 700 ml Balance -350 ml -650 ml -700 ml -400 ml -700 ml Output Urine Total 350 ml 650 ml 700 ml 400 ml 700 ml Result Diagram: 11/03/16 0717 11/03/16 0717 Imaging Last Impressions Chest X-Ray 11/01/16 0000 Signed Impressions: Service Date/Time: Tuesday, November 01, 2016 04:41 - CONCLUSION: 1. Pleural-parenchymal density throughout the left lung and right midlung. No significant change. 2. Probable small pleural effusions. Buck Aparicio MD Upper Extremity Ultrasound 10/31/16 0000 Signed Impressions: Service Date/Time: Monday, October 31, 2016 14:18 - CONCLUSION: Deep venous thrombosis on the left as described above. Germain Calhoun MD FACR Hepatobiliary Scan Nuclear Medicine 10/26/16 0000 Signed Impressions: Service Date/Time: Wednesday, October 26, 2016 11:51 - CONCLUSION: 1. Activity is demonstrated in the gallbladder confirming patency of the cystic duct and making possibility of acute cholecystitis highly unlikely. 2. Patent common bile duct. Matthieu Apodaca MD Liver Ultrasound 10/25/16 0000 Signed Impressions: Service Date/Time: Tuesday, October 25, 2016 11:32 - CONCLUSION: 1. Probable single subcentimeter gallstone in the gallbladder. There is gallbladder wall thickening and trace pericholecystic fluid although the gallbladder is not significantly distended. Overall, the findings may reflect developing acute cholecystitis. Recommend HIDA scan to evaluate patency of the cystic duct if there is continued concern regarding cholecystitis. 2. Small 1.2 x 0.9 x 0.8 cm isoechoic mass in the left lobe of liver. Overall, the findings are nonspecific and further characterization is difficult due to small size. Differential considerations include both malignant and benign etiologies. This may be further evaluated with multiphase MRI exam on an outpatient basis. 3. Multiple bilateral right hepatic cysts measuring up to 4.1 cm, as above. Matthieu Apodaca MD Chest CT 10/24/16 0000 Signed Impressions: Service Date/Time: Monday, October 24, 2016 19:44 - CONCLUSION: 1. Small right pneumothorax. Pneumomediastinum adjacent to the right side of the esophagus. 2. Chronic severe bronchiectasis left greater than right. 3. New severe mixed groundglass and consolidative ulnar parenchymal opacity at the right lung. Differential diagnosis includes infection versus asymmetric pulmonary edema. 4. Multiple hepatic cysts. 5. Thyroid goiter. Yovany Dawn MD Objective Remarks GENERAL: in NAD CARDIOVASCULAR: Regular rate and rhythm without murmurs, gallops, or rubs. RESPIRATORY: Diffuse rhonchi has improved. Bilateral basilar coarse crackles. No wheezing noted. GASTROINTESTINAL: Abdomen soft, non-tender, nondistended. MUSCULOSKELETAL: No cyanosis, or edema. BACK: Nontender without obvious deformity. No CVA tenderness. Medications and IVs Current Medications Propofol 100 ml @ As Directed STK-MED ONCE .ROUTE Last administered on t 18:28; Start 10/24/16 at 18:17; Stop 10/24/16 at 18:18; Status DC Sodium Chloride (NS 1000 ml Inj) 1,000 ml @ 0 mls/hr Q0M ONCE IV Last administered on 10/24/16t 18:44; Start 10/24/16 at 18:19; Stop 10/24/16 at 18:20 ; Status DC Sodium Chloride (NS Flush) 2 ml UNSCH PRN IVF FLUSH AFTER USING IV ACCESS; Start 10/24/16 at 18:30; Stop 10/24/16 at 20:16; Status DC Aspirin (Aspirin Chew) 324 mg NOW STAT PO ; Start 10/24/16 at 18:19; Stop 10/24 at 18:20; Status DC Nitroglycerin 0.4 mg 0.4 mg NOW STAT SL ; Start 10/24/16 at 18:19; Stop at 18:20; Status DC Nitroglycerin/ Dextrose (Nitroglycerin-Dextrose Inj) 250 ml @ 0 mls/hr TITRATE IV ; Start 10/24/16 at 18:30; Stop 10/26/16 at 07:16; Status DC Heparin Sodium (Porcine) 5000 units 5,000 units NOW STAT IV Last administered on 10/24/16 18:43; Start 10/24/16 at 18:19; Stop 10/24/16 at 18:20; Status DC Heparin Sodium/ Sodium Chloride (Heparin-NS/Pf Inj) 500 ml @ As Directed STK- MED ONCE .ROUTE ; Start 10/24/16 at 18:42; Stop 10/24/16 at 18:43; Status DC Sodium Nitroprusside 50 mg 50 mg STK-MED ONCE .ROUTE ; Start 10/24/16 at 18:43; Stop 10/24/16 at 18:44; Status DC Tirofiban/Sodium Chloride (Aggrastat Infusion Inj) 250 ml @ As Directed STK- MED ONCE IV ; Start 10/24/16 at 18:43; Stop 10/24/16 at 18:44; Status DC Heparin Sodium (Porcine) 73692 units 10,000 units STK-MED ONCE .ROUTE ; Start at 18:43; Stop 10/24/16 at 18:44; Status DC Nitroglycerin (Nitroglycerin Inj) 5 ml @ As Directed STK-MED ONCE .ROUTE ; Start 10/24/16 at 18:43; Stop 10/24/16 at 18:44; Status DC Heparin Sodium (Porcine) 69262 units 10,000 units STK-MED ONCE .ROUTE ; Start at 18:58; Stop 10/24/16 at 18:59; Status DC Dopamine HCl/ Dextrose (DOPamine INJ PREMIX) 500 ml @ As Directed STK-MED ONCE .ROUTE ; Start 10/24/16 at 19:13; Stop 10/24/16 at 19:14; Status DC Iohexol (Omnipaque 350 Inj) 50 ml STK-MED ONCE IV Last administered on 19:47; Start 10/24/16 at 19:47; Stop 10/24/16 at 19:48; Status DC Aspirin (Aspirin Chew) 81 mg DAILY PO Last administered on 11/03/16 08:29; Start 10/25/16 at 09:00 Methimazole (Tapazole) 5 mg BID PO Last administered on 10/25/16 08:43; Start 10/24/16 at 21:00; Stop 10/25/16 at 15:13; Status DC Iohexol 50 ml 50 ml STK-MED ONCE IV ; Start 10/24/16 at 19:52; Stop 10/24/16 at 19:53; Status Cancel Sodium Chloride (NS 1000 ml Inj) 1,000 ml @ 40 mls/hr Q24H IV Last administered on 10/28/16 07:33; Start 10/24/16 at 19:48; Stop 10/28/16 at 08:35 ; Status DC Sodium Chloride (NS Flush) 2 ml UNSCH PRN .XX FLUSH AFTER USING IV ACCESS Last administered on 10/28/16 08:09; Start 10/24/16 at 20:00 Sodium Chloride (NS Flush) 2 ml BID .XX Last administered on 11/03/16 08:31; Start 10/24/16 at 21:00 Acetaminophen (Tylenol) 650 mg Q6H PRN PO PAIN 1-2 AND/OR FEVER >101F; Start at 20:00 Morphine Sulfate (Morphine Inj) 2 mg Q2H PRN IV PAIN SCALE 6 TO 10 Last administered on 10/31/16 00:28; Start 10/24/16 at 20:00; Stop 10/31/16 at 12:11 ; Status DC Famotidine (Pepcid Inj) 20 mg Q12HR IV PUSH Last administered on 10/25/16 08: 45; Start 10/24/16 at 21:00; Stop 10/25/16 at 15:16; Status DC Lorazepam (Ativan Inj) 1 mg Q1H PRN IV Agitation/Sedation; Start 10/24/16 at 20 :00; Stop 10/26/16 at 07:16; Status DC Artificial Tears (Tears Naturale Opth Soln) 1 drop TID EACH EYE Last administered on 11/03/16 08:30; Start 10/25/16 at 09:00 Ondansetron HCl (Zofran Inj) 4 mg Q6H PRN IV NAUSEA OR VOMITING; Start at 20:00 Metoclopramide HCl (Reglan Inj) 10 mg Q6H PRN IV NAUSEA OR VOMITING; Start at 20:00 Prochlorperazine (Compazine Supp) 25 mg Q12H PRN RECTAL NAUSEA OR VOMITING; Start 10/24/16 at 20:00 Albuterol/ Ipratropium (Duoneb Neb) 1 ampule Q6HR NEB INH Last administered on 10/25/16 07:27; Start 10/24/16 at 22:00; Stop 10/25/16 at 09:40; Status DC Albuterol/ Ipratropium (Duoneb Neb) 1 ampule Q2HR NEB PRN INH WHEEZING; Start 10/24/16 at 20:00; Stop 10/25/16 at 08:45; Status DC Miscellaneous Information 1 Q361D XX ; Start 10/24/16 at 20:00 Chlorhexidine Gluconate (Chlorhexidine 2% Cloth) Taper DAILY@04 TOP Last administered on 11/02/16 04:00; Start 10/25/16 at 04:00; Stop 10/21/17 at 03:59 Chlorhexidine Gluconate (Chlorhexidine 2% Cloth) 3 pack UNSCH PRN TOP HYGIENIC CARE; Start 10/24/16 at 20:00 Senna/Docusate Sodium ([place]livia-Colace) 1 tab BID PO Last administered on 08:29; Start 10/24/16 at 21:00 Magnesium Hydroxide (Milk Of Magnesia Liq) 30 ml Q12H PRN PO MILD - MODERATE CONSTIPATION Last administered on 10/28/16 08:07; Start 10/24/16 at 20:00 Sennosides (Senokot) 17.2 mg Q12H PRN PO MODERATE - SEVERE CONSTIPATION; Start 10/24/16 at 20:00 Bisacodyl (Dulcolax Supp) 10 mg DAILY PRN RECTAL SEVERE CONSITIPATION; Start at 20:00 Lactulose 30 ml 30 ml DAILY PRN PO SEVERE CONSITIPATION Last administered on 08:07; Start 10/24/16 at 20:00 Propofol (Diprivan 1000 Mg/100ml Inj) 100 ml @ 0 mls/hr TITRATE IV ; Start 10/24 at 20:00; Stop 10/25/16 at 08:51; Status DC Norepinephrine Bitartrate (Levophed Inj) 4 mg STK-MED ONCE .ROUTE ; Start at 20:10; Stop 10/24/16 at 20:11; Status DC Miscellaneous Information 1 ONCE ONCE XX ; Start 10/24/16 at 20:30; Stop at 20:31; Status DC Lidocaine HCl 10 ml 10 ml UNSCH PRN INFIL SHEATH REMOVAL; Start 10/24/16 at 20: 30; Stop 10/25/16 at 20:29; Status DC Fentanyl Citrate 250 ml @ 0 mls/hr TITRATE IV Last administered on 10/25/16 21 :30; Start 10/24/16 at 21:30; Stop 10/26/16 at 07:16; Status DC Midazolam HCl 100 ml @ 0 mls/hr TITRATE IV Last administered on 10/24/16 22:05 ; Start 10/24/16 at 21:30; Stop 10/26/16 at 07:17; Status DC Norepinephrine Bitartrate 250 ml @ As Directed STK-MED ONCE IV Last administered on 10/25/16 00:20; Start 10/25/16 at 00:15; Stop 10/25/16 at 00:16 ; Status DC Norepinephrine Bitartrate (Levophed-Dextrose Drip) 250 ml @ 0 mls/hr TITRATE IV Last administered on 10/25/16 21:30; Start 10/25/16 at 04:45; Stop 10/26/16 at 07:17; Status DC Albuterol Sulfate 2.5 mg 2.5 mg Q2HR NEB PRN NEB DYSPNEA; Start 10/25/16 at 08: 45; Stop 10/29/16 at 15:59; Status DC Potassium Chloride 100 ml @ 25 mls/hr BOLUS ONCE IV Last administered on 10/25 10:43; Start 10/25/16 at 11:00; Stop 10/25/16 at 14:59; Status DC Magnesium Sulfate/ Dextrose 100 ml @ 100 mls/hr Q1H IV Last administered on 12:56; Start 10/25/16 at 10:00; Stop 10/25/16 at 12:59; Status DC Potassium Phosphate 30 mmol/ Sodium Chloride 260 ml @ 43.333 mls/ hr ONCE ONCE IV Last administered on 10/25/16 14:29; Start 10/25/16 at 13:00; Stop at 18:59; Status DC Potassium Chloride 100 ml @ 50 mls/hr Q2H PRN IV For Potassium 2.8 - 3.2 mEq/ L Last administered on 10/31/16 15:00; Start 10/25/16 at 09:00; Stop 11/02/16 at 07:51; Status DC Potassium Chloride (KCl 20 Meq Premix Inj) 100 ml @ 50 mls/hr Q2H PRN IV For Potassium 2.8 - 3.2 mEq/L Last administered on 11/01/16 17:30; Start 10/25/16 at 09:00; Stop 11/02/16 at 07:51; Status DC Potassium Bicarb/ Potassium Chloride 50 meq 50 meq UNSCH PRN PO For Potassium 3.3 - 3.5 mEq/L; Start 10/25/16 at 09:00; Stop 11/02/16 at 07:51; Status DC Potassium Chloride 100 ml @ 25 mls/hr UNSCH PRN IV For Potassium 3.3 - 3.5 mEq /L; Start 10/25/16 at 09:00; Stop 11/02/16 at 07:51; Status DC Potassium Chloride 100 ml @ 50 mls/hr Q2H PRN IV For Potassium 3.3 - 3.5 mEq/L ; Start 10/25/16 at 09:00; Stop 11/02/16 at 07:51; Status DC Magnesium Sulfate/ Sodium Chloride (Magnesium Sulfate Inj/NS Inj) 100 ml @ 50 mls/hr UNSCH PRN IV For Magnesium 0.9 - 1.1 mg/dL; Start 10/25/16 at 09:00; Stop 11/02/16 at 07:51; Status DC Magnesium Oxide 800 mg 800 mg UNSCH PRN PO For Magnesium 1.2 - 1.6 mg/dL; Start 10/25/16 at 09:00; Stop 11/02/16 at 07:51; Status DC Magnesium Sulfate/ Sodium Chloride (Magnesium Sulfate Inj/NS Inj) 100 ml @ 50 mls/hr UNSCH PRN IV For Magnesium 1.2 - 1.6 mg/dL; Start 10/25/16 at 09:00; Stop 11/02/16 at 07:51; Status DC Potassium Phosphate 2000 mg 2,000 mg Q4H PRN PO For Phosphorus < 2.5 mg/dL; Start 10/25/16 at 09:00; Stop 11/02/16 at 07:51; Status DC Sodium Phosphate/ Sodium Chloride (Sodium Phosphate Inj/NS 250 ml Inj) 250 ml @ 42 mls/hr UNSCH PRN IV For Phosphorus < 2.5 mg/dL Last administered on 00:20; Start 10/25/16 at 09:00; Stop 11/02/16 at 07:51; Status DC Potassium Phosphate 2000 mg 2,000 mg UNSCH PRN PO/TUBE SEE LABEL COMMENTS; Start 10/25/16 at 09:00; Stop 11/02/16 at 07:51; Status DC Potassium Phosphate/Sodium Chloride (Potassium Phosphate Inj/NS 250 ml Inj) 260 ml @ 42 mls/hr UNSCH PRN IV SEE LABEL COMMENTS; Start 10/25/16 at 09:00; Stop 11/02/16 at 07:51; Status DC Methylprednisolone Sodium Succinate (SoluMEDROL INJ) 40 mg Q8HR IV PUSH Last administered on 10/25/16 14:30; Start 10/25/16 at 14:00; Stop 10/25/16 at 15:16 ; Status DC Budesonide 0.5 mg 0.5 mg Q12HR NEB NEB Last administered on 11/03/16 09:44; Start 10/25/16 at 20:00 Cefepime HCl 2000 mg/Sodium Chloride 100 ml @ 200 mls/hr Q8H IV Last administered on 11/03/16 10:16; Start 10/25/16 at 10:00 Azithromycin 500 mg/Sodium Chloride 250 ml @ 250 mls/hr Q24H IV Last administered on 10/28/16 09:24; Start 10/25/16 at 11:00; Stop 10/29/16 at 06:57 ; Status DC Pharmacy Profile Note (Vancomycin Consult Pharmacy) 0 ml @ 0 mls/hr UNSCH OTHER ; Start 10/25/16 at 09:30; Stop 10/31/16 at 20:08; Status DC Enoxaparin Sodium (Lovenox Inj) 40 mg Q24H SQ Last administered on 10/31/16 11 :00; Start 10/25/16 at 11:00; Stop 10/31/16 at 16:18; Status DC Albuterol/ Ipratropium (Duoneb Neb) 1 ampule Q4HR NEB INH Last administered on 10/29/16 11:37; Start 10/25/16 at 12:00; Stop 10/29/16 at 12:00; Status DC Chlorhexidine Gluconate 15 ml 15 ml BID@08,20 MT Last administered on 08:00; Start 10/25/16 at 20:00; Stop 10/31/16 at 11:51; Status DC Vancomycin HCl/ Sodium Chloride (Vancomycin Inj/ NS 250 ml Inj) 262.5 ml @ 250 mls/hr Q24H IV Last administered on 10/28/16 14:04; Start 10/25/16 at 13:00; Stop 10/28/16 at 15:45; Status DC Miscellaneous Information SPECIFIC LAB TO BE DRAWN:VANCO TROUGH DATE TO... ONCE ONCE .XX Last administered on 10/28/16 14:00; Start 10/28/16 at 12:45; Stop 10/28/16 at 12:46; Status DC Methimazole (Tapazole) 10 mg Q8HR PO Last administered on 11/03/16 06:04; Start 10/25/16 at 22:00 Cholestyramine Resin (Questran 4 Gm Pkt) 4 gm Q12HR PO Last administered on 08:30; Start 10/25/16 at 21:00 Hydrocortisone Sodium Succinate (SoluCORTEF INJ) 100 mg Q8HR IV PUSH Last administered on 10/29/16 04:30; Start 10/25/16 at 22:00; Stop 10/29/16 at 06:58 ; Status DC Pantoprazole Sodium (Protonix Inj) 40 mg Q24H IV PUSH Last administered on 11/02 16:53; Start 10/25/16 at 16:00 Terbutaline Sulfate 1 mg 1 mg UNSCH PRN SQ For Extravasation; Start 10/25/16 at 16:15; Stop 10/26/16 at 07:17; Status DC Dopamine HCl 1600 mg/Dextrose 250 ml @ 1.56 mls/hr TITRATE IV ; Start 10/25/16 at 16:15; Stop 10/26/16 at 07:17; Status DC Metronidazole (Flagyl 500 Mg Inj) 100 ml @ 100 mls/hr Q8H IV Last administered on 10/29/16 00:22; Start 10/25/16 at 18:00; Stop 10/29/16 at 06:57 ; Status DC Furosemide (Lasix Inj) 40 mg STK-MED ONCE .ROUTE ; Start 10/26/16 at 03:25; Stop 10/26/16 at 03:26; Status DC Furosemide (Lasix Inj) 20 mg ONCE ONCE IV PUSH Last administered on 10/26/16 03:25; Start 10/26/16 at 03:25; Stop 10/26/16 at 03:35; Status DC Metoprolol Tartrate (Lopressor Inj) 5 mg STK-MED ONCE .ROUTE ; Start 10/26/16 at 06:28; Stop 10/26/16 at 06:29; Status DC Metoprolol Tartrate 5 mg 5 mg STAT ONCE IV PUSH Last administered on 06:30; Start 10/26/16 at 06:30; Stop 10/26/16 at 06:40; Status DC Potassium Chloride (KCl 40 Meq Premix Inj) 100 ml @ 25 mls/hr BOLUS ONCE IV Last administered on 10/26/16 07:56; Start 10/26/16 at 07:30; Stop 10/26/16 at 11:29; Status DC Chlorhexidine Gluconate 15 ml 15 ml BID@08,20 MT Last administered on 08:00; Start 10/26/16 at 20:00 Fentanyl Citrate 250 ml @ 0 mls/hr TITRATE IV Last administered on 10/28/16 13 :47; Start 10/26/16 at 08:45; Stop 10/29/16 at 15:56; Status DC Midazolam HCl (Versed Inj) 100 ml @ 0 mls/hr TITRATE IV Last administered on 08:07; Start 10/26/16 at 08:45; Stop 10/29/16 at 06:51; Status DC Etomidate (Amidate Inj) 20 mg ONCE ONCE IV PUSH Last administered on 09:19; Start 10/26/16 at 08:45; Stop 10/26/16 at 08:54; Status DC Rocuronium [place] (Zemuron Inj) 100 mg BOLUS ONCE IV ; Start 10/26/16 at 08:45 ; Stop 10/26/16 at 09:04; Status DC Rocuronium [place] 100 mg 100 mg STK-MED ONCE .ROUTE Last administered on 09:20; Start 10/26/16 at 08:44; Stop 10/26/16 at 08:45; Status DC Norepinephrine Bitartrate/Sodium Chloride (Levophed Inj/NS 250 ml Inj) 250 ml @ 0 mls/hr TITRATE IV Last administered on 10/28/16 04:52; Start 10/26/16 at 08: 45; Stop 10/29/16 at 06:52; Status DC Terbutaline Sulfate 1 mg 1 mg UNSCH PRN SQ For Extravasation; Start 10/26/16 at 08:45 Calcium Gluconate 1 gm/Sodium Chloride 110 ml @ 110 mls/hr ONCE ONCE IV Last administered on 10/26/16 17:41; Start 10/26/16 at 18:00; Stop 10/26/16 at 18:59 ; Status DC Lactated Ringer's (Lr 1000 ml Inj) 1,000 ml @ 999 mls/hr BOLUS ONCE IV Last administered on 10/26/16 18:00; Start 10/26/16 at 18:00; Stop 10/26/16 at 19:00 ; Status DC Bumetanide (Bumex Inj) 1 mg ONCE ONCE IV PUSH Last administered on 10/27/16 08:20; Start 10/27/16 at 07:45; Stop 10/27/16 at 07:46; Status DC Dextrose (D50w (Vial) Inj) 50 ml UNSCH PRN IV HYPOGLYCEMIA-SEE COMMENTS; Start 10/27/16 at 07:45 Glucagon (Glucagon Inj) 1 mg UNSCH PRN OTHER HYPOGLYCEMIA-SEE COMMENTS; Start 10/27/16 at 07:45 Insulin Human Regular (NovoLIN R SUPPLEMENTAL SCALE) 1 Q4H SQ Last administered on 11/01/16 20:52; Start 10/27/16 at 08:00; Stop 11/02/16 at 10:44 ; Status DC Iohexol 50 ml 50 ml STK-MED ONCE OTHER ; Start 10/24/16 at 15:00; Stop 10/27/16 at 15:30; Status DC Calcium Gluconate/ Sodium Chloride (Calcium Gluconate Inj/NS Inj) 110 ml @ 110 mls/hr ONCE ONCE IV Last administered on 10/28/16 09:23; Start 10/28/16 at 08 :00; Stop 10/28/16 at 08:59; Status DC Water (Free Water) 250 ml Q12HR G-TUBE Last administered on 10/29/16 08:00; Start 10/28/16 at 09:00 Bumetanide 1 mg 1 mg ONCE ONCE IV PUSH Last administered on 10/28/16 09:23; Start 10/28/16 at 08:45; Stop 10/28/16 at 08:52; Status DC Vancomycin HCl/ Sodium Chloride (Vancomycin Inj/ NS 250 ml Inj) 262.5 ml @ 250 mls/hr Q18H IV Last administered on 10/31/16 13:00; Start 10/29/16 at 06:00; Stop 10/31/16 at 14:17; Status DC Miscellaneous Information SPECIFIC LAB TO BE DRAWN:VANCOMYCIN TROUGH DATE TO... ONCE ONCE .XX Last administered on 10/31/16 12:45; Start 10/31/16 at 11:45; Stop 10/31/16 at 11:46; Status DC Epinephrine HCl (EPINEPHrine (1:10,000) INJ) 1 mg STK-MED ONCE IV ; Start at 05:00; Stop 10/28/16 at 16:06; Status DC Epinephrine HCl 30 mg 30 mg STK-MED ONCE IV ; Start 10/24/16 at 05:00; Stop at 16:06; Status DC Dopamine HCl/ Dextrose (DOPamine INJ PREMIX) 500 ml @ As Directed STK-MED ONCE IV ; Start 10/24/16 at 05:00; Stop 10/28/16 at 16:06; Status DC Epinephrine HCl (EPINEPHrine (1:10,000) INJ) 1 mg STK-MED ONCE IV ; Start at 05:00; Stop 10/28/16 at 16:13; Status DC Metoprolol Tartrate (Lopressor) 25 mg Q12HR PO Last administered on 11/03/16 08:29; Start 10/29/16 at 09:00 Atorvastatin Calcium (Lipitor) 20 mg HS PO Last administered on 11/02/16 20:20 ; Start 10/29/16 at 21:00 Hydrocortisone Sodium Succinate 50 mg 50 mg Q6HR IV PUSH Last administered on 05:35; Start 10/29/16 at 12:00; Stop 10/31/16 at 12:14; Status DC Calcium Gluconate/ Sodium Chloride (Calcium Gluconate Inj/NS Inj) 110 ml @ 110 mls/hr ONCE ONCE IV Last administered on 10/29/16 10:45; Start 10/29/16 at 10 :00; Stop 10/29/16 at 10:59; Status DC Bumetanide (Bumex Inj) 1 mg DAILY IV PUSH Last administered on 11/03/16 08:30 ; Start 10/29/16 at 09:30 Lisinopril (Prinivil) 10 mg Q12HR PO Last administered on 11/03/16 08:29; Start 10/29/16 at 14:45 Albuterol/ Ipratropium (Duoneb Neb) 1 ampule Q4HR NEB NEB Last administered on 11/02/16 12:09; Start 10/29/16 at 16:00; Stop 11/02/16 at 16:00; Status DC Albuterol/ Ipratropium (Duoneb Neb) 1 ampule Q2HR NEB PRN NEB SHORTNESS OF BREATH; Start 10/29/16 at 16:00 Acetaminophen/ Hydrocodone Bitart ([place] 5-325 Mg) 1 tab Q4H PRN PO PAIN SCALE 3 TO 6; Start 10/31/16 at 13:00 Acetaminophen/ Hydrocodone Bitart ([place] 7.5-325 Mg) 1 tab Q6H PRN PO PAIN SCALE 7 TO 10 Last administered on 11/03/16 08:43; Start 10/31/16 at 13:00 Hydrocortisone Sodium Succinate 50 mg 50 mg Q8HR IV PUSH Last administered on 06:04; Start 10/31/16 at 14:00 Vancomycin HCl/ Sodium Chloride (Vancomycin Inj/ NS 250 ml Inj) 262.5 ml @ 250 mls/hr Q24H IV ; Start 11/01/16 at 14:00; Stop 11/01/16 at 14:00; Status DC Miscellaneous Information SPECIFIC LAB TO BE PAULINE... ONCE ONCE .XX ; Start 11/02 at 13:45; Stop 11/02/16 at 13:45; Status DC Enoxaparin Sodium (Lovenox Inj) 60 mg BID SQ Last administered on 11/03/16 08: 29; Start 10/31/16 at 21:00 Acetaminophen (Tylenol) 650 mg Q4H PRN PO SEE LABEL COMMENTS; Start 11/01/16 at 06:00; Stop 11/01/16 at 10:01; Status DC Diphenhydramine HCl (Benadryl) 25 mg Q4H PRN PO SEE LABEL COMMENTS; Start 11/01 at 06:00; Stop 11/01/16 at 10:01; Status DC Patient Medication Teaching (Coumadin Booklet) 1 [facility] ONCE .ROUTE ; Start at 10:37; Stop 11/01/16 at 10:38; Status DC Potassium Chloride 40 meq 40 meq ONCE ONCE PO Last administered on 11/03/16 11:23; Start 11/03/16 at 10:45; Stop 11/03/16 at 10:46; Status DC Sodium Chloride (NS 250 ml Inj) 250 ml @ 15 mls/hr ONCE ONCE IV ; Start at 11:15; Stop 11/04/16 at 03:54 Furosemide (Lasix Inj) 20 mg ONCE ONCE IV ; Start 6/26/17 at 11:15; Stop 11/03 at 11:16; Status DC Date of Insertion: Oct 24, 2016 Line: Central Venous Catheter Side: Left Location: Subclavian A/P Assessment and Plan Symptomatic anemia -Hemoglobin slowly trending down. Hemoglobin today is 7. Patient complain of chest pain with exertion and dizziness. -Will transfuse 1 unit PRBC and patient with a recent STEMI and symptomatic and give 1 dose of Lasix after transfusion. -Continue to monitor clinically. -Patient educated about the risks, benefits and side effects of transfusion and she agrees to transfusion. -Pharmacovigilance Scientist is following. CAD/STEMI History of myocardial infarction status post angioplasty in the remote past. Status post cardiac catheterization by Dr. Romero. Ejection fraction 20%. Left main is straight and patent. Left circumflex, LAD and RCA with minimal coronary artery disease. - On Lopressor 25mg Q12, Lisinopril 10mg [id number] HR and BP keep MAP>65mmHg. - Currently on aspirin 81 mg daily/home medication. - On Lipitor 20 mg daily. -Per bluing oven tender will repeat echo. LUE DVT Swelling of the upper extremities. US revealed DVT. Hematology consult appreciated. - continue Lovenox and follow up with hematology. Likely transition to oral anticoagulant. Acute hypoxemic respiratory failure S/p intubation. Bronchiectasis, tiny right pneumothorax, right pneumomediastinum. - Continue with oxygen keep sat >92%. - Duo nebs every 4 hours with albuterol every 2 hours when necessary. - Pulmicort 0.5/2 one inhalation twice a day. - decrease Solu-Cortef 50mg IV Q8, continue to wean oxygen, currently getting BiPAP. - pulmonology following. - continue antibiotics. - physical therapy. Elevated transaminases Likely secondary to shock liver versus acute cholecystitis. HIDA scan: Activity is demonstrated in the gallbladder confirming patency of the cystic duct and making possibility of acute cholecystitis highly unlikely. Patent common bile duct. Liver ultrasound 10/25 revealed tiny subcentimeter gallstone; Thickening of the gallbladder wall with pericholecystic fluid; Lesion in left lower lobe liver 1.2 x 0.8 x 0 point centimeters recommend outpatient MRI; Multiple right hepatic cysts largest 4.1 cm. Hepatitis panel negative. - Left lower lobe liver mass recommended outpatient MRI follow-up. - Resolved. Hyperthyroidism TSH 0.08. Free T4 1.52. Free T3 1.46. - On Tapazole 10 mg 3 times a day in light of low TSH. - outpt follow-up. PNA 10/26 Sputum cx: Pseudomonas species, Stap aureus, beta strep. 10/25 Sputum: Beta strep not Group A, pseudomonas species. ID consult appreciated. - continue IV cefepime per ID. -Per infectious disease may need longer duration of IV antibiotics. Clinically patient seems to be improving. White count most likely elevated due to steroids. Leukocytosis -Clinically patient is improving. Most likely elevation due to steroids. Hypokalemia Likely s/t decreased PO intake. - Replenish as needed. Deconditioned -Due to prolonged immobilization secondary to illness. -Physical therapist consulted. DVT - SCD/Lovenox subcutaneous Discharge Planning Patient continues to require IV antibiotics. Most likely when patient is medically stable will need to be discharged to a rehabilitation center. Bisi Quispe MD Nov 03, 2016 11:33
--- NOTE | 2016-11-03 14:19 | HHI.IDPN ---
Subjective Subjective Remarks doing well no fever no cough on NC O2 Antibiotics cefepime Allergies: Coded Allergies: Propofol (Verified Adverse Reaction, Severe, bradycardia, 10/25/16) Objective . Vital Signs Date Time Temp Pulse Resp B/P Pulse Ox O2 Delivery O2 Flow Rate FiO2 11/03/16 12:00 97.7 69 20 129/61 99 11/03/16 09:45 97 Nasal Cannula 3.00 11/03/16 08:00 97.7 87 20 142/75 94 11/03/16 04:00 Nasal Cannula 3.00 11/03/16 04:00 97.7 78 18 159/72 97 11/03/16 00:00 Nasal Cannula 3.00 11/03/16 00:00 97.5 90 18 138/68 95 11/02/16 20:21 93 11/02/16 20:00 Nasal Cannula 3.00 11/02/16 20:00 97.9 94 18 124/61 95 11/02/16 16:31 98 Nasal Cannula 3.00 11/02/16 16:00 98.6 79 20 136/64 98 11/02/16 15:20 98.3 83 20 143/63 97 11/02/16 14:50 98.2 83 20 150/63 96 11/02/16 11/02/16 11/03/16 15:00 23:00 07:00 Output Total 650 ml 700 ml 400 ml Balance -650 ml -700 ml -400 ml Output Urine Total 650 ml 700 ml 400 ml . Laboratory Tests Test 11/02/16 11/03/16 08:30 07:17 White Blood Count 19.5 TH/MM3 20.7 TH/MM3 Red Blood Count 2.86 MIL/MM3 2.54 MIL/MM3 Hemoglobin 7.8 GM/DL 7.0 GM/DL Hematocrit 24.7 % 22.2 % Mean Corpuscular Volume 86.2 FL 87.2 FL Mean Corpuscular Hemoglobin 27.2 PG 27.5 PG Mean Corpuscular Hemoglobin 31.6 % 31.5 % Concent Red Cell Distribution Width 14.0 % 14.0 % Platelet Count 401 TH/MM3 391 TH/MM3 Mean Platelet Volume 9.0 FL 8.5 FL Neutrophils (%) (Auto) 89.7 % Lymphocytes (%) (Auto) 4.3 % Monocytes (%) (Auto) 5.2 % Eosinophils (%) (Auto) 0.7 % Basophils (%) (Auto) 0.1 % Neutrophils # (Auto) 17.4 TH/MM3 Lymphocytes # (Auto) 0.8 TH/MM3 Monocytes # (Auto) 1.0 TH/MM3 Eosinophils # (Auto) 0.1 TH/MM3 Basophils # (Auto) 0.0 TH/MM3 CBC Comment DIFF FINAL Differential Comment Laboratory Tests Test 11/01/16 11/02/16 11/03/16 19:59 08:30 07:17 Potassium Level 3.8 MEQ/L 3.2 MEQ/L 3.0 MEQ/L Sodium Level 143 MEQ/L 146 MEQ/L Chloride Level 100 MEQ/L 101 MEQ/L Carbon Dioxide Level 37.8 MEQ/L 40.3 MEQ/L Anion Gap 5 MEQ/L 5 MEQ/L Blood Urea Nitrogen 25 MG/DL 24 MG/DL Creatinine 0.55 MG/DL 0.55 MG/DL Estimat Glomerular Filtration 109 ML/MIN 109 ML/MIN Rate Random Glucose 127 MG/DL 138 MG/DL Calcium Level 8.2 MG/DL 7.9 MG/DL Magnesium Level 2.4 MG/DL B-Type Natriuretic Peptide 395 PG/ML Microbiology Date/Time Procedure Status Source Growth 11/02/16 10:05 Gram Stain - Final Resulted Sputum Endotracheal 11/02/16 10:05 Sputum Culture - Preliminary Resulted Sputum Endotracheal HEAVY GROWTH NORMAL RESPIRATORY FATIMAH... Imaging Last Impressions Chest X-Ray 11/01/16 0000 Signed Impressions: Service Date/Time: Tuesday, November 01, 2016 04:41 - CONCLUSION: 1. Pleural-parenchymal density throughout the left lung and right midlung. No significant change. 2. Probable small pleural effusions. Buck Aparicio MD Upper Extremity Ultrasound 10/31/16 0000 Signed Impressions: Service Date/Time: Monday, October 31, 2016 14:18 - CONCLUSION: Deep venous thrombosis on the left as described above. Germain Calhoun MD FACR Hepatobiliary Scan Nuclear Medicine 10/26/16 0000 Signed Impressions: Service Date/Time: Wednesday, October 26, 2016 11:51 - CONCLUSION: 1. Activity is demonstrated in the gallbladder confirming patency of the cystic duct and making possibility of acute cholecystitis highly unlikely. 2. Patent common bile duct. Matthieu Apodaca MD Liver Ultrasound 10/25/16 0000 Signed Impressions: Service Date/Time: Tuesday, October 25, 2016 11:32 - CONCLUSION: 1. Probable single subcentimeter gallstone in the gallbladder. There is gallbladder wall thickening and trace pericholecystic fluid although the gallbladder is not significantly distended. Overall, the findings may reflect developing acute cholecystitis. Recommend HIDA scan to evaluate patency of the cystic duct if there is continued concern regarding cholecystitis. 2. Small 1.2 x 0.9 x 0.8 cm isoechoic mass in the left lobe of liver. Overall, the findings are nonspecific and further characterization is difficult due to small size. Differential considerations include both malignant and benign etiologies. This may be further evaluated with multiphase MRI exam on an outpatient basis. 3. Multiple bilateral right hepatic cysts measuring up to 4.1 cm, as above. Matthieu Apodaca MD Chest CT 10/24/16 0000 Signed Impressions: Service Date/Time: Monday, October 24, 2016 19:44 - CONCLUSION: 1. Small right pneumothorax. Pneumomediastinum adjacent to the right side of the esophagus. 2. Chronic severe bronchiectasis left greater than right. 3. New severe mixed groundglass and consolidative ulnar parenchymal opacity at the right lung. Differential diagnosis includes infection versus asymmetric pulmonary edema. 4. Multiple hepatic cysts. 5. Thyroid goiter. Yovany Dawn MD Physical Exam CONSTITUTIONAL/GENERAL: This is an adequately nourished patient, in no apparent distress. TUBES/LINES/DRAINS: SKIN: No jaundice, rashes, or lesions. Skin temperature appropriate. Not diaphoretic. CARDIOVASCULAR: irregular rate and rhythm + 2/6 systolic murmur No JVD. Peripheral pulses symmetric. RESPIRATORY/CHEST: Symmetric, unlabored respirations. few crackles on L side to auscultation. GASTROINTESTINAL: Abdomen soft, non-tender, mildly distended. GENITOURINARY: Without palpable bladder distension. Meier catheter in place with clear yellow urine MUSCULOSKELETAL: Extremities without clubbing, cyanosis LUE edema edema. NEUROLOGICAL: Awake and alert. Follows commands. Clear speech. Moves all extremities. PSYCHIATRIC:: calm and coopertive Assessment & Plan Remarks sp STEMI Acute VDRF, resolved PNA, MSSA, PSAE LUE DVT - new issue, on Lovenox Persistent leukocytosis ? steeroids cont cefepime x few more days if cont to improve, longer (up to 14 total days ) if persistent smx - fu WBC - fu clinically - repeat sputum clx dw Anamaria Perrin MD Nov 03, 2016 14:19
--- NOTE | 2016-11-03 16:31 | HHI.PR ---
Subjective Remarks ass extubated , ALERT NO DISTRESS onO2 BY SIMPLE MASK Objective Vital Signs Date Time Temp Pulse Resp B/P Pulse Ox O2 Delivery O2 Flow Rate FiO2 11/03/16 12:00 97.7 69 20 129/61 99 11/03/16 09:45 97 Nasal Cannula 3.00 11/03/16 08:35 92 11/03/16 08:15 Nasal Cannula 3.00 11/03/16 08:00 97.7 87 20 142/75 94 11/03/16 04:00 Nasal Cannula 3.00 11/03/16 04:00 97.7 78 18 159/72 97 11/03/16 00:00 Nasal Cannula 3.00 11/03/16 00:00 97.5 90 18 138/68 95 11/02/16 20:21 93 11/02/16 20:00 Nasal Cannula 3.00 11/02/16 20:00 97.9 94 18 124/61 95 11/02/16 16:31 98 Nasal Cannula 3.00 I/O 11/02/16 11/02/16 11/02/16 11/03/16 11/03/16 11/03/16 07:00 15:00 23:00 07:00 15:00 23:00 Intake Total 240 ml Output Total 350 ml 650 ml 700 ml 400 ml 700 ml Balance -350 ml -650 ml -700 ml -400 ml -460 ml Intake Oral 240 ml Output Urine Total 350 ml 650 ml 700 ml 400 ml 700 ml # Bowel Movements 1 Result Diagram: 11/03/1617 11/03/1617 Objective Remarks GENERAL: SKIN: Warm and dry. HEAD: Atraumatic. Normocephalic. EYES: Pupils equal and round. No scleral icterus. No injection or drainage. ENT: No nasal bleeding or discharge. Mucous membranes pink and moist. NECK: Trachea midline. No JVD. CARDIOVASCULAR: Regular rate and rhythm. RESPIRATORY: No accessory muscle use.scattered rhonchi bilaterally GASTROINTESTINAL: Abdomen soft, non-tender, nondistended. Hepatic and splenic margins not palpable. MUSCULOSKELETAL: Extremities without clubbing, cyanosis, or edema. No obvious deformities. NEUROLOGICAL: Awake and alert. No obvious cranial nerve deficits. Motor grossly within normal limits. Five out of 5 muscle strength in the arms and legs. Normal speech. PSYCHIATRIC: Appropriate mood and affect; insight and judgment normal. 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
[2016-11-03] MEDS: PANTOPRAZOLE SODIUM 40 MG VIAL IV PUSH SCH (17:59)
[2016-11-03] MEDS ORDERED: POTASSIUM CHLORIDE 25 MEQ EFFERVESCENT TAB PO ONE (20:00)
[2016-11-03] MEDS ORDERED: MORPHINE SULFATE 4 MG/ML INJ IV PUSH ONE (20:15)
[2016-11-03] MEDS: ATORVASTATIN 20 MG TAB PO SCH (21:00)
[2016-11-03 21:02] LABS: HEMATOCRIT 26.1 % (35.0-46.0); REVIEW FLAG FINAL
[2016-11-03 21:14] LABS: BICARBONATE 38.9 MEQ/L (21.0-32.0); MAGNESIUM 2.1 MG/DL (1.5-2.5)
[2016-11-03 21:29] LABS: POTASSIUM 2.8 MEQ/L (3.5-5.1)
[2016-11-03] MEDS: RESP: ALBUTEROL 2.5 MG/IPRATROPIUM 0.5 MG NEB (PRN) NEB (23:15)
[2016-11-04] VITALS: BP 108/53; PULSE 89; RESP 20; TEMP 97.7; O2SAT 98
[2016-11-04] MEDS: ACETAMINOPHEN/HYDROcodone 325 MG/7.5 MG TAB PO PRN ×2 (00:27→06:12)
[2016-11-04] MEDS: CEFEPIME INJ 2,000 MG in SODIUM CHLORIDE 0.9% INJ 100 ML IV SCH ×2 (01:49→08:15)
[2016-11-04 04:00] VITALS: BP 100/51; PULSE 96; RESP 20; TEMP 98.2; O2SAT 98
[2016-11-04] MEDS: CHLORHEXIDINE GLUCONATE 2 % 1 PACK (2 CLOTHS) TOP SCH (04:00)
[2016-11-04] MEDS: RESP: ALBUTEROL 2.5 MG/IPRATROPIUM 0.5 MG NEB (PRN) NEB (04:22)
[2016-11-04] MEDS: METHIMAZOLE 10 MG TAB PO SCH (06:11)
[2016-11-04] MEDS: CHLORHEXIDINE 0.12% (ORAL KIT) 15 ML CUP MT SCH (08:00)
--- NOTE | 2016-11-04 08:01 | PD.CARD.PN ---
Subjective Subjective Remarks No CP Objective Medications Current Medications Medications (Trade) Dose Ordered Sig/Najma Route Start Time Stop Time Status Last Admin (Aspirin Chew) 81 mg DAILY PO 10/25/16 09:00 11/03/16 08:29 (NS Flush) 2 ml UNSCH PRN .XX 10/24/16 20:00 10/28/16 08:09 (NS Flush) 2 ml BID .XX 10/24/16 21:00 11/03/16 21:02 (Tylenol) 650 mg Q6H PRN PO 10/24/16 20:00 (Tears Naturale Opth Soln) 1 drop TID EACH EYE 10/25/16 09:00 11/03/16 17:59 (Zofran Inj) 4 mg Q6H PRN IV 10/24/16 20:00 (Reglan Inj) 10 mg Q6H PRN IV 10/24/16 20:00 (Compazine Supp) 25 mg Q12H PRN RECTAL 10/24/16 20:00 Miscellaneous Information 1 Q361D XX 10/24/16 20:00 (Chlorhexidine 2% Cloth) Taper DAILY@04 TOP 10/25/16 04:00 10/21/17 03:59 11/02/16 04:00 (Chlorhexidine 2% Cloth) 3 pack UNSCH PRN TOP 10/24/16 20:00 (Olivia-Colace) 1 tab BID PO 10/24/16 21:00 11/03/16 21:00 (Milk Of Magnesia Liq) 30 ml Q12H PRN PO 10/24/16 20:00 10/28/16 08:07 (Senokot) 17.2 mg Q12H PRN PO 10/24/16 20:00 (Dulcolax Supp) 10 mg DAILY PRN RECTAL 10/24/16 20:00 Lactulose 30 ml 30 ml DAILY PRN PO 10/24/16 20:00 10/28/16 08:07 (Maxipime Inj/NS Inj) 100 ml @ 200 mls/hr Q8H IV 10/25/16 10:00 11/04/16 01:49 (Tapazole) 10 mg Q8HR PO 10/25/16 22:00 11/04/16 06:11 (Questran 4 Gm Pkt) 4 gm Q12HR PO 10/25/16 21:00 11/03/16 21:01 (Protonix Inj) 40 mg Q24H IV PUSH 10/25/16 16:00 11/03/16 17:59 (Peridex 0.12% Liq) 15 ml BID@08,20 MT 10/26/16 20:00 11/02/16 08:00 (Brethine Inj) 1 mg UNSCH PRN SQ 10/26/16 08:45 (D50w (Vial) Inj) 50 ml UNSCH PRN IV 10/27/16 07:45 (Glucagon Inj) 1 mg UNSCH PRN OTHER 10/27/16 07:45 (Free Water) 250 ml Q12HR G-TUBE 10/28/16 09:00 10/29/16 08:00 (Lopressor) 25 mg Q12HR PO 10/29/16 09:00 11/03/16 21:00 (Lipitor) 20 mg HS PO 10/29/16 21:00 11/03/16 21:00 (Bumex Inj) 1 mg DAILY IV PUSH 10/29/16 09:30 11/03/16 08:30 (Prinivil) 10 mg Q12HR PO 10/29/16 14:45 11/03/16 21:00 ([place] 5-325 Mg) 1 tab Q4H PRN PO 10/31/16 13:00 ([place] 7.5-325 Mg) 1 tab Q6H PRN PO 10/31/16 13:00 11/04/16 06:12 (Lovenox Inj) 60 mg BID SQ 10/31/16 21:00 11/03/16 21:01 (SoluCORTEF INJ) 50 mg BID IV PUSH 11/03/16 21:00 11/03/16 21:02 Vital Signs / I&O Vital Signs Date Time Temp Pulse Resp B/P Pulse Ox O2 Delivery O2 Flow Rate FiO2 11/04/16 04:00 Nasal Cannula 3.00 11/04/16 04:00 98.2 96 20 100/51 98 11/04/16 00:00 Nasal Cannula 3.00 11/04/16 00:00 97.7 89 20 108/53 98 11/03/16 20:00 98.0 97 22 129/67 95 11/03/16 20:00 Nasal Cannula 3.00 11/03/16 20:00 100 11/03/16 19:47 95 Nasal Cannula 4.00 11/03/16 16:00 97.7 81 20 129/81 100 11/03/16 14:30 96.0 68 18 113/54 98 11/03/16 12:00 97.7 69 20 129/61 99 11/03/16 09:45 97 Nasal Cannula 3.00 11/03/16 08:35 92 11/03/16 08:15 Nasal Cannula 3.00 I/O 11/03/16 11/03/16 11/03/16 11/04/16 11/04/16 11/04/16 07:00 15:00 23:00 07:00 15:00 23:00 Intake Total 240 ml 674 ml Output Total 400 ml 700 ml 1600 ml 300 ml Balance -400 ml -460 ml -926 ml -300 ml Intake Oral 240 ml 240 ml IV Total 434 ml Output Urine Total 400 ml 700 ml 1600 ml 300 ml # Bowel Movements 1 0 0 Physical Exam GENERAL: Well developed, well nourished. No acute distress, on vent HEENT: NA CHEST: Lungs wheeze to auscultation bilaterally. Unlabored respiratory effort. CARDIAC: Regular rate and rhythm without S3, S4, or murmur. ABDOMEN: Soft, nontender, no hepatosplenomegaly. Bowel sounds present. EXTREMITIES: No clubbing, cyanosis, or edema. Laboratory Laboratory Tests Test 11/03/16 20:15 Hemoglobin 8.4 GM/DL Hematocrit 26.1 % Sodium Level 141 MEQ/L Potassium Level 2.8 MEQ/L Chloride Level 97 MEQ/L Carbon Dioxide Level 38.9 MEQ/L Anion Gap 5 MEQ/L Blood Urea Nitrogen 25 MG/DL Creatinine 0.57 MG/DL Estimat Glomerular Filtration 104 ML/MIN Rate Random Glucose 147 MG/DL Calcium Level 8.1 MG/DL Magnesium Level 2.1 MG/DL Assessment and Plan Problem List: (1) Cardiomyopathy Assessment and Plan: etiology likely hypoxia/ on marcia/BB; - echo pending for re-eval of EF (2) PSVT (paroxysmal supraventricular tachycardia) Assessment and Plan: episodes <6 seconds on tele, on BB (3) Respiratory failure Assessment and Plan: more labored this am, Nursing to contact hospitalist as she recently had tx -ECHO now, (4) DVT (deep venous thrombosis) (5) Elevated troponin I level (6) Pulmonary edema Problem Qualifiers (1) Respiratory failure: Qualified Code: J96.00 - Acute respiratory failure, unspecified whether with hypoxia or hypercapnia (2) DVT (deep venous thrombosis): (3) Pulmonary edema: Qualified Code: J81.0 - Acute pulmonary edema Cami Romero MD Nov 04, 2016 08:01 Cami Romero MD Nov 04, 2016 08:01
[2016-11-04 08:03] VITALS: PULSE 119
[2016-11-04 08:07] VITALS: BP 128/57; PULSE 120; RESP 20; TEMP 97.9; O2SAT 100
[2016-11-04] MEDS: BUMETANIDE INJ 1 MG/4 ML VIAL IV PUSH SCH (08:11)
[2016-11-04] MEDS: HYDROCORTISONE SOD SUCCINATE 100 MG VIAL IV PUSH SCH (08:12)
[2016-11-04] MEDS: ENOXAPARIN SODIUM 60 MG/0.6 ML SYRINGE SQ SCH (08:15)
[2016-11-04] MEDS: METOPROLOL TARTRATE 25 MG TAB PO SCH (08:15)
[2016-11-04] MEDS: DOCUSATE SODIUM 50 MG/SENNA 8.6 MG TAB PO SCH (08:15)
[2016-11-04] MEDS: CHOLESTYRAMINE 4 GM PACKET PO SCH (08:16)
[2016-11-04] MEDS: ASPIRIN 81 MG CHEW TAB PO SCH (08:16)
[2016-11-04] MEDS: LISINOPRIL 10 MG TAB PO SCH (08:16)
[2016-11-04] MEDS: FREE WATER G-TUBE SCH (08:19)
[2016-11-04] MEDS: SODIUM CHLORIDE 0.9% FLUSH 10 ML FLUSH SCH (08:20)
[2016-11-04 08:24] VITALS: O2SAT 96
[2016-11-04] MEDS: RESP: BUDESONIDE 0.5 MG/2 ML NEB NEB SCH (08:24)
[2016-11-04] MEDS: ARTIFICIAL TEARS OPTH SOLN 15 ML BTL EACH EYE SCH (08:34)
--- NOTE | 2016-11-04 08:38 | EKG ---
Date Performed: 11/02/2016 Time Performed: 15:01:26 PTAGE: 70 years EKG: Sinus rhythm . Short NJ interval LVH with secondary repolarization abnormality Extensive ST-T changes are probably due to ventricular hypertrophy Abnormal ECG PREVIOUS TRACING : 10/25/2016 20.00 DOCTOR: Mervin Carlos Interpretating Date/Time 11/04/2016 08:35:12
[2016-11-04] MEDS ORDERED: POTASSIUM CHLOR 20 MEQ PREMIX 100 ML IV ONE (08:45)
[2016-11-04 08:48] LABS: BLOOD GAS BASE EXCESS 6.6 mmol/L (-2-2); BLOOD GAS CARBOXYHEMOGLOBIN 1.9 % (0-4); BLOOD GAS HCO3 30 mmol/L (22-26); BLOOD GAS O2 HGB SATURATION 95 % (90-100); BLOOD GAS OXYGEN CONTENT 9.3 Vol % (12.0-20.0); BLOOD GAS PCO2 43 mmHg (38-42); BLOOD GAS PO2 101 mmHg (61-120); BLOOD GAS TOTAL HGB 6.8 G/DL (12.0-16.0); TEMP CORR TO 98.6
[2016-11-04 08:49] LABS: CRITICAL VALUE YES; DRAW SITE RT BRACHIAL; LITER FLOW 4 L/M; NUMBER OF ARTERIAL PUNCTURES 2; OXYGEN DEVICE NASAL CANNULA; STAT YES; ULNAR PULSE PRESENT
--- NOTE | 2016-11-04 09:29 | HHI.PR ---
Subjective Remarks Follow-up for respiratory failure Lopez was called and I quickly came to see patient at bedside. Patient stated that she has increased shortness of breathing and stated "let me go now." She repeated that statement throughout the interview. She is AAO X 3. [facility] Nurse Edda stated that patient had stated this in the past while in the ICU during her hospitalization that she wanted to be let go. Patient also complained of chest pain that worsen with cough and movement. She was given morphine last night. Her and son are at the bedside. I reviewed code status with the family. Patient stated that she wants to be a DO NOT RESUSCITATE. I confirmed this with the patient to make sure this is what she wanted and also confirmed this with her family and son who were present throughout the entire interview. Family agreed to palliative care consult and agreed to pursue patient's wishes. Patient is competent and has the capacity to make medical decisions. [facility] Team, charge nurse and patient's nurse or at the bedside during the interview and examination. Objective Vitals Vital Signs Date Time Temp Pulse Resp B/P Pulse Ox O2 Delivery O2 Flow Rate FiO2 11/04/16 08:24 96 Nasal Cannula 4.00 11/04/16 04:00 Nasal Cannula 3.00 11/04/16 04:00 98.2 96 20 100/51 98 11/04/16 00:00 Nasal Cannula 3.00 11/04/16 00:00 97.7 89 20 108/53 98 11/03/16 20:00 98.0 97 22 129/67 95 11/03/16 20:00 Nasal Cannula 3.00 11/03/16 20:00 100 11/03/16 19:47 95 Nasal Cannula 4.00 11/03/16 16:00 97.7 81 20 129/81 100 11/03/16 14:30 96.0 68 18 113/54 98 11/03/16 12:00 97.7 69 20 129/61 99 11/03/16 09:45 97 Nasal Cannula 3.00 I/O 11/03/16 11/03/16 11/03/16 11/04/16 11/04/16 11/04/16 07:00 15:00 23:00 07:00 15:00 23:00 Intake Total 240 ml 674 ml Output Total 400 ml 700 ml 1600 ml 300 ml Balance -400 ml -460 ml -926 ml -300 ml Intake Oral 240 ml 240 ml IV Total 434 ml Output Urine Total 400 ml 700 ml 1600 ml 300 ml # Bowel Movements 1 0 0 Result Diagram: 11/03/16201411/03/162014 Objective Remarks GENERAL: in NAD but seems to be lethargic. CARDIOVASCULAR: Regular rate and rhythm without murmurs, gallops, or rubs. RESPIRATORY: Diffuse rhonchi. Bilateral basilar coarse crackles. No wheezing noted. GASTROINTESTINAL: Abdomen soft, non-tender, nondistended. MUSCULOSKELETAL: No cyanosis, or edema. BACK: Nontender without obvious deformity. No CVA tenderness. NEURO: AAO X 3. Medications and IVs Current Medications Propofol 100 ml @ As Directed STK-MED ONCE .ROUTE Last administered on 18:28; Start 10/24/16 at 18:17; Stop 10/24/16 at 18:18; Status DC Sodium Chloride (NS 1000 ml Inj) 1,000 ml @ 0 mls/hr Q0M ONCE IV Last administered on 10/24/16 18:44; Start 10/24/16 at 18:19; Stop 10/24/16 at 18:20 ; Status DC Sodium Chloride (NS Flush) 2 ml UNSCH PRN IVF FLUSH AFTER USING IV ACCESS; Start 10/24/16 at 18:30; Stop 10/24/16 at 20:16; Status DC Aspirin (Aspirin Chew) 324 mg NOW STAT PO ; Start 10/24/16 at 18:19; Stop 10/24 at 18:20; Status DC Nitroglycerin 0.4 mg 0.4 mg NOW STAT SL ; Start 10/24/16 at 18:19; Stop at 18:20; Status DC Nitroglycerin/ Dextrose (Nitroglycerin-Dextrose Inj) 250 ml @ 0 mls/hr TITRATE IV ; Start 10/24/16 at 18:30; Stop 10/26/16 at 07:16; Status DC Heparin Sodium (Porcine) 5000 units 5,000 units NOW STAT IV Last administered on 10/24/16 18:43; Start 10/24/16 at 18:19; Stop 10/24/16 at 18:20; Status DC Heparin Sodium/ Sodium Chloride (Heparin-NS/Pf Inj) 500 ml @ As Directed STK- MED ONCE .ROUTE ; Start 10/24/16 at 18:42; Stop 10/24/16 at 18:43; Status DC Sodium Nitroprusside 50 mg 50 mg STK-MED ONCE .ROUTE ; Start 10/24/16 at 18:43; Stop 10/24/16 at 18:44; Status DC Tirofiban/Sodium Chloride (Aggrastat Infusion Inj) 250 ml @ As Directed STK- MED ONCE IV ; Start 10/24/16 at 18:43; Stop 10/24/16 at 18:44; Status DC Heparin Sodium (Porcine) 92555 units 10,000 units STK-MED ONCE .ROUTE ; Start at 18:43; Stop 10/24/16 at 18:44; Status DC Nitroglycerin (Nitroglycerin Inj) 5 ml @ As Directed STK-MED ONCE .ROUTE ; Start 10/24/16 at 18:43; Stop 10/24/16 at 18:44; Status DC Heparin Sodium (Porcine) 57502 units 10,000 units STK-MED ONCE .ROUTE ; Start at 18:58; Stop 10/24/16 at 18:59; Status DC Dopamine HCl/ Dextrose (DOPamine INJ PREMIX) 500 ml @ As Directed STK-MED ONCE .ROUTE ; Start 10/24/16 at 19:13; Stop 10/24/16 at 19:14; Status DC Iohexol (Omnipaque 350 Inj) 50 ml STK-MED ONCE IV Last administered on 19:47; Start 10/24/16 at 19:47; Stop 10/24/16 at 19:48; Status DC Aspirin (Aspirin Chew) 81 mg DAILY PO Last administered on 11/04/16 08:16; Start 10/25/16 at 09:00 Methimazole (Tapazole) 5 mg BID PO Last administered on 10/25/16 08:43; Start 10/24/16 at 21:00; Stop 10/25/16 at 15:13; Status DC Iohexol 50 ml 50 ml STK-MED ONCE IV ; Start 10/24/16 at 19:52; Stop 10/24/16 at 19:53; Status Cancel Sodium Chloride (NS 1000 ml Inj) 1,000 ml @ 40 mls/hr Q24H IV Last administered on 10/28/16 07:33; Start 10/24/16 at 19:48; Stop 10/28/16 at 08:35 ; Status DC Sodium Chloride (NS Flush) 2 ml UNSCH PRN .XX FLUSH AFTER USING IV ACCESS Last administered on 10/28/16 08:09; Start 10/24/16 at 20:00 Sodium Chloride (NS Flush) 2 ml BID .XX Last administered on 11/04/16 08:20; Start 10/24/16 at 21:00 Acetaminophen (Tylenol) 650 mg Q6H PRN PO PAIN 1-2 AND/OR FEVER >101F; Start at 20:00 Morphine Sulfate (Morphine Inj) 2 mg Q2H PRN IV PAIN SCALE 6 TO 10 Last administered on 10/31/16 00:28; Start 10/24/16 at 20:00; Stop 10/31/16 at 12:11 ; Status DC Famotidine (Pepcid Inj) 20 mg Q12HR IV PUSH Last administered on 10/25/16 08: 45; Start 10/24/16 at 21:00; Stop 10/25/16 at 15:16; Status DC Lorazepam (Ativan Inj) 1 mg Q1H PRN IV Agitation/Sedation; Start 10/24/16 at 20 :00; Stop 10/26/16 at 07:16; Status DC Artificial Tears (Tears Naturale Opth Soln) 1 drop TID EACH EYE Last administered on 11/03/16 17:59; Start 10/25/16 at 09:00 Ondansetron HCl (Zofran Inj) 4 mg Q6H PRN IV NAUSEA OR VOMITING; Start at 20:00 Metoclopramide HCl (Reglan Inj) 10 mg Q6H PRN IV NAUSEA OR VOMITING; Start at 20:00 Prochlorperazine (Compazine Supp) 25 mg Q12H PRN RECTAL NAUSEA OR VOMITING; Start 10/24/16 at 20:00 Albuterol/ Ipratropium (Duoneb Neb) 1 ampule Q6HR NEB INH Last administered on 10/25/16 07:27; Start 10/24/16 at 22:00; Stop 10/25/16 at 09:40; Status DC Albuterol/ Ipratropium (Duoneb Neb) 1 ampule Q2HR NEB PRN INH WHEEZING; Start 10/24/16 at 20:00; Stop 10/25/16 at 08:45; Status DC Miscellaneous Information 1 Q361D XX ; Start 10/24/16 at 20:00 Chlorhexidine Gluconate (Chlorhexidine 2% Cloth) Taper DAILY@04 TOP Last administered on 11/02/16 04:00; Start 10/25/16 at 04:00; Stop 10/21/17 at 03:59 Chlorhexidine Gluconate (Chlorhexidine 2% Cloth) 3 pack UNSCH PRN TOP HYGIENIC CARE; Start 10/24/16 at 20:00 Senna/Docusate Sodium (Olivia-Colace) 1 tab BID PO Last administered on 08:15; Start 10/24/16 at 21:00 Magnesium Hydroxide (Milk Of Magnesia Liq) 30 ml Q12H PRN PO MILD - MODERATE CONSTIPATION Last administered on 10/28/16 08:07; Start 10/24/16 at 20:00 Sennosides (Senokot) 17.2 mg Q12H PRN PO MODERATE - SEVERE CONSTIPATION; Start 10/24/16 at 20:00 Bisacodyl (Dulcolax Supp) 10 mg DAILY PRN RECTAL SEVERE CONSITIPATION; Start at 20:00 Lactulose 30 ml 30 ml DAILY PRN PO SEVERE CONSITIPATION Last administered on 08:07; Start 10/24/16 at 20:00 Propofol (Diprivan 1000 Mg/100ml Inj) 100 ml @ 0 mls/hr TITRATE IV ; Start 10/24 at 20:00; Stop 10/25/16 at 08:51; Status DC Norepinephrine Bitartrate (Levophed Inj) 4 mg STK-MED ONCE .ROUTE ; Start at 20:10; Stop 10/24/16 at 20:11; Status DC Miscellaneous Information 1 ONCE ONCE XX ; Start 10/24/16 at 20:30; Stop at 20:31; Status DC Lidocaine HCl 10 ml 10 ml UNSCH PRN INFIL SHEATH REMOVAL; Start 10/24/16 at 20: 30; Stop 10/25/16 at 20:29; Status DC Fentanyl Citrate 250 ml @ 0 mls/hr TITRATE IV Last administered on 10/25/16 21 :30; Start 10/24/16 at 21:30; Stop 10/26/16 at 07:16; Status DC Midazolam HCl 100 ml @ 0 mls/hr TITRATE IV Last administered on 10/24/16 22:05 ; Start 10/24/16 at 21:30; Stop 10/26/16 at 07:17; Status DC Norepinephrine Bitartrate 250 ml @ As Directed STK-MED ONCE IV Last administered on 10/25/16 00:20; Start 10/25/16 at 00:15; Stop 10/25/16 at 00:16 ; Status DC Norepinephrine Bitartrate (Levophed-Dextrose Drip) 250 ml @ 0 mls/hr TITRATE IV Last administered on 10/25/16 21:30; Start 10/25/16 at 04:45; Stop 10/26/16 at 07:17; Status DC Albuterol Sulfate 2.5 mg 2.5 mg Q2HR NEB PRN NEB DYSPNEA; Start 10/25/16 at 08: 45; Stop 10/29/16 at 15:59; Status DC Potassium Chloride 100 ml @ 25 mls/hr BOLUS ONCE IV Last administered on 10/25 10:43; Start 10/25/16 at 11:00; Stop 10/25/16 at 14:59; Status DC Magnesium Sulfate/ Dextrose 100 ml @ 100 mls/hr Q1H IV Last administered on 12:56; Start 10/25/16 at 10:00; Stop 10/25/16 at 12:59; Status DC Potassium Phosphate 30 mmol/ Sodium Chloride 260 ml @ 43.333 mls/ hr ONCE ONCE IV Last administered on 10/25/16 14:29; Start 10/25/16 at 13:00; Stop at 18:59; Status DC Potassium Chloride 100 ml @ 50 mls/hr Q2H PRN IV For Potassium 2.8 - 3.2 mEq/ L Last administered on 10/31/16 15:00; Start 10/25/16 at 09:00; Stop 11/02/16 at 07:51; Status DC Potassium Chloride (KCl 20 Meq Premix Inj) 100 ml @ 50 mls/hr Q2H PRN IV For Potassium 2.8 - 3.2 mEq/L Last administered on 11/01/16t 17:30; Start 10/25/16 at 09:00; Stop 11/02/16 at 07:51; Status DC Potassium Bicarb/ Potassium Chloride 50 meq 50 meq UNSCH PRN PO For Potassium 3.3 - 3.5 mEq/L; Start 10/25/16 at 09:00; Stop 11/02/16 at 07:51; Status DC Potassium Chloride 100 ml @ 25 mls/hr UNSCH PRN IV For Potassium 3.3 - 3.5 mEq /L; Start 10/25/16 at 09:00; Stop 11/02/16 at 07:51; Status DC Potassium Chloride 100 ml @ 50 mls/hr Q2H PRN IV For Potassium 3.3 - 3.5 mEq/L ; Start 10/25/16 at 09:00; Stop 11/02/16 at 07:51; Status DC Magnesium Sulfate/ Sodium Chloride (Magnesium Sulfate Inj/NS Inj) 100 ml @ 50 mls/hr UNSCH PRN IV For Magnesium 0.9 - 1.1 mg/dL; Start 10/25/16 at 09:00; Stop 11/02/16 at 07:51; Status DC Magnesium Oxide 800 mg 800 mg UNSCH PRN PO For Magnesium 1.2 - 1.6 mg/dL; Start 10/25/16 at 09:00; Stop 11/02/16 at 07:51; Status DC Magnesium Sulfate/ Sodium Chloride (Magnesium Sulfate Inj/NS Inj) 100 ml @ 50 mls/hr UNSCH PRN IV For Magnesium 1.2 - 1.6 mg/dL; Start 10/25/16 at 09:00; Stop 11/02/16 at 07:51; Status DC Potassium Phosphate 2000 mg 2,000 mg Q4H PRN PO For Phosphorus < 2.5 mg/dL; Start 10/25/16 at 09:00; Stop 11/02/16 at 07:51; Status DC Sodium Phosphate/ Sodium Chloride (Sodium Phosphate Inj/NS 250 ml Inj) 250 ml @ 42 mls/hr UNSCH PRN IV For Phosphorus < 2.5 mg/dL Last administered on 00:20; Start 10/25/16 at 09:00; Stop 11/02/16 at 07:51; Status DC Potassium Phosphate 2000 mg 2,000 mg UNSCH PRN PO/TUBE SEE LABEL COMMENTS; Start 10/25/16 at 09:00; Stop 11/02/16 at 07:51; Status DC Potassium Phosphate/Sodium Chloride (Potassium Phosphate Inj/NS 250 ml Inj) 260 ml @ 42 mls/hr UNSCH PRN IV SEE LABEL COMMENTS; Start 10/25/16 at 09:00; Stop 11/02/16 at 07:51; Status DC Methylprednisolone Sodium Succinate (SoluMEDROL INJ) 40 mg Q8HR IV PUSH Last administered on 10/25/16 14:30; Start 10/25/16 at 14:00; Stop 10/25/16 at 15:16 ; Status DC Budesonide 0.5 mg 0.5 mg Q12HR NEB NEB Last administered on 11/04/16 08:24; Start 10/25/16 at 20:00 Cefepime HCl 2000 mg/Sodium Chloride 100 ml @ 200 mls/hr Q8H IV Last administered on 11/04/16 08:15; Start 10/25/16 at 10:00 Azithromycin 500 mg/Sodium Chloride 250 ml @ 250 mls/hr Q24H IV Last administered on 10/28/16 09:24; Start 10/25/16 at 11:00; Stop 10/29/16 at 06:57 ; Status DC Pharmacy Profile Note (Vancomycin Consult Pharmacy) 0 ml @ 0 mls/hr UNSCH OTHER ; Start 10/25/16 at 09:30; Stop 10/31/16 at 20:08; Status DC Enoxaparin Sodium (Lovenox Inj) 40 mg Q24H SQ Last administered on 10/31/16 11 :00; Start 10/25/16 at 11:00; Stop 10/31/16 at 16:18; Status DC Albuterol/ Ipratropium (Duoneb Neb) 1 ampule Q4HR NEB INH Last administered on 10/29/16 11:37; Start 10/25/16 at 12:00; Stop 10/29/16 at 12:00; Status DC Chlorhexidine Gluconate 15 ml 15 ml BID@08,20 MT Last administered on 08:00; Start 10/25/16 at 20:00; Stop 10/31/16 at 11:51; Status DC Vancomycin HCl/ Sodium Chloride (Vancomycin Inj/ NS 250 ml Inj) 262.5 ml @ 250 mls/hr Q24H IV Last administered on 10/28/16 14:04; Start 10/25/16 at 13:00; Stop 10/28/16 at 15:45; Status DC Miscellaneous Information SPECIFIC LAB TO BE DRAWN:VANCO TROUGH DATE TO... ONCE ONCE .XX Last administered on 10/28/16 14:00; Start 10/28/16 at 12:45; Stop 10/28/16 at 12:46; Status DC Methimazole (Tapazole) 10 mg Q8HR PO Last administered on 11/04/16 06:11; Start 10/25/16 at 22:00 Cholestyramine Resin (Questran 4 Gm Pkt) 4 gm Q12HR PO Last administered on 08:16; Start 10/25/16 at 21:00 Hydrocortisone Sodium Succinate (SoluCORTEF INJ) 100 mg Q8HR IV PUSH Last administered on 10/29/16 04:30; Start 10/25/16 at 22:00; Stop 10/29/16 at 06:58 ; Status DC Pantoprazole Sodium (Protonix Inj) 40 mg Q24H IV PUSH Last administered on 11/03 17:59; Start 10/25/16 at 16:00 Terbutaline Sulfate 1 mg 1 mg UNSCH PRN SQ For Extravasation; Start 10/25/16 at 16:15; Stop 10/26/16 at 07:17; Status DC Dopamine HCl 1600 mg/Dextrose 250 ml @ 1.56 mls/hr TITRATE IV ; Start 10/25/16 at 16:15; Stop 10/26/16 at 07:17; Status DC Metronidazole (Flagyl 500 Mg Inj) 100 ml @ 100 mls/hr Q8H IV Last administered on 10/29/16 00:22; Start 10/25/16 at 18:00; Stop 10/29/16 at 06:57 ; Status DC Furosemide (Lasix Inj) 40 mg STK-MED ONCE .ROUTE ; Start 10/26/16 at 03:25; Stop 10/26/16 at 03:26; Status DC Furosemide (Lasix Inj) 20 mg ONCE ONCE IV PUSH Last administered on 10/26/16 03:25; Start 10/26/16 at 03:25; Stop 10/26/16 at 03:35; Status DC Metoprolol Tartrate (Lopressor Inj) 5 mg STK-MED ONCE .ROUTE ; Start 10/26/16 at 06:28; Stop 10/26/16 at 06:29; Status DC Metoprolol Tartrate 5 mg 5 mg STAT ONCE IV PUSH Last administered on 06:30; Start 10/26/16 at 06:30; Stop 10/26/16 at 06:40; Status DC Potassium Chloride (KCl 40 Meq Premix Inj) 100 ml @ 25 mls/hr BOLUS ONCE IV Last administered on 10/26/16 07:56; Start 10/26/16 at 07:30; Stop 10/26/16 at 11:29; Status DC Chlorhexidine Gluconate 15 ml 15 ml BID@08,20 MT Last administered on 08:00; Start 10/26/16 at 20:00 Fentanyl Citrate 250 ml @ 0 mls/hr TITRATE IV Last administered on 10/28/16 13 :47; Start 10/26/16 at 08:45; Stop 10/29/16 at 15:56; Status DC Midazolam HCl (Versed Inj) 100 ml @ 0 mls/hr TITRATE IV Last administered on 08:07; Start 10/26/16 at 08:45; Stop 10/29/16 at 06:51; Status DC Etomidate (Amidate Inj) 20 mg ONCE ONCE IV PUSH Last administered on 09:19; Start 10/26/16 at 08:45; Stop 10/26/16 at 08:54; Status DC Rocuronium [place] (Zemuron Inj) 100 mg BOLUS ONCE IV ; Start 10/26/16 at 08:45 ; Stop 10/26/16 at 09:04; Status DC Rocuronium [place] 100 mg 100 mg STK-MED ONCE .ROUTE Last administered on 09:20; Start 10/26/16 at 08:44; Stop 10/26/16 at 08:45; Status DC Norepinephrine Bitartrate/Sodium Chloride (Levophed Inj/NS 250 ml Inj) 250 ml @ 0 mls/hr TITRATE IV Last administered on 10/28/16 04:52; Start 10/26/16 at 08: 45; Stop 10/29/16 at 06:52; Status DC Terbutaline Sulfate 1 mg 1 mg UNSCH PRN SQ For Extravasation; Start 10/26/16 at 08:45 Calcium Gluconate 1 gm/Sodium Chloride 110 ml @ 110 mls/hr ONCE ONCE IV Last administered on 10/26/16 17:41; Start 10/26/16 at 18:00; Stop 10/26/16 at 18:59 ; Status DC Lactated Ringer's (Lr 1000 ml Inj) 1,000 ml @ 999 mls/hr BOLUS ONCE IV Last administered on 10/26/16 18:00; Start 10/26/16 at 18:00; Stop 10/26/16 at 19:00 ; Status DC Bumetanide (Bumex Inj) 1 mg ONCE ONCE IV PUSH Last administered on 10/27/16 08:20; Start 10/27/16 at 07:45; Stop 10/27/16 at 07:46; Status DC Dextrose (D50w (Vial) Inj) 50 ml UNSCH PRN IV HYPOGLYCEMIA-SEE COMMENTS; Start 10/27/16 at 07:45 Glucagon (Glucagon Inj) 1 mg UNSCH PRN OTHER HYPOGLYCEMIA-SEE COMMENTS; Start 10/27/16 at 07:45 Insulin Human Regular (NovoLIN R SUPPLEMENTAL SCALE) 1 Q4H SQ Last administered on 11/01/16 20:52; Start 10/27/16 at 08:00; Stop 11/02/16 at 10:44 ; Status DC Iohexol 50 ml 50 ml STK-MED ONCE OTHER ; Start 10/24/16 at 15:00; Stop 10/27/16 at 15:30; Status DC Calcium Gluconate/ Sodium Chloride (Calcium Gluconate Inj/NS Inj) 110 ml @ 110 mls/hr ONCE ONCE IV Last administered on 10/28/16 09:23; Start 10/28/16 at 08 :00; Stop 10/28/16 at 08:59; Status DC Water (Free Water) 250 ml Q12HR G-TUBE Last administered on 10/29/16 08:00; Start 10/28/16 at 09:00 Bumetanide 1 mg 1 mg ONCE ONCE IV PUSH Last administered on 10/28/16 09:23; Start 10/28/16 at 08:45; Stop 10/28/16 at 08:52; Status DC Vancomycin HCl/ Sodium Chloride (Vancomycin Inj/ NS 250 ml Inj) 262.5 ml @ 250 mls/hr Q18H IV Last administered on 10/31/16 13:00; Start 10/29/16 at 06:00; Stop 10/31/16 at 14:17; Status DC Miscellaneous Information SPECIFIC LAB TO BE DRAWN:VANCOMYCIN TROUGH DATE TO... ONCE ONCE .XX Last administered on 10/31/16 12:45; Start 10/31/16 at 11:45; Stop 10/31/16 at 11:46; Status DC Epinephrine HCl (EPINEPHrine (1:10,000) INJ) 1 mg STK-MED ONCE IV ; Start at 05:00; Stop 10/28/16 at 16:06; Status DC Epinephrine HCl 30 mg 30 mg STK-MED ONCE IV ; Start 10/24/16 at 05:00; Stop at 16:06; Status DC Dopamine HCl/ Dextrose (DOPamine INJ PREMIX) 500 ml @ As Directed STK-MED ONCE IV ; Start 10/24/16 at 05:00; Stop 10/28/16 at 16:06; Status DC Epinephrine HCl (EPINEPHrine (1:10,000) INJ) 1 mg STK-MED ONCE IV ; Start at 05:00; Stop 10/28/16 at 16:13; Status DC Metoprolol Tartrate (Lopressor) 25 mg Q12HR PO Last administered on 11/04/16 08:15; Start 10/29/16 at 09:00 Atorvastatin Calcium (Lipitor) 20 mg HS PO Last administered on 11/03/16 21:00 ; Start 10/29/16 at 21:00 Hydrocortisone Sodium Succinate 50 mg 50 mg Q6HR IV PUSH Last administered on 05:35; Start 10/29/16 at 12:00; Stop 10/31/16 at 12:14; Status DC Calcium Gluconate/ Sodium Chloride (Calcium Gluconate Inj/NS Inj) 110 ml @ 110 mls/hr ONCE ONCE IV Last administered on 10/29/16 10:45; Start 10/29/16 at 10 :00; Stop 10/29/16 at 10:59; Status DC Bumetanide (Bumex Inj) 1 mg DAILY IV PUSH Last administered on 11/04/16 08:11 ; Start 10/29/16 at 09:30 Lisinopril (Prinivil) 10 mg Q12HR PO Last administered on 11/04/16 08:16; Start 10/29/16 at 14:45 Albuterol/ Ipratropium (Duoneb Neb) 1 ampule Q4HR NEB NEB Last administered on 11/02/16 12:09; Start 10/29/16 at 16:00; Stop 11/02/16 at 16:00; Status DC Albuterol/ Ipratropium (Duoneb Neb) 1 ampule Q2HR NEB PRN NEB SHORTNESS OF BREATH Last administered on 11/04/16 04:22; Start 10/29/16 at 16:00 Acetaminophen/ Hydrocodone Bitart ([place] 5-325 Mg) 1 tab Q4H PRN PO PAIN SCALE 3 TO 6; Start 10/31/16 at 13:00 Acetaminophen/ Hydrocodone Bitart ([place] 7.5-325 Mg) 1 tab Q6H PRN PO PAIN SCALE 7 TO 10 Last administered on 11/04/16 06:12; Start 10/31/16 at 13:00 Hydrocortisone Sodium Succinate 50 mg 50 mg Q8HR IV PUSH Last administered on 06:04; Start 10/31/16 at 14:00; Stop 11/03/16 at 11:35; Status DC Vancomycin HCl/ Sodium Chloride (Vancomycin Inj/ NS 250 ml Inj) 262.5 ml @ 250 mls/hr Q24H IV ; Start 11/01/16 at 14:00; Stop 11/01/16 at 14:00; Status DC Miscellaneous Information SPECIFIC LAB TO BE PAULINE... ONCE ONCE .XX ; Start 11/02 at 13:45; Stop 11/02/16 at 13:45; Status DC Enoxaparin Sodium (Lovenox Inj) 60 mg BID SQ Last administered on 11/04/16 08: 15; Start 10/31/16 at 21:00 Acetaminophen (Tylenol) 650 mg Q4H PRN PO SEE LABEL COMMENTS; Start 11/01/16 at 06:00; Stop 11/01/16 at 10:01; Status DC Diphenhydramine HCl (Benadryl) 25 mg Q4H PRN PO SEE LABEL COMMENTS; Start 11/01 at 06:00; Stop 11/01/16 at 10:01; Status DC Patient Medication Teaching (Coumadin Booklet) 1 STK-MED ONCE .ROUTE ; Start at 10:37; Stop 11/01/16 at 10:38; Status DC Potassium Chloride 40 meq 40 meq ONCE ONCE PO Last administered on 11/03/16 11:23; Start 11/03/16 at 10:45; Stop 11/03/16 at 10:46; Status DC Sodium Chloride (NS 250 ml Inj) 250 ml @ 15 mls/hr ONCE ONCE IV Last administered on 11/03/16 14:23; Start 11/03/16 at 11:15; Stop 11/04/16 at 03:54 ; Status DC Furosemide (Lasix Inj) 20 mg ONCE ONCE IV Last administered on 11/03/16 17:59 ; Start 11/03/16 at 11:15; Stop 11/03/16 at 11:16; Status DC Hydrocortisone Sodium Succinate (SoluCORTEF INJ) 50 mg BID IV PUSH Last administered on 11/04/16 08:12; Start 11/03/16 at 21:00 Potassium Bicarb/ Potassium Chloride (K-Lyte Cl Eff) 50 meq ONCE ONCE PO Last administered on 11/03/16 20:56; Start 11/03/16 at 20:00; Stop 11/03/16 at 20:07; Status DC Morphine Sulfate 2 mg 2 mg ONCE ONCE IV PUSH Last administered on 11/03/16 21 :02; Start 11/03/16 at 20:15; Stop 11/03/16 at 20:16; Status DC Potassium Chloride (KCl 20 Meq Premix Inj) 100 ml @ 50 mls/hr BOLUS ONCE IV Last administered on 11/04/16 09:04; Start 11/04/16 at 08:45; Stop 11/04/16 at 10:44 Date of Insertion: Oct 24, 2016 Line: Central Venous Catheter Side: Left Location: Subclavian A/P Assessment and Plan Symptomatic anemia -Patient was transfused 1 unit packed red blood cells on 11/03/2012 with appropriate response. -Continue to monitor. CAD/STEMI History of myocardial infarction status post angioplasty in the remote past. Status post cardiac catheterization by Dr. Romero. Ejection fraction 20%. Left main is straight and patent. Left circumflex, LAD and RCA with minimal coronary artery disease. - On Lopressor 25mg Q12, Lisinopril 10mg [id number] HR and BP keep MAP>65mmHg. - Currently on aspirin 81 mg daily/home medication. - On Lipitor 20 mg daily. -Per dog races manager will repeat echo. LUE DVT Swelling of the upper extremities. US revealed DVT. Hematology consult appreciated. - continue Lovenox and follow up with hematology. Likely transition to oral anticoagulant. Acute hypoxemic respiratory failure S/p intubation. Bronchiectasis, tiny right pneumothorax, right pneumomediastinum. - Continue with oxygen keep sat >92%. - Duo nebs every 4 hours with albuterol every 2 hours when necessary. - Pulmicort 0.5/2 one inhalation twice a day. - on Solu-Cortef 50mg IV Q8, continue to wean oxygen. - pulmonology following. - continue antibiotics. - physical therapy. -Although Halicat was called because patient complained of increased shortness of breathing but clinically she remained stable. ABG revealed viewed. Stat chest x-ray and BNP place. -Patient is on Bumex 1 mg IV daily. She does have good urine output. -Based on results may increase Bumex to twice a day. Elevated transaminases Likely secondary to shock liver versus acute cholecystitis. HIDA scan: Activity is demonstrated in the gallbladder confirming patency of the cystic duct and making possibility of acute cholecystitis highly unlikely. Patent common bile duct. Liver ultrasound 10/25 revealed tiny subcentimeter gallstone; Thickening of the gallbladder wall with pericholecystic fluid; Lesion in left lower lobe liver 1.2 x 0.8 x 0 point centimeters recommend outpatient MRI; Multiple right hepatic cysts largest 4.1 cm. Hepatitis panel negative. - Left lower lobe liver mass recommended outpatient MRI follow-up. - Resolved. Hyperthyroidism TSH 0.08. Free T4 1.52. Free T3 1.46. - On Tapazole 10 mg 3 times a day in light of low TSH. - outpt follow-up. PNA 10/26 Sputum cx: Pseudomonas species, Stap aureus, beta strep. 6/17 Sputum: Beta strep not Group A, pseudomonas species. ID consult appreciated. - continue IV cefepime per ID. -Per infectious disease may need longer duration of IV antibiotics. Clinically patient seems to be improving. White count most likely elevated due to steroids. Leukocytosis -Clinically patient is improving. Most likely elevation due to steroids. Hypokalemia Likely s/t decreased PO intake. - Replenish as needed. Deconditioned -Due to prolonged immobilization secondary to illness. -Physical therapist consulted. DVT - SCD/Lovenox subcutaneous Discharge Planning Patient continues to require IV antibiotics and does not feel like she getting better. She wishes to be a DO NOT RESUSCITATE. DO NOT RESUSCITATE placed. Palliative care consulted. Bisi Quispe MD Nov 04, 2016 09:29
--- NOTE | 2016-11-04 09:30 | RADRPT ---
EXAM DATE/TIME: 11/04/2016 08:31 [place] COMPARISON: CHEST SINGLE AP, November 01, 2016, 4:41. INDICATIONS : Stemi alert. MEDICAL HISTORY : Chronic obstructive pulmonary disease. Diverticulitis. SURGICAL HISTORY : None. ENCOUNTER: Subsequent ACUITY: 1 week PAIN SCORE: Non-responsive. LOCATION: Bilateral chest FINDINGS: Stable diffuse pleural, interstitial and airspace opacities throughout the left lung most prominently in the left lower lung zone. Probable trace right pleural effusion and associated right lower lobe a irspace disease also unchanged from prior exam. Cardiomediastinal contours are stable given degree of rotation. Bony thorax is intact. CONCLUSION: 1. Stable diffuse left lung pleural-parenchymal opacities most prominently in the lower lung zone. 2. Stable trace right pleural effusion and associated right lower lobe airspace disease. Matthieu Apodaca MD on November 04, 2016 at 9:19 Board Certified Radiologist. This report was verified electronically.
--- NOTE | 2016-11-04 10:51 | HHI.DS ---
Discharge Summary Admission Date Oct 24, 2016 at 18:58 Admitting Diagnosis STEMI Brief History - From Admission 70 years old female was brought in from home with h/o shortness of breath. Upon their arrival, patient was severely short of breath and her lungs sounded "wet" . She was given IV Lasix by EMS and was started on CPAP. Patient arrived in extremis, unable to speak due to the distress. There was no family member present to give additional history. EMS had done a 12 lead EKG en route which looked to them as STEMI. They called a STEMI alert. Patient however shook her head meaning "no" when I asked if she had any chest pain. Her BP was 135 systolic and heart rate of 125. Sats were 95% on the CPAP. Patient has suffered from cardiac arrest months in the emergency department and one or 2 times in the cardiac catheterization lab. CBC/BMP: 11/03/16201411/03/162014 Significant Findings Laboratory Tests Test 11/02/16 11/03/16 11/03/16 11/04/16 08:30 07:17 20:15 08:43 White Blood Count 19.5 TH/MM3 20.7 TH/MM3 (4.0-11.0) (4.0-11.0) Red Blood Count 2.86 MIL/MM3 2.54 MIL/MM3 (4.00-5.30) (4.00-5.30) Hemoglobin 7.8 GM/DL 7.0 GM/DL 8.4 GM/DL (11.6-15.3) (11.6-15.3) (11.6-15.3) Hematocrit 24.7 % 22.2 % 26.1 % (35.0-46.0) (35.0-46.0) (35.0-46.0) Mean Corpuscular Hemoglobin 31.6 % 31.5 % Concent (32.0-36.0) (32.0-36.0) Neutrophils (%) (Auto) 89.7 % (16.0-70.0) Lymphocytes (%) (Auto) 4.3 % (9.0-44.0) Neutrophils # (Auto) 17.4 TH/MM3 (1.8-7.7) Lymphocytes # (Auto) 0.8 TH/MM3 (1.0-4.8) Monocytes # (Auto) 1.0 TH/MM3 (0-0.9) Potassium Level 3.2 MEQ/L 3.0 MEQ/L 2.8 MEQ/L (3.5-5.1) (3.5-5.1) (3.5-5.1) Carbon Dioxide Level 37.8 MEQ/L 40.3 MEQ/L 38.9 MEQ/L (21.0-32.0) (21.0-32.0) (21.0-32.0) Blood Urea Nitrogen 25 MG/DL (7-18) 24 MG/DL (7-18) 25 MG/DL (7-18) Random Glucose 127 MG/DL 138 MG/DL 147 MG/DL (74-106) (74-106) (74-106) Calcium Level 8.2 MG/DL 7.9 MG/DL 8.1 MG/DL (8.5-10.1) (8.5-10.1) (8.5-10.1) B-Type Natriuretic Peptide 395 PG/ML (0-100) Sodium Level 146 MEQ/L (136-145) Chloride Level 97 MEQ/L (98-107) Blood Gas HCO3 30 mmol/L (22-26) Blood Gas Base Excess 6.6 mmol/L (-2-2) Arterial Blood pH 7.47 (7.380-7.420) Arterial Blood Partial 43 mmHg (38-42) Pressure CO2 Arterial Blood Oxygen Content 9.3 Vol % (12.0-20.0) Blood Gas Hemoglobin 6.8 G/DL (12.0-16.0) PE at Discharge GENERAL: in NAD but seems to be lethargic. CARDIOVASCULAR: Regular rate and rhythm without murmurs, gallops, or rubs. RESPIRATORY: Diffuse rhonchi. Bilateral basilar coarse crackles. No wheezing noted. GASTROINTESTINAL: Abdomen soft, non-tender, nondistended. MUSCULOSKELETAL: No cyanosis, or edema. BACK: Nontender without obvious deformity. No CVA tenderness. NEURO: AAO X 3. Bisi Quispe MD Nov 04, 2016 10:51
--- NOTE | 2016-11-04 11:27 | ECHRPT ---
Indication: Cardiomyopathy CONCLUSIONS Normal left ventricular size. Moderate to marked concentric left ventricular hypertrophy. The left ventricular systolic function is normal with an estimated ejection fraction in the range of 60-65%. No definite regional wall motion abnormalities are present. There is moderate tricuspid regurgitation. A pleural effusion is noted. A tiny posterior pericardial effusion may be present. BP: 159 / 72 HR: 98 Rhythm: Other MEASUREMENTS (Male / Female) Normal Values Technical Quality:Technically difficult study 2D ECHO LV Diastolic Diameter PLAX 3.4 cm 4.2 - 5.9 / 3.9 - 5.3 cm LV Systolic Diameter PLAX 3.0 cm IVS Diastolic Thickness 0.8 cm 0.6 - 1.0 / 0.6 - 0.9 cm LVPW Diastolic Thickness 0.6 cm 0.6 - 1.0 / 0.6 - 0.9 cm LV Relative Wall Thickness 0.4 RV Internal Dim ED PLAX 1.9 cm DOPPLER Mitral E Point Velocity 63.7 cm/s Mitral A Point Velocity 81.9 cm/s Mitral E to A Ratio 0.8 TR Peak Velocity 349.0 cm/s TR Peak Gradient 48.7 mmHg FINDINGS LEFT VENTRICLE Normal left ventricular size. Moderate to marked concentric left ventricular hypertrophy. The left ventricular systolic function is normal with an estimated ejection fraction in the range of 60-65%. No definite regional wall motion abnormalities are present. RIGHT VENTRICLE Normal right ventricular size and systolic function. LEFT ATRIUM The left atrial size is normal. RIGHT ATRIUM The right atrial size is normal. ATRIAL SEPTUM Normal atrial septal thickness without atrial level shunting by limited color doppler interrogation. AORTA The aortic root and proximal ascending aorta are normal in size on limited imaging. MITRAL VALVE Mitral annular calcification is present. AORTIC VALVE Aortic valve sclerosis is present. TRICUSPID VALVE There is moderate tricuspid regurgitation. PULMONARY VALVE The pulmonary valve is not well visualized. VESSELS The inferior vena cava is normal in size. PERICARDIUM A pleural effusion is noted. A tiny posterior pericardial effusion may be present. Eloy Guillen MD (Electronically Signed) Final Date:04 November 2016 11:26
== END 2016-11-04 16:14 | disposition expired ==
LOC: NEPC 18:07 → NEDA 18:58 → HIMW 21:05 → HIME 10-29 19:45 → N04B 11-01 18:00
PROVIDERS: ADMIT Family Medicine; ATTEND Family Medicine
PROC: 4A023N7 Measurement of Cardiac Sampling and Pressure, Left Heart, Percutaneous Approach (ICD-10-PCS; 2016-10-24)
PROC: B2151ZZ Fluoroscopy of Left Heart using Low Osmolar Contrast (ICD-10-PCS; 2016-10-24)
PROC: B2111ZZ Fluoroscopy of Multiple Coronary Arteries using Low Osmolar Contrast (ICD-10-PCS; 2016-10-24)
PROC: 04HY32Z Insertion of Monitoring Device into Lower Artery, Percutaneous Approach (ICD-10-PCS; 2016-10-25)
PROC: 0T9B70Z Drainage of Bladder with Drainage Device, Via Natural or Artificial Opening (ICD-10-PCS; 2016-10-25)
PROC: 0BH17EZ Insertion of Endotracheal Airway into Trachea, Via Natural or Artificial Opening (ICD-10-PCS; 2016-10-26)
PROC: 5A09357 Assistance with Respiratory Ventilation, Less than 24 Consecutive Hours, Continuous Positive Airway Pressure (ICD-10-PCS; principal; 2016-10-27)
PROC: 5A1955Z Respiratory Ventilation, Greater than 96 Consecutive Hours (ICD-10-PCS; 2016-10-27)
PROC: 5A12012 Performance of Cardiac Output, Single, Manual (ICD-10-PCS; 2016-10-27)
PROC: 0BH17EZ Insertion of Endotracheal Airway into Trachea, Via Natural or Artificial Opening (ICD-10-PCS; 2016-10-27)
PROC: 05H633Z Insertion of Infusion Device into Left Subclavian Vein, Percutaneous Approach (ICD-10-PCS; 2016-10-27)
PROC: 30233N1 Transfusion of Nonautologous Red Blood Cells into Peripheral Vein, Percutaneous Approach (ICD-10-PCS; 2016-11-01)
DX: I21.3 ST elevation (STEMI) myocardial infarction of unspecified site (principal); J96.01 Acute respiratory failure with hypoxia; R57.0 Cardiogenic shock; K72.00 Acute and subacute hepatic failure without coma; I50.21 Acute systolic (congestive) heart failure; E87.2 Acidosis; J18.9 Pneumonia, unspecified organism; I11.0 Hypertensive heart disease with heart failure; R13.10 Dysphagia, unspecified; J44.0 Chronic obstructive pulmonary disease with (acute) lower respiratory infection; I42.9 Cardiomyopathy, unspecified; J47.0 Bronchiectasis with acute lower respiratory infection; J93.9 Pneumothorax, unspecified; I82.622 Acute embolism and thrombosis of deep veins of left upper extremity; I47.1 Supraventricular tachycardia; E88.09 Other disorders of plasma-protein metabolism, not elsewhere classified; J84.10 Pulmonary fibrosis, unspecified; I25.10 Atherosclerotic heart disease of native coronary artery without angina pectoris; I25.2 Old myocardial infarction; E78.5 Hyperlipidemia, unspecified; K57.90 Diverticulosis of intestine, part unspecified, without perforation or abscess without bleeding; E04.2 Nontoxic multinodular goiter; D64.9 Anemia, unspecified; Z98.61 Coronary angioplasty status; K21.9 Gastro-esophageal reflux disease without esophagitis; E05.00 Thyrotoxicosis with diffuse goiter without thyrotoxic crisis or storm; E87.6 Hypokalemia; E83.42 Hypomagnesemia; E83.39 Other disorders of phosphorus metabolism; K80.20 Calculus of gallbladder without cholecystitis without obstruction; K76.89 Other specified diseases of liver; M10.9 Gout, unspecified; Z66 Do not resuscitate
CPT/HCPCS: 31500; 36430; 36556; 36600; 71010; 71260; 76705; 76937; 78226; 80048; 80053; 80074; 80076; 80198; 80202; 81001; 82310; 82435; 82533; 82550; 82552; 82565; 82805; 82947; 82948; 83735; 83880; 84100; 84132; 84155; 84295; 84439; 84443; 84481; 84484; 84520; 85002; 85007; 85014; 85018; 85025; 85027; 85610; 85730; 86077; 86403; 86850; 86870; 86900; 86901; 86920; 86922; 87040; 87070; 87077; 87086; 87147; 87186; 87205; 87449; 87641; 87804; 92950; 93005; 93306; 93458; 93970; 94002; 94003; 94150; 94640; 96365; 96375; A9537; C1769; C1893; C9113; J0171; J0456; J0610; J0692; J1265; J1644; J1650; J1720; J1940; J2250; J2270; J2920; J3010; J3246; J3370; J3475; J3480; J7030; J7050; J7120; J7626; P9016; Q9967